=== PATIENT | male | born 1945 | race Caucasian/White ===

== ENCOUNTER 2024-05-21 08:00 | Inpatient (IN) | payer OTHER, SELFPAY ==
[2024-05-21] VITALS (14 sets, daily range): BP systolic 99–152; BP diastolic 60–90; PULSE 44–132; RESP 16–22; TEMP 36.5–37.2; O2SAT 95–99; BMI 21.9
--- NOTE | 2024-05-21 08:34 | PC.NURSE ---
PATIENT BROUGHT IN BY EMS FOR COMPLAINT OF NEAR SYNCOPE. PER PATIENT HE WAS IN BATHROOM AND FELL AFTER FEELING DIZZY. PATIENT DENIES LOC, COMPLAINT OF LOWER BACK PAIN. PATIENT PLACED ON MONITOR, 12 LEAD EKG AT BEDSIDE. CALL LIGHT WITHIN REACH.
--- NOTE | 2024-05-21 09:18 | PD.EDFALL ---
ED Fall Injury RME/HPI General Chief Complaint: Fall Stated Complaint: FALL Time Seen by Provider: 05/21/24 09:18 Arrival date/time: 05/21/24 08:00 RME / HPI RME / HPI Narrative: 78 year old male presents to the ED BIBA from home for evaluation of fall today. States this morning woke up sweaty. Went to use the restroom and while washing his hands suddenly felt dizzy and light headed, causing to fall back and down to the floor. Per granddaughter at bedside, patients other grandchild reported the patient was unresponsive, length unknown, before the patient began to respond. While in the ED patient denies any pain to his head, neck, chest, back, abdomen, hips, or extremities. Denies fevers, chills, cough, shortness of breath, n/v/d, or urinary symptoms. Granddaughter adds patient has had episodes of confusion for 2 days and has an appointment scheduled tomorrow with the [facility]. Also noted on while at the [facility] for routine labs, they were unable to draw because the patient was dehydrated . Related Data Home Medications ?Medication ?Instructions ?Recorded ?Confirmed aspirin 81 mg tablet,delayed 81 mg PO QDAY 05/21/24 05/21/24 release celecoxib 200 mg capsule 200 mg PO QDAY 05/21/24 05/21/24 cetirizine 10 mg tablet 10 mg PO QDAY 05/21/24 05/21/24 finasteride 5 mg tablet 5 mg PO QDAY 05/21/24 05/21/24 lisinopril 40 mg tablet 40 mg PO QDAY 05/21/24 05/21/24 metoprolol succinate 50 mg 50 mg PO QDAY 05/21/24 05/21/24 tablet,extended release 24 hr omeprazole 20 mg capsule,delayed 20 mg PO QDAY 05/21/24 05/21/24 release simvastatin 80 mg tablet 80 mg PO QDAY 05/21/24 05/21/24 Allergies Allergy/AdvReac Type Severity Reaction Status Date / Time No Known Allergies Allergy Verified 05/21/24 08:26 Review of Systems Review of Systems Narrative Review of Systems: GEN: No fever, no chills, no weight loss EYES: No discharge, no visual changes, no pain HEENT: No ear pain, no congestion, no sore throat PULM: No shortness of breath, no cough, no congestion CV: +episode of light headedness with syncopal episode?. No chest pain, no dyspnea on exertion, no palpitations GI: No nausea, no vomiting, no diarrhea, no pain, no constipation : No frequency, no urgency and no dysuria MUSC/SKEL No joint pain, no back pain SKIN: No rash NEURO: No weakness, no headache Past Medical History Past Medical History CARDIAC: Positive Cardiac Disorders, Hypercholesterolemia and Hypertension; Negative Congestive Heart Failure RESPIRATORY: Negative Chronic Obstructive Pulmonary Disease (COPD) GASTROINTESTINAL: Positive Gastroesophageal Reflux Disease GENITOURINARY: Negative Renal Disease ENDOCRINE: Negative Diabetes Mellitus Type 1 or Diabetes Mellitus Type 2 OTHER HISTORY: Negative Autoimmune Disease Family History FAMILY HISTORY: Negative Family Psychiatric Problems, Family Respiratory Disorders, Family Cardiac Disorders, Family Gastrointestinal Problems, Family Genitourinary Problems, Family Endocrine Disorders, Family Reproductive Disorders, Family Musculoskeletal Disorders, Family Cancer, Family Surgery or Family Anesthesia Reaction Social History SMOKING STATUS: Never smoker ED Exam Narrative Physical exam: GENERAL APPEARANCE: Well hydrated, well nourished, in no acute distress. VITALS: All vitals were reviewed and the pulse ox is 96% on room air which is normal according to my interpretation. HEENT: Normocephalic, atramatic, EOMI, EACs are patent. There is no bulge or retraction. Throat without erythema or exudate. Moist oromucosa. No jaundice NECK: Supple, no JVD or bruits. CARDIOVASCULAR: Fast and irregular heart beat, without S3-S4 or murmur. No rubs or gallops. LUNGS/CHEST: Clear to auscultation bilaterally. No rales, rhonchi, or wheezing. Normal inspection. ABDOMEN: Soft, nontender, with normal bowel sounds. No pulsatile masses. No rebound, rigidity, or guarding. No incarcerated hernia. Normal inspection and palpation. EXTREMITIES: Normal inspection and palpation. No edema, clubbing, or cyanosis. Intact CSM SKIN: Warm and dry without rashes. Normal inspection. MUSCULOSKELETAL: Normal inspection. No gross deformity, full ROM all extremities NEURO: Alert and oriented x3. Cranial nerves II through XII grossly intact. There are no other motor or sensory deficits noted. PSYCHIATRIC: Normal mood and affect. No psychosis Course Quality Measures none Orders Category Date Time Status Horticulture Teacher Q4H START 00 Care 12/22/24 09:34 Completed EKG (ED ONLY) *Do not use* NOW Care 05/21/24 09:18 Completed Saline [Insert IV] NOW Care 05/21/24 09:34 Completed Consult to Cardiology Stat Cons 05/21/24 11:[address] head/brain wo con Stat Exams 05/21/24 09:34 Completed EKG (ED Only) Stat Exams 05/21/24 09:17 Ordered CBC Stat Lab 05/21/24 10:10 Completed CMP [Comprehensive Metabolic Panel] Stat Lab 05/21/24 10:10 Completed Drug Screen,Urine Stat Lab 05/21/24 09:36 Ordered Free T4 (Free Thyroxine) Stat Lab 05/21/24 10:10 Completed Magnesium Stat Lab 05/21/24 10:10 Completed Troponin I Stat Lab 05/21/24 10:10 Completed Amiodarone 150 mg Ivpb [Nexterone Ivpb] Med 05/21/24 09:34 Discontinued 150 mg in 100 ml IV 600 mls/hr Amiodarone 360 mg Ivpb [Nexterone Ivpb] Med 05/21/24 15:33 Active 360 mg in 200 ml IV 16.667 mls/hr Amiodarone 360 mg Ivpb [Nexterone Ivpb] Med 05/21/24 09:34 Active 360 mg in 200 ml IV 33.333 mls/hr Vital Signs Vital signs: Vital Signs Temperature 97.7 F 05/21/24 08:02 Pulse Rate 44 L 05/21/24 08:02 Respiratory Rate 16 05/21/24 08:02 Blood Pressure 140/60 H 05/21/24 08:02 Pulse Oximetry (%) 96 05/21/24 08:02 Oxygen Delivery Method Nasal Cannula 05/21/24 08:02 Oxygen Flow Rate 2 05/21/24 08:02 Fall MDM Narrative MDM Narrative:: Petty Cintron am scribing for and in the presence of Dr. Ulloa. Patient presented to the emergency department, accompanied by his granddaughter. Twelve-lead EKG that was done at 8:32 AM and interpreted by me: Atrial fibrillation which I think is new because there is no old EKG to compare with intervention does not have any history of A-fib before. Normal axis. No ST elevation or depression. No PVC. No STEMI. May be an incomplete right bundle branch block CT brain was reviewed and interpreted by me: No bleed. No mass. No shift. No swelling. Normal ventricle. Normal skull. In the emergency department the patient was started on amiodarone according to protocol. And is doing very well. Heart rate is fluctuating between 90 and 110. But the patient did not have any chest pain. WBC count 3.5. Sodium of 131. BUN of 28 creatinine 1.4 may be secondary to dehydration. Magnesium negative. Thyroxine level is negative. Troponin is however elevated at 1.44. 11:25 AM, I spoke to discussed with Dr. Antony, resident of Dr. Tang, hospitalist on-call. She agreed to admit for further evaluation and treatment. Thank you 11:30 AM, I spoke to discussed with Dr. Kwon, medical staff assistant on-call. He agreed to consult Critical care time is approximately 35 minutes excluding any procedure. The high probability of sudden, clinically significant deterioration in the patient?s condition required the highest level of my preparedness to intervene urgently. The services I provided to this patient were to treat and/or prevent clinically significant deterioration. Services included the following: chart data review, reviewing nursing notes and/or old charts, documentation time, leasing sales consultant collaboration regarding findings and treatment options, medication orders and management, direct patient care, vital sign assessments and ordering, interpreting and reviewing diagnostic studies and lab tests. Aggregate critical care time includes only time during which I was engaged in work directly related to the patient?s care, as described above, whether at bedside or elsewhere in the Emergency Department. It did not include time spent performing other reported procedures or the services of residents, students, nurses or physician assistants. Patient data External records reviewed:: EMS form Clinical information provided by:: patient and EMS Social determinants that could affect healthcare access:: none Patient has the following chronic illnesses:: HTN How is presenting disease/condition affected by chronic disease/condition?: uneffected by Evaluation data The following diagnostics were reviewed and interpreted by me:: lab results, radiology exam(s) and EKG tracing(s) Lab and/or radiology exams considered but not ordered:: None Interpretation Summary: Ordering Physician: Antoine Ulloa MD Date of Service: 05/21/24 Procedure(s): CT head/brain wo con Accession Number(s): [id number] cc: Kale Corea MD; Antoine Ulloa MD~ Examination: CT brain head without contrast. 2-D sagittal coronal reconstructions Date and time of exam:May 21, 2024 0951 hrs. Indications: Patient fell today with injury to the head, head pain CTDI: vol (mGy):47.4 DLP: (mGycm):1009 Technique: Multiple CT axial sections of the brain have been obtained, 5 mm slice thickness. Contrast has not been administered. 2-D sagittal, coronal reconstructions have been obtained Low dose protocols were performed. One or more of the following dose reduction techniques were used; automated exposure control, adjustment of the mA and/or KV according to patient size, use of iterative reconstruction technique. Findings: No significant ventricular enlargement. Intra-axial or extra-axial hemorrhage density is not seen. No mass effect or midline shift Basal cisterns are not remarkable. Fourth ventricle is midline. Cranial vault intact. Bilateral acute maxillary sinusitis Impression: Negative for acute hemorrhage, mass effect or midline shift Dictated By: Kale Corea MD Signed By: <Electronically signed by Kale Corea MD in OV> 05/21/24 0959 Medications / Prescriptions Medications or Prescriptions considered but not ordered:: None Medication administrations:: Medication Administration History Amiodarone HCl/Dextrose (Nexterone Ivpb) 360 mg in 200 mls @ 33.333 mls/hr IV .Q6H ONE Stop: 05/21/24 15:33 Last Admin: 05/21/24 10:33 Dose: 33.333 mls/hr Documented By: TESS Amiodarone HCl/Dextrose (Nexterone Ivpb) 360 mg in 200 mls @ 16.667 mls/hr IV .Q12H LAURA Stop: 05/22/24 15:32 Discontinued Medications Amiodarone HCl/Dextrose (Nexterone Ivpb) 150 mg in 100 mls @ 600 mls/hr IV .Q10M ONE Stop: 05/21/24 09:43 Last Infusion: 05/21/24 10:37 Dose: Infused Documented By: Admin: 05/21/24 10:14 Dose: 600 mls/hr Documented By: TESS See above Consultations Consultation(s) initiated? (list below): Yes Consultation #1 (Physician, Specialty, Details): I spoke with resident Dr. Antony working with Dr. Tang. Discussed patients PMHx, HPI, ED course, exam findings, labs, and radiology results. The hospitalist agree to accept the patient for admission. Time: 11:25 Consultation #2 (Physician, Specialty, Details): I spoke with medical staff assistant Dr. Malik Galvez. Discussed patients PMHx, HPI, ED course, exam findings, labs, and radiology results. He agrees to consult. Time: 11:31 Diagnosis Fall Differential Diagnosis: syncope and other (Viral illness, UTI, pneumonia ) Most likely diagnosis given after review of the tests above:: Syncope new onset atrial fibrillation elevated troponin Admission Indicated Admission indicated?: indicated Admission Request Was there a request for admission?: Yes Admission Attestation Admission request attestation: Discussed case with [] from Hospitalist service regarding admission. Discussed patients ED course, exam findings, labs, and radiology results. The Hospitalist [agrees,declines] to accept the patient for admission. Disposition Plan Disposition Plan: Admit Discharge Plan Plan Patient Disposition: Admit Acute Care w/in Hospital Disposition Comment: Stable for admit Prescriptions/Referrals Prescriptions/Med Rec: No Action celecoxib 200 mg Capsule 200 mg PO QDAY cetirizine 10 mg Tablet 10 mg PO QDAY metoprolol succinate 50 mg Tablet Extended Release 24 Hr 50 mg PO QDAY finasteride 5 mg Tablet 5 mg PO QDAY simvastatin 80 mg Tablet 80 mg PO QDAY aspirin [Aspir-81] 81 mg Tablet,Delayed Release (Dr/Ec) 81 mg PO QDAY omeprazole 20 mg Capsule,Delayed Release(Dr/Ec) 20 mg PO QDAY lisinopril 40 mg Tablet 40 mg PO QDAY Referrals: No Primary/Family,Physician [Primary Care Provider] - In 1 week Problem List Clinical Impression: Atrial fibrillation, new onset, Syncope, Elevated troponin Patient/Caregiver Discharge Instructions Print Language: Lithuanian Stand Alone Forms: Becky Award Info., Patient Portal Info Letter
--- NOTE | 2024-05-21 09:34 | XR_ITS ---
Examination: CT brain head without contrast. 2-D sagittal coronal reconstructions Date and time of exam:May 21, 2024 0951 hrs. Indications: Patient fell today with injury to the head, head pain CTDI: vol (mGy):47.4 DLP: (mGycm):1009 Technique: Multiple CT axial sections of the brain have been obtained, 5 mm slice thickness. Contrast has not been administered. 2-D sagittal, coronal reconstructions have been obtained Low dose protocols were performed. One or more of the following dose reduction techniques were used; automated exposure control, adjustment of the mA and/or KV according to patient size, use of iterative reconstruction technique. Findings: No significant ventricular enlargement. Intra-axial or extra-axial hemorrhage density is not seen. No mass effect or midline shift Basal cisterns are not remarkable. Fourth ventricle is midline. Cranial vault intact. Bilateral acute maxillary sinusitis Impression: Negative for acute hemorrhage, mass effect or midline shift
[2024-05-21] MEDS: AMIODARONE 150 MG IVPB 150 MG/100 ML BAG 600 MG IV (10:14)
[2024-05-21] MEDS: AMIODARONE 360 MG IVPB 360 MG/200 ML BAG 33.333 MG IV (10:33)
[2024-05-21 10:46] LABS: Basophils % (Auto) 0 % (0-2.5); Eosinophils % (Auto) 0 % (0-10); Hematocrit 39.9 % (41.0-53.0); Hemoglobin 14.2 g/dL (13.5-16.0); Immature Granulocytes % (Auto) 0 % (0-0); Immature Granulocytes Auto 0.01 Thou/mm3 (0.00-0.00); Lymphocytes # (Auto) 0.5 Thou/mm3 (1.0-4.8); Lymphocytes % (Auto) 15 % (10-50); Mean Corpuscular HGB Conc 35.6 g/dl (31.0-37.0); Mean Corpuscular Hemoglobin 32.6 pg (25.0-35.0); Mean Corpuscular Volume 92 fL (80-100); Monocytes # (Auto) 0.6 Thou/mm3 (0.0-0.8); Monocytes % (Auto) 17 % (0-12); Neutrophils # (Auto) 2.4 Thou/mm3 (1.8-7.7); Neutrophils % (Auto) 68 % (37-80); Nucleated Red Blood Cell % 0 /100 WBC (0); Platelet Count 201 Thou/mm3 (140-440); RDW Standard Deviation 42.5 fL (35.1-43.9); Red Blood Count 4.35 Miln/mm3 (4.50-5.90); White Blood Count 3.5 Thou/mm3 (3.8-10.6)
[2024-05-21 10:50] LABS: Alanine Aminotransferase 27 U/L (10-49); Albumin, Serum 4.4 gm/dL (3.4-4.8); Albumin/Globulin Ratio 1.8 (1.2-2.2); Alkaline Phosphatase 46 U/L (46-116); Anion Gap 11 (7-16); Aspartate Amino Transferase 59 U/L (0-34); BUN/Creatinine Ratio 20 Ratio (12-20); Bilirubin,Total 0.6 mg/dL (0.3-1.2); Blood Urea Nitrogen 28 mg/dL (9-23); Calcium 9.4 mg/dL (8.3-10.6); Calcium (Corrected) 9.4 mg/dL (8.5-10.1); Carbon Dioxide 23.7 mMol/L (20.0-31.0); Chloride 96 mMol/L (98-107); Creatinine (Component) 1.4 mg/dL (0.6-1.3); Estimated Creatinine Clearance 40.3 mL/min (>60); Free T4 (Free Thyroxine) 1.37 ng/dL (0.89-1.76); Globulin 2.5 gm/dL (2.3-3.5); Glucose 123 mg/dL (74-106); Osmolality,Calculated 269 (275-295); Potassium 3.5 mMol/L (3.4-5.1); Sodium 131 mMol/L (136-145); Total Protein 6.9 gm/dL (5.7-8.2); eGFR 52 See Note
[2024-05-21 10:52] LABS: Troponin I 1.441 ng/mL (0.0-0.045)
[2024-05-21] MEDS: ASPIRIN EC 81 MG TABEC PO (11:54)
--- NOTE | 2024-05-21 11:57 | XR_ITS ---
Examination: AP chest single view Technique: AP portable semiupright chest single view Exam date and time: May 21, 2024 1209 hrs. Indications: Chest pain shortness of breath today. Findings: Early CHF Mild enlargement cardiac contour Prominent vascular congestion including central vascular engorgement Early perihilar basilar edema Prominent osteopenia Impression: Early CHF
--- NOTE | 2024-05-21 12:00 | ECHO_ITS ---
Transthoracic Echo Report Ht (in): 67 Wt (lb): 140 Exam Location: Echo Lab Status: Emergency Superintendent Pressure: Caroline Egan Indications: Procedure Performed: BP: 131 / 82 HR: Technical Quality: Technically difficult study MEASUREMENTS (Male / Female) Normal Values 2D ECHO LV Diastolic Diameter PLAX 4.3 cm 4.2 - 5.9 / 3.9 - 5.3 cm LV Systolic Diameter PLAX 3.2 cm IVS Diastolic Thickness 1.0 cm 0.6 - 1.0 / 0.6 - 0.9 cm LVPW Diastolic Thickness 1.2 cm 0.6 - 1.0 / 0.6 - 0.9 cm LV Relative Wall Thickness 0.5 LVOT Diameter 1.7 cm LV Ejection Fraction MOD BP 35.4 % >= 55 % LV Ejection Fraction MOD 4C 30.6 % LV Ejection Fraction 4C AL 30.6 % LV Ejection Fraction MOD 2C 43.6 % LV Ejection Fraction 2C AL 44.1 % LA Volume Index 29.1 cm?/m? 16 - 28 cm?/m? DOPPLER AV Peak Velocity 110.0 cm/s AV Peak Gradient 4.8 mmHg AV Mean Gradient 3.0 mmHg AV Velocity Time Integral 19.7 cm AI Peak Velocity 347.0 cm/s AI Peak Gradient 48.2 mmHg AI Pressure Half Time 396.5 ms LVOT Peak Velocity 79.1 cm/s LVOT Peak Gradient 2.5 mmHg LVOT Velocity Time Integral 12.1 cm AV Area Cont Eq vti 1.4 cm? AV Area Cont Eq pk 1.6 cm? MV Area PHT 5.6 cm? MR Peak Velocity 540.0 cm/s MR Peak Gradient 116.6 mmHg Mitral E Point Velocity 84.4 cm/s Mitral A Point Velocity 46.6 cm/s Mitral E to A Ratio 1.8 LV E' Lateral Velocity 10.0 cm/s Mitral E to LV E' Lateral Ratio 8.4 LV E' Septal Velocity 8.2 cm/s Mitral E to LV E' Septal Ratio 10.3 TR Peak Velocity 323.0 cm/s TR Peak Gradient 41.7 mmHg PV Peak Velocity 103.0 cm/s PV Peak Gradient 4.2 mmHg FINDINGS Left Ventricle Normal left ventricular size. Mild LVH. The ejection fraction is visually estimated at 50 %. Hypokin etic mid- anterolateral wall motion. Right Ventricle The right ventricle is normal in size and systolic function. The estimated right ventricular systoli c pressure, 47 mmHg. RAP 5. Left Atrium The left atrium is normal by two-dimensional, color flow and Doppler imaging with no structural abnormalities, no thrombus formation present. Right Atrium The right atrium is normal by two-dimensional imaging, color flow and Doppler imaging with no struct ural abnormalities, no thrombus formation present. Atrial Septum The interatrial septum appears normal with no evidence of a shunt. Aorta The aorta is normal by two-dimensional, color flow and Doppler interrogation. Mitral Valve The mitral valve is normal by two-dimensional, color flow and Doppler interrogation. There is modera te mitral valve regurgitation, stenosis or prolapse. Aortic Valve Moderate aortic valve regurgitation. Tricuspid Valve The tricuspid valve is normal by two-dimensional, color flow and Doppler interrogation. There is mil d tricuspid valve regurgitation. Pulmonic Valve The pulmonic valve is not well visualized. There is no significant pulmonic valve regurgitation. Vessels The pulmonary artery appears normal. The inferior vena cava pulmonary and hepatic veins appear arian l. Pericardium The pericardium is normal by two-dimensional imaging. There is no significant pericardial effusion. CONCLUSIONS Indication: New Afib RVR Normal LV size. Mild LVH. Estimated EF 50 %. RV is normal in size and systolic function. The estimated right ventricular systolic pressure, 47 mm Hg. RAP 5. Mild aortic regurgitation Mild MR and TR. Jodie Rodriguez (Electronically Signed) Final Date: 23 May 2024 12:57
--- NOTE | 2024-05-21 12:04 | PD.RESHP ---
Documentation for date of: 05/21/24 [facility] History of Present Illness History of present illness: This is a 78-year-old male with PMHx of HTN, HLD, GERD, environmental allergies, presenting to ED allowing a syncopal episode this morning. Per patient, he has been feeling unwell for the last couple days with worsening fatigue, decreased appetite and generalized weakness. He woke up feeling sweaty and increasingly fatigued. He was able to ambulate independently to the bathroom, however felt dizzy and passed out after using the restroom. He remembers the event vaguely, remembers falling, denies head trauma, denies receding symptoms, however he was found passed out on the floor by his grandson. Unclear how long patient was out for. Patient also endorsing persistent dry cough over the last couple weeks. Admits to a 5 lb weight loss over the last 2 weeks, believes related to poor appetite as a result of feeling sick. Denies fevers, chills, headache, visual changes, hearing changes, speech abnormalities, chest pain or pressure, palpitations, shortness of breath, productive cough, GI symptoms including abdominal pain or N/V/D/C, extremity weakness, or urinary symptoms. ED COURSE: Afebrile, BP 140/60, HR 44 then 132, RR 16, satting 96% on 2 L NC WBC 3.5, Hgb 14.2 Odium 131, CR 1.4, BUN 28, GFR 52, GLUCOSE 123, AST 159 Troponin 1.441, EKG A-fib with RVR as well as NSTEMI CT negative for acute pathology Patient started on AMIODARONE drip, HR improved. Hospitalist team was consulted. We will admit patient to telemetry. We started HEPARIN drip ACS protocol. Cardiology consulted. Pending repeat EKG, troponin trend, BNP and echocardiogram. PMHx: HTN, HLD, GERD, environmental allergy PSHx: None MEDS: METOPROLOL, LISINOPRIL, SIMVASTATIN, OMEPRAZOLE, FINASTERIDE, CETIRIZINE, CELECOXIB, ASPIRIN ALLERGIES: No known allergies SH: Distant history of smoking, quit 20 years ago. Denies current alcohol or drug use Exam Vital Signs Temp Pulse Resp BP Pulse Ox O2 Del Method O2 Flow Rate 97.8 F 96 20 101/84 96 Room Air 2 05/21/24 10:15 05/21/24 11:45 05/21/24 11:45 05/21/24 11:45 05/21/24 11:45 05/21/24 11:45 05/21/24 08:02 Narrative Exam GENERAL: Ill-appearing elderly man, slightly cachectic, NAD HEENT: NCAT.?REINIER. Oral mucosa is moist. Patent Nares NECK: Supple, nontender, no thyromegaly, no meningismus, no JVD, no step offs CHEST: Symmetrical, atraumatic, and with equal expansion, Nontender on palpation no deformity and no crepitus. CARDIOVASCULAR: Slightly difficult exam, distant heart sounds, regular irregular rhythm, did not appreciate murmurs, rubs or gallops. LUNGS: CTAB, no w/r/r. Symmetrical chest rise. No intercostal subcostal retraction. ABDOMEN: Soft, flat, nontender. No guarding/rebound tenderness/masses. +BS EXTREMITIES: Nontender.? No edema/cyanosis.?Moves all 4 extremities well, with full ROM and good CSM. SKIN: Warm and dry, no jaundice/rashes. MSK: No lumbar or midline, no CVA, no paraspinal muscle spasm or tenderness. NEURO: LACY x4, CN II-XII grossly intact.?No focal neurologic deficits. PSYCHIATRIC: Normal mood and affect, cooperative, no SI or HI or hallucinations. Results: Labs 05/21/24 10:10 05/21/24 10:10 Labs: Short CBC 05/21/24 Range/Units 10:10 WBC 3.5 L (3.8-10.6) Thou/mm3 Hgb 14.2 (13.5-16.0) g/dL Hct 39.9 L (41.0-53.0) % Plt Count 201 (140-440) Thou/mm3 BMP 05/21/24 10:10 Sodium 131 L Potassium 3.5 Chloride 96 L Carbon Dioxide 23.7 BUN 28 H Creatinine 1.4 H Glucose 123 H Calcium 9.4 Cardiac Enzymes 05/21/24 Range/Units 10:10 Troponin I 1.441 H* (0.0-0.045) ng/mL Liver Function 05/21/24 Range/Units 10:10 Total Bilirubin 0.6 (0.3-1.2) mg/dL AST 59 H (0-34) U/L ALT 27 (10-49) U/L Alkaline Phosphatase 46 (46-116) U/L Albumin 4.4 (3.4-4.8) gm/dL Quality Measures Quality Measures none Advance care planning discussed with:: patient Medications Home Medications and Allergies Home Medications ?Medication ?Instructions ?Recorded ?Confirmed ?Type aspirin 81 mg tablet,delayed 81 mg PO QDAY 05/21/24 05/21/24 History release celecoxib 200 mg capsule 200 mg PO QDAY 05/21/24 05/21/24 History cetirizine 10 mg tablet 10 mg PO QDAY 05/21/24 05/21/24 History finasteride 5 mg tablet 5 mg PO QDAY 05/21/24 05/21/24 History lisinopril 40 mg tablet 40 mg PO QDAY 05/21/24 05/21/24 History metoprolol succinate 50 mg 50 mg PO QDAY 05/21/24 05/21/24 History tablet,extended release 24 hr omeprazole 20 mg capsule,delayed 20 mg PO QDAY 05/21/24 05/21/24 History release simvastatin 80 mg tablet 80 mg PO QDAY 05/21/24 05/21/24 History Allergies Allergy/AdvReac Type Severity Reaction Status Date / Time No Known Allergies Allergy Verified 05/21/24 08:26 Visit Medications Amiodarone HCl/Dextrose (Nexterone Ivpb) 360 mg in 200 mls @ 33.333 mls/hr IV .Q6H ONE Stop: 05/21/24 15:33 Last Admin: 05/21/24 10:33 Dose: 33.333 mls/hr Amiodarone HCl/Dextrose (Nexterone Ivpb) 360 mg in 200 mls @ 16.667 mls/hr IV .Q12H LAURA Stop: 05/22/24 15:32 Discontinued Medications Aspirin (Aspirin Ec 81 Mg Tabec) 81 mg PO X1 ONE Stop: 05/21/24 11:35 Last Admin: 05/21/24 11:54 Dose: 81 mg Amiodarone HCl/Dextrose (Nexterone Ivpb) 150 mg in 100 mls @ 600 mls/hr IV .Q10M ONE Stop: 05/21/24 09:43 Last Infusion: 05/21/24 10:37 Dose: Infused Assessment & Plan Plan In summary: 78-year-old male with PMH of HTN, HLD, GERD and allergy, presenting following a syncopal episode. Admitted for likely new onset A-fib with RVR, as well as NSTEMI as seen on EKG. Continued AMIODARONE drip, started HEPARIN drip, resumed home METOPROLOL, SIMVASTATIN and LISINOPRIL. Repeat EKG pending, echo pending, trending troponins. Pending cardiology recommendations. Appreciate recommendations from cardiology. Acute syncope likely 2/2 Atrial fibrillation, possible new onset (currently rate controlled) NSTEMI on EKG, likely demand ischemia 2/2 A-fib HTN, HLD Presenting with a syncopal episode this morning, 2-week history of increased fatigue and feeling generally unwell. Admission EKG showed A-fib with RVR, previous diagnosis of A-fib. EKG also showed NSTEMI. Denies chest pain, palpitation or shortness of breath. Patient started on medications as below. Cardiology recommendations pending. Currently rate controlled, HR 96, BP 100/84. [id number] 3 point, anticoag's recommended. BRENTON risk score of 4: 20% risk at 14 days of new or recurrent MS HAS-BLED score pending. ? Continue AMIODARONE drip to complete 3/3 bags ? Continue HEPARIN drip ACS protocol ? Continue METOPROLOL 50 mg ? Holding LISINOPRIL 40 mg daily, per cardiology recommendation ? Continue SIMVASTATIN 80 mg daily ? Continue ASPIRIN 81 mg daily ? Pending repeat EKG ? Pending echocardiogram ? Pending TSH, A1c, and lipid panel GERD History of GERD, resumed home meds ? Continue OMEPRAZOLE 20 mg daily Environmental allergy History of environmental allergy, on home CETIRIZINE 10 mg daily. ? Started LORATADINE 10 mg daily Health maintenance Diet: Cardiac GI prophylaxis: OMEPRAZOLE DVT prophylaxis: HEPARIN Antibiotics: Not indicated CODE STATUS: Full code Disposition: Pending cardiology recommendations Patient case was discussed with attending, Dr. Juan Tang MD and senior resident Dr. Antony. Opal Washington DO PGYI Attending Provider Attestation/Addendum I reviewed labs, imaging, EKG, home medications and prior available records. Face to face evaluation was performed by me. I have personally examined the patient and discussed assessment and plan with the IM team. I reviewed the resident note and agree with the plan with exceptions as below. Ground-level fall Syncope, likely cardiogenic Atrial fibrillation with RVR Non-STEMI Hypertension Hyperlipidemia SOFIYA versus CKD His syncope is likely cardiogenic. Can be triggered by A-fib with RVR versus non-STEMI. Started aspirin and atorvastatin Started heparin drip Ordered echocardiogram Consulted cardiology Resume home BP medications Monitor kidney function. Avoid nephrotoxins. Renally dosed medications PT evaluation
[2024-05-21 12:47] LABS: Glucose Estimated Average 105 mg/dL (80-131); Hemoglobin A1C 5.3 % Hgb (4.8-6.0)
[2024-05-21] MEDS: FINASTERIDE 5 MG TABLET PO (13:00)
[2024-05-21] MEDS: PANTOPRAZOLE 20 MG TABLET PO (13:00)
[2024-05-21 14:49] LABS: Troponin I 1.361 ng/mL (0.0-0.045)
--- NOTE | 2024-05-21 16:01 | PD.ADDPROG ---
Addendum Progress Note Addendum Date of report being addended: 05/22/24 Narrative: I reviewed labs, imaging, EKG, home medications and prior available records. Face to face evaluation was performed by me. I have personally examined the patient and discussed assessment and plan with the IM team. I reviewed the resident note and agree with the plan with exceptions as below. Ground-level fall Syncope, likely cardiogenic Atrial fibrillation with RVR Non-STEMI Hypertension Hyperlipidemia SOFIYA versus CKD Hyponatremia His syncope is likely cardiogenic. Can be triggered by A-fib with RVR Started aspirin and atorvastatin Started heparin drip for 48 hours then transition to p.o. Eliquis Ordered echocardiogram Consulted cardiology: His non-STEMI is likely type II in the setting of A-fib with RVR. Troponin peaked. Finish IV amiodarone and transition to p.o. amiodarone plus metoprolol Resume home BP medications Monitor kidney function. Avoid nephrotoxins. Renally dosed medications Ordered BNP that was elevated. Monitor sodium level. No IV hydration. PT evaluation
[2024-05-21] MEDS: AMIODARONE 360 MG IVPB 360 MG/200 ML BAG 16.667 MG IV (16:19)
[2024-05-21 16:53] LABS: Partial Thromboplastin Time 38.5 Seconds (22.0-36.0)
[2024-05-21 17:19] LABS: Amphetamine/Methamp Scrn,U Negative (Negative); Barbiturate Screen,Urine Negative (Negative); Benzodiazepines Screen,Urine Negative (Negative); Benzoylecgonine Screen, Ur Negative (Negative); Fentanyl Screen,Urine Negative (Negative); Opiate Screen,Urine Negative (Negative); THC Screen,Urine Negative (Negative)
[2024-05-21] MEDS: HEPARIN SOD INJ 5000 UNIT/ML VIAL 1900 UNIT IV (17:33)
[2024-05-21] MEDS: Heparin/D5w 25K 250 ML Ivpb 25,000 UNIT/250 ML BAG 7.62 UNIT IV (17:34)
[2024-05-21] MEDS: ATORVASTATIN CALCIUM 20 MG TABLET 80 MG PO (21:54)
[2024-05-21 22:02] LABS: Troponin I 1.322 ng/mL (0.0-0.045)
[2024-05-22] VITALS (19 sets, daily range): BP systolic 90–182; BP diastolic 74–120; PULSE 72–113; RESP 17–96; TEMP 35.9–36.6; O2SAT 92–99; BMI 19.2
--- NOTE | 2024-05-22 00:32 | PC.NURSE ---
CLARIFIED WITH PROVIDER FOR HOLD ON AMIO DRIP, PROVIDER STATED TO KEEP MEDICATION ON HOLD.
--- NOTE | 2024-05-22 00:38 | ESCONSULT_ITS ---
RE: HEDY GOMEZ : 1945 DATE OF CONSULTATION: 05/21/2024 CONSULTING PHYSICIAN: Hospitalist. REASON FOR CONSULTATION: Evaluation of atrial fibrillation and elevated troponin. HISTORY OF PRESENT ILLNESS: The patient is a 78-year-old male , who normally goes to [facility] with history of hypertension, multiple allergies and hypercholesterolemia, doing well until recently. He has been having generalized weakness, fatigue, shortness of breath on exertion, not feeling well for the last few days. The patient felt dizzy and passed out in the restroom. The patient did not have any major trauma or did lose consciousness briefly. He came to the hospital with these symptoms and in the emergency room, he was found to be in atrial fibrillation with rapid rate. He was given amiodarone and infusion, now down to 110 heart rate. Initial troponin was already elevated at 1.44. EKG showed AFib with RVR, nonspecific ST changes. Cardiac enzymes at 1.44 troponin and rest of the labs are unremarkable. At any given time, patient started heparin drip and amiodarone. He does not complain of orthopnea or PND. No shortness of breath. ALLERGIES: NONE. MEDICATIONS: He is on: 1. Metoprolol 50 mg daily. 2. Lisinopril 40 mg daily. 3. Simvastatin 40 mg daily. 4. Omeprazole 20 mg daily. 5. Finasteride 5 mg daily. 6. Allergy medications. PAST MEDICAL HISTORY: Hypertension and hypercholesterolemia. SOCIAL HISTORY: The patient has history of smoking, quit 20 years ago. Does not drink alcohol. PHYSICAL EXAMINATION: GENERAL: Well-nourished, elderly male, alert, awake, in no acute distress, chronically ill, acutely ill . NECK: Suppled. No JVD. Carotid pulses felt with no bruits. CHEST: Clear. LUNGS: Decreased breath sounds. HEART: S1 and S2, irregularly irregular. No gallops. ABDOMEN: Thin and soft. EXTREMITIES: No edema. GENITOURINARY AND RECTAL: Not performed. FASHION STYLIST: Alert and oriented x3. No focal deficit. Electrocardiogram shows atrial fibrillation with rapid ventricular response, nonspecific ST changes. LABORATORY DATA: Showed evidence of hemoglobin normal and white count normal. Chemistry panel showed creatinine 1.4 and BUN 28. Troponin 1.4. Rest of labs are normal. IMPRESSION/ASSESSMENT: 1. Atrial fibrillation with rapid ventricular response, new onset, possibly recent atrial fibrillation, symptomatic only with syncope. 2. Syncopal episode secondary to atrial fibrillation with rapid ventricular response. 3. Elevated troponin levels with no chest pain, [id number] elevation myocardial infarction. 4. Hypertension. RECOMMENDATIONS: Continue medical management. Continue rate control for atrial fibrillation, amiodarone IV bolus followed by drip. Continue oral amiodarone 200 mg twice daily subsequently for rate control. Also, recommend continuing metoprolol 50 mg daily, possibly increase to 100 mg daily as long as the blood pressure is tolerated for better rate control. We will trend the serial enzymes to troponin levels. If there is no significant further increase in troponin levels, I would treat this as a type 2 troponin elevation, not due to myocardial infarction. Of note, the second troponin came down 1.36 and the third 1.32 suggesting that patient had type 2 troponin elevation. I do not think this is acute myocardial infarction, so we will treat as such. Recommend anticoagulation and heparin for now. Later on change it to Eliquis 5 mg twice daily. I would like to thank for referring this patient for cardiovascular evaluation. We will be glad to follow up with the patient with you. echoto LV function and left atrial dimensions and valvular heart disease. DT: 23:28:53 TT: 00:24:00 Ref: [id number] - TID: [id number] MTDD
[2024-05-22 06:15] LABS: Basophils % (Auto) 0 % (0-2.5); Eosinophils % (Auto) 0 % (0-10); Hematocrit 34.3 % (41.0-53.0); Hemoglobin 12.4 g/dL (13.5-16.0); Immature Granulocytes % (Auto) 1 % (0-0); Immature Granulocytes Auto 0.03 Thou/mm3 (0.00-0.00); Lymphocytes # (Auto) 1.1 Thou/mm3 (1.0-4.8); Lymphocytes % (Auto) 17 % (10-50); Mean Corpuscular HGB Conc 36.2 g/dl (31.0-37.0); Mean Corpuscular Hemoglobin 32.5 pg (25.0-35.0); Mean Corpuscular Volume 90 fL (80-100); Monocytes # (Auto) 0.7 Thou/mm3 (0.0-0.8); Monocytes % (Auto) 10 % (0-12); Neutrophils # (Auto) 4.8 Thou/mm3 (1.8-7.7); Neutrophils % (Auto) 72 % (37-80); Nucleated Red Blood Cell % 0 /100 WBC (0); Platelet Count 215 Thou/mm3 (140-440); RDW Standard Deviation 40.3 fL (35.1-43.9); Red Blood Count 3.82 Miln/mm3 (4.50-5.90); White Blood Count 6.6 Thou/mm3 (3.8-10.6)
[2024-05-22 06:34] LABS: Alanine Aminotransferase 25 U/L (10-49); Albumin, Serum 4.1 gm/dL (3.4-4.8); Albumin/Globulin Ratio 1.9 (1.2-2.2); Alkaline Phosphatase 46 U/L (46-116); Anion Gap 9 (7-16); Aspartate Amino Transferase 40 U/L (0-34); BUN/Creatinine Ratio 20 Ratio (12-20); Bilirubin,Total 0.7 mg/dL (0.3-1.2); Blood Urea Nitrogen 24 mg/dL (9-23); Calcium 8.9 mg/dL (8.3-10.6); Calcium (Corrected) 8.9 mg/dL (8.5-10.1); Carbon Dioxide 22.7 mMol/L (20.0-31.0); Cardiac Risk Estimate 6.8 RATIO (4.0-6.7); Chloride 95 mMol/L (98-107); Cholesterol 162 mg/dL (132-200); Creatinine (Component) 1.2 mg/dL (0.6-1.3); Estimated Creatinine Clearance 41.2 mL/min (>60); Globulin 2.2 gm/dL (2.3-3.5); Glucose 117 mg/dL (74-106); HDL Cholesterol 24 mg/dL (40-60); LDL Cholesterol,Calculated 106 mg/dL (0-130); Magnesium 1.8 mg/dL (1.6-2.6); Osmolality,Calculated 260 (275-295); Phosphorous 2.6 mg/dL (2.4-5.1); Potassium 2.9 mMol/L (3.4-5.1); Sodium 127 mMol/L (136-145); Thyroid Stimulating Hormone 2.48 uIU/mL (0.55-4.78); Total Protein 6.3 gm/dL (5.7-8.2); Triglycerides 158 mg/dL (30-150); eGFR > 60 See Note
[2024-05-22 09:19] LABS: Partial Thromboplastin Time 84.5 Seconds (22.0-36.0)
--- NOTE | 2024-05-22 09:31 | PC.NURSE ---
Clarified resuming amiodarone drip with resident Dr Alejandro. Unsure why drip was placed on hold last night. wants final bag resumed at recent rate of 16.667 mls/hr. Notified plum packer
[2024-05-22] MEDS: METOPROLOL SUCCINATE XL 25 MG TABCR 100 MG PO (09:53)
[2024-05-22] MEDS: Lisinopril 20 MG TABLET 40 MG PO (09:53)
[2024-05-22] MEDS: lorataDINE 10 MG TABLET PO (09:54)
[2024-05-22] MEDS: POTASSIUM CHLORIDE 20 mEq TABCR 40 MEQ PO ×2 (09:54→16:56)
[2024-05-22] MEDS: AMIODARONE 360 MG IVPB 360 MG/200 ML BAG 16.667 MG IV (09:54)
[2024-05-22] MEDS: PANTOPRAZOLE 20 MG TABLET PO (09:54)
[2024-05-22] MEDS: Magnesium Sulfate 2 GM Ivpb 2 GM/50 ML BAG IV (09:59)
[2024-05-22 10:01] LABS: B-Type Natriuretic Peptide 349 pg/mL (0-100)
[2024-05-22] MEDS: POTASSIUM CHL 10 mEq IVPB 10 MEQ/100 ML BAG 100 MEQ IV ×2 (10:07→11:20)
--- NOTE | 2024-05-22 10:10 | PC.SS ---
Patient is alert/oriented. He states he resides alone. Patient is independent with ADL's. He was admitted for syncope. Patient verbalized he follows at [facility]. All medications and transportation provided by [facility]. Medications are mailed to him. Patient follows at the [facility]. Patient states he also drives locally. His alt medical decision maker is his son, Tyler. Son lives local. Patient states his d/c plan is to return home. No further d/c needs. alt medical decision maker: SonTyler, #[phone] transportation: family/uber
[2024-05-22] MEDS: MEGESTROL ACET SUSP 400 MG/10 ML UDC PO (12:07)
--- NOTE | 2024-05-22 12:57 | ESPR_ITS ---
<Statement entered by Julio César Peterson DO - 05/22/24 16:44> Senior attestation: Patient was examined and case was reviewed with team including attending physician. Note reviewed, I agree with most of its contents and agree with the patient's care. Echo remains pending, manager psychiatry Dr. Galvez following. Will continue amiodarine drip with goal to transition to PO amiodarone. Increased metoprolol dose today to 100mg daily. Will continue IV heparin drip for 48 hour total, plan to start eliquis tomorrow. Julio César Peterson DO PGY-3 Documentation for date of: 05/22/24 Subjective Subjective Interval history: Patient was seen at bedside this morning. No overnight events. Resumed patient's amiodarone drip, which will be completed by the end of the day. Started patient on amiodarone 200 mg twice daily as of tomorrow. Increase patient's metoprolol XL to 100 mg daily. Repleted patient's magnesium and potassium. Patient's troponin down trended as per cardiology does not think patient is having an acute AR therefore we will continue with heparin drip for a total of 48 hours. If the patient finishes heparin drip will place on Eliquis 5 mg twice daily for anticoagulation. Echo still pending. Exam Vital Signs Temp Pulse Resp BP Pulse Ox O2 Del Method O2 Flow Rate 97.2 F 77 19 126/78 95 Room Air 2 05/22/24 12:00 05/22/24 12:00 05/22/24 12:00 05/22/24 12:05/22/24 12:00 05/22/24 12:00 05/21/24 08:02 Narrative Exam General: A/O x3, no acute distress, well-nourished, well-developed Eyes: PERRL, EOMI. Anicteric, vision grossly intact. Ears: No ear pain, no ear discharge, Hearing grossly intact. Nose: No nasal discharge. Mouth/Throat: Dry mucous membranes, no redness, no lesions. Neck: Neck supple, non-tender, no cervical lymphadenopathy. Lungs: Clear DIAN to auscultation and percussion, No accessory muscle use. Cardio: Normal S1/S2, irregular rhythm, no murmurs, no JVD. Abdomen: Soft, non-tender, no palpable masses, peristalsis present, no guarding or rebound. Extremities: Symmetrical, no significant deformities, no peripheral edema , non-tender, peripheral pulses presents. Skin: No rashes, no lesions, warm to touch. Neuro: No focal neurological deficits. motor and sensory intact Psych: Cooperative, appropriate mood and effect. Objective Labs 05/24/24 04:48 05/24/24 04:48 Labs: Laboratory Results - last 24 hr 05/21/24 05/21/24 05/21/24 13:55 16:13 16:15 WBC RBC Hgb Hct MCV MCH MCHC RDW Std Deviation Plt Count Neut % (Auto) Lymph % (Auto) Leslie % (Auto) Eos % (Auto) Baso % (Auto) Neut # (Auto) Lymph # (Auto) Leslie # (Auto) Eos # (Auto) Baso # (Auto) Immature Gran # (Auto) Absolute Nucleated RBC Immature Gran % Nucleated RBC % APTT 38.5 H Sodium Potassium Chloride Carbon Dioxide Anion Gap BUN Creatinine Estim Creat Clear Calc eGFR BUN/Creatinine Ratio Glucose Calculated Osmolality Calcium Corrected Calcium Phosphorus Magnesium Total Bilirubin AST ALT Alkaline Phosphatase Troponin I 1.361 H* B-Natriuretic Peptide Total Protein Albumin Globulin Albumin/Globulin Ratio Triglycerides Cholesterol LDL Cholesterol, Calc HDL Cholesterol Cholesterol/HDL Ratio TSH Urine Opiates Screen Negative Urine Fentanyl Screen Negative Ur Barbiturates Screen Negative U Amphetamin/Meth Scrn Negative U Benzodiazepines Scrn Negative U Cocaine Metab Screen Negative U Marijuana (THC) Screen Negative 05/21/24 05/22/24 05/22/24 20:31 00:44 05:30 WBC 6.6 D RBC 3.82 L Hgb 12.4 L Hct 34.3 L MCV 90 MCH 32.5 MCHC 36.2 RDW Std Deviation 40.3 Plt Count 215 Neut % (Auto) 72 Lymph % (Auto) 17 Leslie % (Auto) 10 Eos % (Auto) 0 Baso % (Auto) 0 Neut # (Auto) 4.8 Lymph # (Auto) 1.1 Leslie # (Auto) 0.7 Eos # (Auto) 0.0 Baso # (Auto) 0.0 Immature Gran # (Auto) 0.03 H Absolute Nucleated RBC 0.00 Immature Gran % 1 H Nucleated RBC % 0 APTT 64.0 H D Sodium 127 L Potassium 2.9 L D Chloride 95 L Carbon Dioxide 22.7 Anion Gap 9 BUN 24 H Creatinine 1.2 Estim Creat Clear Calc 41.2 L eGFR > 60 BUN/Creatinine Ratio 20 Glucose 117 H Calculated Osmolality 260 L Calcium 8.9 Corrected Calcium 8.9 Phosphorus 2.6 Magnesium 1.8 Total Bilirubin 0.7 AST 40 H ALT 25 Alkaline Phosphatase 46 Troponin I 1.322 H* B-Natriuretic Peptide 349 H Total Protein 6.3 Albumin 4.1 Globulin 2.2 L Albumin/Globulin Ratio 1.9 Triglycerides 158 H Cholesterol 162 LDL Cholesterol, Calc 106 HDL Cholesterol 24 L Cholesterol/HDL Ratio 6.8 H TSH 2.48 Urine Opiates Screen Urine Fentanyl Screen Ur Barbiturates Screen U Amphetamin/Meth Scrn U Benzodiazepines Scrn U Cocaine Metab Screen U Marijuana (THC) Screen 05/22/24 08:23 WBC RBC Hgb Hct MCV MCH MCHC RDW Std Deviation Plt Count Neut % (Auto) Lymph % (Auto) Leslie % (Auto) Eos % (Auto) Baso % (Auto) Neut # (Auto) Lymph # (Auto) Leslie # (Auto) Eos # (Auto) Baso # (Auto) Immature Gran # (Auto) Absolute Nucleated RBC Immature Gran % Nucleated RBC % APTT 84.5 H D Sodium Potassium Chloride Carbon Dioxide Anion Gap BUN Creatinine Estim Creat Clear Calc eGFR BUN/Creatinine Ratio Glucose Calculated Osmolality Calcium Corrected Calcium Phosphorus Magnesium Total Bilirubin AST ALT Alkaline Phosphatase Troponin I B-Natriuretic Peptide Total Protein Albumin Globulin Albumin/Globulin Ratio Triglycerides Cholesterol LDL Cholesterol, Calc HDL Cholesterol Cholesterol/HDL Ratio TSH Urine Opiates Screen Urine Fentanyl Screen Ur Barbiturates Screen U Amphetamin/Meth Scrn U Benzodiazepines Scrn U Cocaine Metab Screen U Marijuana (THC) Screen Quality Measures Quality Measures none Advance care planning discussed with:: patient Assessment & Plan Assessment Current Active Medications: Generic Name Dose Route Start Last Admin Trade Name Freq PRN Reason Stop Dose Admin Acetaminophen 650 mg 05/21/24 11:55 Acetaminophen 325 Mg Tablet PO 06/20/24 11:54 Q6H PRN Fever >100.4 Acetaminophen 650 mg 05/21/24 11:55 Acetaminophen 325 Mg Tablet PO 06/20/24 11:54 Q6H PRN PAIN SCALE 1-3 (mild Hydrocodone Bitart/Acetaminophen 1 tab 05/21/24 11:55 Hydrocodone/Apap 10/325 Tab PO 05/26/24 11:54 Q4HR PRN PAIN SCALE 7-10 (Severe Amiodarone HCl 200 mg 05/23/24 09:00 Amiodarone Hcl 200 Mg Tablet PO 06/22/24 08:59 BID LAURA Atorvastatin Calcium 80 mg 05/21/24 21:00 05/21/24 21:54 Atorvastatin Calcium 20 Mg Tablet PO 06/20/24 20:59 80 mg HS LAURA Administration Heparin Sodium/Dextrose 25,000 unit in 250 mls @ 7.62 mls/hr 05/21/24 16:00 05/22/24 10:17 Heparin In D5w Ivpb IV 05/23/24 16:00 10 units/kg/hr .Q24H LAURA 6.35 mls/hr Titration Protocol 12 UNITS/KG/HR Amiodarone HCl/Dextrose 360 mg in 200 mls @ 16.667 mls/hr 05/22/24 10:00 05/22/24 09:54 Nexterone Ivpb IV 05/22/24 21:59 16.667 mls/hr .Q12H ONE Administration Lisinopril 40 mg 05/22/24 09:00 05/22/24 09:53 Lisinopril 20 Mg Tablet PO 06/21/24 08:59 40 mg QDAY LAURA Administration Loratadine 10 mg 05/22/24 09:00 05/22/24 09:54 Loratadine 10 Mg Tablet PO 06/21/24 08:59 10 mg QDAY LAURA Administration Megestrol Acetate 400 mg 05/22/24 11:40 05/22/24 12:07 Megestrol Acet Susp 400 Mg/10 Ml Udc PO 06/21/24 11:39 400 mg QDAY LAURA Administration Metoprolol Succinate 100 mg 05/22/24 09:00 05/22/24 09:53 Metoprolol Succinate Xl 25 Mg Tabcr PO 06/21/24 08:59 100 mg QDAY LAURA Administration Ondansetron HCl 4 mg 05/21/24 11:55 Ondansetron Inj 2 Mg/Ml Inj 2 Ml IV 06/20/24 11:54 Q6H PRN NAUSEA OR VOMITING Protocol Oxycodone/Acetaminophen 1 tab 05/21/24 11:55 Oxycodone/Apap 5/325 Tablet PO 05/26/24 11:54 Q6H PRN PAIN SCALE 4-6 (Moderate Pantoprazole Sodium 20 mg 05/21/24 12:30 05/22/24 09:54 Pantoprazole 20 Mg Tablet PO 06/20/24 12:29 20 mg QDAY LAURA Administration Sennosides 1 tab 05/21/24 11:55 Senna Tablet PO 06/20/24 11:54 BID PRN CONSTIPATION Protocol Plan 78-year-old male with past medical history of hypertension, hyperlipidemia, GERD, and environmental allergies was admitted to the hospital on 05/21/2024 due to syncope, paroxysmal atrial fibrillation with RVR, and NSTEMI type II. #Syncope #Paroxysmal A-fib with RVR #NSTEMI type II likely demand ischemia ?Patient came in with syncopal episode after transitioning from sitting position to standing position. ?EKG initially showed A-fib with RVR with non specific ST changes ?Troponins peaked at 1.441 down trended ?[id number] 3 point, 3.2& risk of stroke per year ?HAS-BLED score of 3 points, high risk of major bleeding Plan: ? Continue amiodarone drip ? Start patient on amiodarone 200 mg twice daily once Amio drip finishes ? Increase patient's metoprolol XL to 100 mg daily ?Will continue heparin drip for total of 48 hours ? Will transition to Eliquis 5 mg twice daily once heparin drip finishes ?Echo pending ?Orthostatic vitals ? Cardiology consulted, appreciate recommendations #Hypertension ? Patient's blood pressure has been well-controlled during the admission. ? Current blood pressure was 126/78 Plan: ? Will continue lisinopril 40 mg daily along with metoprolol XL 100 mg daily ? Will continue to monitor #Hyperlipidemia ? Labs today showed triglycerides 158, cholesterol 162, LDL 106, HDL 24 Plan: ? Will continue patient on atorvastatin 80 mg at bedtime #GERD ?Patient is on pantoprazole 20 mg daily #Environmental allergies ? Patient on loratadine 10 mg daily Disposition: Patient seen in telemetry, A-fib rate controlled on amiodarone drip and metoprolol XL 100mg Qday, on heparin drip. Diet: Cardiac GI prophylaxis: pantoprazole DVT prophylaxis: Heparin drip Code: Full Case disclosed with Attending Dr. Tang and My senior Dr. Antony PGY2. Hill Pena PGY1 Mr Gan is a 78-year-old male with past medical history of hypertension, hyperlipidemia, GERD, and environmental allergies was admitted to the hospital on 05/21/2024 due to syncope, paroxysmal atrial fibrillation with RVR, and NSTEMI type II. Dr Galvez is consulted. As per reocmmendations, we will continue Amio gtt, will transition to oral medications prior to discharge. Pending further recommendations re: oral AC. Patient is currently on Heparin gtt per ACS protocol, Troponin down trending. Patient remains asymptomatic. Cardiology to decide if patient may need inpatient cardiac cath, will follow up recommendations. Patient examined and case discussed with the team including attending physician. Note reviewed, I agree with the care plan as documented. - Derek Antony MD, PGY 2 Attending Provider Attestation/Addendum I reviewed labs, imaging, EKG, home medications and prior available records. Face to face evaluation was performed by me. I have personally examined the patient and discussed assessment and plan with the IM team. I reviewed the resident note and agree with the plan with exceptions as below. Please see my separate addendum for the same date of service
--- NOTE | 2024-05-22 14:34 | ESPR_ITS ---
<Statement entered by Cristela Galvez MD - 05/24/24 19:11> I personally evaluated the patient and agree with the treatment plan recommended by PGY 2 Dr. Rainey all essential complaints are reviewed patient appears doing better today not having chest pain or shortness of breath. Documentation for date of: 05/22/24 Subjective Subjective Interval history: 78-year-old male , who normally goes to [facility] with history of hypertension, multiple allergies and hypercholesterolemia, doing well until recently. He has been having generalized weakness, fatigue, shortness of breath on exertion, not feeling well for the last few days. The patient felt dizzy and passed out in the restroom. The patient did not have any major trauma or did lose consciousness briefly. He came [facility] with these symptoms and in the emergency room, he was found to be in atrial fibrillation with rapid rate. He was given amiodarone and infusion, now down to 110 heart rate. Initial troponin was already elevated at 1.44. EKG showed AFib with RVR, nonspecific ST changes. Cardiac enzymes at 1.44 troponin and rest of the labs are unremarkable. At any given time, patient started heparin drip and amiodarone. He does not complain of orthopnea or PND. No shortness of breath. Cardiology was consulted for new onset Afib and elevated troponin. 05/22/24: No significant overnight events. Patient shows sinus rhythm in 80's on telemonitor. Troponin downtrended and BP has been stable. Patient's syncope episode most likely due to Afib. Continue Amiodarone 200 mg BID, continue Metoprolol XL 100 mg Qday. Transition to p.o. Eliquis prior to discharge. Follow up with PA java jsf developer after discharge. Exam Vital Signs Temp Pulse Resp BP Pulse Ox O2 Del Method O2 Flow Rate 97.2 F 77 19 126/78 95 Room Air 2 05/22/24 12:05/22/24 12:05/22/24 12:05/22/24 12:05/22/24 12:05/22/24 12:05/21/24 08:02 Narrative Exam Constitutional: well-developed, well-nourished, in no acute distress, lying in bed HEENT: NCAT, EOMI, reactive round pupils b/l, patent nares b/l, moist mucous membranes Lung: CTAB, no wheezing, no rhonchi Heart: Regular S1S2, no murmurs, gallops, or rubs Abdomen: Soft, non-distended, non-tender, bowel sounds present throughout Extremities: No cyanosis, clubbing, or edema, LE pulses present b/l Neurologic: No focal sensory or motor deficits noted, AOx3, appropriate affect Skin: Warm, dry, no lesions or rashes noted Objective Labs 05/22/24 05:30 05/22/24 14:19 Labs: Laboratory Results - last 24 hr 05/21/24 05/21/24 05/21/24 13:55 16:13 16:15 WBC RBC Hgb Hct MCV MCH MCHC RDW Std Deviation Plt Count Neut % (Auto) Lymph % (Auto) Morrison % (Auto) Eos % (Auto) Baso % (Auto) Neut # (Auto) Lymph # (Auto) Morrison # (Auto) Eos # (Auto) Baso # (Auto) Immature Gran # (Auto) Absolute Nucleated RBC Immature Gran % Nucleated RBC % APTT 38.5 H Sodium Potassium Chloride Carbon Dioxide Anion Gap BUN Creatinine Estim Creat Clear Calc eGFR BUN/Creatinine Ratio Glucose Calculated Osmolality Calcium Corrected Calcium Phosphorus Magnesium Total Bilirubin AST ALT Alkaline Phosphatase Troponin I 1.361 H* B-Natriuretic Peptide Total Protein Albumin Globulin Albumin/Globulin Ratio Triglycerides Cholesterol LDL Cholesterol, Calc HDL Cholesterol Cholesterol/HDL Ratio TSH Urine Opiates Screen Negative Urine Fentanyl Screen Negative Ur Barbiturates Screen Negative U Amphetamin/Meth Scrn Negative U Benzodiazepines Scrn Negative U Cocaine Metab Screen Negative U Marijuana (THC) Screen Negative 05/21/24 05/22/24 05/22/24 20:31 00:44 05:30 WBC 6.6 D RBC 3.82 L Hgb 12.4 L Hct 34.3 L MCV 90 MCH 32.5 MCHC 36.2 RDW Std Deviation 40.3 Plt Count 215 Neut % (Auto) 72 Lymph % (Auto) 17 Morrison % (Auto) 10 Eos % (Auto) 0 Baso % (Auto) 0 Neut # (Auto) 4.8 Lymph # (Auto) 1.1 Morrison # (Auto) 0.7 Eos # (Auto) 0.0 Baso # (Auto) 0.0 Immature Gran # (Auto) 0.03 H Absolute Nucleated RBC 0.00 Immature Gran % 1 H Nucleated RBC % 0 APTT 64.0 H D Sodium 127 L Potassium 2.9 L D Chloride 95 L Carbon Dioxide 22.7 Anion Gap 9 BUN 24 H Creatinine 1.2 Estim Creat Clear Calc 41.2 L eGFR > 60 BUN/Creatinine Ratio 20 Glucose 117 H Calculated Osmolality 260 L Calcium 8.9 Corrected Calcium 8.9 Phosphorus 2.6 Magnesium 1.8 Total Bilirubin 0.7 AST 40 H ALT 25 Alkaline Phosphatase 46 Troponin I 1.322 H* B-Natriuretic Peptide 349 H Total Protein 6.3 Albumin 4.1 Globulin 2.2 L Albumin/Globulin Ratio 1.9 Triglycerides 158 H Cholesterol 162 LDL Cholesterol, Calc 106 HDL Cholesterol 24 L Cholesterol/HDL Ratio 6.8 H TSH 2.48 Urine Opiates Screen Urine Fentanyl Screen Ur Barbiturates Screen U Amphetamin/Meth Scrn U Benzodiazepines Scrn U Cocaine Metab Screen U Marijuana (THC) Screen 05/22/24 08:23 WBC RBC Hgb Hct MCV MCH MCHC RDW Std Deviation Plt Count Neut % (Auto) Lymph % (Auto) Morrison % (Auto) Eos % (Auto) Baso % (Auto) Neut # (Auto) Lymph # (Auto) Morrison # (Auto) Eos # (Auto) Baso # (Auto) Immature Gran # (Auto) Absolute Nucleated RBC Immature Gran % Nucleated RBC % APTT 84.5 H D Sodium Potassium Chloride Carbon Dioxide Anion Gap BUN Creatinine Estim Creat Clear Calc eGFR BUN/Creatinine Ratio Glucose Calculated Osmolality Calcium Corrected Calcium Phosphorus Magnesium Total Bilirubin AST ALT Alkaline Phosphatase Troponin I B-Natriuretic Peptide Total Protein Albumin Globulin Albumin/Globulin Ratio Triglycerides Cholesterol LDL Cholesterol, Calc HDL Cholesterol Cholesterol/HDL Ratio TSH Urine Opiates Screen Urine Fentanyl Screen Ur Barbiturates Screen U Amphetamin/Meth Scrn U Benzodiazepines Scrn U Cocaine Metab Screen U Marijuana (THC) Screen Quality Measures Quality Measures none Advance care planning discussed with:: other Assessment & Plan Assessment Current Active Medications: Generic Name Dose Route Start Last Admin Trade Name Freq PRN Reason Stop Dose Admin Acetaminophen 650 mg 05/21/24 11:55 Acetaminophen 325 Mg Tablet PO 06/20/24 11:54 Q6H PRN Fever >100.4 Acetaminophen 650 mg 05/21/24 11:55 Acetaminophen 325 Mg Tablet PO 06/20/24 11:54 Q6H PRN PAIN SCALE 1-3 (mild Hydrocodone Bitart/Acetaminophen 1 tab 05/21/24 11:55 Hydrocodone/Apap 10/325 Tab PO 05/26/24 11:54 Q4HR PRN PAIN SCALE 7-10 (Severe Amiodarone HCl 200 mg 05/23/24 09:00 Amiodarone Hcl 200 Mg Tablet PO 06/22/24 08:59 BID LAURA Atorvastatin Calcium 80 mg 05/21/24 21:00 05/21/24 21:54 Atorvastatin Calcium 20 Mg Tablet PO 06/20/24 20:59 80 mg HS LAURA Administration Heparin Sodium/Dextrose 25,000 unit in 250 mls @ 7.62 mls/hr 05/21/24 16:00 05/22/24 10:17 Heparin In D5w Ivpb IV 05/23/24 16:00 10 units/kg/hr .Q24H LAURA 6.35 mls/hr Titration Protocol 12 UNITS/KG/HR Amiodarone HCl/Dextrose 360 mg in 200 mls @ 16.667 mls/hr 05/22/24 10:00 05/22/24 09:54 Nexterone Ivpb IV 05/22/24 21:59 16.667 mls/hr .Q12H ONE Administration Lisinopril 40 mg 05/22/24 09:00 05/22/24 09:53 Lisinopril 20 Mg Tablet PO 06/21/24 08:59 40 mg QDAY LAURA Administration Loratadine 10 mg 05/22/24 09:00 05/22/24 09:54 Loratadine 10 Mg Tablet PO 06/21/24 08:59 10 mg QDAY LAURA Administration Megestrol Acetate 400 mg 05/22/24 11:40 05/22/24 12:07 Megestrol Acet Susp 400 Mg/10 Ml Udc PO 06/21/24 11:39 400 mg QDAY LAURA Administration Metoprolol Succinate 100 mg 05/22/24 09:00 05/22/24 09:53 Metoprolol Succinate Xl 25 Mg Tabcr PO 06/21/24 08:59 100 mg QDAY LAURA Administration Ondansetron HCl 4 mg 05/21/24 11:55 Ondansetron Inj 2 Mg/Ml Inj 2 Ml IV 06/20/24 11:54 Q6H PRN NAUSEA OR VOMITING Protocol Oxycodone/Acetaminophen 1 tab 05/21/24 11:55 Oxycodone/Apap 5/325 Tablet PO 05/26/24 11:54 Q6H PRN PAIN SCALE 4-6 (Moderate Pantoprazole Sodium 20 mg 05/21/24 12:30 05/22/24 09:54 Pantoprazole 20 Mg Tablet PO 06/20/24 12:29 20 mg QDAY LAURA Administration Sennosides 1 tab 05/21/24 11:55 Senna Tablet PO 06/20/24 11:54 BID PRN CONSTIPATION Protocol Plan 78-year-old male with past medical history for HTN, HLD and GERD admitted for syncope. Patient found to have new onset atrial fibrillation with RVR. #Syncope secondary to #New onset Afib w/ RVR #NSTEMI type II likely demand ischemia On admission, patient with syncopal episode after standing up In ED, EKG indicated A-fib with RVR [id number] 3 point Orthostatic vitals positive with sitting and standing Plan: ? Continue Amiodarone 200 mg p.o. BID ? Continue Metoprolol XL 100 mg Qday ? Transition to Eliquis 5 mg BID post 48 hr heparin ggt ? Echo pending #Hypertension #Hyperlipidemia Plan: - Continue Lisinopril 40 mg Qday - Continue Atorvastatin 80 mg Qday #Troponinemia type II, resolved Initial trop peaked at 1.44 before downtrending EKG negative for ST and T wave abnormalities This patient care was discussed with my attending Dr. Lenny Chaves MD PGY-2 Disclaimer: Minor errors in freelance recruiter may be present since this note was dictated by speech recognition software.
[2024-05-22 14:55] LABS: Sodium 124 mMol/L (136-145)
--- NOTE | 2024-05-22 15:16 | PC.SS ---
Rounding Note: Echo pending. Patient to be transitioned to P.O. meds. Plan to d/c tomorrow.
[2024-05-22] MEDS: Heparin/D5w 25K 250 ML Ivpb 25,000 UNIT/250 ML BAG 6.35 UNIT IV (16:56)
[2024-05-22 17:49] LABS: Partial Thromboplastin Time 59.2 Seconds (22.0-36.0)
--- NOTE | 2024-05-22 19:38 | XR_ITS ---
Examination: AP chest single view Technique: AP portable upright chest single view Exam date and time: May 22, 20241951 hrs. Comparison May 21, 2024 Indications: Rapid response shortness of breath chills today Findings: Interval prominent CHF Superimposed pneumonia right lung Enlarged cardiac contour with vascular congestion and perihilar edema Impression: Interval prominent CHF Superimposed pneumonia right lung
--- NOTE | 2024-05-22 19:38 | EKG_ITS ---
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
--- NOTE | 2024-05-22 19:50 | PC.NURSE ---
Addendum entered by Lata Small RN 05/22/24 23:44: Late note: 2021 Rapid reponse called again for patient. Patient had another episode of hypoxia and skin mottled to upper extremities, chest, and lower extremities with skin cold to touch. Original Note: RR. called for patient; spo2 would not increase despite efforts of changing oxygen probe and applying nasal cannula and oxy mask; Spo2 continues to remain in the 80s, patient has complaints of chills and lung sounds wheezy and coarse.
[2024-05-22] MEDS: ALBUTEROL/IPRATROPIUM (Duoneb) RT SOL 3 ML NEBU INH (19:56)
[2024-05-22 20:08] LABS: Base Excess -3 (-3-3); HCO3 20 mEq/L (20-26); Inspired Oxygen, FIO2 70 %; O2 Saturation 91 % (91-98); PCO2 29 mmHg (32.0-48.0); pH, Arterial 7.44 (7.35-7.45)
[2024-05-22 20:11] LABS: Allen Test Performed/OK; Puncture Site Right Radial
[2024-05-22 20:13] LABS: PO2 59 mmHg (83-108)
[2024-05-22 20:24] LABS: Lactate (Lactic Acid) 3.9 mMol/L (0.4-2.0)
[2024-05-22 20:30] LABS: Basophils % (Auto) 0 % (0-2.5); Eosinophils % (Auto) 0 % (0-10); Hematocrit 39.9 % (41.0-53.0); Hemoglobin 13.9 g/dL (13.5-16.0); Immature Granulocytes % (Auto) 1 % (0-0); Immature Granulocytes Auto 0.07 Thou/mm3 (0.00-0.00); Lymphocytes # (Auto) 1.8 Thou/mm3 (1.0-4.8); Lymphocytes % (Auto) 13 % (10-50); Mean Corpuscular HGB Conc 34.8 g/dl (31.0-37.0); Mean Corpuscular Volume 92 fL (80-100); Monocytes % (Auto) 8 % (0-12); Neutrophils # (Auto) 10.3 Thou/mm3 (1.8-7.7); Neutrophils % (Auto) 78 % (37-80); Nucleated Red Blood Cell % 0 /100 WBC (0); Platelet Count 256 Thou/mm3 (140-440); RDW Standard Deviation 42.4 fL (35.1-43.9); Red Blood Count 4.34 Miln/mm3 (4.50-5.90); White Blood Count 13.2 Thou/mm3 (3.8-10.6)
[2024-05-22] MEDS: FUROSEMIDE INJ 10 MG/ML 4ML VIAL 40 MG IVP (20:31)
[2024-05-22 20:56] LABS: Alanine Aminotransferase 29 U/L (10-49); Albumin, Serum 4.6 gm/dL (3.4-4.8); Albumin/Globulin Ratio 1.6 (1.2-2.2); Alkaline Phosphatase 58 U/L (46-116); Anion Gap 12 (7-16); Aspartate Amino Transferase 59 U/L (0-34); BUN/Creatinine Ratio 14 Ratio (12-20); Bilirubin,Total 0.7 mg/dL (0.3-1.2); Blood Urea Nitrogen 18 mg/dL (9-23); Calcium 9.2 mg/dL (8.3-10.6); Calcium (Corrected) 9.2 mg/dL (8.5-10.1); Carbon Dioxide 19.6 mMol/L (20.0-31.0); Chloride 94 mMol/L (98-107); Creatinine (Component) 1.3 mg/dL (0.6-1.3); Globulin 2.8 gm/dL (2.3-3.5); Glucose 119 mg/dL (74-106); Osmolality,Calculated 256 (275-295); Potassium 4.6 mMol/L (3.4-5.1); Sodium 126 mMol/L (136-145); Total Protein 7.4 gm/dL (5.7-8.2); eGFR 57 See Note
[2024-05-22] MEDS: PIPER/TAZO INJ 3.375 GM in SODIUM CHLORIDE 0.9% (P) 50 ML IV (21:07)
[2024-05-22] MEDS: VANCOMYCIN/WATER 1250 MG IVPB 250 ML 120 MG IV (21:08)
--- NOTE | 2024-05-22 21:34 | PD.RESEVENT ---
Documentation for date of: 05/22/24 Event Note Event Note: Rapid response was called at 19:30PM for acute hypoxia. Patient wasn't able to achieve a good waveform on his O2 saturation on pulse oximeter. Last pulse oximeter showed patient only saturating in the high 70s to 80s. Patient was complaining of chills. On PE, patient appeared to have some mottling in his shoulder blades b/l and noted to have coarse sounds with wheezing worse on L than R. Repeat CXR was ordered, and showed superimposed R PNA at base. Patient's axial temperature was 97.7F, BP 170s/100s, HR 111, and saturating 91% on HFNC. At this time, based on patient's clinical and objective findings, will diurese patient with IV Lasix 40 x 1. D/t patient's chief complaint, we ordered repeat CBC, CMP, Lactic acid, troponin, and EKG. Another rapid response was called at 20:30PM again for acute hypoxia and elevated BP, 180/120. On PE, patient sounded more coarse b/l and mottling throughout his chest and b/l legs. Patient's ABG was taken and showed a critical value of PaO2 of 59. Bedside echo also showed patient's IVC is collapsible. After placing patient on BiPAP, patient's BP started to improve dramatically. BP currently 130s/90s, HR 101, saturating 94% on 15L 50% FiO2. Repeat Lactic acid was 3.9. Sepsis alert was initiated, and BCx ordered as well as bedside MRSA, influenza, and COVID-19 and started patient on IV Vancomycin and Zosyn and PRN Duoneb. Will trend patient's Troponin and Lactic acid Q6HR. Ordered repeat ABG in 1 hour s/p BiPAP placement. Will continue with IV Heparin and IV Amiodarone gtt. Patient states he feels better, and denies any chills at this time. Patient endorses less shortness of breath now. Patient's care and plan discussed with my attending, Dr. Lockwood. Malgorzata Zeng, PGY-2
[2024-05-22] MEDS: DiphenhydrAMINE INJ 50 MG/ML VIAL 25 MG IVP (21:48)
[2024-05-22 22:16] LABS: Base Excess -1 (-3-3); HCO3 22 mEq/L (20-26); O2 Saturation 100 % (91-98); PCO2 28 mmHg (32.0-48.0); PO2 141 mmHg (83-108)
[2024-05-22 22:16] LABS: Influenza A Ag Negative; Influenza B Ag Negative
[2024-05-22 22:26] LABS: Inspired Oxygen, FIO2 50 %
[2024-05-22 22:27] LABS: Allen Test Performed/OK; Puncture Site Right Radial
[2024-05-22 22:41] LABS: Troponin I 0.858 ng/mL (0.0-0.045)
[2024-05-22 23:09] LABS: Collection Type, Urine Catheter
[2024-05-22 23:21] LABS: Bilirubin,Urine Negative (Negative); Blood,Urine Negative (Negative); Clarity,Urine Clear (Clear/Hazy); Color,Urine Colorless (Lt Yel-Yel); Glucose, Urine Negative (Negative); Ketones,Urine Negative (Negative); Leukocyte Esterase,Urine Negative (Negative); Nitrite,Urine Negative (Negative); Protein,Urine Negative (Neg - Trace); RBC,Urine < 1 /hpf (0-3); Specific Gravity,Urine 1.008 (1.001-1.035); Squamous Epithelial Cell,Urine < 1 /hpf (0-5); Urobilinogen,Urine Negative mg/dL (0.0-1.0); WBC,Urine < 1 /hpf (0-5)
[2024-05-22 23:24] LABS: Reflex Lactate? Y
[2024-05-22 23:26] LABS: Respiratory Syncytial Virus Ag Negative (Negative)
[2024-05-23] VITALS (12 sets, daily range): BP systolic 87–137; BP diastolic 60–80; PULSE 67–106; RESP 16–29; TEMP 36.1–36.3; O2SAT 95–100; BMI 18.1
--- NOTE | 2024-05-23 00:02 | PC.RT ---
spoke to dr Zeng at 2305 in regards to pts ABG results, follow up ABG ordered to assess how the pt is trending.
[2024-05-23] MEDS: PIPER/TAZO INJ 3.375 GM in SODIUM CHLORIDE 0.9% (P) 50 ML IV ×4 (01:00→18:18)
[2024-05-23 01:11] LABS: Allen Test Performed/OK; Base Excess 0 (-3-3); HCO3 22 mEq/L (20-26); Inspired Oxygen, FIO2 40 %; O2 Saturation 99 % (91-98); PCO2 27 mmHg (32.0-48.0); PO2 109 mmHg (83-108); Puncture Site Left Radial; pH, Arterial 7.51 (7.35-7.45)
--- NOTE | 2024-05-23 01:21 | PC.RT ---
spoke with dr Zeng in regards to the pts latest ABG. pt will be placed on Hiflow w/ follow up ABG in 2 hours.
[2024-05-23 01:58] LABS: Partial Thromboplastin Time 52.4 Seconds (22.0-36.0)
[2024-05-23 02:30] LABS: Lactate (Lactic Acid) 1.3 mMol/L (0.4-2.0)
[2024-05-23 03:59] LABS: Base Excess 1 (-3-3); HCO3 22 mEq/L (20-26); Inspired Oxygen, FIO2 21 %; O2 Saturation 96 % (91-98); PCO2 27 mmHg (32.0-48.0); PO2 68 mmHg (83-108); pH, Arterial 7.53 (7.35-7.45)
[2024-05-23 04:00] LABS: Allen Test Performed/OK; Puncture Site Right Radial
[2024-05-23 05:20] LABS: Basophils % (Auto) 0 % (0-2.5); Eosinophils % (Auto) 0 % (0-10); Hematocrit 32.9 % (41.0-53.0); Hemoglobin 11.7 g/dL (13.5-16.0); Immature Granulocytes % (Auto) 1 % (0-0); Immature Granulocytes Auto 0.06 Thou/mm3 (0.00-0.00); Lymphocytes % (Auto) 8 % (10-50); Mean Corpuscular HGB Conc 35.6 g/dl (31.0-37.0); Mean Corpuscular Hemoglobin 31.9 pg (25.0-35.0); Mean Corpuscular Volume 90 fL (80-100); Monocytes # (Auto) 0.9 Thou/mm3 (0.0-0.8); Monocytes % (Auto) 7 % (0-12); Neutrophils # (Auto) 10.7 Thou/mm3 (1.8-7.7); Neutrophils % (Auto) 84 % (37-80); Nucleated Red Blood Cell % 0 /100 WBC (0); Platelet Count 212 Thou/mm3 (140-440); RDW Standard Deviation 40.9 fL (35.1-43.9); Red Blood Count 3.67 Miln/mm3 (4.50-5.90); White Blood Count 12.7 Thou/mm3 (3.8-10.6)
[2024-05-23 05:44] LABS: INR 1.1 (0.9-1.3); Partial Thromboplastin Time 71.5 Seconds (22.0-36.0); Prothrombin Time 19.9 Seconds (9.0-12.2)
[2024-05-23 05:47] LABS: Alanine Aminotransferase 24 U/L (10-49); Albumin/Globulin Ratio 1.7 (1.2-2.2); Alkaline Phosphatase 50 U/L (46-116); Anion Gap 9 (7-16); Aspartate Amino Transferase 25 U/L (0-34); BUN/Creatinine Ratio 15 Ratio (12-20); Bilirubin,Total 0.7 mg/dL (0.3-1.2); Blood Urea Nitrogen 21 mg/dL (9-23); Calcium 8.5 mg/dL (8.3-10.6); Calcium (Corrected) 8.5 mg/dL (8.5-10.1); Carbon Dioxide 21.9 mMol/L (20.0-31.0); Chloride 97 mMol/L (98-107); Creatinine (Component) 1.4 mg/dL (0.6-1.3); Estimated Creatinine Clearance 33.3 mL/min (>60); Globulin 2.4 gm/dL (2.3-3.5); Glucose 124 mg/dL (74-106); Osmolality,Calculated 261 (275-295); Phosphorous 2.2 mg/dL (2.4-5.1); Potassium 3.8 mMol/L (3.4-5.1); Sodium 128 mMol/L (136-145); Total Protein 6.4 gm/dL (5.7-8.2); eGFR 52 See Note
[2024-05-23 05:49] LABS: Troponin I 0.606 ng/mL (0.0-0.045)
[2024-05-23 07:36] LABS: Vancomycin,Random 18.7 mcg/mL
--- NOTE | 2024-05-23 09:11 | ESPR_ITS ---
<Statement entered by Julio César Peterson DO - 05/23/24 13:51> Senior attestation: Patient was examined and case was reviewed with team including attending physician. Note reviewed, I agree with most of its contents and agree with the patient's care. Rapid response events overnight for hypoxia, patient was started on IV abx overnight, today reports feeling much better. Will continue IV vancomycin and zosyn today, blood cultures pending. Will start IV lasix diuresis and ordered incentive spirometry, echo has been taken with read pending. Julio César Peterson DO PGY-3 Documentation for date of: 05/23/24 Subjective Subjective Interval history: Patient was seen at bedside this morning. Overnight patient had 2 rapid response called due to hypoxia. During the rapid patient was found to have molting and desaturation to the 70s to 80s therefore patient was placed on high flow nasal cannula. He was given an extra dose of Lasix for extra diuresis. This morning patient was resting comfortably in bed, but was still on high flow nasal cannula. Was saturating well and had total balance of -608 mL in the past 24 hours. Chest x-ray that showed some pneumonia of the right lung, and there is seems to be some congestion as well. EKG shows sinus tachycardia with right bundle branch block. Patient was placed on Vanco and Zosyn due to questionable pneumonia which could be hospital-acquired even though is less likely given short hospital stay. No other complaints at this time. Patient is in sinus rhythm upon monitoring and evaluation advisor reviewed. Will continue Lasix 40 mg IV daily. Exam Vital Signs Temp Pulse Resp BP Pulse Ox O2 Del Method O2 Flow Rate 97.2 F 72 16 118/80 97 Nasal Cannula 15 05/23/24 08:00 05/23/24 08:00 05/23/24 08:00 05/23/24 08:00 05/23/24 08:00 05/23/24 08:00 05/23/24 06:37 FiO2 30 05/23/24 06:37 Narrative Exam General: A/O x3, on high flow nasa cannula Eyes: PERRL, EOMI. Anicteric, vision grossly intact. Ears: No ear pain, no ear discharge, Hearing grossly intact. Nose: No nasal discharge. Mouth/Throat: Dry mucous membranes, no redness, no lesions. Neck: Neck supple, non-tender, no cervical lymphadenopathy. Lungs: Crackles Jeremie lower lobes, No accessory muscle use. Cardio: Normal S1/S2, irregular rhythm, no murmurs, no JVD. Abdomen: Soft, non-tender, no palpable masses, peristalsis present, no guarding or rebound. Extremities: Symmetrical, no significant deformities, no peripheral edema , non-tender, peripheral pulses presents. Skin: No rashes, no lesions, warm to touch. Neuro: No focal neurological deficits. motor and sensory intact Psych: Cooperative, appropriate mood and effect. Objective Labs 05/23/24 04:42 05/23/24 04:42 Labs: Laboratory Results - last 24 hr 05/22/24 05/22/24 05/22/24 00:40 00:44 05:30 WBC RBC Hgb Hct MCV MCH MCHC RDW Std Deviation Plt Count Neut % (Auto) Lymph % (Auto) Heard % (Auto) Eos % (Auto) Baso % (Auto) Neut # (Auto) Lymph # (Auto) Heard # (Auto) Eos # (Auto) Baso # (Auto) Immature Gran # (Auto) Absolute Nucleated RBC Immature Gran % Nucleated RBC % PT INR APTT Puncture Site Cancelled ABG pH Cancelled ABG pCO2 Cancelled ABG pO2 Cancelled ABG HCO3 Cancelled ABG O2 Saturation Cancelled ABG Base Excess Cancelled Oxygen Liter Flow Cancelled FiO2 Cancelled Sodium Potassium Chloride Carbon Dioxide Anion Gap BUN Creatinine Estim Creat Clear Calc eGFR BUN/Creatinine Ratio Glucose Calculated Osmolality Lactic Acid Cancelled Calcium Corrected Calcium Phosphorus Magnesium Total Bilirubin AST ALT Alkaline Phosphatase Troponin I B-Natriuretic Peptide 349 H Total Protein Albumin Globulin Albumin/Globulin Ratio Ur Collection Type Urine Color Urine Clarity Urine pH Ur Specific [place] Urine Protein Urine Glucose (UA) Urine Ketones Urine Blood Urine Nitrite Urine Bilirubin Urine Urobilinogen (Auto) Ur Leukocyte Esterase Urine RBC Urine WBC Ur Squamous Epith Cells Urine Bacteria Random Vancomycin Influenza A (Rapid) Influenza B (Rapid) RSV Rapid 05/22/24 05/22/24 05/22/24 08:23 14:19 16:50 WBC RBC Hgb Hct MCV MCH MCHC RDW Std Deviation Plt Count Neut % (Auto) Lymph % (Auto) Heard % (Auto) Eos % (Auto) Baso % (Auto) Neut # (Auto) Lymph # (Auto) Heard # (Auto) Eos # (Auto) Baso # (Auto) Immature Gran # (Auto) Absolute Nucleated RBC Immature Gran % Nucleated RBC % PT INR APTT 84.5 H D 59.2 H D Puncture Site ABG pH ABG pCO2 ABG pO2 ABG HCO3 ABG O2 Saturation ABG Base Excess Oxygen Liter Flow FiO2 Sodium 124 L Potassium Chloride Carbon Dioxide Anion Gap BUN Creatinine Estim Creat Clear Calc eGFR BUN/Creatinine Ratio Glucose Calculated Osmolality Lactic Acid Calcium Corrected Calcium Phosphorus Magnesium Total Bilirubin AST ALT Alkaline Phosphatase Troponin I B-Natriuretic Peptide Total Protein Albumin Globulin Albumin/Globulin Ratio Ur Collection Type Urine Color Urine Clarity Urine pH Ur Specific [place] Urine Protein Urine Glucose (UA) Urine Ketones Urine Blood Urine Nitrite Urine Bilirubin Urine Urobilinogen (Auto) Ur Leukocyte Esterase Urine RBC Urine WBC Ur Squamous Epith Cells Urine Bacteria Random Vancomycin Influenza A (Rapid) Influenza B (Rapid) RSV Rapid 05/22/24 05/22/24 05/22/24 19:59 20:10 20:50 WBC 13.2 H D RBC 4.34 L Hgb 13.9 Hct 39.9 L MCV 92 MCH 32.0 MCHC 34.8 RDW Std Deviation 42.4 Plt Count 256 D Neut % (Auto) 78 Lymph % (Auto) 13 Heard % (Auto) 8 Eos % (Auto) 0 Baso % (Auto) 0 Neut # (Auto) 10.3 H Lymph # (Auto) 1.8 Heard # (Auto) 1.0 H Eos # (Auto) 0.0 Baso # (Auto) 0.0 Immature Gran # (Auto) 0.07 H Absolute Nucleated RBC 0.00 Immature Gran % 1 H Nucleated RBC % 0 PT INR APTT Puncture Site Right Radial ABG pH 7.44 ABG pCO2 29 L ABG pO2 59 L* ABG HCO3 20 ABG O2 Saturation 91 ABG Base Excess -3 Oxygen Liter Flow FiO2 70 Sodium 126 L Potassium 4.6 D Chloride 94 L Carbon Dioxide 19.6 L Anion Gap 12 BUN 18 Creatinine 1.3 Estim Creat Clear Calc 38.0 L eGFR 57 L BUN/Creatinine Ratio 14 Glucose 119 H Calculated Osmolality 256 L Lactic Acid 3.9 H Calcium 9.2 Corrected Calcium 9.2 Phosphorus Magnesium Total Bilirubin 0.7 AST 59 H ALT 29 Alkaline Phosphatase 58 D Troponin I 0.858 H* D B-Natriuretic Peptide Total Protein 7.4 Albumin 4.6 D Globulin 2.8 Albumin/Globulin Ratio 1.6 Ur Collection Type Urine Color Urine Clarity Urine pH Ur Specific [place] Urine Protein Urine Glucose (UA) Urine Ketones Urine Blood Urine Nitrite Urine Bilirubin Urine Urobilinogen (Auto) Ur Leukocyte Esterase Urine RBC Urine WBC Ur Squamous Epith Cells Urine Bacteria Random Vancomycin Influenza A (Rapid) Negative Influenza B (Rapid) Negative RSV Rapid 05/22/24 05/22/24 05/23/24 22:09 22:54 00:40 WBC RBC Hgb Hct MCV MCH MCHC RDW Std Deviation Plt Count Neut % (Auto) Lymph % (Auto) Heard % (Auto) Eos % (Auto) Baso % (Auto) Neut # (Auto) Lymph # (Auto) Heard # (Auto) Eos # (Auto) Baso # (Auto) Immature Gran # (Auto) Absolute Nucleated RBC Immature Gran % Nucleated RBC % PT INR APTT Puncture Site Right Radial Left Radial ABG pH 7.50 H 7.51 H ABG pCO2 28 L 27 L ABG pO2 141 H D 109 H D ABG HCO3 22 22 ABG O2 Saturation 100 H 99 H ABG Base Excess -1 0 Oxygen Liter Flow FiO2 50 40 Sodium Potassium Chloride Carbon Dioxide Anion Gap BUN Creatinine Estim Creat Clear Calc eGFR BUN/Creatinine Ratio Glucose Calculated Osmolality Lactic Acid Calcium Corrected Calcium Phosphorus Magnesium Total Bilirubin AST ALT Alkaline Phosphatase Troponin I B-Natriuretic Peptide Total Protein Albumin Globulin Albumin/Globulin Ratio Ur Collection Type Catheter Urine Color Colorless A Urine Clarity Clear Urine pH 6.0 Ur Specific [place] 1.008 Urine Protein Negative Urine Glucose (UA) Negative Urine Ketones Negative Urine Blood Negative Urine Nitrite Negative Urine Bilirubin Negative Urine Urobilinogen (Auto) Negative Ur Leukocyte Esterase Negative Urine RBC < 1 Urine WBC < 1 Ur Squamous Epith Cells < 1 Urine Bacteria None Random Vancomycin Influenza A (Rapid) Influenza B (Rapid) RSV Rapid Negative 05/23/24 05/23/24 05/23/24 00:44 03:50 04:42 WBC 12.7 H RBC 3.67 L Hgb 11.7 L D Hct 32.9 L MCV 90 MCH 31.9 MCHC 35.6 RDW Std Deviation 40.9 Plt Count 212 D Neut % (Auto) 84 H Lymph % (Auto) 8 L Heard % (Auto) 7 Eos % (Auto) 0 Baso % (Auto) 0 Neut # (Auto) 10.7 H Lymph # (Auto) 1.0 Heard # (Auto) 0.9 H Eos # (Auto) 0.0 Baso # (Auto) 0.0 Immature Gran # (Auto) 0.06 H Absolute Nucleated RBC 0.00 Immature Gran % 1 H Nucleated RBC % 0 PT 19.9 H INR 1.1 APTT 52.4 H 71.5 H D Puncture Site Right Radial ABG pH 7.53 H ABG pCO2 27 L ABG pO2 68 L D ABG HCO3 22 ABG O2 Saturation 96 ABG Base Excess 1 Oxygen Liter Flow FiO2 21 Sodium 128 L Potassium 3.8 D Chloride 97 L Carbon Dioxide 21.9 Anion Gap 9 BUN 21 Creatinine 1.4 H Estim Creat Clear Calc 33.3 L eGFR 52 L BUN/Creatinine Ratio 15 Glucose 124 H Calculated Osmolality 261 L Lactic Acid 1.3 Calcium 8.5 Corrected Calcium 8.5 Phosphorus 2.2 L Magnesium 2.0 Total Bilirubin 0.7 AST 25 ALT 24 Alkaline Phosphatase 50 Troponin I 0.606 H* D B-Natriuretic Peptide Total Protein 6.4 Albumin 4.0 D Globulin 2.4 Albumin/Globulin Ratio 1.7 Ur Collection Type Urine Color Urine Clarity Urine pH Ur Specific [place] Urine Protein Urine Glucose (UA) Urine Ketones Urine Blood Urine Nitrite Urine Bilirubin Urine Urobilinogen (Auto) Ur Leukocyte Esterase Urine RBC Urine WBC Ur Squamous Epith Cells Urine Bacteria Random Vancomycin 18.7 Influenza A (Rapid) Influenza B (Rapid) RSV Rapid ABG Interpretation ABG results: 05/22/24 05/22/24 05/22/24 00:40 19:59 22:09 ABG pH Cancelled 7.44 7.50 H ABG pCO2 Cancelled 29 L 28 L ABG pO2 Cancelled 59 L* 141 H D ABG HCO3 Cancelled 20 22 ABG O2 Saturation Cancelled 91 100 H ABG Base Excess Cancelled -3 -1 05/23/24 05/23/24 00:40 03:50 ABG pH 7.51 H 7.53 H ABG pCO2 27 L 27 L ABG pO2 109 H D 68 L D ABG HCO3 22 22 ABG O2 Saturation 99 H 96 ABG Base Excess 0 1 Quality Measures Quality Measures none Advance care planning discussed with:: patient Assessment & Plan Assessment Current Active Medications: Generic Name Dose Route Start Last Admin Trade Name Freq PRN Reason Stop Dose Admin Acetaminophen 650 mg 05/21/24 11:55 Acetaminophen 325 Mg Tablet PO 06/20/24 11:54 Q6H PRN Fever >100.4 Acetaminophen 650 mg 05/21/24 11:55 Acetaminophen 325 Mg Tablet PO 06/20/24 11:54 Q6H PRN PAIN SCALE 1-3 (mild Hydrocodone Bitart/Acetaminophen 1 tab 05/21/24 11:55 Hydrocodone/Apap 10/325 Tab PO 05/26/24 11:54 Q4HR PRN PAIN SCALE 7-10 (Severe Albuterol/Ipratropium 3 ml 05/22/24 19:43 05/22/24 19:56 Albuterol/Ipratropium (Duoneb) Rt Suha 3 Ml Nebu INH 06/21/24 22:59 3 ml Q4HRRT PRN Administration SHORTNESS OF BREATH Amiodarone HCl 200 mg 05/22/24 21:00 05/22/24 21:09 Amiodarone Hcl 200 Mg Tablet PO 06/21/24 20:59 Not Given BID LAURA Apixaban 5 mg 05/23/24 09:00 Apixaban 2.5 Mg Tablet PO 06/22/24 08:59 BID LAURA Protocol Atorvastatin Calcium 80 mg 05/21/24 21:00 05/22/24 21:09 Atorvastatin Calcium 20 Mg Tablet PO 06/20/24 20:59 Not Given HS LAURA Piperacillin Sod/Tazobactam 50 mls @ 100 mls/hr 05/22/24 20:30 05/23/24 05:22 Sod 3.375 gm/ Sodium Chloride IV 05/29/24 20:29 100 mls/hr Q6HR LAURA Administration Vancomycin/Sodium Chloride 200 mls @ 120 mls/hr 05/23/24 10:00 Vancomycin/Ns 1 Gm Ivpb IV 05/30/24 09:59 QDAY@1000 LAURA Lisinopril 40 mg 05/22/24 09:00 05/22/24 09:53 Lisinopril 20 Mg Tablet PO 06/21/24 08:59 40 mg QDAY LAURA Administration Loratadine 10 mg 05/22/24 09:00 05/22/24 09:54 Loratadine 10 Mg Tablet PO 06/21/24 08:59 10 mg QDAY LAURA Administration Megestrol Acetate 400 mg 05/22/24 11:40 05/22/24 12:07 Megestrol Acet Susp 400 Mg/10 Ml Udc PO 06/21/24 11:39 400 mg QDAY LAURA Administration Metoprolol Succinate 100 mg 05/22/24 09:00 05/22/24 09:53 Metoprolol Succinate Xl 25 Mg Tabcr PO 06/21/24 08:59 100 mg QDAY LAURA Administration Ondansetron HCl 4 mg 05/21/24 11:55 Ondansetron Inj 2 Mg/Ml Inj 2 Ml IV 06/20/24 11:54 Q6H PRN NAUSEA OR VOMITING Protocol Oxycodone/Acetaminophen 1 tab 05/21/24 11:55 Oxycodone/Apap 5/325 Tablet PO 05/26/24 11:54 Q6H PRN PAIN SCALE 4-6 (Moderate Pantoprazole Sodium 20 mg 05/21/24 12:30 05/22/24 09:54 Pantoprazole 20 Mg Tablet PO 06/20/24 12:29 20 mg QDAY LAURA Administration Pharmacy Consult 1 each 05/22/24 20:30 Vancomycin Pharmacy To Dose 1 Each Each IV 06/21/24 20:29 QDAY LAURA Sennosides 1 tab 05/21/24 11:55 Senna Tablet PO 06/20/24 11:54 BID PRN CONSTIPATION Protocol Plan 78-year-old male with past medical history of hypertension, hyperlipidemia, GERD, and environmental allergies was admitted to the hospital on 05/21/2024 due to syncope, paroxysmal atrial fibrillation with RVR, and NSTEMI type II. #Acute hypoxic respiratory failure likely secondary to #Community-acquired pneumonia versus hospital-acquired pneumonia #Pulmonary edema? ? Patient desaturated to the low 70s and 80s overnight and had to rapid response calls and eventually placed on high flow nasal cannula. ? Chest x-ray on 05/22/2024 showed some superimposed pneumonia of the right lung when compared to the chest x-ray from 05/21/2024. ?DDx community-acquired pneumonia versus hospital-acquired pneumonia less likely given short hospital stay versus pulmonary edema ? Patient's WBCs are downtrending to 12.7 after therapy trended to 13.2 last evening. Plan: ? Will continue Zosyn and vanco [05/23/2024-] ? Will continue Lasix 40 mg IV daily ? Blood cultures pending ? Will follow-up on echo ordered #Syncope #Paroxysmal A-fib with RVR #NSTEMI type II likely demand ischemia ?Patient came in with syncopal episode after transitioning from sitting position to standing position. ?EKG initially showed A-fib with RVR with non specific ST changes ?Troponins peaked at 1.441 down trended ?[id number] 3 point, 3.2& risk of stroke per year ?HAS-BLED score of 3 points, high risk of major bleeding Plan: ? Continue patient on amiodarone 200 mg twice daily once Amio drip finishes ? Continue patient's metoprolol XL to 100 mg daily ? Started Eliquis 5 mg twice daily ?Echo pending ?Orthostatic vitals ? Cardiology consulted, appreciate recommendations #Hypertension ? Patient's blood pressure has been well-controlled during the admission. ? Current blood pressure was 126/78 Plan: ? Will continue lisinopril 40 mg daily along with metoprolol XL 100 mg daily ? Will continue to monitor #Hyperlipidemia ? Labs yesterday showed triglycerides 158, cholesterol 162, LDL 106, HDL 24 Plan: ? Will continue patient on atorvastatin 80 mg at bedtime #GERD ?Patient is on pantoprazole 20 mg daily #Environmental allergies ? Patient on loratadine 10 mg daily Disposition: Patient seen in telemetry, A-fib rate controlled (sinus rhythm today) on amiodarone and metoprolol XL 100mg Qday, on Eliquis. Diet: Cardiac GI prophylaxis: pantoprazole DVT prophylaxis: Eliquis Code: Full Case disclosed with Attending Dr. Mccain and My senior Dr. Peterson PGY3. Hill Pena PGY1 Attending Provider Attestation/Addendum I, Ashli Mccain, DO, attest that I was physically present for the navas portions of the service and evaluated the patient with the resident and I reviewed and discussed the case with the resident and agree with the resident's findings and plans of care as documented above Patient seen and evaluated this AM. He appears to be doing well. No longer requiring supplemental O2. However, patient had a rapid response overnight during which patient was found to be hypoxic, improved on BiPap. Patient is now on room air. He states he does not recall the rapid response, neither does he recall the episode/ fall that led to his admission. Suspect this may be 2/2 hypoxia. Patient has no active complaints at this time. Will continue with broad spectrum antibiotics. HR well controlled at this time. Will have PT work with patient.
[2024-05-23] MEDS: POTASSIUM CHLORIDE 20 mEq TABCR 40 MEQ PO (10:43)
[2024-05-23] MEDS: METOPROLOL SUCCINATE XL 25 MG TABCR 100 MG PO (10:44)
[2024-05-23] MEDS: MEGESTROL ACET SUSP 400 MG/10 ML UDC PO (10:44)
[2024-05-23] MEDS: APIXABAN 2.5 MG TABLET 5 MG PO ×2 (10:44→20:53)
[2024-05-23] MEDS: AMIODARONE HCL 200 MG TABLET PO ×2 (10:44→20:56)
[2024-05-23] MEDS: FUROSEMIDE INJ 10 MG/ML 4ML VIAL 20 MG IVP (10:45)
[2024-05-23] MEDS: PANTOPRAZOLE 20 MG TABLET PO (10:45)
[2024-05-23] MEDS: lorataDINE 10 MG TABLET PO (10:45)
[2024-05-23] MEDS: VANCOMYCIN/NS 1 GM IVPB 200 ML IV (12:25)
--- NOTE | 2024-05-23 14:32 | ESPR_ITS ---
<Statement entered by Cristela Galvez MD - 05/24/24 19:16> I personally evaluated the patient appears be doing well back in normal sinus rhythm not having chest pain shortness with reviewed the note and findings as all essential complaints as documented by Dr. Rainey PGY2 agree with the treatment plan recommendations Documentation for date of: 05/23/24 Subjective Subjective Interval history: 78-year-old male , who normally goes to [facility] with history of hypertension, multiple allergies and hypercholesterolemia, doing well until recently. He has been having generalized weakness, fatigue, shortness of breath on exertion, not feeling well for the last few days. The patient felt dizzy and passed out in the restroom. The patient did not have any major trauma or did lose consciousness briefly. He came [facility] with these symptoms and in the emergency room, he was found to be in atrial fibrillation with rapid rate. He was given amiodarone and infusion, now down to 110 heart rate. Initial troponin was already elevated at 1.44. EKG showed AFib with RVR, nonspecific ST changes. Cardiac enzymes at 1.44 troponin and rest of the labs are unremarkable. At any given time, patient started heparin drip and amiodarone. He does not complain of orthopnea or PND. No shortness of breath. Cardiology was consulted for new onset Afib and elevated troponin. 05/22/24: No significant overnight events. Patient shows sinus rhythm in 80's on telemonitor. Troponin downtrended and BP has been stable. Patient's syncope episode most likely due to Afib. Continue Amiodarone 200 mg BID, continue Metoprolol XL 100 mg Qday. Transition to p.o. Eliquis prior to discharge. Follow up with [facility] after discharge. 05/23/24: Overnight rapid response was initiated x2 times as patient was found to be hypoxic with mottling of body, physical exam showed crackles, patient was also endorsing chills. Blood culture and labs were drawn, patient was administered IV Lasix and was started on Vanc and Zosyn. Chest X-ray showed vascular congestion of lungs. Initially he was placed on HFNC and then weaned off to nasal cannula in morning. Echocardiogram showed: Normal LV size. Mild LVH. Estimated EF 50 %. RV is normal in size and systolic function. The estimated right ventricular systolic pressure, 47 mmHg. RAP 5.Mild aortic regurgitation Mild MR and TR. Continue current regimen with strict ins and outs. Exam Vital Signs Temp Pulse Resp BP Pulse Ox O2 Del Method O2 Flow Rate 97.0 F 68 16 137/79 H 97 Nasal Cannula 4 05/23/24 12:00 05/23/24 12:00 05/23/24 12:00 05/23/24 12:00 05/23/24 12:00 05/23/24 12:00 05/23/24 12:00 FiO2 30 05/23/24 06:37 Narrative Exam Constitutional: well-developed, well-nourished, in no acute distress, lying in bed HEENT: NCAT, EOMI, reactive round pupils b/l, patent nares b/l, moist mucous membranes Lung: Mild crackles of lower lobes b/l, no wheezing, no rhonchi Heart: Regular S1S2, no murmurs, gallops, or rubs Abdomen: Soft, non-distended, non-tender, bowel sounds present throughout Extremities: No cyanosis, clubbing, or edema, LE pulses present b/l Neurologic: No focal sensory or motor deficits noted, AOx3, appropriate affect Skin: Warm, dry, no lesions or rashes noted Objective Labs 05/23/24 04:42 05/23/24 04:42 Labs: Laboratory Results - last 24 hr 05/22/24 05/22/24 05/22/24 00:40 00:44 14:19 WBC RBC Hgb Hct MCV MCH MCHC RDW Std Deviation Plt Count Neut % (Auto) Lymph % (Auto) [place] % (Auto) Eos % (Auto) Baso % (Auto) Neut # (Auto) Lymph # (Auto) [place] # (Auto) Eos # (Auto) Baso # (Auto) Immature Gran # (Auto) Absolute Nucleated RBC Immature Gran % Nucleated RBC % PT INR APTT Puncture Site Cancelled ABG pH Cancelled ABG pCO2 Cancelled ABG pO2 Cancelled ABG HCO3 Cancelled ABG O2 Saturation Cancelled ABG Base Excess Cancelled Oxygen Liter Flow Cancelled FiO2 Cancelled Sodium 124 L Potassium Chloride Carbon Dioxide Anion Gap BUN Creatinine Estim Creat Clear Calc eGFR BUN/Creatinine Ratio Glucose Calculated Osmolality Lactic Acid Cancelled Calcium Corrected Calcium Phosphorus Magnesium Total Bilirubin AST ALT Alkaline Phosphatase Troponin I Total Protein Albumin Globulin Albumin/Globulin Ratio Ur Collection Type Urine Color Urine Clarity Urine pH Ur Specific [place] Urine Protein Urine Glucose (UA) Urine Ketones Urine Blood Urine Nitrite Urine Bilirubin Urine Urobilinogen (Auto) Ur Leukocyte Esterase Urine RBC Urine WBC Ur Squamous Epith Cells Urine Bacteria Random Vancomycin Influenza A (Rapid) Influenza B (Rapid) RSV Rapid 05/22/24 05/22/24 05/22/24 16:50 19:59 20:10 WBC 13.2 H D RBC 4.34 L Hgb 13.9 Hct 39.9 L MCV 92 MCH 32.0 MCHC 34.8 RDW Std Deviation 42.4 Plt Count 256 D Neut % (Auto) 78 Lymph % (Auto) 13 [place] % (Auto) 8 Eos % (Auto) 0 Baso % (Auto) 0 Neut # (Auto) 10.3 H Lymph # (Auto) 1.8 [place] # (Auto) 1.0 H Eos # (Auto) 0.0 Baso # (Auto) 0.0 Immature Gran # (Auto) 0.07 H Absolute Nucleated RBC 0.00 Immature Gran % 1 H Nucleated RBC % 0 PT INR APTT 59.2 H D Puncture Site Right Radial ABG pH 7.44 ABG pCO2 29 L ABG pO2 59 L* ABG HCO3 20 ABG O2 Saturation 91 ABG Base Excess -3 Oxygen Liter Flow FiO2 70 Sodium 126 L Potassium 4.6 D Chloride 94 L Carbon Dioxide 19.6 L Anion Gap 12 BUN 18 Creatinine 1.3 Estim Creat Clear Calc 38.0 L eGFR 57 L BUN/Creatinine Ratio 14 Glucose 119 H Calculated Osmolality 256 L Lactic Acid 3.9 H Calcium 9.2 Corrected Calcium 9.2 Phosphorus Magnesium Total Bilirubin 0.7 AST 59 H ALT 29 Alkaline Phosphatase 58 D Troponin I 0.858 H* D Total Protein 7.4 Albumin 4.6 D Globulin 2.8 Albumin/Globulin Ratio 1.6 Ur Collection Type Urine Color Urine Clarity Urine pH Ur Specific [place] Urine Protein Urine Glucose (UA) Urine Ketones Urine Blood Urine Nitrite Urine Bilirubin Urine Urobilinogen (Auto) Ur Leukocyte Esterase Urine RBC Urine WBC Ur Squamous Epith Cells Urine Bacteria Random Vancomycin Influenza A (Rapid) Influenza B (Rapid) RSV Rapid 05/22/24 05/22/24 05/22/24 20:50 22:09 22:54 WBC RBC Hgb Hct MCV MCH MCHC RDW Std Deviation Plt Count Neut % (Auto) Lymph % (Auto) [place] % (Auto) Eos % (Auto) Baso % (Auto) Neut # (Auto) Lymph # (Auto) [place] # (Auto) Eos # (Auto) Baso # (Auto) Immature Gran # (Auto) Absolute Nucleated RBC Immature Gran % Nucleated RBC % PT INR APTT Puncture Site Right Radial ABG pH 7.50 H ABG pCO2 28 L ABG pO2 141 H D ABG HCO3 22 ABG O2 Saturation 100 H ABG Base Excess -1 Oxygen Liter Flow FiO2 50 Sodium Potassium Chloride Carbon Dioxide Anion Gap BUN Creatinine Estim Creat Clear Calc eGFR BUN/Creatinine Ratio Glucose Calculated Osmolality Lactic Acid Calcium Corrected Calcium Phosphorus Magnesium Total Bilirubin AST ALT Alkaline Phosphatase Troponin I Total Protein Albumin Globulin Albumin/Globulin Ratio Ur Collection Type Catheter Urine Color Colorless A Urine Clarity Clear Urine pH 6.0 Ur Specific [place] 1.008 Urine Protein Negative Urine Glucose (UA) Negative Urine Ketones Negative Urine Blood Negative Urine Nitrite Negative Urine Bilirubin Negative Urine Urobilinogen (Auto) Negative Ur Leukocyte Esterase Negative Urine RBC < 1 Urine WBC < 1 Ur Squamous Epith Cells < 1 Urine Bacteria None Random Vancomycin Influenza A (Rapid) Negative Influenza B (Rapid) Negative RSV Rapid Negative 05/23/24 05/23/24 05/23/24 00:40 00:44 03:50 WBC RBC Hgb Hct MCV MCH MCHC RDW Std Deviation Plt Count Neut % (Auto) Lymph % (Auto) [place] % (Auto) Eos % (Auto) Baso % (Auto) Neut # (Auto) Lymph # (Auto) [place] # (Auto) Eos # (Auto) Baso # (Auto) Immature Gran # (Auto) Absolute Nucleated RBC Immature Gran % Nucleated RBC % PT INR APTT 52.4 H Puncture Site Left Radial Right Radial ABG pH 7.51 H 7.53 H ABG pCO2 27 L 27 L ABG pO2 109 H D 68 L D ABG HCO3 22 22 ABG O2 Saturation 99 H 96 ABG Base Excess 0 1 Oxygen Liter Flow FiO2 40 21 Sodium Potassium Chloride Carbon Dioxide Anion Gap BUN Creatinine Estim Creat Clear Calc eGFR BUN/Creatinine Ratio Glucose Calculated Osmolality Lactic Acid 1.3 Calcium Corrected Calcium Phosphorus Magnesium Total Bilirubin AST ALT Alkaline Phosphatase Troponin I Total Protein Albumin Globulin Albumin/Globulin Ratio Ur Collection Type Urine Color Urine Clarity Urine pH Ur Specific [place] Urine Protein Urine Glucose (UA) Urine Ketones Urine Blood Urine Nitrite Urine Bilirubin Urine Urobilinogen (Auto) Ur Leukocyte Esterase Urine RBC Urine WBC Ur Squamous Epith Cells Urine Bacteria Random Vancomycin Influenza A (Rapid) Influenza B (Rapid) RSV Rapid 05/23/24 04:42 WBC 12.7 H RBC 3.67 L Hgb 11.7 L D Hct 32.9 L MCV 90 MCH 31.9 MCHC 35.6 RDW Std Deviation 40.9 Plt Count 212 D Neut % (Auto) 84 H Lymph % (Auto) 8 L [place] % (Auto) 7 Eos % (Auto) 0 Baso % (Auto) 0 Neut # (Auto) 10.7 H Lymph # (Auto) 1.0 [place] # (Auto) 0.9 H Eos # (Auto) 0.0 Baso # (Auto) 0.0 Immature Gran # (Auto) 0.06 H Absolute Nucleated RBC 0.00 Immature Gran % 1 H Nucleated RBC % 0 PT 19.9 H INR 1.1 APTT 71.5 H D Puncture Site ABG pH ABG pCO2 ABG pO2 ABG HCO3 ABG O2 Saturation ABG Base Excess Oxygen Liter Flow FiO2 Sodium 128 L Potassium 3.8 D Chloride 97 L Carbon Dioxide 21.9 Anion Gap 9 BUN 21 Creatinine 1.4 H Estim Creat Clear Calc 33.3 L eGFR 52 L BUN/Creatinine Ratio 15 Glucose 124 H Calculated Osmolality 261 L Lactic Acid Calcium 8.5 Corrected Calcium 8.5 Phosphorus 2.2 L Magnesium 2.0 Total Bilirubin 0.7 AST 25 ALT 24 Alkaline Phosphatase 50 Troponin I 0.606 H* D Total Protein 6.4 Albumin 4.0 D Globulin 2.4 Albumin/Globulin Ratio 1.7 Ur Collection Type Urine Color Urine Clarity Urine pH Ur Specific [place] Urine Protein Urine Glucose (UA) Urine Ketones Urine Blood Urine Nitrite Urine Bilirubin Urine Urobilinogen (Auto) Ur Leukocyte Esterase Urine RBC Urine WBC Ur Squamous Epith Cells Urine Bacteria Random Vancomycin 18.7 Influenza A (Rapid) Influenza B (Rapid) RSV Rapid ABG Interpretation ABG results: 05/22/24 05/22/24 05/22/24 00:40 19:59 22:09 ABG pH Cancelled 7.44 7.50 H ABG pCO2 Cancelled 29 L 28 L ABG pO2 Cancelled 59 L* 141 H D ABG HCO3 Cancelled 20 22 ABG O2 Saturation Cancelled 91 100 H ABG Base Excess Cancelled -3 -1 05/23/24 05/23/24 00:40 03:50 ABG pH 7.51 H 7.53 H ABG pCO2 27 L 27 L ABG pO2 109 H D 68 L D ABG HCO3 22 22 ABG O2 Saturation 99 H 96 ABG Base Excess 0 1 Quality Measures Quality Measures none Advance care planning discussed with:: other Assessment & Plan Assessment Current Active Medications: Generic Name Dose Route Start Last Admin Trade Name Freq PRN Reason Stop Dose Admin Acetaminophen 650 mg 05/21/24 11:55 Acetaminophen 325 Mg Tablet PO 06/20/24 11:54 Q6H PRN Fever >100.4 Acetaminophen 650 mg 05/21/24 11:55 Acetaminophen 325 Mg Tablet PO 06/20/24 11:54 Q6H PRN PAIN SCALE 1-3 (mild Hydrocodone Bitart/Acetaminophen 1 tab 05/21/24 11:55 Hydrocodone/Apap 10/325 Tab PO 05/26/24 11:54 Q4HR PRN PAIN SCALE 7-10 (Severe Albuterol/Ipratropium 3 ml 05/22/24 19:43 05/22/24 19:56 Albuterol/Ipratropium (Duoneb) Rt Suha 3 Ml Nebu INH 06/21/24 22:59 3 ml Q4HRRT PRN Administration SHORTNESS OF BREATH Amiodarone HCl 200 mg 05/22/24 21:00 05/23/24 10:44 Amiodarone Hcl 200 Mg Tablet PO 06/21/24 20:59 200 mg BID LAURA Administration Apixaban 5 mg 05/23/24 09:00 05/23/24 10:44 Apixaban 2.5 Mg Tablet PO 06/22/24 08:59 5 mg BID LAURA Administration Protocol Atorvastatin Calcium 80 mg 05/21/24 21:00 05/22/24 21:09 Atorvastatin Calcium 20 Mg Tablet PO 06/20/24 20:59 Not Given HS LAURA Furosemide 40 mg 05/24/24 09:00 Furosemide Inj 10 Mg/Ml 4ml Vial IVP 06/23/24 08:59 QDAY LAURA Piperacillin Sod/Tazobactam 50 mls @ 100 mls/hr 05/22/24 20:30 05/23/24 12:25 Sod 3.375 gm/ Sodium Chloride IV 05/29/24 20:29 100 mls/hr Q6HR LAURA Administration Vancomycin/Sodium Chloride 200 mls @ 120 mls/hr 05/23/24 10:00 05/23/24 12:25 Vancomycin/Ns 1 Gm Ivpb IV 05/30/24 09:59 120 mls/hr QDAY@1000 LAURA Administration Loratadine 10 mg 05/22/24 09:00 05/23/24 10:45 Loratadine 10 Mg Tablet PO 06/21/24 08:59 10 mg QDAY LAURA Administration Megestrol Acetate 400 mg 05/22/24 11:40 05/23/24 10:44 Megestrol Acet Susp 400 Mg/10 Ml Udc PO 06/21/24 11:39 400 mg QDAY LAURA Administration Metoprolol Succinate 100 mg 05/22/24 09:00 05/23/24 10:44 Metoprolol Succinate Xl 25 Mg Tabcr PO 06/21/24 08:59 100 mg QDAY LAURA Administration Ondansetron HCl 4 mg 05/21/24 11:55 Ondansetron Inj 2 Mg/Ml Inj 2 Ml IV 06/20/24 11:54 Q6H PRN NAUSEA OR VOMITING Protocol Oxycodone/Acetaminophen 1 tab 05/21/24 11:55 Oxycodone/Apap 5/325 Tablet PO 05/26/24 11:54 Q6H PRN PAIN SCALE 4-6 (Moderate Pantoprazole Sodium 20 mg 05/21/24 12:30 05/23/24 10:45 Pantoprazole 20 Mg Tablet PO 06/20/24 12:29 20 mg QDAY LAURA Administration Pharmacy Consult 1 each 05/22/24 20:30 Vancomycin Pharmacy To Dose 1 Each Each IV 06/21/24 20:29 QDAY LAURA Sennosides 1 tab 05/21/24 11:55 Senna Tablet PO 06/20/24 11:54 BID PRN CONSTIPATION Protocol Plan 78-year-old male with past medical history for HTN, HLD and GERD admitted for syncope. Patient found to have new onset atrial fibrillation with RVR. #Syncope secondary to #New onset Afib w/ RVR #NSTEMI type II likely demand ischemia On admission, patient with syncopal episode after standing up In ED, EKG indicated A-fib with RVR [id number] 3 point Orthostatic vitals positive with sitting and standing Echocardiogram showed: Normal LV size. Mild LVH. Estimated EF 50 %. RV is normal in size and systolic function. The estimated right ventricular systolic pressure, 47 mmHg. RAP 5.Mild aortic regurgitation Mild MR and TR Plan: ? Continue Amiodarone 200 mg p.o. BID ? Continue Metoprolol XL 100 mg Qday ? Continue Eliquis 5 mg BID #Hypertension #Hyperlipidemia Plan: - Continue Lisinopril 40 mg Qday - Continue Atorvastatin 80 mg Qday #Troponinemia type II, resolved Initial trop peaked at 1.44 before downtrending EKG negative for ST and T wave abnormalities This patient care was discussed with my attending Dr. Lenny Chaves MD PGY-2 Disclaimer: Minor errors in luggage maker may be present since this note was dictated by speech recognition software.
--- NOTE | 2024-05-23 16:16 | PC.NURSE ---
BP 85/59, Dr. Alejandro calledDr. at bedside patient more drowsy and slow mentation, BP rechecked 87/63. Neuro check performed patient has equal strength but confused on year. New orders for fluid bolus.
[2024-05-23] MEDS: ASPIRIN EC 81 MG TABEC PO (16:34)
[2024-05-23] MEDS: SODIUM CHLORIDE 0.9% 250 ML 250 ML 999 ML IV (16:34)
--- NOTE | 2024-05-23 17:00 | PC.PT ---
PT eval only. Patient is xI with bed mobility, transfers, and ambulation with a FWW. Patient is good to ambulate to the bathroom and in the [place] with a FWW and staff assistance. RN notified.
[2024-05-23] MEDS: ATORVASTATIN CALCIUM 20 MG TABLET 80 MG PO (20:56)
[2024-05-24] VITALS (10 sets, daily range): BP systolic 104–136; BP diastolic 66–83; PULSE 62–89; RESP 16–98; TEMP 36.2–36.7; O2SAT 96–98; BMI 18.1
[2024-05-24] MEDS: PIPER/TAZO INJ 3.375 GM in SODIUM CHLORIDE 0.9% (P) 50 ML IV ×4 (00:40→18:35)
[2024-05-24 06:15] LABS: Basophils % (Auto) 0 % (0-2.5); Eosinophils % (Auto) 0 % (0-10); Hematocrit 33.3 % (41.0-53.0); Hemoglobin 11.7 g/dL (13.5-16.0); Immature Granulocytes % (Auto) 0 % (0-0); Immature Granulocytes Auto 0.03 Thou/mm3 (0.00-0.00); Lymphocytes # (Auto) 1.2 Thou/mm3 (1.0-4.8); Lymphocytes % (Auto) 16 % (10-50); Mean Corpuscular HGB Conc 35.1 g/dl (31.0-37.0); Mean Corpuscular Hemoglobin 32.1 pg (25.0-35.0); Mean Corpuscular Volume 91 fL (80-100); Monocytes # (Auto) 0.7 Thou/mm3 (0.0-0.8); Monocytes % (Auto) 10 % (0-12); Neutrophils # (Auto) 5.6 Thou/mm3 (1.8-7.7); Neutrophils % (Auto) 73 % (37-80); Nucleated Red Blood Cell % 0 /100 WBC (0); Platelet Count 224 Thou/mm3 (140-440); RDW Standard Deviation 42.7 fL (35.1-43.9); Red Blood Count 3.65 Miln/mm3 (4.50-5.90); White Blood Count 7.6 Thou/mm3 (3.8-10.6)
[2024-05-24 06:42] LABS: Alanine Aminotransferase 17 U/L (10-49); Albumin, Serum 3.6 gm/dL (3.4-4.8); Albumin/Globulin Ratio 1.5 (1.2-2.2); Alkaline Phosphatase 48 U/L (46-116); Anion Gap 11 (7-16); Aspartate Amino Transferase 24 U/L (0-34); BUN/Creatinine Ratio 14 Ratio (12-20); Bilirubin,Total 0.8 mg/dL (0.3-1.2); Blood Urea Nitrogen 21 mg/dL (9-23); Calcium 8.6 mg/dL (8.3-10.6); Calcium (Corrected) 8.9 mg/dL (8.5-10.1); Carbon Dioxide 19.2 mMol/L (20.0-31.0); Chloride 100 mMol/L (98-107); Creatinine (Component) 1.5 mg/dL (0.6-1.3); Estimated Creatinine Clearance 31.2 mL/min (>60); Globulin 2.4 gm/dL (2.3-3.5); Glucose 96 mg/dL (74-106); Osmolality,Calculated 263 (275-295); Phosphorous 2.7 mg/dL (2.4-5.1); Potassium 3.5 mMol/L (3.4-5.1); Sodium 130 mMol/L (136-145); eGFR 48 See Note
[2024-05-24] MEDS: APIXABAN 2.5 MG TABLET 5 MG PO ×2 (08:31→20:38)
[2024-05-24] MEDS: MEGESTROL ACET SUSP 400 MG/10 ML UDC PO (08:31)
[2024-05-24] MEDS: POTASSIUM CHLORIDE 20 mEq TABCR 40 MEQ PO (08:32)
[2024-05-24] MEDS: AMIODARONE HCL 200 MG TABLET PO ×2 (08:32→20:37)
[2024-05-24] MEDS: PANTOPRAZOLE 20 MG TABLET PO (08:32)
[2024-05-24] MEDS: lorataDINE 10 MG TABLET PO (08:37)
[2024-05-24] MEDS: ASPIRIN EC 81 MG TABEC PO (08:37)
--- NOTE | 2024-05-24 09:02 | ESPR_ITS ---
<Statement entered by Julio César Peterson DO - 05/24/24 15:18> Senior attestation: Patient was examined and case was reviewed with team including attending physician. Note reviewed, I agree with most of its contents and agree with the patient's care. Blood cultures negative on 24 hour preliminary reads, will continue with IV zosyn and PO doxycycline today. Physical therapy has evaluated patient, advise home health PT and FWW. Will order voiding trial, possible flores removal depending on trial. Julio César Peterson DO PGY-3 Documentation for date of: 05/24/24 Subjective Subjective Interval history: Patient was seen at bedside this morning. No overnight events. Patient's blood pressure has been on the softer end, but has maintained a MAP above 65. Patient was more engaging today and was anxious to go home. Physical therapy recommended home health for patient to continue physical therapy at home. Patient's blood cultures came back negative in the first 24 hours. Oxygenating well on room air and no other complaints at this time. Patient is developing SOFIYA likely in the setting of antibiotics versus dehydration. Will do voiding trial with anticipation of discharge in the upcoming days. Echo had the following findings: Normal LV size. Mild LVH. Estimated EF 50 %. RV is normal in size and systolic function. The estimated right ventricular systolic pressure, 47 mmHg. RAP 5. Mild aortic regurgitation Mild MR and TR. Exam Vital Signs Temp Pulse Resp BP Pulse Ox O2 Del Method O2 Flow Rate 98.1 F 89 16 112/66 97 Room Air 4 05/24/24 08:00 05/24/24 08:32 05/24/24 08:00 05/24/24 08:32 05/24/24 08:00 05/24/24 08:00 05/23/24 12:00 FiO2 30 05/23/24 06:37 Narrative Exam General: A/O x3, on RA Eyes: PERRL, EOMI. Anicteric, vision grossly intact. Ears: No ear pain, no ear discharge, Hearing grossly intact. Nose: No nasal discharge. Mouth/Throat: Dry mucous membranes, no redness, no lesions. Neck: Neck supple, non-tender, no cervical lymphadenopathy. Lungs: Clear DIAN, No accessory muscle use. Cardio: Normal S1/S2, regular rhythm, no murmurs, no JVD. Abdomen: Soft, non-tender, no palpable masses, peristalsis present, no guarding or rebound. Extremities: Symmetrical, no significant deformities, no peripheral edema , non-tender, peripheral pulses presents. Skin: No rashes, no lesions, warm to touch. Neuro: No focal neurological deficits. motor and sensory intact Psych: Cooperative, appropriate mood and effect. Objective Labs 05/24/24 04:48 05/24/24 04:48 Labs: Laboratory Results - last 24 hr 05/24/24 04:48 WBC 7.6 D RBC 3.65 L Hgb 11.7 L Hct 33.3 L MCV 91 MCH 32.1 MCHC 35.1 RDW Std Deviation 42.7 Plt Count 224 Neut % (Auto) 73 Lymph % (Auto) 16 Rankin % (Auto) 10 Eos % (Auto) 0 Baso % (Auto) 0 Neut # (Auto) 5.6 Lymph # (Auto) 1.2 Rankin # (Auto) 0.7 Eos # (Auto) 0.0 Baso # (Auto) 0.0 Immature Gran # (Auto) 0.03 H Absolute Nucleated RBC 0.00 Immature Gran % 0 Nucleated RBC % 0 Sodium 130 L Potassium 3.5 Chloride 100 Carbon Dioxide 19.2 L Anion Gap 11 BUN 21 Creatinine 1.5 H Estim Creat Clear Calc 31.2 L eGFR 48 L BUN/Creatinine Ratio 14 Glucose 96 Calculated Osmolality 263 L Calcium 8.6 Corrected Calcium 8.9 Phosphorus 2.7 Magnesium 2.0 Total Bilirubin 0.8 AST 24 ALT 17 Alkaline Phosphatase 48 Total Protein 6.0 Albumin 3.6 Globulin 2.4 Albumin/Globulin Ratio 1.5 ABG Interpretation ABG results: 05/22/24 05/22/24 05/22/24 00:40 19:59 22:09 ABG pH Cancelled 7.44 7.50 H ABG pCO2 Cancelled 29 L 28 L ABG pO2 Cancelled 59 L* 141 H D ABG HCO3 Cancelled 20 22 ABG O2 Saturation Cancelled 91 100 H ABG Base Excess Cancelled -3 -1 05/23/24 05/23/24 00:40 03:50 ABG pH 7.51 H 7.53 H ABG pCO2 27 L 27 L ABG pO2 109 H D 68 L D ABG HCO3 22 22 ABG O2 Saturation 99 H 96 ABG Base Excess 0 1 Quality Measures Quality Measures none Advance care planning discussed with:: patient Assessment & Plan Assessment Current Active Medications: Generic Name Dose Route Start Last Admin Trade Name Freq PRN Reason Stop Dose Admin Acetaminophen 650 mg 05/21/24 11:55 Acetaminophen 325 Mg Tablet PO 06/20/24 11:54 Q6H PRN Fever >100.4 Acetaminophen 650 mg 05/21/24 11:55 Acetaminophen 325 Mg Tablet PO 06/20/24 11:54 Q6H PRN PAIN SCALE 1-3 (mild Hydrocodone Bitart/Acetaminophen 1 tab 05/21/24 11:55 Hydrocodone/Apap 10/325 Tab PO 05/26/24 11:54 Q4HR PRN PAIN SCALE 7-10 (Severe Albuterol/Ipratropium 3 ml 05/22/24 19:43 05/22/24 19:56 Albuterol/Ipratropium (Duoneb) Rt Suha 3 Ml Nebu INH 06/21/24 22:59 3 ml Q4HRRT PRN Administration SHORTNESS OF BREATH Amiodarone HCl 200 mg 05/22/24 21:00 05/24/24 08:32 Amiodarone Hcl 200 Mg Tablet PO 06/21/24 20:59 200 mg BID LAURA Administration Apixaban 5 mg 05/23/24 09:00 05/24/24 08:31 Apixaban 2.5 Mg Tablet PO 06/22/24 08:59 5 mg BID LAURA Administration Protocol Aspirin 81 mg 05/23/24 16:30 05/24/24 08:37 Aspirin Ec 81 Mg Tabec PO 06/22/24 16:29 81 mg QDAY LAURA Administration Atorvastatin Calcium 80 mg 05/21/24 21:00 05/23/24 20:56 Atorvastatin Calcium 20 Mg Tablet PO 06/20/24 20:59 80 mg HS LAURA Administration Piperacillin Sod/Tazobactam 50 mls @ 100 mls/hr 05/22/24 20:30 05/24/24 05:45 Sod 3.375 gm/ Sodium Chloride IV 05/29/24 20:29 100 mls/hr Q6HR LAURA Administration Vancomycin/Sodium Chloride 200 mls @ 120 mls/hr 05/23/24 10:00 05/23/24 12:25 Vancomycin/Ns 1 Gm Ivpb IV 05/30/24 09:59 120 mls/hr QDAY@1000 LAURA Administration Loratadine 10 mg 05/22/24 09:00 05/24/24 08:37 Loratadine 10 Mg Tablet PO 06/21/24 08:59 10 mg QDAY LAURA Administration Megestrol Acetate 400 mg 05/22/24 11:40 05/24/24 08:31 Megestrol Acet Susp 400 Mg/10 Ml Udc PO 06/21/24 11:39 400 mg QDAY LAURA Administration Metoprolol Succinate 100 mg 05/22/24 09:00 05/23/24 10:44 Metoprolol Succinate Xl 25 Mg Tabcr PO 06/21/24 08:59 100 mg QDAY LAURA Administration Ondansetron HCl 4 mg 05/21/24 11:55 Ondansetron Inj 2 Mg/Ml Inj 2 Ml IV 06/20/24 11:54 Q6H PRN NAUSEA OR VOMITING Protocol Pantoprazole Sodium 20 mg 05/21/24 12:30 05/24/24 08:32 Pantoprazole 20 Mg Tablet PO 06/20/24 12:29 20 mg QDAY LAURA Administration Pharmacy Consult 1 each 05/22/24 20:30 05/24/24 01:20 Vancomycin Pharmacy To Dose 1 Each Each IV 06/21/24 20:29 Not Given QDAY LAURA Sennosides 1 tab 05/21/24 11:55 Senna Tablet PO 06/20/24 11:54 BID PRN CONSTIPATION Protocol Plan 78-year-old male with past medical history of hypertension, hyperlipidemia, GERD, and environmental allergies was admitted to the hospital on 05/21/2024 due to syncope, paroxysmal atrial fibrillation with RVR, and NSTEMI type II. #Acute hypoxic respiratory failure likely secondary to #Community-acquired pneumonia versus hospital-acquired pneumonia #Pulmonary edema? ? Patient desaturated to the low 70s and 80s overnight and had to rapid response calls and eventually placed on high flow nasal cannula. ? Chest x-ray on 05/22/2024 showed some superimposed pneumonia of the right lung when compared to the chest x-ray from 05/21/2024. ?DDx community-acquired pneumonia versus hospital-acquired pneumonia less likely given short hospital stay versus pulmonary edema ? Patient's WBCs are downtrending to 12.7 after therapy trended to 13.2 last evening. -Echo had the following findings: Normal LV size. Mild LVH. Estimated EF 50 %. RV is normal in size and systolic function. The estimated right ventricular systolic pressure, 47 mmHg. RAP 5. Mild aortic regurgitation Mild MR and TR. ? Blood cultures neg in 24 hrs -Discontinued vanco [05/23/2024-05/24/2024] Plan: ? Will continue Zosyn [05/23/2024-] - Started Doxycycline [05/24/2024-] ? Discontinued Lasix. ? Blood cultures official report pending #Syncope #Paroxysmal A-fib with RVR #NSTEMI type II likely demand ischemia ?Patient came in with syncopal episode after transitioning from sitting position to standing position. ?EKG initially showed A-fib with RVR with non specific ST changes ?Troponins peaked at 1.441 down trended ?[id number] 3 point, 3.2& risk of stroke per year ?HAS-BLED score of 3 points, high risk of major bleeding -Echo had the following findings: Normal LV size. Mild LVH. Estimated EF 50 %. RV is normal in size and systolic function. The estimated right ventricular systolic pressure, 47 mmHg. RAP 5. Mild aortic regurgitation Mild MR and TR. Plan: ? Continue patient on amiodarone 200 mg twice daily once Amio drip finishes ? Continue patient's metoprolol XL to 100 mg daily ? Continue Eliquis 5 mg twice daily ?Orthostatic vitals ? Cardiology consulted, appreciate recommendations #SOFIYA -Cr 1.5 and BUN 21 today -Baseline Cr of 1.2-1.3 -Likely prerenal vs intrinsic given Abx Plan: -Stopped Vanco, lasix, and lisinopril -Avoid nephrotoxic agents -Renally dose medications -Will continue to monitor #Hypertension ? Patient's blood pressure has been well-controlled during the admission. ? Current blood pressure was 116/74 Plan: ? Will continue metoprolol XL 100 mg daily -Discontinued lisinopril 40 mg daily as patient developed and SOFIYA and BP has been soft ? Will continue to monitor #Hyperlipidemia ? Labs 05/22/2024 showed triglycerides 158, cholesterol 162, LDL 106, HDL 24 Plan: ? Will continue patient on atorvastatin 80 mg at bedtime #GERD ?Patient is on pantoprazole 20 mg daily #Environmental allergies ? Patient on loratadine 10 mg daily Disposition: Patient seen in telemetry, A-fib rate controlled (sinus rhythm) on amiodarone and metoprolol XL 100mg Qday, on Eliquis, Blood Cx neg in 24 hrs, continue Abx, voiding trial with anticipation of discharge in the upcoming days. Diet: Cardiac GI prophylaxis: pantoprazole DVT prophylaxis: Eliquis Code: Full Case disclosed with Attending Dr. Mccain and My senior Dr. Peterson PGY3. Hill Pena PGY1 Attending Provider Attestation/Addendum IAshli, DO, attest that I was physically present for the navas portions of the service and evaluated the patient with the resident and I reviewed and discussed the case with the resident and agree with the resident's findings and plans of care as documented above Patient seen and evaluated this AM. Patient states he is feeling well and remains on room air. Heart rate has been well controlled. WBC improved after patient was started on IV abx. Will deescalate antibiotics to doxycycline as MRSA is negative, DC vancomycin. Continue with current management and if patient condition remains stable, anticipate DC within the next 24h. Will bladder train and DC flores catheter.
[2024-05-24] MEDS: DOXYCYCLINE 100 MG TABLET PO ×2 (10:24→20:38)
[2024-05-24] MEDS: METOPROLOL SUCCINATE XL 25 MG TABCR 100 MG PO (12:17)
--- NOTE | 2024-05-24 13:56 | ESPR_ITS ---
Documentation for date of: 05/24/24 Subjective Subjective Interval history: 78-year-old male , who normally goes to [facility] with history of hypertension, multiple allergies and hypercholesterolemia, doing well until recently. He has been having generalized weakness, fatigue, shortness of breath on exertion, not feeling well for the last few days. The patient felt dizzy and passed out in the restroom. The patient did not have any major trauma or did lose consciousness briefly. He came [facility] with these symptoms and in the emergency room, he was found to be in atrial fibrillation with rapid rate. He was given amiodarone and infusion, now down to 110 heart rate. Initial troponin was already elevated at 1.44. EKG showed AFib with RVR, nonspecific ST changes. Cardiac enzymes at 1.44 troponin and rest of the labs are unremarkable. At any given time, patient started heparin drip and amiodarone. He does not complain of orthopnea or PND. No shortness of breath. Cardiology was consulted for new onset Afib and elevated troponin. 05/22/24: No significant overnight events. Patient shows sinus rhythm in 80's on telemonitor. Troponin downtrended and BP has been stable. Patient's syncope episode most likely due to Afib. Continue Amiodarone 200 mg BID, continue Metoprolol XL 100 mg Qday. Transition to p.o. Eliquis prior to discharge. 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 05/23/24: Overnight rapid response was initiated x2 times as patient was found to be hypoxic with mottling of body, physical exam showed crackles, patient was also endorsing chills. Blood culture and labs were drawn, patient was administered IV Lasix and was started on Vanc and Zosyn. Chest X-ray showed vascular congestion of lungs. Initially he was placed on HFNC and then weaned off to nasal cannula in morning. Echocardiogram showed: Normal LV size. Mild LVH. Estimated EF 50 %. RV is normal in size and systolic function. The estimated right ventricular systolic pressure, 47 mmHg. RAP 5.Mild aortic regurgitation Mild MR and TR. Continue current regimen with strict ins and outs. 05/24/24: No significant overnight events, patient has been in sinus rhythm. Labs significant for SOFIYA with creatinine of 1.5 most likely secondary to medication versus dehydration. Patient pending voiding trial, most likely to be discharged within 24 to 48 hours. Continue current regimen. Exam Vital Signs Temp Pulse Resp BP Pulse Ox O2 Del Method O2 Flow Rate 98.0 F 74 19 120/72 97 Room Air 4 05/24/24 12:00 05/24/24 12:17 05/24/24 12:00 05/24/24 12:17 05/24/24 12:00 05/24/24 12:00 05/23/24 12:00 FiO2 30 05/23/24 06:37 Narrative Exam Constitutional: well-developed, well-nourished, in no acute distress, lying in bed HEENT: NCAT, EOMI, reactive round pupils b/l, patent nares b/l, moist mucous membranes Lung: CTAB, no wheezing, no rhonchi Heart: Regular S1S2, no murmurs, gallops, or rubs Abdomen: Soft, non-distended, non-tender, bowel sounds present throughout Extremities: No cyanosis, clubbing, or edema, LE pulses present b/l Neurologic: No focal sensory or motor deficits noted, AOx3, appropriate affect Skin: Warm, dry, no lesions or rashes noted Objective Labs 05/24/24 04:48 05/24/24 04:48 Labs: Laboratory Results - last 24 hr 05/24/24 04:48 WBC 7.6 D RBC 3.65 L Hgb 11.7 L Hct 33.3 L MCV 91 MCH 32.1 MCHC 35.1 RDW Std Deviation 42.7 Plt Count 224 Neut % (Auto) 73 Lymph % (Auto) 16 Bennett % (Auto) 10 Eos % (Auto) 0 Baso % (Auto) 0 Neut # (Auto) 5.6 Lymph # (Auto) 1.2 Bennett # (Auto) 0.7 Eos # (Auto) 0.0 Baso # (Auto) 0.0 Immature Gran # (Auto) 0.03 H Absolute Nucleated RBC 0.00 Immature Gran % 0 Nucleated RBC % 0 Sodium 130 L Potassium 3.5 Chloride 100 Carbon Dioxide 19.2 L Anion Gap 11 BUN 21 Creatinine 1.5 H Estim Creat Clear Calc 31.2 L eGFR 48 L BUN/Creatinine Ratio 14 Glucose 96 Calculated Osmolality 263 L Calcium 8.6 Corrected Calcium 8.9 Phosphorus 2.7 Magnesium 2.0 Total Bilirubin 0.8 AST 24 ALT 17 Alkaline Phosphatase 48 Total Protein 6.0 Albumin 3.6 Globulin 2.4 Albumin/Globulin Ratio 1.5 ABG Interpretation ABG results: 05/22/24 05/22/24 05/22/24 00:40 19:59 22:09 ABG pH Cancelled 7.44 7.50 H ABG pCO2 Cancelled 29 L 28 L ABG pO2 Cancelled 59 L* 141 H D ABG HCO3 Cancelled 20 22 ABG O2 Saturation Cancelled 91 100 H ABG Base Excess Cancelled -3 -1 05/23/24 05/23/24 00:40 03:50 ABG pH 7.51 H 7.53 H ABG pCO2 27 L 27 L ABG pO2 109 H D 68 L D ABG HCO3 22 22 ABG O2 Saturation 99 H 96 ABG Base Excess 0 1 Quality Measures Quality Measures none Advance care planning discussed with:: other Assessment & Plan Assessment Current Active Medications: Generic Name Dose Route Start Last Admin Trade Name Freq PRN Reason Stop Dose Admin Acetaminophen 650 mg 05/21/24 11:55 Acetaminophen 325 Mg Tablet PO 06/20/24 11:54 Q6H PRN Fever >100.4 Acetaminophen 650 mg 05/21/24 11:55 Acetaminophen 325 Mg Tablet PO 06/20/24 11:54 Q6H PRN PAIN SCALE 1-3 (mild Hydrocodone Bitart/Acetaminophen 1 tab 05/21/24 11:55 Hydrocodone/Apap 10/325 Tab PO 05/26/24 11:54 Q4HR PRN PAIN SCALE 7-10 (Severe Albuterol/Ipratropium 3 ml 05/22/24 19:43 05/22/24 19:56 Albuterol/Ipratropium (Duoneb) Rt Suha 3 Ml Nebu INH 06/21/24 22:59 3 ml Q4HRRT PRN Administration SHORTNESS OF BREATH Amiodarone HCl 200 mg 05/22/24 21:00 05/24/24 08:32 Amiodarone Hcl 200 Mg Tablet PO 06/21/24 20:59 200 mg BID LAURA Administration Apixaban 5 mg 05/23/24 09:00 05/24/24 08:31 Apixaban 2.5 Mg Tablet PO 06/22/24 08:59 5 mg BID LAURA Administration Protocol Aspirin 81 mg 05/23/24 16:30 05/24/24 08:37 Aspirin Ec 81 Mg Tabec PO 06/22/24 16:29 81 mg QDAY LAURA Administration Atorvastatin Calcium 80 mg 05/21/24 21:00 05/23/24 20:56 Atorvastatin Calcium 20 Mg Tablet PO 06/20/24 20:59 80 mg HS LAURA Administration Doxycycline Hyclate 100 mg 05/24/24 09:30 05/24/24 10:24 Doxycycline 100 Mg Tablet PO 05/31/24 09:29 100 mg BID LAURA Administration Piperacillin Sod/Tazobactam 50 mls @ 100 mls/hr 05/22/24 20:30 05/24/24 11:45 Sod 3.375 gm/ Sodium Chloride IV 05/29/24 20:29 100 mls/hr Q6HR LAURA Administration Loratadine 10 mg 05/22/24 09:00 05/24/24 08:37 Loratadine 10 Mg Tablet PO 06/21/24 08:59 10 mg QDAY LAURA Administration Megestrol Acetate 400 mg 05/22/24 11:40 05/24/24 08:31 Megestrol Acet Susp 400 Mg/10 Ml Udc PO 06/21/24 11:39 400 mg QDAY LAURA Administration Metoprolol Succinate 100 mg 05/22/24 09:00 05/24/24 12:17 Metoprolol Succinate Xl 25 Mg Tabcr PO 06/21/24 08:59 100 mg QDAY LAURA Administration Ondansetron HCl 4 mg 05/21/24 11:55 Ondansetron Inj 2 Mg/Ml Inj 2 Ml IV 06/20/24 11:54 Q6H PRN NAUSEA OR VOMITING Protocol Pantoprazole Sodium 20 mg 05/21/24 12:30 05/24/24 08:32 Pantoprazole 20 Mg Tablet PO 06/20/24 12:29 20 mg QDAY LAURA Administration Sennosides 1 tab 05/21/24 11:55 Senna Tablet PO 06/20/24 11:54 BID PRN CONSTIPATION Protocol Plan 78-year-old male with past medical history for HTN, HLD and GERD admitted for syncope. Patient found to have new onset atrial fibrillation with RVR. #Syncope secondary to #New onset Afib w/ RVR #NSTEMI type II likely demand ischemia On admission, patient with syncopal episode after standing up In ED, EKG indicated A-fib with RVR [id number] 3 point Orthostatic vitals positive with sitting and standing Echocardiogram showed: Normal LV size. Mild LVH. Estimated EF 50 %. RV is normal in size and systolic function. The estimated right ventricular systolic pressure, 47 mmHg. RAP 5.Mild aortic regurgitation Mild MR and TR Plan: ? Continue Amiodarone 200 mg p.o. BID ? Continue Metoprolol XL 100 mg Qday ? Continue Eliquis 5 mg BID #Hypertension #Hyperlipidemia Plan: - Hold off Lisinopril in setting of SOFIYA - Continue Atorvastatin 80 mg Qday #Troponinemia type II, resolved Initial trop peaked at 1.44 before downtrending EKG negative for ST and T wave abnormalities This patient care was discussed with my attending Dr. Lenny Chaves MD PGY-2 Disclaimer: Minor errors in plaster model and mold maker may be present since this note was dictated by speech recognition software.
--- NOTE | 2024-05-24 15:43 | PC.SS ---
SS [facility] [phone]; spoke with ict sales representative who provided PCP Ashtyn Kaiser SS met with pt at bedside to find out name of PCP; pt goes to [facility] and unsure
[2024-05-24] MEDS: SODIUM CHLORIDE 0.9% 250 ML 250 ML 999 ML IV (15:58)
--- NOTE | 2024-05-24 16:46 | PC.CM ---
Patient has been accepted by [facility]. Pending authorization and start of care date.
[2024-05-24] MEDS: ATORVASTATIN CALCIUM 20 MG TABLET 40 MG PO (20:38)
[2024-05-25] VITALS (11 sets, daily range): BP systolic 90–159; BP diastolic 64–92; PULSE 69–80; RESP 13–98; TEMP 35.9–36.6; O2SAT 95–99; BMI 19.3
[2024-05-25] MEDS: PIPER/TAZO INJ 3.375 GM in SODIUM CHLORIDE 0.9% (P) 50 ML IV ×2 (00:08→05:21)
[2024-05-25 06:38] LABS: Basophils % (Auto) 0 % (0-2.5); Eosinophils # (Auto) 0.1 Thou/mm3 (0.0-0.5); Eosinophils % (Auto) 1 % (0-10); Hematocrit 34.2 % (41.0-53.0); Hemoglobin 12.1 g/dL (13.5-16.0); Immature Granulocytes % (Auto) 1 % (0-0); Immature Granulocytes Auto 0.07 Thou/mm3 (0.00-0.00); Lymphocytes # (Auto) 1.3 Thou/mm3 (1.0-4.8); Lymphocytes % (Auto) 18 % (10-50); Mean Corpuscular HGB Conc 35.4 g/dl (31.0-37.0); Mean Corpuscular Volume 91 fL (80-100); Monocytes # (Auto) 0.8 Thou/mm3 (0.0-0.8); Monocytes % (Auto) 11 % (0-12); Neutrophils # (Auto) 5.1 Thou/mm3 (1.8-7.7); Neutrophils % (Auto) 69 % (37-80); Nucleated Red Blood Cell % 0 /100 WBC (0); Platelet Count 278 Thou/mm3 (140-440); RDW Standard Deviation 41.7 fL (35.1-43.9); Red Blood Count 3.78 Miln/mm3 (4.50-5.90); White Blood Count 7.4 Thou/mm3 (3.8-10.6)
[2024-05-25 06:59] LABS: Alanine Aminotransferase 21 U/L (10-49); Albumin, Serum 3.8 gm/dL (3.4-4.8); Anion Gap 11 (7-16); Aspartate Amino Transferase 28 U/L (0-34); BUN/Creatinine Ratio 12 Ratio (12-20); Bilirubin,Total 0.7 mg/dL (0.3-1.2); Blood Urea Nitrogen 17 mg/dL (9-23); Calcium 8.8 mg/dL (8.3-10.6); Carbon Dioxide 15.6 mMol/L (20.0-31.0); Chloride 104 mMol/L (98-107); Creatinine (Component) 1.4 mg/dL (0.6-1.3); Estimated Creatinine Clearance 35.4 mL/min (>60); Glucose 99 mg/dL (74-106); Magnesium 1.9 mg/dL (1.6-2.6); Osmolality,Calculated 264 (275-295); Phosphorous 1.8 mg/dL (2.4-5.1); Sodium 131 mMol/L (136-145); Total Protein 6.1 gm/dL (5.7-8.2); eGFR 52 See Note
[2024-05-25 07:00] LABS: Albumin/Globulin Ratio 1.7 (1.2-2.2); Alkaline Phosphatase 45 U/L (46-116); Globulin 2.3 gm/dL (2.3-3.5)
[2024-05-25] MEDS: MEGESTROL ACET SUSP 400 MG/10 ML UDC PO (08:08)
[2024-05-25] MEDS: lorataDINE 10 MG TABLET PO (08:09)
[2024-05-25] MEDS: PANTOPRAZOLE 20 MG TABLET PO (08:09)
[2024-05-25] MEDS: ASPIRIN EC 81 MG TABEC PO (08:09)
[2024-05-25] MEDS: DOXYCYCLINE 100 MG TABLET PO ×2 (08:09→21:01)
[2024-05-25] MEDS: METOPROLOL SUCCINATE XL 25 MG TABCR 100 MG PO (08:09)
[2024-05-25] MEDS: APIXABAN 2.5 MG TABLET 5 MG PO ×2 (08:09→21:00)
[2024-05-25] MEDS: NAPH,KPH MBDB 1 PACKET (1.5 GM) PO (08:09)
[2024-05-25] MEDS: AMIODARONE HCL 200 MG TABLET PO ×2 (08:09→21:01)
[2024-05-25] MEDS: SODIUM BICARB INJ 8.4% 1 mEq/ML VIAL 50 ML 50 MEQ IV (08:10)
--- NOTE | 2024-05-25 09:41 | PC.SS ---
Follow up note: Patient has d/c orders for today. He will d/c home with Segun BONILLA. Patient follows at [facility], in which they are aware.
[2024-05-25 10:01] LABS: Vancomycin,Trough 9.5 mcg/mL (5.0-10.0)
[2024-05-25] MEDS: AMOXICILLIN 250 MG CAPSULE PO ×3 (10:30→21:01)
[2024-05-25] MEDS: SODIUM CHLORIDE 0.9% 500 ML 500 ML 999 ML IV (10:30)
[2024-05-25 14:17] LABS: Base Excess, Venous -3 (-3-3); O2 Saturation, Venous 58 % (96-97); PCO2, Venous 37 mmHg (36-56); PO2, Venous 32 mmHg (15-58); pH, Venous 7.38 (7.33-7.66)
--- NOTE | 2024-05-25 15:33 | ESPR_ITS ---
Documentation for date of: 05/25/24 Subjective Subjective Interval history: Patient was seen at bedside this morning. No overnight events. Patient had no complaints today, but his labs show some worsening metabolic acidosis. Patient was given 1 amp of sodium bicarb as well as 500 mL of normal saline given the patient looked dehydrated and his kidney function did not improve significantly. We ordered a repeat BMP which showed improvement in patient's SOFIYA as well as acidosis. VBG was also ordered and did not have any significant findings. Will keep patient tonight to monitor his bicarb and expecting discharge in next few days. Exam Vital Signs Temp Pulse Resp BP Pulse Ox O2 Del Method O2 Flow Rate 97.8 F 76 20 90/64 98 Room Air 4 05/25/24 12:00 05/25/24 12:00 05/25/24 12:00 05/25/24 12:00 05/25/24 12:00 05/25/24 12:00 05/24/24 20:00 FiO2 30 05/24/24 20:00 Narrative Exam General: A/O x3, on RA Eyes: PERRL, EOMI. Anicteric, vision grossly intact. Ears: No ear pain, no ear discharge, Hearing grossly intact. Nose: No nasal discharge. Mouth/Throat: Dry mucous membranes, no redness, no lesions. Neck: Neck supple, non-tender, no cervical lymphadenopathy. Lungs: Clear DIAN, No accessory muscle use. Cardio: Normal S1/S2, regular rhythm, no murmurs, no JVD. Abdomen: Soft, non-tender, no palpable masses, peristalsis present, no guarding or rebound. Extremities: Symmetrical, no significant deformities, no peripheral edema , non-tender, peripheral pulses presents. Skin: No rashes, no lesions, warm to touch. Neuro: No focal neurological deficits. motor and sensory intact Psych: Cooperative, appropriate mood and effect. Objective Labs 05/26/24 04:20 05/26/24 04:20 Labs: Laboratory Results - last 24 hr 05/25/24 05/25/24 05/25/24 04:52 08:49 14:10 WBC 7.4 RBC 3.78 L Hgb 12.1 L Hct 34.2 L MCV 91 MCH 32.0 MCHC 35.4 RDW Std Deviation 41.7 Plt Count 278 D Neut % (Auto) 69 Lymph % (Auto) 18 [place] % (Auto) 11 Eos % (Auto) 1 Baso % (Auto) 0 Neut # (Auto) 5.1 Lymph # (Auto) 1.3 [place] # (Auto) 0.8 Eos # (Auto) 0.1 Baso # (Auto) 0.0 Immature Gran # (Auto) 0.07 H Absolute Nucleated RBC 0.00 Immature Gran % 1 H Nucleated RBC % 0 VBG pH 7.38 VBG pCO2 37 VBG pO2 32 VBG O2 Sat (Marielos) 58 L VBG Base Excess -3 Sodium 131 L Potassium 4.0 D Chloride 104 Carbon Dioxide 15.6 L Anion Gap 11 BUN 17 Creatinine 1.4 H Estim Creat Clear Calc 35.4 L eGFR 52 L BUN/Creatinine Ratio 12 Glucose 99 Calculated Osmolality 264 L Calcium 8.8 Corrected Calcium 9.0 Phosphorus 1.8 L Magnesium 1.9 Total Bilirubin 0.7 AST 28 ALT 21 Alkaline Phosphatase 45 L Total Protein 6.1 Albumin 3.8 Globulin 2.3 Albumin/Globulin Ratio 1.7 Vancomycin Trough 9.5 ABG Interpretation ABG results: 05/22/24 05/22/24 05/22/24 00:40 19:59 22:09 ABG pH Cancelled 7.44 7.50 H ABG pCO2 Cancelled 29 L 28 L ABG pO2 Cancelled 59 L* 141 H D ABG HCO3 Cancelled 20 22 ABG O2 Saturation Cancelled 91 100 H ABG Base Excess Cancelled -3 -1 VBG pH VBG pCO2 VBG pO2 VBG Base Excess 05/23/24 05/23/24 05/25/24 00:40 03:50 14:10 ABG pH 7.51 H 7.53 H ABG pCO2 27 L 27 L ABG pO2 109 H D 68 L D ABG HCO3 22 22 ABG O2 Saturation 99 H 96 ABG Base Excess 0 1 VBG pH 7.38 VBG pCO2 37 VBG pO2 32 VBG Base Excess -3 Quality Measures Quality Measures none Advance care planning discussed with:: patient Assessment & Plan Assessment Current Active Medications: Generic Name Dose Route Start Last Admin Trade Name Freq PRN Reason Stop Dose Admin Acetaminophen 650 mg 05/21/24 11:55 Acetaminophen 325 Mg Tablet PO 06/20/24 11:54 Q6H PRN Fever >100.4 Acetaminophen 650 mg 05/21/24 11:55 Acetaminophen 325 Mg Tablet PO 06/20/24 11:54 Q6H PRN PAIN SCALE 1-3 (mild Hydrocodone Bitart/Acetaminophen 1 tab 05/21/24 11:55 Hydrocodone/Apap 10/325 Tab PO 05/26/24 11:54 Q4HR PRN PAIN SCALE 7-10 (Severe Albuterol/Ipratropium 3 ml 05/22/24 19:43 05/22/24 19:56 Albuterol/Ipratropium (Duoneb) Rt Suha 3 Ml Nebu INH 06/21/24 22:59 3 ml Q4HRRT PRN Administration SHORTNESS OF BREATH Amiodarone HCl 200 mg 05/22/24 21:00 05/25/24 08:09 Amiodarone Hcl 200 Mg Tablet PO 06/21/24 20:59 200 mg BID LAURA Administration Amoxicillin 250 mg 05/25/24 10:00 05/25/24 14:13 Amoxicillin 250 Mg Capsule PO 06/01/24 09:59 250 mg TID LAURA Administration Apixaban 5 mg 05/23/24 09:00 05/25/24 08:09 Apixaban 2.5 Mg Tablet PO 06/22/24 08:59 5 mg BID LAURA Administration Protocol Aspirin 81 mg 05/23/24 16:30 05/25/24 08:09 Aspirin Ec 81 Mg Tabec PO 06/22/24 16:29 81 mg QDAY LAURA Administration Atorvastatin Calcium 40 mg 05/24/24 21:00 05/24/24 20:38 Atorvastatin Calcium 20 Mg Tablet PO 06/23/24 20:59 40 mg HS LAURA Administration Doxycycline Hyclate 100 mg 05/24/24 09:30 05/25/24 08:09 Doxycycline 100 Mg Tablet PO 05/31/24 09:29 100 mg BID LAURA Administration Loratadine 10 mg 05/22/24 09:00 05/25/24 08:09 Loratadine 10 Mg Tablet PO 06/21/24 08:59 10 mg QDAY LAURA Administration Megestrol Acetate 400 mg 05/22/24 11:40 05/25/24 08:08 Megestrol Acet Susp 400 Mg/10 Ml Udc PO 06/21/24 11:39 400 mg QDAY LAURA Administration Metoprolol Succinate 100 mg 05/22/24 09:00 05/25/24 08:09 Metoprolol Succinate Xl 25 Mg Tabcr PO 06/21/24 08:59 100 mg QDAY LAURA Administration Ondansetron HCl 4 mg 05/21/24 11:55 Ondansetron Inj 2 Mg/Ml Inj 2 Ml IV 06/20/24 11:54 Q6H PRN NAUSEA OR VOMITING Protocol Pantoprazole Sodium 20 mg 05/21/24 12:30 05/25/24 08:09 Pantoprazole 20 Mg Tablet PO 06/20/24 12:29 20 mg QDAY LAURA Administration Sennosides 1 tab 05/21/24 11:55 Senna Tablet PO 06/20/24 11:54 BID PRN CONSTIPATION Protocol Plan 78-year-old male with past medical history of hypertension, hyperlipidemia, GERD, and environmental allergies was admitted to the hospital on 05/21/2024 due to syncope, paroxysmal atrial fibrillation with RVR, and NSTEMI type II. #Acute hypoxic respiratory failure likely secondary to #Community-acquired pneumonia versus hospital-acquired pneumonia #Pulmonary edema? ? Patient desaturated to the low 70s and 80s overnight and had to rapid response calls and eventually placed on high flow nasal cannula. ? Chest x-ray on 05/22/2024 showed some superimposed pneumonia of the right lung when compared to the chest x-ray from 05/21/2024. ?DDx community-acquired pneumonia versus hospital-acquired pneumonia less likely given short hospital stay versus pulmonary edema ? Patient's WBCs are downtrending to 12.7 after therapy trended to 13.2 last evening. -Echo had the following findings: Normal LV size. Mild LVH. Estimated EF 50 %. RV is normal in size and systolic function. The estimated right ventricular systolic pressure, 47 mmHg. RAP 5. Mild aortic regurgitation Mild MR and TR. ? Blood cultures neg in 48 hrs -Discontinued vanco [05/23/2024-05/24/2024] ? Discontinue Zosyn [05/23/2024-05/25/2024] Plan: ? Will continue Amoxicillin [05/25/2024-] - Continue Doxycycline [05/24/2024-] #Syncope #Paroxysmal A-fib with RVR #NSTEMI type II likely demand ischemia ?Patient came in with syncopal episode after transitioning from sitting position to standing position. ?EKG initially showed A-fib with RVR with non specific ST changes ?Troponins peaked at 1.441 down trended ?[id number] 3 point, 3.2& risk of stroke per year ?HAS-BLED score of 3 points, high risk of major bleeding -Echo had the following findings: Normal LV size. Mild LVH. Estimated EF 50 %. RV is normal in size and systolic function. The estimated right ventricular systolic pressure, 47 mmHg. RAP 5. Mild aortic regurgitation Mild MR and TR. Plan: ? Continue patient on amiodarone 200 mg twice daily once Amio drip finishes ? Continue patient's metoprolol XL to 100 mg daily ? Continue Eliquis 5 mg twice daily ?Orthostatic vitals ? Cardiology consulted, appreciate recommendations #SOFIYA #NAGMA -Cr 1.3 and BUN 16 today -Baseline Cr of 1.2-1.3 -Bicarb 15.6 and repeat 20.7 -Likely prerenal vs intrinsic given Abx Plan: -Stopped Vanco, lasix, and lisinopril -500 mL IV fluids x1 - Amp sodium bicarb x1 -Avoid nephrotoxic agents -Renally dose medications -Will continue to monitor #Hypertension ? Patient's blood pressure has been well-controlled during the admission. ? Current blood pressure was 116/74 Plan: ? Will continue metoprolol XL 100 mg daily -Discontinued lisinopril 40 mg daily as patient developed and SOFIYA and BP has been soft ? Will continue to monitor #Hyperlipidemia ? Labs 05/22/2024 showed triglycerides 158, cholesterol 162, LDL 106, HDL 24 Plan: ? Will continue patient on atorvastatin 80 mg at bedtime #GERD ?Patient is on pantoprazole 20 mg daily #Environmental allergies ? Patient on loratadine 10 mg daily Disposition: Patient seen in telemetry, A-fib rate controlled (sinus rhythm) on amiodarone and metoprolol XL 100mg Qday, on Eliquis, continue Abx,monitoring bicarb. Diet: Cardiac GI prophylaxis: pantoprazole DVT prophylaxis: Eliquis Code: Full Case disclosed with Attending Dr. Brand and My senior Dr. Antony PGY2. Hill Pena PGY1 Mr Gan is a 78-year-old male with past medical history of hypertension, hyperlipidemia, GERD, and environmental allergies was admitted to the hospital on 05/21/2024 due to syncope, paroxysmal atrial fibrillation with RVR, and NSTEMI type II. Dr Galvez is consulted. As per reocmmendations, we will continue Amio gtt, will transition to oral medications prior to discharge. Pending further recommendations re: oral AC. Patient is currently on Heparin gtt per [facility] protocol, Troponin down trending. Patient remains asymptomatic. Blood cultures negative at 48 hours. WBC improved , will do 1 more day of p.o. Doxycycline and p.o. Amoxicillin. Patient's labs showed acidosis and SOFIYA 1.4 Cr today. Bicarb x1 + 500cc bolus x1 given. Follow up BMP shows resolution of acidosis and SOFIYA resolved. Anticipate DC tomorrow. Patient examined and case discussed with the team including attending physician. Note reviewed, I agree with the care plan as documented. - Derek nAtony MD, PGY 2 Attending Provider Attestation/Addendum I have discussed and was present for the essential components of the history, physical examination, diagnosis, and treatment plan with the resident. I agree with the patient's care as documented by the resident and amended herein by me. Cj Brand DO.: Although this document has been carefully reviewed, there may still be some phonetic and other typographical errors. These errors are purely grammatical due to imperfections in the software program and should not be construed in any way to compromise the substance of the patient's medical care during this visit.
--- NOTE | 2024-05-25 15:38 | PC.SS ---
Rounding Note: Plan is to d/c patient tomorrow, transition to oral medications.
[2024-05-25 16:44] LABS: Anion Gap 8 (7-16); BUN/Creatinine Ratio 12 Ratio (12-20); Blood Urea Nitrogen 16 mg/dL (9-23); Calcium 8.5 mg/dL (8.3-10.6); Carbon Dioxide 20.7 mMol/L (20.0-31.0); Chloride 103 mMol/L (98-107); Creatinine (Component) 1.3 mg/dL (0.6-1.3); Estimated Creatinine Clearance 38.1 mL/min (>60); Glucose 112 mg/dL (74-106); Osmolality,Calculated 266 (275-295); Potassium 3.7 mMol/L (3.4-5.1); Sodium 132 mMol/L (136-145); eGFR 57 See Note
--- NOTE | 2024-05-25 19:01 | ESPR_ITS ---
<Statement entered by Cristela Galvez MD - 05/27/24 10:27> I personally evaluate the patient appears to be doing clinically well back in sinus rhythm maintaining not complain of any chest pain or shortness of breath will continue medical management as rectus recommended by Dr. Rainey PGY2 will continue to monitor the patient better cardiac marshall quite stable. Recommend to follow with [place] [facility] after discharge Documentation for date of: 05/25/24 Subjective Subjective Interval history: 78-year-old male , who [facility] goes to [facility] with history of hypertension, multiple allergies and hypercholesterolemia, doing well until recently. He has been having generalized weakness, fatigue, shortness of breath on exertion, not feeling well for the last few days. The patient felt dizzy and passed out in the restroom. The patient did not have any major trauma or did lose consciousness briefly. He came [facility] with these symptoms and in the emergency room, he was found to be in atrial fibrillation with rapid rate. He was given amiodarone and infusion, now down to 110 heart rate. Initial troponin was already elevated at 1.44. EKG showed AFib with RVR, nonspecific ST changes. Cardiac enzymes at 1.44 troponin and rest of the labs are unremarkable. At any given time, patient started heparin drip and amiodarone. He does not complain of orthopnea or PND. No shortness of breath. Cardiology was consulted for new onset Afib and elevated troponin. 05/22/24: No significant overnight events. Patient shows sinus rhythm in 80's on telemonitor. Troponin downtrended and BP has been stable. Patient's syncope episode most likely due to Afib. Continue Amiodarone 200 mg BID, continue Metoprolol XL 100 mg Qday. Transition to p.o. Eliquis prior to discharge. Follow up with [facility] after discharge. 05/23/24: Overnight rapid response was initiated x2 times as patient was found to be hypoxic with mottling of body, physical exam showed crackles, patient was also endorsing chills. Blood culture and labs were drawn, patient was administered IV Lasix and was started on Vanc and Zosyn. Chest X-ray showed vascular congestion of lungs. Initially he was placed on HFNC and then weaned off to nasal cannula in morning. Echocardiogram showed: Normal LV size. Mild LVH. Estimated EF 50 %. RV is normal in size and systolic function. The estimated right ventricular systolic pressure, 47 mmHg. RAP 5.Mild aortic regurgitation Mild MR and TR. Continue current regimen with strict ins and outs. 05/24/24: No significant overnight events, patient has been in sinus rhythm. Labs significant for SOFIYA with creatinine of 1.5 most likely secondary to medication versus dehydration. Patient pending voiding trial, most likely to be discharged within 24 to 48 hours. Continue current regimen. 05/25/24: No significant overnight events, patient with sinus rhythm. Continue regimen with amiodarone, eliquis and metoprolol. Cardiology team will sign off on this case. Thank you for allowing us to take part in care of this patient. Exam Vital Signs Temp Pulse Resp BP Pulse Ox O2 Del Method O2 Flow Rate 97.3 F 80 13 123/83 99 Room Air 4 05/25/24 16:00 05/25/24 16:00 05/25/24 16:00 05/25/24 16:00 05/25/24 16:00 05/25/24 16:00 05/24/24 20:00 FiO2 30 05/24/24 20:00 Narrative Exam Constitutional: well-developed, well-nourished, in no acute distress, lying in bed HEENT: NCAT, EOMI, reactive round pupils b/l, patent nares b/l, moist mucous membranes Lung: CTAB, no wheezing, no rhonchi Heart: Regular S1S2, no murmurs, gallops, or rubs Abdomen: Soft, non-distended, non-tender, bowel sounds present throughout Extremities: No cyanosis, clubbing, or edema, LE pulses present b/l Neurologic: No focal sensory or motor deficits noted, AOx3, appropriate affect Skin: Warm, dry, no lesions or rashes noted Objective Labs 05/25/24 04:52 05/25/24 15:33 Labs: Laboratory Results - last 24 hr 05/25/24 05/25/24 05/25/24 04:52 08:49 14:10 WBC 7.4 RBC 3.78 L Hgb 12.1 L Hct 34.2 L MCV 91 MCH 32.0 MCHC 35.4 RDW Std Deviation 41.7 Plt Count 278 D Neut % (Auto) 69 Lymph % (Auto) 18 [place] % (Auto) 11 Eos % (Auto) 1 Baso % (Auto) 0 Neut # (Auto) 5.1 Lymph # (Auto) 1.3 [place] # (Auto) 0.8 Eos # (Auto) 0.1 Baso # (Auto) 0.0 Immature Gran # (Auto) 0.07 H Absolute Nucleated RBC 0.00 Immature Gran % 1 H Nucleated RBC % 0 VBG pH 7.38 VBG pCO2 37 VBG pO2 32 VBG O2 Sat (Marielos) 58 L VBG Base Excess -3 Sodium 131 L Potassium 4.0 D Chloride 104 Carbon Dioxide 15.6 L Anion Gap 11 BUN 17 Creatinine 1.4 H Estim Creat Clear Calc 35.4 L eGFR 52 L BUN/Creatinine Ratio 12 Glucose 99 Calculated Osmolality 264 L Calcium 8.8 Corrected Calcium 9.0 Phosphorus 1.8 L Magnesium 1.9 Total Bilirubin 0.7 AST 28 ALT 21 Alkaline Phosphatase 45 L Total Protein 6.1 Albumin 3.8 Globulin 2.3 Albumin/Globulin Ratio 1.7 Vancomycin Trough 9.5 05/25/24 15:33 WBC RBC Hgb Hct MCV MCH MCHC RDW Std Deviation Plt Count Neut % (Auto) Lymph % (Auto) [place] % (Auto) Eos % (Auto) Baso % (Auto) Neut # (Auto) Lymph # (Auto) [place] # (Auto) Eos # (Auto) Baso # (Auto) Immature Gran # (Auto) Absolute Nucleated RBC Immature Gran % Nucleated RBC % VBG pH VBG pCO2 VBG pO2 VBG O2 Sat (Marielos) VBG Base Excess Sodium 132 L Potassium 3.7 Chloride 103 Carbon Dioxide 20.7 Anion Gap 8 BUN 16 Creatinine 1.3 Estim Creat Clear Calc 38.1 L eGFR 57 L BUN/Creatinine Ratio 12 Glucose 112 H Calculated Osmolality 266 L Calcium 8.5 Corrected Calcium Phosphorus Magnesium Total Bilirubin AST ALT Alkaline Phosphatase Total Protein Albumin Globulin Albumin/Globulin Ratio Vancomycin Trough ABG Interpretation ABG results: 05/22/24 05/22/24 05/22/24 00:40 19:59 22:09 ABG pH Cancelled 7.44 7.50 H ABG pCO2 Cancelled 29 L 28 L ABG pO2 Cancelled 59 L* 141 H D ABG HCO3 Cancelled 20 22 ABG O2 Saturation Cancelled 91 100 H ABG Base Excess Cancelled -3 -1 VBG pH VBG pCO2 VBG pO2 VBG Base Excess 05/23/24 05/23/24 05/25/24 00:40 03:50 14:10 ABG pH 7.51 H 7.53 H ABG pCO2 27 L 27 L ABG pO2 109 H D 68 L D ABG HCO3 22 22 ABG O2 Saturation 99 H 96 ABG Base Excess 0 1 VBG pH 7.38 VBG pCO2 37 VBG pO2 32 VBG Base Excess -3 Quality Measures Quality Measures none Advance care planning discussed with:: other Assessment & Plan Assessment Current Active Medications: Generic Name Dose Route Start Last Admin Trade Name Freq PRN Reason Stop Dose Admin Acetaminophen 650 mg 05/21/24 11:55 Acetaminophen 325 Mg Tablet PO 06/20/24 11:54 Q6H PRN Fever >100.4 Acetaminophen 650 mg 05/21/24 11:55 Acetaminophen 325 Mg Tablet PO 06/20/24 11:54 Q6H PRN PAIN SCALE 1-3 (mild Hydrocodone Bitart/Acetaminophen 1 tab 05/21/24 11:55 Hydrocodone/Apap 10/325 Tab PO 05/26/24 11:54 Q4HR PRN PAIN SCALE 7-10 (Severe Albuterol/Ipratropium 3 ml 05/22/24 19:43 05/22/24 19:56 Albuterol/Ipratropium (Duoneb) Rt Suha 3 Ml Nebu INH 06/21/24 22:59 3 ml Q4HRRT PRN Administration SHORTNESS OF BREATH Amiodarone HCl 200 mg 05/22/24 21:00 05/25/24 08:09 Amiodarone Hcl 200 Mg Tablet PO 06/21/24 20:59 200 mg BID LAURA Administration Amoxicillin 250 mg 05/25/24 10:00 05/25/24 14:13 Amoxicillin 250 Mg Capsule PO 06/01/24 09:59 250 mg TID LAURA Administration Apixaban 5 mg 05/23/24 09:00 05/25/24 08:09 Apixaban 2.5 Mg Tablet PO 06/22/24 08:59 5 mg BID LAURA Administration Protocol Aspirin 81 mg 05/23/24 16:30 05/25/24 08:09 Aspirin Ec 81 Mg Tabec PO 06/22/24 16:29 81 mg QDAY LAURA Administration Atorvastatin Calcium 40 mg 05/24/24 21:00 05/24/24 20:38 Atorvastatin Calcium 20 Mg Tablet PO 06/23/24 20:59 40 mg HS LAURA Administration Doxycycline Hyclate 100 mg 05/24/24 09:30 05/25/24 08:09 Doxycycline 100 Mg Tablet PO 05/31/24 09:29 100 mg BID LAURA Administration Loratadine 10 mg 05/22/24 09:00 05/25/24 08:09 Loratadine 10 Mg Tablet PO 06/21/24 08:59 10 mg QDAY LAURA Administration Megestrol Acetate 400 mg 05/22/24 11:40 05/25/24 08:08 Megestrol Acet Susp 400 Mg/10 Ml Udc PO 06/21/24 11:39 400 mg QDAY LAURA Administration Metoprolol Succinate 100 mg 05/22/24 09:00 05/25/24 08:09 Metoprolol Succinate Xl 25 Mg Tabcr PO 06/21/24 08:59 100 mg QDAY LAURA Administration Ondansetron HCl 4 mg 05/21/24 11:55 Ondansetron Inj 2 Mg/Ml Inj 2 Ml IV 06/20/24 11:54 Q6H PRN NAUSEA OR VOMITING Protocol Pantoprazole Sodium 20 mg 05/21/24 12:30 05/25/24 08:09 Pantoprazole 20 Mg Tablet PO 06/20/24 12:29 20 mg QDAY LAURA Administration Sennosides 1 tab 05/21/24 11:55 Senna Tablet PO 06/20/24 11:54 BID PRN CONSTIPATION Protocol Plan 78-year-old male with past medical history for HTN, HLD and GERD admitted for syncope. Patient found to have new onset atrial fibrillation with RVR. Cardiology team will sign off on this case. Thank you for allowing us to take part in care of this patient. #Syncope secondary to #New onset Afib w/ RVR #NSTEMI type II likely demand ischemia On admission, patient with syncopal episode after standing up In ED, EKG indicated A-fib with RVR [id number] 3 point Orthostatic vitals positive with sitting and standing Echocardiogram showed: Normal LV size. Mild LVH. Estimated EF 50 %. RV is normal in size and systolic function. The estimated right ventricular systolic pressure, 47 mmHg. RAP 5.Mild aortic regurgitation Mild MR and TR Plan: ? Continue Amiodarone 200 mg p.o. BID ? Continue Metoprolol XL 100 mg Qday ? Continue Eliquis 5 mg BID #Hypertension #Hyperlipidemia Plan: - Continue Lisinopril 40 mg Qday - Continue Atorvastatin 80 mg Qday #Troponinemia type II, resolved Initial trop peaked at 1.44 before downtrending EKG negative for ST and T wave abnormalities This patient care was discussed with my attending Dr. Lenny Chaves MD PGY-2 Disclaimer: Minor errors in media production manager may be present since this note was dictated by speech recognition software.
[2024-05-25 20:46] LABS: Chloride,Urine Random 51.9 mMol/L (55.0-125.0); Potassium,Urine Random 46 mMol/L (12-62); Sodium,Urine Random 45.8 mMol/L (20.0-110.0)
[2024-05-25] MEDS: ATORVASTATIN CALCIUM 20 MG TABLET 40 MG PO (21:00)
[2024-05-26] VITALS (11 sets, daily range): BP systolic 129–169; BP diastolic 75–95; PULSE 71–85; RESP 13–98; TEMP 36.1–36.6; O2SAT 90–98; BMI 20.2
[2024-05-26] MEDS: AMOXICILLIN 250 MG CAPSULE PO ×2 (05:14→14:42)
[2024-05-26 06:46] LABS: Anion Gap 9 (7-16); BUN/Creatinine Ratio 11 Ratio (12-20); Blood Urea Nitrogen 13 mg/dL (9-23); Carbon Dioxide 20.8 mMol/L (20.0-31.0); Chloride 102 mMol/L (98-107); Creatinine (Component) 1.2 mg/dL (0.6-1.3); Potassium 3.4 mMol/L (3.4-5.1); Sodium 132 mMol/L (136-145)
[2024-05-26 06:47] LABS: Alanine Aminotransferase 23 U/L (10-49); Albumin, Serum 3.9 gm/dL (3.4-4.8); Albumin/Globulin Ratio 1.6 (1.2-2.2); Alkaline Phosphatase 48 U/L (46-116); Aspartate Amino Transferase 28 U/L (0-34); Bilirubin,Total 0.6 mg/dL (0.3-1.2); Calcium 8.6 mg/dL (8.3-10.6); Calcium (Corrected) 8.7 mg/dL (8.5-10.1); Estimated Creatinine Clearance 43.6 mL/min (>60); Globulin 2.4 gm/dL (2.3-3.5); Glucose 88 mg/dL (74-106); Magnesium 1.6 mg/dL (1.6-2.6); Osmolality,Calculated 263 (275-295); Phosphorous 1.5 mg/dL (2.4-5.1); Total Protein 6.3 gm/dL (5.7-8.2); eGFR > 60 See Note
[2024-05-26 07:26] LABS: Basophils % (Auto) 0 % (0-2.5); Eosinophils # (Auto) 0.1 Thou/mm3 (0.0-0.5); Eosinophils % (Auto) 1 % (0-10); Immature Granulocytes % (Auto) 2 % (0-0); Immature Granulocytes Auto 0.11 Thou/mm3 (0.00-0.00); Lymphocytes # (Auto) 1.4 Thou/mm3 (1.0-4.8); Lymphocytes % (Auto) 19 % (10-50); Mean Corpuscular HGB Conc 34.3 g/dl (31.0-37.0); Mean Corpuscular Hemoglobin 31.8 pg (25.0-35.0); Mean Corpuscular Volume 93 fL (80-100); Monocytes # (Auto) 0.8 Thou/mm3 (0.0-0.8); Monocytes % (Auto) 11 % (0-12); Neutrophils % (Auto) 68 % (37-80); Nucleated Red Blood Cell % 0 /100 WBC (0); Platelet Count 384 Thou/mm3 (140-440); Red Blood Count 3.77 Miln/mm3 (4.50-5.90); White Blood Count 7.4 Thou/mm3 (3.8-10.6)
[2024-05-26] MEDS: MEGESTROL ACET SUSP 400 MG/10 ML UDC PO (08:12)
[2024-05-26] MEDS: ASPIRIN EC 81 MG TABEC PO (08:12)
[2024-05-26] MEDS: METOPROLOL SUCCINATE XL 25 MG TABCR 100 MG PO (08:12)
[2024-05-26] MEDS: DOXYCYCLINE 100 MG TABLET PO (08:13)
[2024-05-26] MEDS: lorataDINE 10 MG TABLET PO (08:13)
[2024-05-26] MEDS: APIXABAN 2.5 MG TABLET 5 MG PO (08:13)
[2024-05-26] MEDS: AMIODARONE HCL 200 MG TABLET PO (08:13)
[2024-05-26] MEDS: PANTOPRAZOLE 20 MG TABLET PO (08:13)
[2024-05-26] MEDS: NAPH,KPH MBDB 1 PACKET (1.5 GM) PO (08:14)
[2024-05-26] MEDS: Magnesium Sulfate 4 GM Ivpb 4 GM/50 ML BAG IV (08:14)
[2024-05-26] MEDS: POT PHOS 15 mMol in NS 250 ML 15 MMOL/250 ML BAG 62.5 MMOL IV ×2 (08:14→12:30)
--- NOTE | 2024-05-26 08:34 | PC.CM ---
[facility] accepted patient but they cannot see patient until they get authorization from the [facility].
--- NOTE | 2024-05-26 12:21 | ESDS_ITS ---
Planned Discharge Date 05/26/24 DS: Providers Provider Date of admission: 05/21/24 11:55 Primary care physician: Physician No Primary/Family Admitting Provider: Juan Tang MD Attending Provider on Admission: Juna Tang MD Consults: 05/21/24 11:29 Consult to Cardiology Stat Comment: Syncope, AFIB RVR new Consulting Provider: Cristela Galvez 05/21/24 11:34 Consult to Cardiology Stat Comment: Consulting Provider: Cristela Galvez 05/21/24 23:51 Referral Registered Dietitian Routine Comment: 05/23/24 09:23 Referral Physical Therapy Routine Comment: Physician Instructions: Attending Provider on DC: Sage Brand DO Discharging Provider: Derek Antony MD DS: Diagnosis Problem List Completed Was Problem List Reviewed/Reconciled?: Yes Hospital Course Hospital Course Hospital course: Mr Gan is a 78-year-old male , who normally goes to [facility] with history of hypertension, multiple allergies and hypercho lesterolemia, who was admitted to the hospital on 05/21/2024 for syncope, likely secondary to paroxysmal atrial fibrillation with RVR, and NSTEMI type II. Initial troponin was already elevated at 1.44. EKG showed AFib with RVR, nonspecific ST changes. He was started heparin drip and amiodarone. Cardiology was consulted and patient started on Amio drip. He was started on p.o. Amio 200mg twice a day and Eliquis 5mg twice a day, and metoprolol XL 100mg once a day. Echo showed estimated EF 50 %. Mild aortic regurgitation. Mild MR and TR. Hospital course was complicated by sepsis alert called on 05/22/2024, CXR showed superimposed pneumonia of the right lung when compared to the chest x-ray from 05/21/2024. He was treated with antibiotics. Blood cultures negative in 48 hrs, he is being discharged with 2 more days of Amoxicillin to complete course. Problems on this admission: - Acute hypoxic respiratory failure likely secondary to - Syncope - Community-acquired pneumonia vs. hospital-acquired pneumonia - Pulmonary edema - Paroxysmal A-fib with RVR - NSTEMI type II likely demand ischemia - SOFIYA - NAGMA - Hypertension - Hyperlipidemia - GERD Procedures: None Discharge instructions: - Follow up with PCP within 1 week form discharge - Follow up with Cardiology in 1 week - Continue Amiodarone 200mg twice a day + metoprolol XL 100mg daily - Started on Eliquis 5mg twice a day for A.Fib - Take Amoxicillin 500mg twice a day for 2 more days to complete antibiotic course - Started on Megace liquid for appetite stimulation - Continue other home emdications - Hold Lisinopril until follow up with PCP, BP within normal limits - Return to ED if symptoms worsen We are grateful to be able to participate in Mr Gan's care. We wish him the best. - Derek Antony MD Status at Discharge Cognitive/behavioral status at discharge: Stable and returned to baseline Time Spent with Patient Time attestation: Total time spent providing and/or coordinating discharge services: more than 50% Exam Vital Signs Temp Pulse Resp BP Pulse Ox O2 Del Method O2 Flow Rate 97.8 F 78 18 140/84 H 98 Room Air 4 05/26/24 07:54 05/26/24 09:47 05/26/24 09:47 05/26/24 08:13 05/26/24 09:47 05/26/24 07:54 05/24/24 20:00 FiO2 30 05/24/24 20:00 Narrative Exam Constitutional Alert, oriented x3 and comfortable HEENT Vision grossly intact. Patent nares. Trachea midline. Respiratory Chest normal on inspection and clear to auscultation bilaterally. Cardiovascular S1 and S2 audible, RRR. No murmurs or carotid bruit. No gross JVD. Abdominal Soft and non tender to palpation in all quadrants. BS + Genitourinary No bladder tenderness, no flank pain. Normal to palpation. Musculoskeletal Extremities tone within normal limits. No LE edema. Neurological CN II - XII grossly intact. Extremity motor and sensation grossly intact. Skin Warm, dry and intact. No apparent lesions. Psychiatric Patient has a good affect, is cooperative. Discharge Plan Plan Patient Disposition: Home w/HOME HEALTH Disposition Comment: Stable for admit Patient condition on transfer: Stable Care Plan Goals: - Follow up with PCP within 1 week form discharge - Follow up with Cardiology in 1 week - Continue Amiodarone 200mg twice a day + metoprolol XL 100mg daily - Started on Eliquis 5mg twice a day for A.Fib - Take Amoxicillin 500mg twice a day for 2 more days to complete antibiotic course - Started on Megace liquid for appetite stimulation - Continue other home emdications - Hold Lisinopril until follow up with PCP, BP within normal limits - Return to ED if symptoms worsen Prescriptions/Referrals Prescriptions/Med Rec: New metoprolol succinate 100 mg tablet extended release 24 hr 100 mg PO QDAY 30 Days Qty: 30 0RF atorvastatin 40 mg tablet 40 mg PO QDAY 30 Days Qty: 30 0RF amiodarone 200 mg tablet 200 mg PO BID 30 Days Qty: 60 0RF amoxicillin 500 mg capsule 500 mg PO BID 2 Days Qty: 4 0RF Eliquis 5 mg tablet 5 mg PO BID 30 Days Qty: 60 0RF megestrol 400 mg/10 mL (10 mL) suspension 100 mg PO QDAY 30 Days Qty: 75 0RF Continued cetirizine 10 mg Tablet 10 mg PO QDAY finasteride 5 mg Tablet 5 mg PO QDAY aspirin 81 mg Tablet,Delayed Release (Dr/Ec) 81 mg PO QDAY Changed celecoxib 200 mg Capsule 200 mg PO QDAY PRN (Reason: pain) Qty: 7 0RF omeprazole 20 mg Capsule,Delayed Release(Dr/Ec) 20 mg PO QDAY PRN (Reason: Acid Reflux) Qty: 10 0RF Discontinued metoprolol succinate 50 mg Tablet Extended Release 24 Hr 50 mg PO QDAY simvastatin 80 mg Tablet 80 mg PO QDAY lisinopril 40 mg Tablet 40 mg PO QDAY Referrals: Ashtyn Kaiser NP [Referring Provider] - Patient/Caregiver Discharge Instructions Meds to Beds: Yes Discharge Activity: as per physical therapy and resume usual activities Education Materials: Exercise for a Healthier Heart, Eating Heart-Healthy Foods, Understanding Atrial Fibrillation Print Language: [place] Stand Alone Forms: Becky Award Info., Patient Portal Info Letter Discharge Order Discharge Orders: Discharge (Routine); Ordered 05/26/24 Ordered By: Derek Antony Quality Discharge Quality Measures VTE prophylaxis Attestestation MD Attestation I have discussed and was present for the essential components of the discharge history, physical examination, diagnosis, and discharge treatment plan with the resident. I agree with the patient's discharge care as documented by the resident and amended herein by me. Cj Brand DO. The patient understood all discharge instructions, all questions were answered satisfactorily. The patient was instructed to return to the Emergency Department is symptoms worsened or persisted. Patient was stable, tolerating p.o. intake and afebrile at time of discharge. Metabolic acidosis has corrected, patient stable for discharge on amoxicillin 500 mg twice daily for pneumonia, see resident note above for additional details. Although this document has been carefully reviewed, there may still be some phonetic and other typographical errors. These errors are purely grammatical due to imperfections in the software program and should not be construed in any way to compromise the substance of the patient's medical care during this visit.
--- NOTE | 2024-05-27 17:50 | PC.CM ---
Home Health order and Discharge summary sent to PRIYA BONILLA via xm fax, start of care date 05/29/24.
== END 2024-05-26 15:40 | disposition home health service (06) | DRG 280 ==
LOC: SERX 11:33 → SERHOLD 12:08 → S2NX 22:54
PROVIDERS: Student in an Organized Health Care Education/Training Program; Admitting Provider Student in an Organized Health Care Education/Training Program; Emergency Provider Emergency Medicine; Visit Provider Student in an Organized Health Care Education/Training Program
DX: I48.0 Paroxysmal atrial fibrillation (principal); J18.9 Pneumonia, unspecified organism; I21.A1 Myocardial infarction type 2; J96.01 Acute respiratory failure with hypoxia; N17.9 Acute kidney failure, unspecified; E87.1 Hypo-osmolality and hyponatremia; J81.1 Chronic pulmonary edema; E87.20 Acidosis, unspecified; I10 Essential (primary) hypertension; K21.9 Gastro-esophageal reflux disease without esophagitis; R55 Syncope and collapse; Z87.891 Personal history of nicotine dependence; Z79.82 Long term (current) use of aspirin; E86.0 Dehydration; I45.10 Unspecified right bundle-branch block; E78.00 Pure hypercholesterolemia, unspecified
CPT/HCPCS: 36415; 36600; 70450; 71045; 80048; 80053; 80061; 80202; 80307; 81001; 82436; 82803; 83036; 83605; 83735; 83880; 84100; 84133; 84295; 84300; 84439; 84443; 84484; 85025; 85610; 85730; 87040; 87081; 87086; 87449; 87502; 87634; 93005; 93306; 94640; 94660; 94664; 97162; 99291; A9270; J0283; J1200; J1643; J1644; J1940; J2543; J3370; J3372; J3475; J3480; J7040; J7050; J7999

== ENCOUNTER 2024-10-07 16:57 | Inpatient (IN) | payer OTHER, SELFPAY ==
[2024-10-07] VITALS (11 sets, daily range): BP systolic 117–166; BP diastolic 46–72; PULSE 56–77; RESP 16–19; TEMP 36.3–37; O2SAT 69–100; BMI 20.1
--- NOTE | 2024-10-07 17:09 | EKG_ITS ---
[facility] Test Date: 2024-10-07 Pat Name: HEDY GOMEZ Department: Room: - Gender: Male [employer]: : 1945 Requested By: Dominic Han Order Number: [id number] Reading MD: Dominic Han Measurements Intervals [place] Rate: 57 P: 21 CA: 154 QRS: 54 QRSD: 150 T: 18 QT: 519 QTc: 507 Interpretive Statements SINUS BRADYCARDIA RIGHT BUNDLE BRANCH BLOCK [120+ ms QRS DURATION, UPRIGHT V1, 40+ ms S IN I/aVL/V4/V5/V6] Compared to ECG 05/22/2024 19:51:33 Sinus tachycardia no longer present Left posterior fascicular block no longer present /store/S0/[id number]/ecg/[id number].pdf
--- NOTE | 2024-10-07 18:04 | XR_ITS ---
Examination: CT brain head without contrast. 2-D sagittal coronal reconstructions Date and time of exam:October 07, 2024 1805 hours Comparison May 21, 2024 INDICATIONS: Stroke alert, unable to speak, altered mental status beginning 1600 hours today CTDI: vol (mGy):49.1 DLP: (mGycm):1053 Technique: Multiple CT axial sections of the brain have been obtained, 5 mm slice thickness. Contrast has not been administered. 2-D sagittal, coronal reconstructions have been obtained Low dose protocols were performed. One or more of the following dose reduction techniques were used; automated exposure control, adjustment of the mA and/or KV according to patient size, use of iterative reconstruction technique. Findings: No significant ventricular enlargement. Interval low density in the left cerebellar hemisphere, not seen on the May 21, 2024 exam Intra-axial or extra-axial hemorrhage density is not seen. No mass effect or midline shift Basal cisterns are not remarkable. Fourth ventricle is midline. Cranial vault intact. Impression: Negative for acute hemorrhage, mass effect or midline shift Suspicious for an acute nonhemorrhagic infarct left cerebellar hemisphere, image 32
--- NOTE | 2024-10-07 18:06 | XR_ITS ---
Examination: CTA carotids with intravenous contrast CTA brain, head with intravenous contrast. 2-D sagittal, coronal reconstructions. 3-D reconstructions. Exam date and time: October 07, 2024 1814 hours INDICATIONS: Stroke alert, altered mental status unable to speak beginning 1600 hours today CTDI: vol (mGy) 17.36 DLP: (mGycm) 427 Technique: Multiple CTA axial brain, head carotid images post intravenous contrast injection 100 cc, [id number]. 2-D sagittal, coronal reconstructions. 3-D reconstructions, 3-D post processing including vascular maximum intensity projection images. Low dose protocols were performed. One or more of the following dose reduction techniques were used; automated exposure control, adjustment of the mA and/or KV according to patient size, use of iterative reconstruction technique. Findings: Patient motion degrades scan image quality Heavy calcification left carotid bifurcation origin left internal carotid artery, 80% plus stenosis left carotid bifurcation and origin left internal carotid artery History calcification right carotid bifurcation, 80% plus stenosis right carotid bifurcation origin right internal carotid artery Small bilateral vertebral arteries in the neck without critical stenoses Severe calcification and 90% stenosis intracranial right vertebral artery image 97 Basilar artery does fill 80% stenosis left posterior cerebral artery junction P1 and P2 segments Petrous portions internal carotid arteries do fill Heavy calcification juxtasellar internal carotid arteries 50% stenosis origin M1 segment left middle cerebral artery Suspicious for 50% plus stenosis distal M1 segment left middle cerebral artery Anterior cerebral arteries fill No cerebral large vessel arterial occlusions IMPRESSION: 80% plus stenosis left carotid bifurcation origin left internal carotid artery 80% plus stenosis right carotid bifurcation origin right internal carotid artery Severe calcification 90% stenosis intracranial right vertebral artery 80% stenosis left posterior cerebral artery junction P1 and P2 segments 50% stenosis origin M1 segment left middle cerebral artery Suspicious for 50% stenosis distal M1 segment left middle cerebral artery
--- NOTE | 2024-10-07 18:17 | PD.EDDIZZY ---
ED Dizzyness RME/HPI General Chief Complaint: Altered Mental Status Stated Complaint: DIZZINESS Time Seen by Provider: 10/07/24 18:10 Arrival date/time: 10/07/24 16:57 RME / HPI RME / HPI Narrative: This section includes all my notes and documentations, including HPI, PE, and ED course. Ismael Pack MD HPI: 78 y/o male with Hx of Hypercholesterolemia, Hypertension, and Gastroesophageal Reflux Disease BIBAttila from home presents to ED c/o sudden weakness, lightheadedness, and inability to say what he wanted to say x approximately 2 hours ago. Patient was unable to properly convey his words for about 30 minutes before EMS was called. No other complaints. ROS: All negative except as documented in HPI. Physical Exam: General: Alert and oriented. No acute distress. Eyes: Conjunctivae and lids clear. EOMI. PERRL. ENT: No signs of head trauma. Neck: Supple. No tenderness. Heart: RRR. Lungs: No respiratory distress. Good air movement. No rhonchi, wheezing, rales. Chest: No tenderness. Abdomen: Soft and nontender. Back: No tenderness. Legs: No clubbing, cyanosis, edema. Skin: Warm and dry. Neuro: Alert and oriented X 3. Cranial Nerves II-XII grossly intact. No peripheral motor deficits. Musculoskeletal: All major joints and bones are not tender with no limited ROM. I reviewed EMS notes. I reviewed all diagnostic test results. My interpretation of the EKG is sinus rhythm with no acute ST?T changes. My review of the head CT report is: Negative for acute hemorrhage, mass effect or midline shift. Suspicious for an acute nonhemorrhagic infarct left cerebellar hemisphere, image 32. My review of the head/neck CTA report is NAD. Blood tests unremarkable. At this point, diagnoses include TIA. Treatment here included IV fluid and Zofran and ASA. Patient remained stable. I discussed the case with our telehealth neurologist and our hospitalist. About the presentation and exam and diagnostics and treatments here. And need of further care in the hospital. Will accept the patient. Ismael Pack MD Related Data Home Medications ?Medication ?Instructions ?Recorded ?Confirmed aspirin 81 mg tablet,delayed 81 mg PO QDAY 05/21/24 05/21/24 release cetirizine 10 mg tablet 10 mg PO QDAY 05/21/24 05/21/24 finasteride 5 mg tablet 5 mg PO QDAY 05/21/24 05/21/24 Previous Rx's ?Medication ?Instructions ?Recorded celecoxib 200 mg capsule 200 mg PO QDAY PRN pain #7 caps 05/26/24 omeprazole 20 mg capsule,delayed 20 mg PO QDAY PRN Acid Reflux #10 05/26/24 release caps Allergies Allergy/AdvReac Type Severity Reaction Status Date / Time No Known Allergies Allergy Verified 05/21/24 08:26 Review of Systems Review of Systems Systems Reviewed: All systems reviewed, normal except as documented Past Medical History Past Medical History CARDIAC: Positive Cardiac Disorders, Hypercholesterolemia and Hypertension GASTROINTESTINAL: Positive Gastroesophageal Reflux Disease Surgical History SURGICAL: Positive Coronary Stent ED Exam Narrative Physical exam: Refer to HPI above. Course Quality Measures Suspected type of Stroke: TIA Tenecteplase given: Reason(s) TPA not given: Use of NOAC (eliquis, xarelto, or pradaxa) not given stroke Orders Category Date Time Status Admit to Inpatient Status Routine Admission 10/07/24 19:38 Active Bedside Blood Glucose NOW Care 10/07/24 18:15 Active Bedside COVID-19 Antigen Test NOW Care 10/07/24 18:12 Active Bedside Influenza A&B Antigen Test NOW Care 10/07/24 18:12 Active COVID-19 Screening Questionnaire NOW Care 10/07/24 19:31 Active Industrial Relations Representative NOW Care 10/07/24 18:15 Active Continuous Pulse Oximetry NOW Care 10/07/24 18:15 Completed Decision to Admit X1 Care 10/07/24 19:31 Active EKG (ED ONLY) *Do not use* NOW Care 10/07/24 17:09 Completed Insert IV NOW Care 10/07/24 18:08 Active Insert IV NOW Care 10/07/24 18:15 Completed NIH Stroke Scale now Care 10/07/24 18:15 Active NPO NOW Care 10/07/24 18:15 Active Nurse Swallow Screen x1 Care 10/07/24 18:15 Active Straight [In and Out Catheter] X1 Care 10/07/24 18:12 Active Consult to Neurology / Tele-Neurology Routine Cons 10/07/24 18:[address] angio stroke protocol Stat Exams 10/07/24 18:[address] stroke protocol Stat Exams 10/07/24 18:04 Completed EKG (ED Only) Stat Exams 10/07/24 17:09 Draft Alcohol, Blood Medical Stat Lab 10/07/24 17:30 Completed B-Type Natriuretic Peptide Stat Lab 10/07/24 17:30 Received CBC [CBC] Stat Lab 10/07/24 17:30 Completed Comprehensive Metabolic Panel Stat Lab 10/07/24 17:30 Completed Drug Screen,Urine Stat Lab 10/07/24 18:08 Ordered Magnesium Stat Lab 10/07/24 17:30 Completed PTT [Partial Thromboplastin Time] Stat Lab 10/07/24 17:30 Completed Procalcitonin Stat Lab 10/07/24 17:30 Completed Troponin I Stat Lab 10/07/24 17:30 Completed Urinalysis Stat Lab 10/07/24 18:08 Ordered Urine Culture Stat Lab 10/07/24 18:08 Ordered Aspirin Chew Med 10/07/24 18:54 Discontinued 324 mg PO X1 ONE Labetalol IV [Trandate IV] Med 10/07/24 18:15 Active 10 mg IV Q15M PRN Ondansetron Inj [Zofran Inj] Med 10/07/24 18:15 Active 4 mg IV Q4HR PRN Sodium Chloride 0.9% 1000 ml [Ns] 1,000 ml Med 10/07/24 19:39 Ordered IV 100 mls/hr Sodium Chloride 0.9% 1000 ml [Ns] 1,000 ml Med 10/07/24 18:13 Discontinued IV 999 mls/hr Oxygen Delivery NOW RT 10/07/24 18:15 Active Vital Signs Vital signs: Vital Signs Temperature 97.3 F 10/07/24 17:04 Pulse Rate 56 L 10/07/24 17:04 Respiratory Rate 18 10/07/24 17:04 Blood Pressure 149/59 H 10/07/24 17:04 Pulse Oximetry (%) 100 10/07/24 17:04 Oxygen Delivery Method Nasal Cannula 10/07/24 17:04 Oxygen Flow Rate 2 10/07/24 17:04 Dizziness MDM Narrative MDM Narrative:: Scribe Attestation: IBrigette am scribing for and in the presence of Dr. Pack. Provider Notation: Although this document has been carefully reviewed, there may still be some phonetic and other typographical errors.? These errors are purely grammatical due to imperfections in the software program and should not be construed in any way to? compromise the substance of the patient's medical care during this visit. Patient data External records reviewed:: [facility] previous records (Prior ED records reviewed from 05/21/24. Patient was seen for Atrial fibrillation, new onset.) and EMS form Clinical information provided by:: patient, EMS and family (Daughter) Social determinants that could affect healthcare access:: none Patient has the following chronic illnesses:: Hypercholesterolemia, Hypertension, Gastroesophageal Reflux Disease How is presenting disease/condition affected by chronic disease/condition?: exacerbated by Evaluation data The following diagnostics were reviewed and interpreted by me:: lab results, radiology exam(s) and EKG tracing(s) Lab and/or radiology exams considered but not ordered:: None Interpretation Summary: I reviewed all diagnostic test results. My interpretation of the EKG is sinus rhythm with no acute ST?T changes. My review of the head CT report is: Negative for acute hemorrhage, mass effect or midline shift. Suspicious for an acute nonhemorrhagic infarct left cerebellar hemisphere, image 32. My review of the head/neck CTA report is NAD. Blood tests unremarkable. Medications / Prescriptions Medications or Prescriptions considered but not ordered:: None Medication administrations:: Medication Administration History Sodium Chloride (Ns) 1,000 mls @ 100 mls/hr IV .Q10H LAURA Stop: 11/06/24 19:38 Labetalol HCl (Labetalol Inj 5 Mg/Ml Vial 20 Ml) 10 mg IV Q15M PRN PRN Reason: HYPER Ondansetron HCl (Ondansetron Inj 2 Mg/Ml Inj 2 Ml) 4 mg IV Q4HR PRN PRN Reason: NAUSEA OR VOMITING Stop: 11/06/24 18:14 Discontinued Medications Aspirin (Aspirin 81 Mg Chew) 324 mg PO X1 ONE Stop: 10/07/24 18:55 Last Admin: 10/07/24 19:30 Dose: 324 mg Documented By: RICH Sodium Chloride (Ns) 1,000 mls @ 999 mls/hr IV .Q1H1M ONE Stop: 10/07/24 19:13 Last Admin: 10/07/24 19:30 Dose: 999 mls/hr Documented By: RICH Treatment from me here included IV fluid and Zofran and ASA. Consultations Consultation(s) initiated? (list below): Yes Consultation #1 (Physician, Specialty, Details): I discussed the case with our telehealth neurologist and our hospitalist. About the presentation and exam and diagnostics and treatments here. And need of further care in the hospital. Will accept the patient. Diagnosis Dizziness Differential Diagnosis: adverse reaction to drug, benign paroxysmal positional vertigo, orthostatic hypotension, vertebral basilar insufficiency, cerebrovascular accident, acute vestibular neuronitis and transient cerebral ischemia Most likely diagnosis given after review of the tests above:: TIA Admission Indicated Admission indicated?: indicated Explain why admission is indicated or not indicated:: TIA Admission Request Was there a request for admission?: Yes Admission Attestation Admission request attestation: Discussed case with from Hospitalist service regarding admission. Discussed patients ED course, exam findings, labs, and radiology results. The Hospitalist [agrees] to accept the patient for admission. Disposition Plan Disposition Plan: Admit Discharge Plan Plan Patient Disposition: Admit Acute Care w/in Hospital Prescriptions/Referrals Prescriptions/Med Rec: No Action cetirizine 10 mg Tablet 10 mg PO QDAY finasteride 5 mg Tablet 5 mg PO QDAY aspirin 81 mg Tablet,Delayed Release (Dr/Ec) 81 mg PO QDAY celecoxib 200 mg Capsule 200 mg PO QDAY PRN (Reason: pain) Qty: 7 0RF omeprazole 20 mg Capsule,Delayed Release(Dr/Ec) 20 mg PO QDAY PRN (Reason: Acid Reflux) Qty: 10 0RF Referrals: No Primary/Family,Physician [Primary Care Provider] - In 1 week Problem List Clinical Impression: TIA (transient ischemic attack) Patient/Caregiver Discharge Instructions Print Language: Vietnamese Stand Alone Forms: Becky Award Info., Patient Portal Info Letter
--- NOTE | 2024-10-07 18:32 | PC.RT ---
unable to do abg pt and family talking to for stroke alert at this time
[2024-10-07] MEDS: SODIUM CHLORIDE 0.9% 1000 ML 1,000 ML 100 ML IV (19:00)
[2024-10-07 19:07] LABS: Basophils # (Auto) 0.1 Thou/mm3 (0.0-0.2); Basophils % (Auto) 1 % (0-2.5); Eosinophils % (Auto) 0 % (0-10); Hematocrit 24.6 % (41.0-53.0); Hemoglobin 8.3 g/dL (13.5-16.0); Immature Granulocytes % (Auto) 1 % (0-0); Immature Granulocytes Auto 0.04 Thou/mm3 (0.00-0.00); Lymphocytes # (Auto) 1.3 Thou/mm3 (1.0-4.8); Lymphocytes % (Auto) 17 % (10-50); Mean Corpuscular HGB Conc 33.7 g/dl (31.0-37.0); Mean Corpuscular Hemoglobin 32.2 pg (25.0-35.0); Mean Corpuscular Volume 95 fL (80-100); Monocytes # (Auto) 0.6 Thou/mm3 (0.0-0.8); Monocytes % (Auto) 8 % (0-12); Neutrophils # (Auto) 5.9 Thou/mm3 (1.8-7.7); Neutrophils % (Auto) 74 % (37-80); Nucleated Red Blood Cell % 0 /100 WBC (0); Platelet Count 401 Thou/mm3 (140-440); RDW Standard Deviation 49.5 fL (35.1-43.9); Red Blood Count 2.58 Miln/mm3 (4.50-5.90)
[2024-10-07 19:18] LABS: Partial Thromboplastin Time 29.1 Seconds (22.0-36.0)
--- NOTE | 2024-10-07 19:23 | ESCONSULT_ITS ---
Tele Neuro Consultation Consultation Date 10/07/24 Most Recent Vital Signs Last Vital Signs Temp 98.6 F 10/07/24 18:53 Pulse 61 10/07/24 18:53 Resp 18 10/07/24 18:53 BP 166/54 H 10/07/24 18:53 Pulse Ox 100 10/07/24 18:53 O2 Del Method Room Air 10/07/24 18:53 O2 Flow Rate 2 10/07/24 17:04 Laboratory-Coagulation Panel APTT 29.1 Seconds (22.0-36.0) 10/07/24 17:30 Consultation Narrative [facility] TeleNeurology Consult Services Patient Name:???William Gan Date of :???1945 Date of Service:???10/07/2024 18:02:07 Diagnosis:?R53.1 - Weakness ?R41.82 - Altered mental status, unspecified Impression: ?This is a 78 year old man with history of atrial fibrillation, coronary artery disease, and hypertension here with altered mental status and weakness, stroke alert called for the same. There is an area of hypoattenuation in the left cerebellum concerning for stroke. This is not hyperacute- otherwise- it would not be visible on CT. I do not believe that this is the direct cause of the patient's symptoms. I am more concerned about an underlying toxic metabolic process or infection. Acute ischemic stroke (other than the suspected left cerebellar stroke)- is a theoretical possibility. In terms of management- the patient's hemoglobin has hovered around 12 (as of April) and is currently 8.3. It is unclear whether there is some blood loss somewhere. Our recommendations are outlined below. Recommendations: ? Stroke/Telemetry Floor ? Neuro Checks (Q2) ? Bedside Swallow Eval ? DVT Prophylaxis ? IV Fluids, Normal Saline ? Head of Bed 30 Degrees ? Euglycemia and Avoid Hyperthermia (PRN Acetaminophen) ?B12 folate TSH ammonia UA ?SBP<180 ?Unclear why his hemoglobin is 8.3- may need to hold Eliquis as it is unclear whether he is bleeding from somewhere ?MRI brain when/ if feasible ?Cardiac monitoring ha1c fasting lipid ?Further management pend test results clilnical course Advanced Imaging: CTA Head and Neck Completed. LVO:No Patient is not a candidate for BALJEET Metrics: Last Known Well: 10/07/2024 16:00:00 Dispatch Time: 10/07/2024 18:02:07 Arrival Time: 10/07/2024 16:57:00 Initial Response Time: 10/07/2024 18:04:39Symptoms: AMS. Initial patient interaction: 10/07/2024 18:22:00 NIHSS Assessment Completed: 10/07/2024 18:30:00Patient is not a candidate for Thrombolytic. Thrombolytic Medical Decision: 10/07/2024 18:30:00Patient was not deemed candidate for Thrombolytic because of following reasons: Use of NOAC in last 48 hrs. . Resolved symptoms . CT Head: I personally reviewed all the CT images that were available to me and it showed: low attenuation left cerebellum Primary Provider Notified of Diagnostic Impression and Management Plan on: 10/07 19:18:13 History of Present Illness:Patient is a 78 year old Male. Patient was brought by EMS for symptoms of AMS. This is a 78 year old man with history of atrial fibrillation, coronary artery disease, and hypertension here with altered mental status and weakness. It is 105 degrees outside where he lives currently (per family). He became suddenly weak at about 4 pm. He had trouble walking (more than usual- he uses a walker normally) dizziness and he had trouble speaking. He has since returned to his normal. Past Medical History: ?Hypertension ?Hyperlipidemia ?Atrial Fibrillation ?Coronary Artery Disease Other PMH:? history of atrial fibrillation, coronary artery disease, and hypertension hyperlipidemia Medications: Anticoagulant use:??Yes?Eliquis Antiplatelet use:?Yes?aspirin Reviewed EMR for current medications Allergies:? Reviewed Social History: Current Employee : Able to walk with a walker; requires some help showering Drug Use: No Family History: There is no family history of premature cerebrovascular disease pertinent to this consultation ROS : 14 Points Review of Systems was performed and was negative except mentioned in HPI. Past Surgical History: There Is No Surgical History Contributory To Today?s Visit Examination: BP(166/54),?Pulse(61), 1A: Level of Consciousness - Alert; keenly responsive?+ 0 1B: Ask Month and Age - Could Not Answer Either Question Correctly?+ 2 1C: Blink Eyes & Squeeze Hands - Performs Both Tasks?+ 0 2: Test Horizontal Extraocular Movements - Normal?+ 0 3: Test Visual Parker - No Visual Loss?+ 0 4: Test Facial Palsy (Use Grimace if Obtunded) - Normal symmetry?+ 0 5A: Test Left Arm Motor Drift - No Drift for 10 Seconds?+ 0 5B: Test Right Arm Motor Drift - No Drift for 10 Seconds?+ 0 6A: Test Left Leg Motor Drift - No Drift for 5 Seconds?+ 0 6B: Test Right Leg Motor Drift - No Drift for 5 Seconds?+ 0 7: Test Limb Ataxia (FNF/Heel-Herrera) - No Ataxia?+ 0 8: Test Sensation - Normal; No sensory loss?+ 0 9: Test Language/Aphasia - Normal; No aphasia?+ 0 10: Test Dysarthria - Normal?+ 0 11: Test Extinction/Inattention - No abnormality?+ 0 NIHSS Score:?2 NIHSS Free Text :?unsteady on his feet; did not know month or age- per daughter at bedside- he is at his normal. Pre-Morbid Modified [place] Scale:3 Points = Moderate disability; requiring some help, but able to walk without assistance Spoke with :?Dr Pack This consult was conducted in real time using interactive audio and video technology. Patient was informed of the technology being used for this visit and agreed to proceed. Patient located in hospital and provider located at home/office setting. Patient is being evaluated for possible acute neurologic impairment and high probability of imminent or life-threatening deterioration. I spent total of 44 minutes providing care to this patient, including time for face to face visit via telemedicine, review of medical records, imaging studies and discussion of findings with providers, the patient and/or family. Dr Amy [place] [facility] For Inpatient follow-up with [facility] physician please call [facility] at . As we are not an outpatient service for any post hospital discharge needs please contact the hospital for assistance. If you have any questions for the [facility] physicians or need to reconsult for clinical or diagnostic changes please contact us via [facility] at .
[2024-10-07] MEDS: ASPIRIN 81 MG CHEW 324 MG PO (19:30)
[2024-10-07] MEDS: SODIUM CHLORIDE 0.9% 1000 ML 1,000 ML 999 ML IV (19:30)
[2024-10-07 19:32] LABS: Alanine Aminotransferase 19 U/L (10-49); Albumin, Serum 4.5 gm/dL (3.4-4.8); Alcohol, Blood Medical < 3.0 mg/dL (0-10.0); Alkaline Phosphatase 50 U/L (46-116); Anion Gap 10 (7-16); Aspartate Amino Transferase 17 U/L (0-34); BUN/Creatinine Ratio 17 Ratio (12-20); Bilirubin,Total 0.5 mg/dL (0.3-1.2); Blood Urea Nitrogen 35 mg/dL (9-23); Calcium 9.4 mg/dL (8.3-10.6); Calcium (Corrected) 9.4 mg/dL (8.5-10.1); Carbon Dioxide 19.6 mMol/L (20.0-31.0); Chloride 102 mMol/L (98-107); Creatinine (Component) 2.1 mg/dL (0.6-1.3); Estimated Creatinine Clearance 21.1 mL/min (>60); Globulin 2.3 gm/dL (2.3-3.5); Glucose 116 mg/dL (74-106); Magnesium 1.8 mg/dL (1.6-2.6); Osmolality,Calculated 273 (275-295); Potassium 3.2 mMol/L (3.4-5.1); Procalcitonin 0.13 ng/ml (0.0-0.49); Sodium 132 mMol/L (136-145); Total Protein 6.8 gm/dL (5.7-8.2); Troponin I 0.023 ng/mL (0.0-0.045); eGFR 32 See Note
--- NOTE | 2024-10-07 19:42 | EVENTNT_ITS ---
Documentation for date of: 10/07/24 Event Note Event Note: A 78-year-old male presented to the ER with the chief complaint of transient confusion, weakness, and difficulty speaking. The patient described a sudden onset around 2:30 PM of altered mental status, generalized weakness, and slurred speech after returning home from lunch during a hot day (temperatures over 100?F). He became sweaty, clammy, and felt nauseated but did not vomit. He was observed by his son to be very confused and barely able to move. The episode lasted approximately 30?60 minutes and resolved spontaneously before arrival to the ER. He also c/o dizziness and difficulty walking (more than baseline). Patient denied chest pain, palpitations, visual changes, numbness, or loss of consciousness. He was recently hospitalized and underwent stent placement last week at [facility] in [place], and he is scheduled fo r a triple bypass in the future. Due to the acute onset and severity of symptoms, family called EMS and patient was brought in by ambulance for evaluation. The patient has a history of HTN, HLD, GERD, atrial fibrillation, CAD, and prior AR (April). Surgical history includes upper blepharoplasty and recent stent placement. Current medications include Metoprolol, Eliquis, Atorvastatin, Lisinopril, Amiodarone, Plavix, Aspirin, Omeprazole, Cyanocobalamin, Norvax, Finasteride. Social history includes remote tobacco use (quit >20 years ago) and alcohol use (quit after a heart attack in April). He lives with support from family, including an 18-year-old grandson who stays with him most of the time. Functional status: ambulatory with walker since April, otherwise independent with ADLs. In the ER, vital signs recorded as temp 97.3 F, HR 56 bpm, RR 18, BP 149/59 mmHg. Labs revealed WBC 8.0, Hb 8.3 (was 12.0 on 05/26), Plt 401, Na 132, K 3.2, Cl 102, BUN 35, Cr 2.1 (was 1.2 on 05/26), glucose 116, procalcitonin 0.13. CT head was negative for acute hemorrhage, mass effect, or midline shift, but suspicious for acute nonhemorrhagic infarct in the left cerebellar hemisphere. CTA neck showed >80% stenosis of both carotid bifurcations, 90% stenosis in the intracranial right vertebral artery, 80% stenosis at the left posterior cerebral artery (P1-P2 junction), and 50% stenosis of the distal M1 segment of the left middle cerebral artery. Stroke alert was activated and teleneurology was consulted. Admit for stroke workup and further evaluation. #Metabolic Encephalopathy Assessment: Transient altered mental status with spontaneous resolution; SOFIYA (Cr 2.1 from baseline 1.2), BUN 35, likely pre-renal from dehydration/heat exposure. No hypoxia, hypercapnia, or other clear etiology; symptoms temporally associated with SOFIYA and dehydration. Plan: - Supportive care with IV fluid resuscitation to restore renal perfusion - Neuro checks - Trend renal function and electrolytes #R/O Acute Ischemic Stroke Assessment: Transient confusion, slurred speech, generalized weakness; resolved prior to ED arrival. CT head: suspicious for acute infarct in left cerebellar hemisphere. CTA: multivessel intracranial and extracranial stenosis (>80% carotid bifurcation bilaterally, 90% R vertebral, 80% L HOT BLASTER, 50% distal M1); stroke alert activated. Plan: - MRI brain - Continue antiplatelet therapy - Continue Eliquis - Trend H/H - Neuro checks - Monitor BP per permissive hypertension protocol - Neurology to follow for management #Acute Kidney Injury Assessment: Cr increased to 2.1 from baseline 1.2; BUN 35, likely pre-renal due to dehydration/heat exposure. Plan: - IV fluid resuscitation - Hold nephrotoxic agents - Monitor daily BMP - Renal dosing of medications as needed #Coronary Artery Disease Assessment: Known CAD with recent stent placement (last week), prior AR (Apr), on dual antiplatelet therapy (aspirin + Plavix), upcoming CABG planned. Currently stable, no chest pain or troponin elevation. Plan: - Continue dual antiplatelet therapy - Continue statin therapy, goal LDL <70 mg/dL - Maintain anti-anginal therapy - Monitor hemoglobin due to bleeding risk from dual antiplatelet + Eliquis - Get records from [facility] #Anemia Assessment: Hb 8.3, down from 12.0 (05/26); unclear etiology, recent stent placement (dual antiplatelet + anticoagulated), potential GI losses. Plan: - Check reticulocyte count, iron studies, LDH, haptoglobin - Monitor H/H daily - Get stool guaiac - Transfuse if symptomatic or Hb <7 #Atrial Fibrillation Assessment: Chronic; rate-controlled on metoprolol, anticoagulated with Eliquis. Plan: - Continue metoprolol and amiodarone - Continue anticoagulation with Eliquis - Monitor telemetry
[2024-10-07 19:47] LABS: B-Type Natriuretic Peptide 170 pg/mL (0-100)
--- NOTE | 2024-10-07 20:47 | PD.RESHP ---
Documentation for date of: 10/07/24 [facility] History of Present Illness Chief complaint: weakness History of present illness: William Gan is 78 yr male with PMH of hypertension, hyperlipidemia, paroxysmal A-fib, CAD status post stent placement 1 week ago, BPH was presenting to the ED today due to acute onset weakness and short episode of aphasia. Patient's daughter was also at bedside able to provide some history. Daughter stated that family had gone out to lunch with the patient. When arriving back home, he was experiencing weakness and difficulty getting out of the car. Family was able to assist patient. He was able to walk slowly inside the house with walker. Once inside his house, patient collapsed onto the recliner and started making odd gurgling noises and was not able to speak. Episode resolved after a few minutes. Patient did endorse some dizziness and diaphoresis during this episode. Family was concerned that heat outside was possibly attributing to symptoms as temperature was 105. He follows cardiology Dr. Jama and cardiac surgeon Dr. Yony Haile in [place]. Patient will be undergoing CABG in next few weeks. Patient denies any headache, altered vision, chest pain, shortness of breath, blood in stool, or dysuria, no falls. Lives at home with grandson, able to comepelte ADLs with no issues. In ED, BP 149/59, mild bradycardia 56, respiratory rate 18, 99% O2 on room air. CBC remarkable for anemia hemoglobin 8.3, MCV 95. CMP shows mild hyponatremia sodium 132 (per chart review, appears that patient's baseline sodium ranges 125?130), creatinine 2.1 (baseline around 1.2), glucose 116. EKG showed sinus bradycardia with rate 57, QTc 507. CT head negative for acute hemorrhage. Suspicion of acute nonhemorrhagic infarct of the left cerebellar hemisphere. CTA head/neck showed 80% stenosis of left and right internal carotids, 90% stenosis of right vertebral artery, 80% stenosis left TRANSPLANT NURSE PRACTITIONER, 50% stenosis to M1 segment of left MCA. No LVOs. Teleneuro was consulted--Stated that low suspicion for hyperacute stroke in the left cerebellum. High suspicion of underlying toxic metabolic process or infection. Did not recommend to resume Eliquis due to low hemoglobin. NIHSS score 0, not a candidate for thrombolytic agent. Patient was given high-dose loading aspirin 324 mg and 1 L bolus NS while in the ED. Patient will be admitted for Rule out acute CVA, metabolic encephalopathy, SOFIYA. PMH: as noted above PSH: Noncontributory FamHx: HTN, CAD Social: Lives with grandson in [place]. Quit smoking and drinking in April 2024. Used to smoke 3 packs/day for 30 years. Used to drink 12 pack every 1 to 2 days. Patient retired in April after heart attack. 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 Meds: Aspirin 81 mg, Mya Holloway of 200 mg, finasteride 5 mg, omeprazole 20 mg, amlodipine 5 mg, metoprolol succinate 100 mg daily. Review of Systems Review of Systems Systems Reviewed: All systems reviewed, normal except as documented Exam Vital Signs Temp Pulse Resp BP Pulse Ox O2 Del Method O2 Flow Rate 98.6 F 61 18 166/54 H 100 Room Air 2 10/07/24 18:53 10/07/24 18:53 10/07/24 18:53 10/07/24 18:53 10/07/24 18:53 10/07/24 18:53 10/07/24 17:04 Narrative Exam General: Elderly male. No acute distress, cooperative e HEENT: NCAT, No JVD noted. Mucosa moist. Pupils are equal and reactive to light bilaterally Cardiovascular: Normal S1 and S2. Regular rate and rhythm. Respiratory: Lungs are clear to auscultation bilaterally. No wheezing or crackles heard. Abdomen: Soft, nontender, not distended, normal bowel sounds. Skin: Warm to touch, dry, no rashes noted Musculoskeletal: No gross injuries. Able to move all 4 extremities. Strength 5/5 in UE and LE. No pitting edema Neuro: Alert and oriented x2 (not oriented to time). No focal neuro deficits. No facial asymmetry. Psych: Normal affect and mood Results: Labs 10/08/24 01:10 10/07/24 17:30 Labs: Short CBC 10/07/24 Range/Units 17:30 WBC 8.0 (3.8-10.6) Thou/mm3 Hgb 8.3 L (13.5-16.0) g/dL Hct 24.6 L (41.0-53.0) % Plt Count 401 (140-440) Thou/mm3 BMP 10/07/24 17:30 Sodium 132 L Potassium 3.2 L Chloride 102 Carbon Dioxide 19.6 L BUN 35 H Creatinine 2.1 H Glucose 116 H Calcium 9.4 Cardiac Enzymes 10/07/24 Range/Units 17:30 Troponin I 0.023 (0.0-0.045) ng/mL Liver Function 10/07/24 Range/Units 17:30 Total Bilirubin 0.5 (0.3-1.2) mg/dL AST 17 (0-34) U/L ALT 19 (10-49) U/L Alkaline Phosphatase 50 (46-116) U/L Albumin 4.5 (3.4-4.8) gm/dL Quality Measures Quality Measures stroke Suspected type of Stroke: TIA Tenecteplase given: Reason(s) Tenecteplase not given: Use of NOAC (eliquis, xarelto, or pradaxa) not given Rehab services: PT evaluation ordered VTE Prophylaxis: pharmaceutical Antithrombotic by day 2:: ordered Statin ordered: >75 y/o moderate or high intensity dose Anticoagulation ordered for A-fib or flutter (current or hx): ordered Advance care planning discussed with:: child Medications Home Medications and Allergies Home Medications ?Medication ?Instructions ?Recorded ?Confirmed ?Type aspirin 81 mg tablet,delayed 81 mg PO QDAY 05/21/24 05/21/24 History release cetirizine 10 mg tablet 10 mg PO QDAY 05/21/24 05/21/24 History finasteride 5 mg tablet 5 mg PO QDAY 05/21/24 05/21/24 History Allergies Allergy/AdvReac Type Severity Reaction Status Date / Time No Known Allergies Allergy Verified 05/21/24 08:26 Visit Medications Acetaminophen (Acetaminophen 325 Mg Tablet) 650 mg PO Q6H PRN PRN Reason: Fever >100.3 or pain Stop: 11/06/24 20:27 Apixaban (Apixaban 2.5 Mg Tablet) 2.5 mg PO BID LAURA Stop: 11/06/24 20:59 Aspirin (Aspirin Ec 81 Mg Tabec) 81 mg PO X1 ONE Stop: 10/08/24 09:01 Atorvastatin Calcium (Atorvastatin Calcium 20 Mg Tablet) 40 mg PO HS LAURA Stop: 11/06/24 20:59 Clopidogrel Bisulfate (Clopidogrel Bisulfate 75 Mg Tablet) 75 mg PO DAILY LAURA Stop: 11/06/24 20:44 Sodium Chloride (Ns) 1,000 mls @ 100 mls/hr IV .Q10H LAURA Stop: 11/06/24 19:38 Labetalol HCl (Labetalol Inj 5 Mg/Ml Vial 20 Ml) 10 mg IV Q15M PRN PRN Reason: HYPER Ondansetron HCl (Ondansetron Inj 2 Mg/Ml Inj 2 Ml) 4 mg IV Q4HR PRN PRN Reason: NAUSEA OR VOMITING Stop: 11/06/24 18:14 Ondansetron HCl (Ondansetron Inj 2 Mg/Ml Inj 2 Ml) 4 mg IV Q6H PRN; Protocol PRN Reason: NAUSEA OR VOMITING Stop: 11/06/24 20:27 Sennosides (Senna Tablet) 1 tab PO QDAY PRN; Protocol PRN Reason: constipation Stop: 11/06/24 20:27 Discontinued Medications Aspirin (Aspirin 81 Mg Chew) 324 mg PO X1 ONE Stop: 10/07/24 18:55 Last Admin: 10/07/24 19:30 Dose: 324 mg Sodium Chloride (Ns) 1,000 mls @ 999 mls/hr IV .Q1H1M ONE Stop: 10/07/24 19:13 Last Admin: 10/07/24 19:30 Dose: 999 mls/hr Assessment & Plan Plan William Gan is 78 yr male with PMH of hypertension, hyperlipidemia, paroxysmal A-fib, CAD status post stent placement 1 week ago, BPH was presenting to the ED today due to acute onset weakness, short episode of aphasia, and diaphroesis. Patient will be admitted for Rule out acute CVA, metabolic encephalopathy, SOFIYA. #Acute encephalopathy #r/o acute CVA Ddx: heat exposure, dehydration, acute stroke. Patient just had one stent placed one week ago. He was experiencing diaphoresis and weakness. CT head negative for acute hemorrhage. Suspicion of acute nonhemorrhagic infarct of the left cerebellar hemisphere. CTA head/neck showed 80% stenosis of left and right internal carotids, 90% stenosis of right vertebral artery, 80% stenosis left TRANSPLANT NURSE PRACTITIONER, 50% stenosis to M1 segment of left MCA. No LVOs. Tele neuro consulted, recs below: - Received aspirin loading dose 324 mg - In-house neurology recommendations pending - Neuro Checks (Q2) - Bedside Swallow Eval - DVT Prophylaxis - IV Fluids, Normal Saline - Head of Bed 30 Degrees - Euglycemia and Avoid Hyperthermia (PRN Acetaminophen) - TSH ammonia pending - SBP<180, resume antihypertensives tomorrow morning - MRI brain pending - Echo pending - Cardiac monitoring ha1c, lipid panel pending - Started atorvastatin 40 mg daily - Started Plavix 75 mg daily #SOFIYA May be in setting of prerenal dehydration in combination with postrenal as patient has history of BPH. Creatinine 2.1 (baseline around 1.2), BUN 35. - Maintenance fluids - Avoid nephrotoxic agents - Daily CMP #Normocytic anemia Hemoglobin 8.3 on admission. MCV 95. Follow-up with [facility]. - Occult stool test pending - Iron panel pending - Reticulocyte count pending - Daily CBC #Electrolyte abnormalities #Hyponatremia #Hypokalemia Sodium 132 on admission, potassium 3.2. - Replete as needed - Monitor sodium - Daily CMP #Hx BPH #Hx hypertension #Hx CAD status post stent - Resume home antihypertensives in the morning. Patient takes amlodipine 10 mg, metoprolol succinate 100 mg - Resumed finasteride 5 mg daily - Resumed patient's aspirin, Eliquis #Atrial Fibrillation Rate-controlled on metoprolol, anticoagulated with Eliquis. Plan: - Continue metoprolol and amiodarone - Continue anticoagulation with Eliquis - Monitor telemetry Health maintenance: Dispo: tele, cva workup FEN: NPO until passes bedside swallow screen DVT prophylaxis: Eliquis CODE STATUS: DNR The patient's management plan was discussed with my attending physician Dr. Muñoz. Марина Ray, PGY-1 Attending Provider Attestation/Addendum Pt was evaluated and plan formulated together with the housestaff team. I have reviewed the residents note above and agree with most of its content. Please refer to the residents note for additional details.
[2024-10-07] MEDS: ATORVASTATIN CALCIUM 20 MG TABLET 40 MG PO (21:49)
[2024-10-07] MEDS: APIXABAN 2.5 MG TABLET PO (21:56)
[2024-10-07] MEDS: CLOPIDOGREL BISULFATE 75 MG TABLET PO (21:56)
[2024-10-07 22:06] LABS: Immature Reticulocyte Fraction 17.5 % (2.3-13.4); Reticulocyte % (Auto) 3.8 % (0.5-1.5); Reticulocyte Absolute Auto 79.9 Biln/L (25.0-75.0); Reticulocyte Hgb Content 35.4 pg (28.0-35.0)
[2024-10-07 23:28] LABS: Iron 65 mcg/dL (65-175); Percent Iron Saturation 23 % (20-55); Total Iron Binding Capacity 274 mcg/dL (250-425); Unsaturated Iron Binding 209 (225-295)
[2024-10-07 23:57] LABS: Ammonia < 10 uMol/L (11-32)
[2024-10-08] VITALS (24 sets, daily range): BP systolic 101–186; BP diastolic 46–96; PULSE 58–73; RESP 15–98; TEMP 36.2–36.9; O2SAT 92–100
[2024-10-08 00:04] LABS: LDH (Lactate Dehydrogenase) 163 U/L (120-246)
[2024-10-08 01:35] LABS: Hematocrit 19.2 % (41.0-53.0); Hemoglobin 6.7 g/dL (13.5-16.0)
[2024-10-08 04:23] LABS: Collection Type, Urine Clean Catch
[2024-10-08 04:33] LABS: Bilirubin,Urine Negative (Negative); Blood,Urine Negative (Negative); Clarity,Urine Clear (Clear/Hazy); Color,Urine Lt-Yellow (Lt Yel-Yel); Glucose, Urine Negative (Negative); Ketones,Urine Negative (Negative); Leukocyte Esterase,Urine Negative (Negative); Nitrite,Urine Negative (Negative); Protein,Urine Negative (Neg - Trace); RBC,Urine 1 /hpf (0-3); Specific Gravity,Urine 1.042 (1.001-1.035); Squamous Epithelial Cell,Urine 2 /hpf (0-5); Urobilinogen,Urine Negative mg/dL (0.0-1.0); WBC,Urine 5 /hpf (0-5)
[2024-10-08 04:40] LABS: Amphetamine/Methamp Scrn,U Negative (Negative); Barbiturate Screen,Urine Negative (Negative); Benzodiazepines Screen,Urine Negative (Negative); Benzoylecgonine Screen, Ur Negative (Negative); Fentanyl Screen,Urine Negative (Negative); Opiate Screen,Urine Negative (Negative); THC Screen,Urine Negative (Negative)
[2024-10-08] MEDS: SODIUM CHLORIDE 0.9% 1000 ML 1,000 ML 100 ML IV ×2 (05:14→15:51)
[2024-10-08 05:47] LABS: Basophils # (Auto) 0.1 Thou/mm3 (0.0-0.2); Basophils % (Auto) 1 % (0-2.5); Eosinophils % (Auto) 1 % (0-10); Immature Granulocytes % (Auto) 1 % (0-0); Immature Granulocytes Auto 0.03 Thou/mm3 (0.00-0.00); Lymphocytes # (Auto) 1.1 Thou/mm3 (1.0-4.8); Lymphocytes % (Auto) 19 % (10-50); Mean Corpuscular HGB Conc 34.7 g/dl (31.0-37.0); Mean Corpuscular Hemoglobin 32.9 pg (25.0-35.0); Mean Corpuscular Volume 95 fL (80-100); Monocytes # (Auto) 0.6 Thou/mm3 (0.0-0.8); Monocytes % (Auto) 10 % (0-12); Neutrophils % (Auto) 69 % (37-80); Nucleated Red Blood Cell % 0 /100 WBC (0); Platelet Count 307 Thou/mm3 (140-440); RDW Standard Deviation 49.1 fL (35.1-43.9); White Blood Count 5.8 Thou/mm3 (3.8-10.6)
[2024-10-08 06:07] LABS: Alanine Aminotransferase 14 U/L (10-49); Albumin, Serum 3.5 gm/dL (3.4-4.8); Albumin/Globulin Ratio 1.8 (1.2-2.2); Alkaline Phosphatase 51 U/L (46-116); Anion Gap 9 (7-16); Aspartate Amino Transferase 13 U/L (0-34); BUN/Creatinine Ratio 18 Ratio (12-20); Bilirubin,Total 0.4 mg/dL (0.3-1.2); Blood Urea Nitrogen 31 mg/dL (9-23); Calcium 8.1 mg/dL (8.3-10.6); Calcium (Corrected) 8.5 mg/dL (8.5-10.1); Carbon Dioxide 19.6 mMol/L (20.0-31.0); Chloride 108 mMol/L (98-107); Cholesterol 111 mg/dL (132-200); Creatinine (Component) 1.7 mg/dL (0.6-1.3); Estimated Creatinine Clearance 26.1 mL/min (>60); Glucose 120 mg/dL (74-106); HDL Cholesterol 28 mg/dL (40-60); LDL Cholesterol,Calculated 66 mg/dL (0-130); Magnesium 1.7 mg/dL (1.6-2.6); Osmolality,Calculated 281 (275-295); Phosphorous 3.8 mg/dL (2.4-5.1); Potassium 3.5 mMol/L (3.4-5.1); Sodium 137 mMol/L (136-145); Thyroid Stimulating Hormone 3.93 uIU/mL (0.55-4.78); Total Protein 5.5 gm/dL (5.7-8.2); Triglycerides 83 mg/dL (30-150); eGFR 41 See Note
[2024-10-08 06:17] LABS: Hematocrit 19.9 % (41.0-53.0); Hemoglobin 6.9 g/dL (13.5-16.0)
[2024-10-08 06:28] LABS: Path Review Blood Smear Sent to Pathologist
--- NOTE | 2024-10-08 07:44 | PC.NURSE ---
Pt alert upon assumption of care, GCS 15, denies any pain or discomfort. PT reports he wants to sleep, everyone keeps waking him up, this RN provided warm blanket for pt comfort, updated him of poc, pt in agreement. Call florian in reach, will cont w/poc.
--- NOTE | 2024-10-08 08:32 | PC.NURSE ---
pharmacy to deliver medication
[2024-10-08] MEDS: PANTOPRAZOLE INJ 40 MG VIAL IV (08:52)
[2024-10-08] MEDS: METOPROLOL SUCCINATE XL 25 MG TABCR 50 MG PO (08:55)
[2024-10-08] MEDS: AMIODARONE HCL 200 MG TABLET PO ×2 (08:55→21:13)
[2024-10-08] MEDS: amLODIPine BESYLATE 5 MG TABLET PO (08:56)
--- NOTE | 2024-10-08 09:55 | PC.CC ---
HARIS Rodriguez attempted to complete an initial assessment with the pt; however, he was not feeling well, so this insurance underwriter was unable to complete the initial assessment. SS to complete the initial assessment.
--- NOTE | 2024-10-08 09:56 | PC.NURSE ---
consent for blood transfusion obtained
[2024-10-08] MEDS: ASPIRIN EC 81 MG TABEC PO (10:20)
--- NOTE | 2024-10-08 10:23 | PC.NURSE ---
daughter at bedside request to speak w/sw. SW currently speaking to daughter.
--- NOTE | 2024-10-08 11:19 | PC.CC ---
Addendum entered by Tracey Rodriguez 10/08/24 15:40: [id number] reported that throughout the day, she has noticed that the pt has moments of clarity, but then goes in and out of memory, alertness and orientation. RN reported that the pt has called her numerous times asking for him nurse and every time she has gone in explaining that she is his nurse. Pt will forget who the his nurse is within a few minutes. RN does have concerns for the pt in regards to his memory and awareness of his surroundings and orientation. Addendum entered by Tracey Rodriguez 10/08/24 12:23: Pt is a [facility]: [employer] Senior [employer] [place] and spoke [place] Ada who provided a . [employer] Senior Officer informed [place] that pt will be admitted. Addendum entered by Tracey Rodriguez 10/08/24 11:36: It should be noted that pts daughter Saige requested an Advanced Directive and procedure writer provided her with a copy, as she states pt is mostly not alert/oriented. However, per RN, pt is alert and oriented and is able to tell you where he is at and the year. Saige reports there are family issues that lead her to believe pt is being taken advantaged of at home and does not want the people whom pt resides with to be left with everything, if pt passes away. Saige did not disclose the specifics on the family dynamics, therefore, APS report was not filed. Original Note: Initial: ASW completed an initial assessment with the pts daughter Saige Martell [phone] at bedside ER 10. Upon entry, pt was asleep and was not able to wake up. Saige informed procedure writer that the pt in no alert/oriented to place and time. Saige informed procedure writer that the pt believes it is the year 1964 and does not know where he is at. Saige reports the pt does know who the workforce development vice president is and sometimes goes in and out of awareness, but overall, pt does know time or his whereabouts. Saige reported that the pt uses a walker at home, but is very limited on mobility. Saige reports the pt resides with his grandson Chitoer (age 17) whom he has custody of and states the grandsons grandmother (pts ex-significant other-Amaris Phoenix) resides in the home as well. Saige reports the pt is a and his source of income is from Social security and the [facility]. Saige reports she is the Power of Acoustic Intelligence Specialist of the pts medical decisions and personal properties. Saige stated she will bring the legal documentation and provide a copy to SS. Saige reported she and her brother Tyler Gan [phone] will be the only people allowed to contact the hospital for updates and do not want any other visitors. Saige reports the pt is a code DNR and upon d/c she would make the decision for the pt to go to a SNF. Saige reports that the pt was supposed to have an open heart surgery, is unsure when, but that his the pts specialist is Dr. Jama Forming Process Line Worker. Saige and/or Tyler Gan will f/u with SS on 10/09/24 to provide a copy of the Power of Acoustic Intelligence Specialist. As of now, the pt has listed the son Tyler Gan at person to notify. Needs: pt may need DME upon d/c Next of Kin: Tyler Gan [phone]- [phone] Decision Maker: Tyler Gan son D/c plan: Family states pt will d/c to a SNF and will f/u with SS for the planning. Pt is a [facility]: [employer] Senior Officer contacted the [facility] and spoke with Ada who provided a .
--- NOTE | 2024-10-08 11:54 | PD.RESPRO ---
Documentation for date of: 10/08/24 Subjective Subjective Interval history: No acute overnight events noted. Seen and examined at bedside in ED patient alert and oriented x 3. Did not state he was in any pain and denies shortness of breath, chest discomfort, nausea, vomiting, weakness, paresthesia. Hemoglobin noted to drop from 8.3 to 6.6 and in process of transfusing 2 units PRBC with post transfusion H&H ordered. Patient denied any blood in stool, blood in urine, hematemesis/hemoptysis, abdominal pain, back pain. Creatinine improved from 2.1 to 1.7, K improved from 3.2 to 3.5, lipid panel showed LDL 66/HDL 28/cholesterol 111/TG 83, TSH normal limits. Also spoke to and consulted ends breakage clerk, Dr. Jama, and notified that given bleed Plavix and Eliquis have been held. Pending further recommendations. Exam Vital Signs Temp Pulse Resp BP Pulse Ox O2 Del Method O2 Flow Rate 98 F 63 17 170/59 H 99 Room Air 2 10/08/24 11:21 10/08/24 11:21 10/08/24 11:21 10/08/24 11:21 10/08/24 11:21 10/08/24 10:12 10/07/24 17:04 Narrative Exam General: AOx3, no acute distress, able to speak full sentences HEENT: NC/AT, mucous membranes moist, bilateral sclera anicteric Cardiovascular: regular rate and rhythm, S1/S2 present, no murmurs appreciated Pulmonary: clear to auscultation bilaterally, no rales/rhonchi/wheezes Abdominal: soft, non-tender, non-distended, no rebound/guarding, normal bowel sounds present Musculoskeletal: normal ROM, no peripheral edema Skin: warm and dry, intact, no rashes Neuro: CN II-XII intact, no focal deficits Objective Labs 10/08/24 05:35 10/08/24 05:35 Labs: Laboratory Results - last 24 hr 10/07/24 10/07/24 10/07/24 17:30 21:55 23:26 WBC 8.0 RBC 2.58 L Hgb 8.3 L Hct 24.6 L MCV 95 MCH 32.2 MCHC 33.7 RDW Std Deviation 49.5 H Plt Count 401 Neut % (Auto) 74 Lymph % (Auto) 17 Wells % (Auto) 8 Eos % (Auto) 0 Baso % (Auto) 1 Neut # (Auto) 5.9 Lymph # (Auto) 1.3 Wells # (Auto) 0.6 Eos # (Auto) 0.0 Baso # (Auto) 0.1 Immature Gran # (Auto) 0.04 H Absolute Nucleated RBC 0.00 Immature Gran % 1 H Nucleated RBC % 0 Smear Path Review Retic Count (auto) 3.8 H Absolute Retic 79.9 H Immature Retic Fraction 17.5 H Retic Hgb Content CHr 35.4 H APTT 29.1 Sodium 132 L Potassium 3.2 L Chloride 102 Carbon Dioxide 19.6 L Anion Gap 10 BUN 35 H Creatinine 2.1 H Estim Creat Clear Calc 21.1 L eGFR 32 L BUN/Creatinine Ratio [address] Glu mg/dL Hemoglobin A1c Calculated Osmolality 273 L Calcium 9.4 Corrected Calcium 9.4 Phosphorus Magnesium 1.8 Iron 65 TIBC 274 Iron Saturation 23 Unsat Iron Binding 209 L Total Bilirubin 0.5 AST 17 ALT 19 Alkaline Phosphatase 50 Ammonia < 10 L Lactate Dehydrogenase 163 Troponin I 0.023 B-Natriuretic Peptide 170 H Total Protein 6.8 Albumin 4.5 Globulin 2.3 Albumin/Globulin Ratio 2.0 Triglycerides Cholesterol LDL Cholesterol, Calc HDL Cholesterol Cholesterol/HDL Ratio Procalcitonin 0.13 TSH Ur Collection Type Urine Color Urine Clarity Urine pH Ur Specific [place] Urine Protein Urine Glucose (UA) Urine Ketones Urine Blood Urine Nitrite Urine Bilirubin Urine Urobilinogen (Auto) Ur Leukocyte Esterase Urine RBC Urine WBC Ur Squamous Epith Cells Urine Bacteria Urine Opiates Screen Urine Fentanyl Screen Ur Barbiturates Screen U Amphetamin/Meth Scrn U Benzodiazepines Scrn U Cocaine Metab Screen U Marijuana (THC) Screen Ethyl Alcohol < 3.0 Blood Type Antibody Screen Crossmatch Blood Bank Wristband ID 10/08/24 10/08/24 10/08/24 01:10 04:10 05:35 WBC 5.8 RBC 2.10 L Hgb 6.7 L* 6.9 L* Hct 19.2 L* 19.9 L* MCV 95 MCH 32.9 MCHC 34.7 RDW Std Deviation 49.1 H Plt Count 307 D Neut % (Auto) 69 Lymph % (Auto) 19 Wells % (Auto) 10 Eos % (Auto) 1 Baso % (Auto) 1 Neut # (Auto) 4.0 Lymph # (Auto) 1.1 Wells # (Auto) 0.6 Eos # (Auto) 0.0 Baso # (Auto) 0.1 Immature Gran # (Auto) 0.03 H Absolute Nucleated RBC 0.00 Immature Gran % 1 H Nucleated RBC % 0 Smear Path Review Sent to Pathologist Retic Count (auto) Absolute Retic Immature Retic Fraction Retic Hgb Content CHr APTT Sodium 137 Potassium 3.5 Chloride 108 H Carbon Dioxide 19.6 L Anion Gap 9 BUN 31 H Creatinine 1.7 H Estim Creat Clear Calc 26.1 L eGFR 41 L BUN/Creatinine Ratio 18 [address]ucose [address] Glu mg/dL Cancelled Hemoglobin A1c Cancelled Calculated Osmolality 281 Calcium 8.1 L Corrected Calcium 8.5 Phosphorus 3.8 Magnesium 1.7 Iron TIBC Iron Saturation Unsat Iron Binding Total Bilirubin 0.4 AST 13 ALT 14 Alkaline Phosphatase 51 Ammonia Lactate Dehydrogenase Troponin I B-Natriuretic Peptide Total Protein 5.5 L Albumin 3.5 D Globulin 2.0 L Albumin/Globulin Ratio 1.8 Triglycerides 83 Cholesterol 111 L LDL Cholesterol, Calc 66 HDL Cholesterol 28 L Cholesterol/HDL Ratio 4.0 Procalcitonin TSH 3.93 Ur Collection Type Clean Catch Urine Color Lt-Yellow Urine Clarity Clear Urine pH 6.0 Ur Specific [place] 1.042 H Urine Protein Negative Urine Glucose (UA) Negative Urine Ketones Negative Urine Blood Negative Urine Nitrite Negative Urine Bilirubin Negative Urine Urobilinogen (Auto) Negative Ur Leukocyte Esterase Negative Urine RBC 1 Urine WBC 5 Ur Squamous Epith Cells 2 Urine Bacteria None Urine Opiates Screen Negative Urine Fentanyl Screen Negative Ur Barbiturates Screen Negative U Amphetamin/Meth Scrn Negative U Benzodiazepines Scrn Negative U Cocaine Metab Screen Negative U Marijuana (THC) Screen Negative Ethyl Alcohol Blood Type Antibody Screen Crossmatch Blood Bank Wristband ID 10/08/24 06:47 WBC RBC Hgb Hct MCV MCH MCHC RDW Std Deviation Plt Count Neut % (Auto) Lymph % (Auto) Wells % (Auto) Eos % (Auto) Baso % (Auto) Neut # (Auto) Lymph # (Auto) Wells # (Auto) Eos # (Auto) Baso # (Auto) Immature Gran # (Auto) Absolute Nucleated RBC Immature Gran % Nucleated RBC % Smear Path Review Retic Count (auto) Absolute Retic Immature Retic Fraction Retic Hgb Content CHr APTT Sodium Potassium Chloride Carbon Dioxide Anion Gap BUN Creatinine Estim Creat Clear Calc eGFR BUN/Creatinine Ratio Glucose Estimated Ave Glu mg/dL Hemoglobin A1c Calculated Osmolality Calcium Corrected Calcium Phosphorus Magnesium Iron TIBC Iron Saturation Unsat Iron Binding Total Bilirubin AST ALT Alkaline Phosphatase Ammonia Lactate Dehydrogenase Troponin I B-Natriuretic Peptide Total Protein Albumin Globulin Albumin/Globulin Ratio Triglycerides Cholesterol LDL Cholesterol, Calc HDL Cholesterol Cholesterol/HDL Ratio Procalcitonin TSH Ur Collection Type Urine Color Urine Clarity Urine pH Ur Specific [place] Urine Protein Urine Glucose (UA) Urine Ketones Urine Blood Urine Nitrite Urine Bilirubin Urine Urobilinogen (Auto) Ur Leukocyte Esterase Urine RBC Urine WBC Ur Squamous Epith Cells Urine Bacteria Urine Opiates Screen Urine Fentanyl Screen Ur Barbiturates Screen U Amphetamin/Meth Scrn U Benzodiazepines Scrn U Cocaine Metab Screen U Marijuana (THC) Screen Ethyl Alcohol Blood Type O Positive Antibody Screen NEGATIVE Crossmatch See Detail Blood Bank Wristband ID Yes Quality Measures Quality Measures stroke Suspected type of Stroke: TIA Tenecteplase given: Reason(s) Tenecteplase not given: Use of NOAC (eliquis, xarelto, or pradaxa) not given Rehab services: PT evaluation ordered and Speech Language Pathology eval ordered VTE Prophylaxis: mechanical Antithrombotic by day 2:: contraindicated (describe) Statin ordered: >75 y/o moderate or high intensity dose Anticoagulation ordered for A-fib or flutter (current or hx): contraindicated Advance care planning discussed with:: patient Assessment & Plan Assessment Current Active Medications: Generic Name Dose Route Start Last Admin Trade Name Freq PRN Reason Stop Dose Admin Acetaminophen 650 mg 10/07/24 20:28 Acetaminophen 325 Mg Tablet PO 11/06/24 20:27 Q6H PRN Fever >100.3 or pain Amiodarone HCl 200 mg 10/07/24 21:00 10/08/24 08:55 Amiodarone Hcl 200 Mg Tablet PO 11/06/24 20:59 200 mg BID LAURA Administration Amlodipine Besylate 5 mg 10/08/24 09:00 10/08/24 08:56 Amlodipine Besylate 5 Mg Tablet PO 11/07/24 08:59 5 mg QDAY LAURA Administration Apixaban 2.5 mg 10/07/24 21:00 10/08/24 09:20 Apixaban 2.5 Mg Tablet PO 11/06/24 20:59 Not Given BID LAURA Atorvastatin Calcium 40 mg 10/07/24 21:00 10/07/24 21:49 Atorvastatin Calcium 20 Mg Tablet PO 11/06/24 20:59 40 mg HS LAURA Administration Clopidogrel Bisulfate 75 mg 10/07/24 20:45 10/08/24 09:21 Clopidogrel Bisulfate 75 Mg Tablet PO 11/06/24 20:44 Not Given DAILY LAURA Finasteride 5 mg 10/08/24 09:00 10/08/24 10:20 Finasteride 5 Mg Tablet PO 11/07/24 08:59 Not Given QDAY LAURA Sodium Chloride 1,000 mls @ 100 mls/hr 10/07/24 19:39 10/08/24 05:14 Ns IV 11/06/24 19:38 100 mls/hr .Q10H LAURA Administration Labetalol HCl 10 mg 10/07/24 18:15 Labetalol Inj 5 Mg/Ml Vial 20 Ml IV Q15M PRN HYPER Metoprolol Succinate 50 mg 10/08/24 09:00 10/08/24 08:55 Metoprolol Succinate Xl 25 Mg Tabcr PO 11/07/24 08:59 50 mg QDAY LAURA Administration Ondansetron HCl 4 mg 10/07/24 18:15 Ondansetron Inj 2 Mg/Ml Inj 2 Ml IV 11/06/24 18:14 Q4HR PRN NAUSEA OR VOMITING Ondansetron HCl 4 mg 10/07/24 20:28 Ondansetron Inj 2 Mg/Ml Inj 2 Ml IV 11/06/24 20:27 Q6H PRN NAUSEA OR VOMITING Protocol Pantoprazole Sodium 40 mg 10/08/24 09:00 10/08/24 09:21 Pantoprazole 40 Mg Tablet PO 11/07/24 08:59 Not Given QDAY LAURA Sennosides 1 tab 10/07/24 20:28 Senna Tablet PO 11/06/24 20:27 QDAY PRN constipation Protocol Plan William Gan is a 78-year-old male with a past medical history of hypertension, hyperlipidemia, paroxysmal A-fib, CAD, and BPH who presented with acute onset weakness, short episode of aphasia, and diaphroesis. Admitted for CVA rule out, metabolic encephalopathy, and SOFIYA. #Acute encephalopathy #CVA rule out CT head: negative for acute hemorrhage, suspicion of acute nonhemorrhagic infarct of the left cerebellar hemisphere CTA head/neck: 80% stenosis of left and right ICA, 90% stenosis of right vertebral artery, 80% stenosis left CASCADE OPERATOR, 50% stenosis to M1 segment of left MCA, no LVOs Received aspirin loading dose 324 mg in ED, not candidate for tPA, and teleneuro recommended to hold eliquis given low hemoglobin U-Tox negative, TSH normal, ammonia normal ? In-house neurology consulted, appreciate recommendations ? Passed nurse swallow screen ? Follow-up MRI brain, echo pending ? Pending speech therapy swallow evaluation, physical therapy ? Aspirin and Plavix held ? Atorvastatin 40 mg p.o. at bedtime ? SBP <180, resume antihypertensives tomorrow morning ? Continue maintenance NS at 100 cc/h #Normocytic anemia #? GI bleed Hemoglobin 8.3 on admission, dropped to 6.6 with repeat of 6.9 Reticulocyte elevated at 3.8%, iron panel normal, LDH normal, B12 and folate pending ? GI consulted, appreciate recommendations ? Clear liquid diet until midnight then NPO ? EGD scheduled for tomorrow ? Transfusing 2 units PRBC ? Follow-up posttransfusion H&H ? Occult stool test pending ? Transfuse if hemoglobin less than 7 #History of CAD History of left subclavian stent placed 1 week ago and on aspirin and plavix but have since been held given low hemoglobin. Follows Dr. Jama, who has been consulted, and also pending CABG in following weeks. ? Cardiology consulted, appreciate recommendations ? Aspirin and plavix held #Acute kidney injury, likely prerenal, improving May be in setting of prerenal dehydration in combination with postrenal as patient has history of BPH. Creatinine 2.1 (baseline around 1.2), BUN 35. ? Continue maintenance NS at 100 cc/h ? Avoid nephrotoxic agents, renally dose medications #Atrial Fibrillation Rate-controlled on amiodarone, anticoagulated with Eliquis ? Continue amiodarone 200 mg p.o. BID ? Eliquis held ? Monitor on telemetry #History of BPH ? Finasteride 5 mg p.o. daily #History of hypertension ? Metoprolol succinate 100 mg p.o. daily ? Amlodipine 5 mg p.o. daily #Hyponatremia, resolved #Hypokalemia, resolved Hospital management: Disposition: pending MRI brain, cardiology and GI recs Fluids: NS at 100 cc/h Diet: NPO, pending speech swallow evaluation Lines: PIV DVT prophylaxis: contraindicated given low hemoglobin, SCDs GI prophylaxis: pantoprazole 40 mg p.o. daily CODE STATUS: DNR ----- Plan discussed with attending physician Dr. Sunday Lazaro MD PGY-1 Internal Medicine Attending Provider Attestation/Addendum I have discussed and was present for the essential components of the history, physical examination, diagnosis, and treatment plan with the resident. I agree with the patient's care as documented by the resident and amended herein by me. Cj Brand DO. Although this document has been carefully reviewed, there may still be some phonetic and other typographical errors. These errors are purely grammatical due to imperfections in the software program and should not be construed in any way to compromise the substance of the patient's medical care during this visit.
--- NOTE | 2024-10-08 13:54 | PD.IMCONS ---
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 Gee Haile in [place] in the next 1 to 2 weeks at least. cc:: cc: Tyler Muñoz MD Review of Systems Review of Systems Systems Reviewed: All systems reviewed, normal except as documented Past Medical History Surgical History OTHER SURGICAL HX: Haziness of present illness Meds Home Medications and Allergies Home Medications ?Medication ?Instructions ?Recorded ?Confirmed ?Type aspirin 81 mg tablet,delayed 81 mg PO QDAY 05/21/24 10/08/24 History release cetirizine 10 mg tablet 10 mg PO QDAY 05/21/24 05/21/24 History finasteride 5 mg tablet 5 mg PO QDAY 05/21/24 10/08/24 History amiodarone 200 mg tablet 200 mg PO QDAY 10/08/24 10/08/24 History amlodipine 5 mg tablet 5 mg PO QDAY 10/08/24 10/08/24 History apixaban 5 mg tablet 5 mg PO BID 10/08/24 10/08/24 History atorvastatin 80 mg tablet 80 mg PO QDAY 10/08/24 10/08/24 History clopidogrel 75 mg tablet 75 mg PO DAILY 10/08/24 10/08/24 History metoprolol succinate 100 mg 150 mg PO QDAY 10/08/24 10/08/24 History tablet,extended release 24 hr Allergies Allergy/AdvReac Type Severity Reaction Status Date / Time No Known Allergies Allergy Verified 05/21/24 08:26 Exam Vital Signs Temp Pulse Resp BP Pulse Ox O2 Del Method O2 Flow Rate 98.4 F 63 19 165/61 H 97 Room Air 2 10/08/24 13:24 10/08/24 13:24 10/08/24 13:24 10/08/24 13:24 10/08/24 13:24 10/08/24 12:16 10/07/24 17:04 Constitutional Comments: Chronically ill-appearing Routine Respiratory Exam Comments: Normal to auscultation Routine Abdominal Exam Comments: Soft nontender Results Labs 10/08/24 05:35 10/08/24 05:35 Labs: Short CBC 10/07/24 10/08/24 10/08/24 Range/Units 17:30 01:10 05:35 WBC 8.0 5.8 (3.8-10.6) Thou/mm3 Hgb 8.3 L 6.7 L* 6.9 L* (13.5-16.0) g/dL Hct 24.6 L 19.2 L* 19.9 L* (41.0-53.0) % Plt Count 401 307 D (140-440) Thou/mm3 BMP 10/07/24 10/08/24 17:30 05:35 Sodium 132 L 137 Potassium 3.2 L 3.5 Chloride 102 108 H Carbon Dioxide 19.6 L 19.6 L BUN 35 H 31 H Creatinine 2.1 H 1.7 H Glucose 116 H 120 H Calcium 9.4 8.1 L Cardiac Enzymes 10/07/24 Range/Units 17:30 Troponin I 0.023 (0.0-0.045) ng/mL Liver Function 10/07/24 10/08/24 Range/Units 17:30 05:35 Total Bilirubin 0.5 0.4 (0.3-1.2) mg/dL AST 17 13 (0-34) U/L ALT 19 14 (10-49) U/L Alkaline Phosphatase 50 51 (46-116) U/L Albumin 4.5 3.5 D (3.4-4.8) gm/dL Urine 10/08/24 Range/Units 04:10 Urine Color Lt-Yellow (Lt Yel-Yel) Urine Clarity Clear (Clear/Hazy) Urine pH 6.0 (5.0-7.0) Ur Specific [place] 1.042 H (1.001-1.035) Urine Protein Negative (Neg - Trace) Urine Glucose (UA) Negative (Negative) Assessment and Plan Additional Assessment & Plan Additional Plan: # Acute posthemorrhagic anemia Agree with the blood transfusion clear liquid diet up until 12 midnight Then n.p.o. 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
--- NOTE | 2024-10-08 15:35 | PC.NURSE ---
Pt repeatedly calling this RN in room, asking to get his nurse, this RN told him I am his nurse, 4x now, but pt does not remember each time I go in, and repeats same request to get his cellphone. This RN has told pt multiple times that his daughter has his cellphone. SW updated. Pt alert and oriented to self, time, place, but continues to repeat same request, and not recognize this RN even though, I walk out and 1 minute later go in there as he puts his call light on as I walk out.
--- NOTE | 2024-10-08 16:01 | PC.NURSE ---
Pt tolerated blood transfusion well. No adverse reactions. VSS on tele. Call florian remains in reach, will cont w/poc.
--- NOTE | 2024-10-08 19:19 | PC.NURSE ---
Zigzag Machine Operator assumes care of patient at this time, pt is A/O x 3 at this time with no c/o pain or acute distress. Bed in low position and locked with side rails up x 2. Call lig in reach with daughter at bed side
[2024-10-08 20:12] LABS: Folate 13.86 ng/mL (>5.38); Vitamin B12 439 pg/mL (211-911)
[2024-10-08] MEDS: ATORVASTATIN CALCIUM 20 MG TABLET 40 MG PO (21:13)
--- NOTE | 2024-10-08 23:55 | PD.NEUROCONS ---
History of Present Illness Data of Consult Requesting Physician: Tyler Muñoz MD Primary Care Provider: Physician No Primary/Family Consult Narrative History of present illness: Mr. Gan is 78 yr male with hypertension, hyperlipidemia, paroxysmal A-fib, CAD status post stent placement 1 week ago presents to the ER with acute onset of generalized weakness and transient period of aphasia. Patient's daughter stated that family had gone out to lunch with the patient. When arriving back home, he was experiencing weakness and difficulty getting out of the car. Family was able to assist patient. He was able to walk slowly inside the house with walker. Once inside his house, patient collapsed onto the recliner and started making odd gurgling noises and was not able to speak. Episode resolved after a few minutes. Patient did endorse some dizziness and diaphoresis during this episode. Family was concerned that heat outside was possibly attributing to symptoms as temperature was 105. He is followed by Dr. Jama and cardiac surgeon Dr. Yony Haile in [place]. Patient will be undergoing CABG in next few weeks. Patient denies any headache, vision changes, chest pain shortness of breath or abdominal pain. Workup in the ER: Vital signs: Afebrile, BP 149/59, mild bradycardia 56, respiratory rate 18, 99% O2 on room air. Labs: CBC remarkable for anemia hemoglobin 8.3, MCV 95. CMP shows mild hyponatremia sodium 132 (per chart review, appears that patient's baseline sodium ranges 125?130), creatinine 2.1 (baseline around 1.2), glucose 116. EKG showed sinus bradycardia with rate 57, QTc 507. Imaging: CT head negative for acute hemorrhage. Suspicion of acute nonhemorrhagic infarct of the left cerebellar hemisphere. 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 No LVOs. Teleneuro was consulted--Stated that low suspicion for hyperacute stroke in the left cerebellum. High suspicion of underlying toxic metabolic process or infection. Did not recommend to resume Eliquis due to low hemoglobin. NIHSS score 0, not a candidate for thrombolytic agent. Patient was given high-dose loading aspirin 324 mg and 1 L bolus NS while in the ED. Patient got admitted for Rule out acute CVA, metabolic encephalopathy, SOFIYA. In-house neurology was consulted for further management. Patient did not have any recurrent episodes after admission. He is back to his baseline. No focal neurological deficit noted on exam. cc:: cc: Tyler Muñoz MD Review of Systems Review of Systems Systems Reviewed: All systems reviewed, normal except as documented Past Medical History Surgical History OTHER SURGICAL HX: Haziness of present illness Meds Home Medications and Allergies Home Medications ?Medication ?Instructions ?Recorded ?Confirmed ?Type aspirin 81 mg tablet,delayed 81 mg PO QDAY 05/21/24 10/08/24 History release cetirizine 10 mg tablet 10 mg PO QDAY 05/21/24 05/21/24 History finasteride 5 mg tablet 5 mg PO QDAY 05/21/24 10/08/24 History amiodarone 200 mg tablet 200 mg PO QDAY 10/08/24 10/08/24 History amlodipine 5 mg tablet 5 mg PO QDAY 10/08/24 10/08/24 History apixaban 5 mg tablet 5 mg PO BID 10/08/24 10/08/24 History atorvastatin 80 mg tablet 80 mg PO QDAY 10/08/24 10/08/24 History clopidogrel 75 mg tablet 75 mg PO DAILY 10/08/24 10/08/24 History metoprolol succinate 100 mg 150 mg PO QDAY 10/08/24 10/08/24 History tablet,extended release 24 hr Allergies Allergy/AdvReac Type Severity Reaction Status Date / Time No Known Allergies Allergy Verified 05/21/24 08:26 Exam - Neurology Vital Signs Temp Pulse Resp BP Pulse Ox O2 Del Method O2 Flow Rate 97.1 F 68 21 H 171/74 H 96 Room Air 2 10/08/24 20:00 10/08/24 21:13 10/08/24 20:00 10/08/24 21:13 10/08/24 20:00 10/08/24 20:00 10/07/24 17:04 Narrative Exam GENERAL APPEARANCE: Well hydrated, well-nourished in no acute distress. HEENT: Normocephalic, atraumatic, extraocular movements intact. Pupils: Equal reacting to light and accommodation Significant discoloration in NECK: Supple, no JVD or bruits. CARDIOVASULAR: Heart: S1, S2 heard, regular without S3-S4 or murmur no rubs or gallops. LUNGS/CHEST: Clear to auscultation bilaterally. No rails, rhonchi, or wheezing. Normal inspection. ABDOMEN: Soft, nontender, with normal bowel sounds. No pulsatile masses. No rebound, rigidity, or guarding. Normal inspection and palpation. EXTREMITIES: Normal inspection and palpation. No edema, clubbing or cyanosis. SKIN: significant discoloration noted in Distal upper and lower extremities. MUSCULOSKELETAL: No cervical, thoracic, lumbar or midline bony tenderness. Normal inspection. NEURO: Alert, awake and oriented x3. Cranial nerves: II through XII grossly intact. Speech and language: Normal with no dysarthria or dysphasia. Motor system: Tone and bulk: Normal: Strength: 5 out of 5 in all 4 extremities; No pronator drift noted. Deep tendon reflexes: 2+ bilaterally symmetrical. Plantar reflex: Downgoing bilaterally. Sensory system: Intact to all modalities of sensation bilaterally. Coordination: Intact to jxcnmg-jyan-dbbxi and ghya-uxnr-chud test bilaterally. No ataxia, no dysmetria, or dysdiadochokinesia noted. No intention tremors noted. Gait: Not tested. No signs of meningeal irritation noted. PSYCHIATRIC: Normal mood and affect. Results Labs 10/08/24 05:35 10/08/24 05:35 Labs: Short CBC 10/08/24 10/08/24 Range/Units 01:10 05:35 WBC 5.8 (3.8-10.6) Thou/mm3 Hgb 6.7 L* 6.9 L* (13.5-16.0) g/dL Hct 19.2 L* 19.9 L* (41.0-53.0) % Plt Count 307 D (140-440) Thou/mm3 [facility] 10/08/24 05:35 Sodium 137 Potassium 3.5 Chloride 108 H Carbon Dioxide 19.6 L BUN 31 H Creatinine 1.7 H Glucose 120 H Calcium 8.1 L Liver Function 10/08/24 Range/Units 05:35 Total Bilirubin 0.4 (0.3-1.2) mg/dL AST 13 (0-34) U/L ALT 14 (10-49) U/L Alkaline Phosphatase 51 (46-116) U/L Albumin 3.5 D (3.4-4.8) gm/dL Urine 10/08/24 Range/Units 04:10 Urine Color Lt-Yellow (Lt Yel-Yel) Urine Clarity Clear (Clear/Hazy) Urine pH 6.0 (5.0-7.0) Ur Specific [place] 1.042 H (1.001-1.035) Urine Protein Negative (Neg - Trace) Urine Glucose (UA) Negative (Negative) Assessment & Plan Assessment and plan (1) TIA (transient ischemic attack): Status: Acute Assessment and plan: No focal neurological deficit or recurrent episodes reported after admission As the CT angiogram showed multiple intracranial stenosis, he needs to be on aggressive medical management with the platelet therapy with statin. Continue with aspirin 81 mg, Plavix 75 mg with close monitoring for bleeding and statin Follow-up with MRI brain if possible as he just had stent placed a week (2) Atrial fibrillation, new onset: Status: Acute Assessment and plan: Will hold off on the Eliquis for now until hemoglobin stabilizes Noted GI has been consulted (3) Anemia: Status: Acute Assessment and plan: Going to be getting blood transfusion for the drop in hemoglobin/hematocrit GI consulted, going for endoscopy tomorrow to look for source of bleeding
[2024-10-09] VITALS (24 sets, daily range): BP systolic 123–190; BP diastolic 62–94; PULSE 55–612; RESP 11–88; TEMP 36.3–36.8; O2SAT 96–100; BMI 21.0
[2024-10-09] MEDS: hydrALAZINE INJ 20 MG/ML VIAL 10 MG IV ×2 (00:25→20:08)
[2024-10-09] MEDS: LABETALOL INJ 5 MG/ML VIAL 20 ML 10 MG IV ×2 (00:52→01:15)
--- NOTE | 2024-10-09 01:26 | PC.NURSE ---
Report given to floor nurse SADAF Casas
[2024-10-09] MEDS: SODIUM CHLORIDE 0.9% 1000 ML 1,000 ML 100 ML IV (03:04)
[2024-10-09 06:13] LABS: Basophils # (Auto) 0.1 Thou/mm3 (0.0-0.2); Basophils % (Auto) 1 % (0-2.5); Eosinophils # (Auto) 0.1 Thou/mm3 (0.0-0.5); Eosinophils % (Auto) 1 % (0-10); Hematocrit 31.4 % (41.0-53.0); Hemoglobin 11.1 g/dL (13.5-16.0); Immature Granulocytes % (Auto) 1 % (0-0); Immature Granulocytes Auto 0.08 Thou/mm3 (0.00-0.00); Lymphocytes # (Auto) 1.9 Thou/mm3 (1.0-4.8); Lymphocytes % (Auto) 19 % (10-50); Mean Corpuscular HGB Conc 35.4 g/dl (31.0-37.0); Mean Corpuscular Hemoglobin 31.4 pg (25.0-35.0); Mean Corpuscular Volume 89 fL (80-100); Monocytes % (Auto) 10 % (0-12); Neutrophils # (Auto) 6.9 Thou/mm3 (1.8-7.7); Neutrophils % (Auto) 69 % (37-80); Nucleated Red Blood Cell % 0 /100 WBC (0); Platelet Count 309 Thou/mm3 (140-440); RDW Standard Deviation 51.5 fL (35.1-43.9); Red Blood Count 3.54 Miln/mm3 (4.50-5.90); White Blood Count 10.1 Thou/mm3 (3.8-10.6)
[2024-10-09 06:42] LABS: Alanine Aminotransferase 15 U/L (10-49); Albumin, Serum 3.7 gm/dL (3.4-4.8); Albumin/Globulin Ratio 1.8 (1.2-2.2); Alkaline Phosphatase 47 U/L (46-116); Anion Gap 11 (7-16); Aspartate Amino Transferase 18 U/L (0-34); BUN/Creatinine Ratio 11 Ratio (12-20); Bilirubin,Total 0.9 mg/dL (0.3-1.2); Blood Urea Nitrogen 13 mg/dL (9-23); Calcium 8.1 mg/dL (8.3-10.6); Calcium (Corrected) 8.3 mg/dL (8.5-10.1); Carbon Dioxide 16.4 mMol/L (20.0-31.0); Chloride 111 mMol/L (98-107); Creatinine (Component) 1.2 mg/dL (0.6-1.3); Estimated Creatinine Clearance 40.4 mL/min (>60); Globulin 2.1 gm/dL (2.3-3.5); Glucose 96 mg/dL (74-106); Magnesium 1.6 mg/dL (1.6-2.6); Osmolality,Calculated 275 (275-295); Phosphorous 2.8 mg/dL (2.4-5.1); Potassium 3.5 mMol/L (3.4-5.1); Sodium 138 mMol/L (136-145); Total Protein 5.8 gm/dL (5.7-8.2); eGFR > 60 See Note
--- NOTE | 2024-10-09 08:01 | PD.IMCONS ---
HPI Data of Consult Requesting Physician: Tyler Muñoz MD Primary Care Provider: Physician No Primary/Family Consult Narrative History of present illness: This is 78 yr male with PMH of hypertension, hyperlipidemia, paroxysmal A-fib, CAD ; heart cath 1 week ago ; sever triple vessel disease plannimg gor CABG; s/p L subclavian angioplasty pt seen in the ER with weakbess noted to hve sever anemia Patient was given high-dose loading aspirin 324 mg and 1 L bolus NS while in the ED. Patient will be admitted for Rule out acute CVA, metabolic encephalopathy, SOFIYA. cc:: cc: Tyler Muñoz MD Meds Home Medications and Allergies Home Medications ?Medication ?Instructions ?Recorded ?Confirmed ?Type aspirin 81 mg tablet,delayed 81 mg PO QDAY 05/21/24 10/08/24 History release cetirizine 10 mg tablet 10 mg PO QDAY 05/21/24 05/21/24 History finasteride 5 mg tablet 5 mg PO QDAY 05/21/24 10/08/24 History amiodarone 200 mg tablet 200 mg PO QDAY 10/08/24 10/08/24 History amlodipine 5 mg tablet 5 mg PO QDAY 10/08/24 10/08/24 History apixaban 5 mg tablet 5 mg PO BID 10/08/24 10/08/24 History atorvastatin 80 mg tablet 80 mg PO QDAY 10/08/24 10/08/24 History clopidogrel 75 mg tablet 75 mg PO DAILY 10/08/24 10/08/24 History metoprolol succinate 100 mg 150 mg PO QDAY 10/08/24 10/08/24 History tablet,extended release 24 hr Allergies Allergy/AdvReac Type Severity Reaction Status Date / Time No Known Allergies Allergy Verified 05/21/24 08:26 Exam Vital Signs Temp Pulse Resp BP Pulse Ox O2 Del Method O2 Flow Rate 98.2 F 68 16 177/72 H 98 Nasal Cannula 1 10/09/24 04:00 10/09/24 04:00 10/09/24 05:00 10/09/24 04:00 10/09/24 05:00 10/09/24 04:00 10/09/24 05:00 Routine HEENT Exam Head: Present normocephalic and atraumatic Eye: Present EOMI and PERRL ENT: Present mucous membranes moist Routine Neck Exam Neck: Present supple and trachea midline Routine Respiratory Exam Respiratory: Present chest non-tender, lungs clear, normal breath sounds and no resp distress Routine Cardiovascular Exam Cardiovascular: Present RRR Routine Abdominal Exam Abdominal: Present soft and normoactive bowel sounds Routine Extremities Exam Extremities: Present full ROM Routine Skin Exam Skin: Present intact, dry and warm Routine Neurological Exam Neurological: Present alert, oriented X3 and CN II-XII intact Routine Psychiatric Exam Psychiatric: Present normal affect and normal thought process Results Labs 10/09/24 05:50 10/09/24 05:50 Labs: Short CBC 10/09/24 Range/Units 05:50 WBC 10.1 D (3.8-10.6) Thou/mm3 Hgb 11.1 L D (13.5-16.0) g/dL Hct 31.4 L D (41.0-53.0) % Plt Count 309 (140-440) Thou/mm3 BMP 10/09/24 05:50 Sodium 138 Potassium 3.5 Chloride 111 H Carbon Dioxide 16.4 L BUN 13 Creatinine 1.2 D Glucose 96 Calcium 8.1 L Liver Function 10/09/24 Range/Units 05:50 Total Bilirubin 0.9 D (0.3-1.2) mg/dL AST 18 (0-34) U/L ALT 15 (10-49) U/L Alkaline Phosphatase 47 (46-116) U/L Albumin 3.7 (3.4-4.8) gm/dL Assessment and Plan Assessment and plan (1) Anemia: Status: Acute (2) TIA (transient ischemic attack): Status: Acute (3) Elevated troponin: Status: Acute (4) Syncope: Status: Acute (5) Atrial fibrillation, new onset: Status: Acute (6) CAD (coronary artery disease): Status: Acute Additional Assessment & Plan Additional Plan: agree with treatment for anemia contiue GI w/u pt has sever tripple vessel diseases - awaiting CABG hold joseph
[2024-10-09] MEDS: ASPIRIN EC 81 MG TABEC PO (09:00)
[2024-10-09] MEDS: CLOPIDOGREL BISULFATE 75 MG TABLET PO (09:00)
[2024-10-09] MEDS: METOPROLOL SUCCINATE XL 25 MG TABCR 50 MG PO (09:00)
[2024-10-09] MEDS: FINASTERIDE 5 MG TABLET PO (09:00)
[2024-10-09] MEDS: amLODIPine BESYLATE 5 MG TABLET PO (09:00)
[2024-10-09] MEDS: PANTOPRAZOLE 40 MG TABLET PO (09:01)
[2024-10-09] MEDS: AMIODARONE HCL 200 MG TABLET PO ×2 (09:01→20:03)
--- NOTE | 2024-10-09 10:42 | PC.SS ---
Addendum entered by Jade Lee 10/09/24 15:24: SS follow up note; SS attempted to contact patient's daughter Mel however was unsuccessful, SS contacted patient's son, Tyler to provide SNF choices. Tyler reports he would like patient to discharge to [facility] [[email or web address] Patient is pending PT evaluation, Once available, SS will fax PT notes for [facility] [[email or web address]] to submit for auth. Original Note: SS follow up note; SS contacted patient's son, Tyler Gan [phone]. Patient's son reports himself and his sister, Mel are medical decision makers [phone]. Patient's son would like for patient to discharge to SNF. SS will submit for SNF and contact patient's son to present SNF facilities. SS will stand by for further needs.
[2024-10-09 11:42] LABS: Misc Send Out* See Sep Rpt
--- NOTE | 2024-10-09 13:31 | PD.RESPRO ---
Documentation for date of: 10/09/24 Subjective Subjective Interval history: Patient was seen and examined by the bedside. No acute overnight events. Patient reports feeling weak. He's NPO, pending EGD. Hgb today is 11.1. Mentation fluctuates throughout the day with improvement later in the day. Exam Vital Signs Temp Pulse Resp BP Pulse Ox O2 Del Method O2 Flow Rate 97.9 F 62 18 166/68 H 100 Room Air 1 10/09/24 12:00 10/09/24 12:00 10/09/24 12:00 10/09/24 12:00 10/09/24 12:00 10/09/24 12:00 10/09/24 05:00 Narrative Exam Gen: Chronically ill-appearing elderly male. Sleeping, easily awakened. HEENT: NCAT, PERRLA, EOMI, MMM, anicteric conjunctivae. CVS: normal S1 and S2. RRR. No M/R/G. Resp: CTA B/L. No rhonchi, rales, crackles or wheezing. Abd: soft, non-tender, non-distended. BS+ in all 4 quadrants. MSK: Good ROM in BUE & BLE. No edema or rash. Neuro: CN II-XII grossly intact. Strength 5/5 in BUE & BLE. Alert and oriented x2, reports incorrect year ('ninety something'). Objective Labs 10/13/24 04:15 10/12/24 11:27 Labs: Laboratory Results - last 24 hr 10/07/24 10/08/24 10/09/24 17:30 06:47 05:50 WBC 10.1 D RBC 3.54 L Hgb 11.1 L D Hct 31.4 L D MCV 89 MCH 31.4 MCHC 35.4 RDW Std Deviation 51.5 H Plt Count 309 Neut % (Auto) 69 Lymph % (Auto) 19 [place] % (Auto) 10 Eos % (Auto) 1 Baso % (Auto) 1 Neut # (Auto) 6.9 Lymph # (Auto) 1.9 [place] # (Auto) 1.0 H Eos # (Auto) 0.1 Baso # (Auto) 0.1 Immature Gran # (Auto) 0.08 H Absolute Nucleated RBC 0.00 Immature Gran % 1 H Nucleated RBC % 0 Sodium 138 Potassium 3.5 Chloride 111 H Carbon Dioxide 16.4 L Anion Gap 11 BUN 13 Creatinine 1.2 D Estim Creat Clear Calc 40.4 L eGFR > 60 BUN/Creatinine Ratio 11 L Glucose 96 Calculated Osmolality 275 Calcium 8.1 L Corrected Calcium 8.3 L Phosphorus 2.8 Magnesium 1.6 Total Bilirubin 0.9 D AST 18 ALT 15 Alkaline Phosphatase 47 Total Protein 5.8 Albumin 3.7 Globulin 2.1 L Albumin/Globulin Ratio 1.8 Vitamin B12 439 Folate 13.86 Blood Type O Positive Antibody Screen NEGATIVE Crossmatch See Detail Blood Bank Wristband ID Yes Quality Measures Quality Measures stroke Suspected type of Stroke: TIA Tenecteplase given: Reason(s) Tenecteplase not given: Use of NOAC (eliquis, xarelto, or pradaxa) not given Rehab services: PT evaluation ordered VTE Prophylaxis: mechanical Antithrombotic by day 2:: contraindicated (describe) (suspected GI bleed) Statin ordered: >75 y/o moderate or high intensity dose Anticoagulation ordered for A-fib or flutter (current or hx): contraindicated Advance care planning discussed with:: other Assessment & Plan Assessment Current Active Medications: Generic Name Dose Route Start Last Admin Trade Name Freq PRN Reason Stop Dose Admin Acetaminophen 650 mg 10/07/24 20:28 Acetaminophen 325 Mg Tablet PO 11/06/24 20:27 Q6H PRN Fever >100.3 or pain Amiodarone HCl 200 mg 10/07/24 21:00 10/09/24 09:01 Amiodarone Hcl 200 Mg Tablet PO 11/06/24 20:59 200 mg BID LAURA Administration Amlodipine Besylate 5 mg 10/08/24 09:00 10/09/24 09:00 Amlodipine Besylate 5 Mg Tablet PO 11/07/24 08:59 5 mg QDAY LAURA Administration Apixaban 2.5 mg 10/07/24 21:00 10/08/24 09:20 Apixaban 2.5 Mg Tablet PO 11/06/24 20:59 Not Given BID LAURA Aspirin 81 mg 10/09/24 09:00 10/09/24 09:00 Aspirin Ec 81 Mg Tabec PO 11/08/24 08:59 81 mg QDAY LAURA Administration Atorvastatin Calcium 40 mg 10/07/24 21:00 10/08/24 21:13 Atorvastatin Calcium 20 Mg Tablet PO 11/06/24 20:59 40 mg HS LAURA Administration Clopidogrel Bisulfate 75 mg 10/09/24 09:00 10/09/24 09:00 Clopidogrel Bisulfate 75 Mg Tablet PO 11/08/24 08:59 75 mg QDAY LAURA Administration Finasteride 5 mg 10/08/24 09:00 10/09/24 09:00 Finasteride 5 Mg Tablet PO 11/07/24 08:59 5 mg QDAY LAURA Administration Hydralazine HCl 10 mg 10/08/24 18:43 10/09/24 00:25 Hydralazine Inj 20 Mg/Ml Vial IV 11/07/24 18:40 10 mg Q6H PRN Administration SBP > 180 Sodium Chloride 1,000 mls @ 100 mls/hr 10/07/24 19:39 10/09/24 03:04 Ns IV 11/06/24 19:38 100 mls/hr .Q10H LAURA Administration Metoprolol Succinate 50 mg 10/08/24 09:00 10/09/24 09:00 Metoprolol Succinate Xl 25 Mg Tabcr PO 11/07/24 08:59 50 mg QDAY LAURA Administration Ondansetron HCl 4 mg 10/07/24 20:28 Ondansetron Inj 2 Mg/Ml Inj 2 Ml IV 11/06/24 20:27 Q6H PRN NAUSEA OR VOMITING Protocol Pantoprazole Sodium 40 mg 10/08/24 09:00 10/09/24 09:01 Pantoprazole 40 Mg Tablet PO 11/07/24 08:59 40 mg QDAY LAURA Administration Sennosides 1 tab 10/07/24 20:28 Senna Tablet PO 11/06/24 20:27 QDAY PRN constipation Protocol Plan The patient is a 78-year-old male with a past medical history of hypertension, hyperlipidemia, paroxysmal A-fib, CAD, and BPH who presented with acute onset weakness, short episode of aphasia, and diaphroesis. Admitted for CVA rule out, metabolic encephalopathy, and SOFIYA. 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 Bigger concern is acute encephalopathy due to metabolic reasons/bleeding. Due to extensive stenisis of extra- and intra-cranial arteries, patient requires aggressive risk factor modification and anticoagulation when the bleeding is ruled out/controlled. Plan: ? BRYAN with bubble study pending ? Pending speech therapy swallow evaluation, physical therapy ? Eliquis, Aspirin and Plavix held due to concern for bleeding ? Atorvastatin 40 mg p.o. at bedtime ? Blood pressure control - EEG ordered #Normocytic anemia #? GI bleed #History of CAD #Acute kidney injury, likely prerenal, improving #Atrial Fibrillation #History of BPH #History of hypertension #Hyponatremia, resolved #Hypokalemia, resolved - management per primary team Plan of care discussed with attending Dr. Zeng. Mesha Hale MD, PGY 1. Attending Provider Attestation/Addendum I personally have seen and examined the patient at the bedside and I agreed with the resident's findings, assessment and plan of care. Continue to follow the workup.
--- NOTE | 2024-10-09 13:42 | PD.IMPROG ---
Documentation for date of: 10/09/24 Subjective Subjective Interval history: Patient evaluated Consent obtained for for endoscopy Exam Vital Signs Temp Pulse Resp BP Pulse Ox O2 Del Method O2 Flow Rate 97.9 F 62 18 166/68 H 100 Room Air 1 10/09/24 12:00 10/09/24 12:00 10/09/24 12:00 10/09/24 12:00 10/09/24 12:00 10/09/24 12:00 10/09/24 05:00 Objective Labs 10/10/24 05:37 10/10/24 05:37 Labs: Laboratory Results - last 24 hr 10/07/24 10/08/24 10/09/24 17:30 06:47 05:50 WBC 10.1 D RBC 3.54 L Hgb 11.1 L D Hct 31.4 L D MCV 89 MCH 31.4 MCHC 35.4 RDW Std Deviation 51.5 H Plt Count 309 Neut % (Auto) 69 Lymph % (Auto) 19 [place] % (Auto) 10 Eos % (Auto) 1 Baso % (Auto) 1 Neut # (Auto) 6.9 Lymph # (Auto) 1.9 [place] # (Auto) 1.0 H Eos # (Auto) 0.1 Baso # (Auto) 0.1 Immature Gran # (Auto) 0.08 H Absolute Nucleated RBC 0.00 Immature Gran % 1 H Nucleated RBC % 0 Sodium 138 Potassium 3.5 Chloride 111 H Carbon Dioxide 16.4 L Anion Gap 11 BUN 13 Creatinine 1.2 D Estim Creat Clear Calc 40.4 L eGFR > 60 BUN/Creatinine Ratio 11 L Glucose 96 Calculated Osmolality 275 Calcium 8.1 L Corrected Calcium 8.3 L Phosphorus 2.8 Magnesium 1.6 Total Bilirubin 0.9 D AST 18 ALT 15 Alkaline Phosphatase 47 Total Protein 5.8 Albumin 3.7 Globulin 2.1 L Albumin/Globulin Ratio 1.8 Vitamin B12 439 Folate 13.86 Crossmatch See Detail Impressions Impression: Posthemorrhagic anemia Will proceed with endoscopy after informed consent obtained Assessment & Plan A&P Narrative agree with treatment for anemia contiue GI w/u pt has sever tripple vessel diseases - awaiting CABG hold eliquis Time Spent With Patient Time: Total time spent is greater than 50% in coordination of care (as documented) at patient's floor/unit and/or counseling patient:
--- NOTE | 2024-10-09 16:20 | SUR.PHASEI ---
pt received from OR in recovery bay 1. pt asleep but responds to voice, breathing unlabored on room air. v/s stable. report received from Celine TALAVERA.
--- NOTE | 2024-10-09 16:45 | ESPR_ITS ---
Documentation for date of: 10/09/24 Subjective Subjective Interval history: Patient was seen and examined at bedside this morning. No acute overnight events. Patient today did not have any neurological deficits nor any dysmetria and strength was equal bilaterally. Patient was supposed to have MRI done today, but given his recent history of a stent placed last week which is not coronary start records will be obtained from [facility] to see if MRI could be done at this time. Patient had no other complaints at this time and hemoglobin was stable today. Exam Vital Signs Temp Pulse Resp BP Pulse Ox O2 Del Method O2 Flow Rate 97.4 F 55 L 13 152/64 H 100 Room Air 3 10/09/24 16:35 10/09/24 16:35 10/09/24 16:35 10/09/24 16:35 10/09/24 16:35 10/09/24 12:00 10/09/24 16:05 Narrative Exam General: A/O x3, no acute distress Eyes: PERRL, EOMI. Anicteric, vision grossly intact. Ears: No ear pain, no ear discharge, Hearing grossly intact. Nose: No nasal discharge. Mouth/Throat: Moist mucous membranes, no redness, no lesions. Neck: Neck supple, non-tender, no cervical lymphadenopathy. Lungs: Clear DIAN to auscultation and percussion, No accessory muscle use. Cardio: Normal S1/S2, regular rhythm, no murmurs appreciated. Abdomen: Soft, non-tender, no palpable masses, peristalsis present, no guarding or rebound. Extremities: Symmetrical, no significant deformities, no peripheral edema , non-tender, peripheral pulses presents. Skin: No rashes, no lesions, warm to touch. Neuro: No focal neurological deficits, motor and sensory intact, muscle strength bilaterally upper and lower extremities, no dysmetria or aphasia Objective Labs 10/09/24 05:50 10/09/24 05:50 Labs: Laboratory Results - last 24 hr 10/07/24 10/09/24 17:30 05:50 WBC 10.1 D RBC 3.54 L Hgb 11.1 L D Hct 31.4 L D MCV 89 MCH 31.4 MCHC 35.4 RDW Std Deviation 51.5 H Plt Count 309 Neut % (Auto) 69 Lymph % (Auto) 19 [place] % (Auto) 10 Eos % (Auto) 1 Baso % (Auto) 1 Neut # (Auto) 6.9 Lymph # (Auto) 1.9 [place] # (Auto) 1.0 H Eos # (Auto) 0.1 Baso # (Auto) 0.1 Immature Gran # (Auto) 0.08 H Absolute Nucleated RBC 0.00 Immature Gran % 1 H Nucleated RBC % 0 Sodium 138 Potassium 3.5 Chloride 111 H Carbon Dioxide 16.4 L Anion Gap 11 BUN 13 Creatinine 1.2 D Estim Creat Clear Calc 40.4 L eGFR > 60 BUN/Creatinine Ratio 11 L Glucose 96 Calculated Osmolality 275 Calcium 8.1 L Corrected Calcium 8.3 L Phosphorus 2.8 Magnesium 1.6 Total Bilirubin 0.9 D AST 18 ALT 15 Alkaline Phosphatase 47 Total Protein 5.8 Albumin 3.7 Globulin 2.1 L Albumin/Globulin Ratio 1.8 Vitamin B12 439 Folate 13.86 Quality Measures Quality Measures stroke Suspected type of Stroke: TIA Tenecteplase given: Reason(s) Tenecteplase not given: Use of NOAC (eliquis, xarelto, or pradaxa) not given Rehab services: PT evaluation ordered and Speech Language Pathology eval ordered VTE Prophylaxis: mechanical Antithrombotic by day 2:: not indicated (describe) Statin ordered: >75 y/o moderate or high intensity dose Anticoagulation ordered for A-fib or flutter (current or hx): contraindicated (possible GI bleed) Advance care planning discussed with:: patient Assessment & Plan Assessment Current Active Medications: Generic Name Dose Route Start Last Admin Trade Name Freq PRN Reason Stop Dose Admin Acetaminophen 650 mg 10/07/24 20:28 Acetaminophen 325 Mg Tablet PO 11/06/24 20:27 Q6H PRN Fever >100.3 or pain Amiodarone HCl 200 mg 10/07/24 21:00 10/09/24 09:01 Amiodarone Hcl 200 Mg Tablet PO 11/06/24 20:59 200 mg BID LAURA Administration Amlodipine Besylate 5 mg 10/08/24 09:00 10/09/24 09:00 Amlodipine Besylate 5 Mg Tablet PO 11/07/24 08:59 5 mg QDAY LAURA Administration Apixaban 2.5 mg 10/07/24 21:00 10/08/24 09:20 Apixaban 2.5 Mg Tablet PO 11/06/24 20:59 Not Given BID LAURA Aspirin 81 mg 10/09/24 09:00 10/09/24 09:00 Aspirin Ec 81 Mg Tabec PO 11/08/24 08:59 81 mg QDAY LAURA Administration Atorvastatin Calcium 40 mg 10/07/24 21:00 10/08/24 21:13 Atorvastatin Calcium 20 Mg Tablet PO 11/06/24 20:59 40 mg HS LAURA Administration Clopidogrel Bisulfate 75 mg 10/09/24 09:00 10/09/24 09:00 Clopidogrel Bisulfate 75 Mg Tablet PO 11/08/24 08:59 75 mg QDAY LAURA Administration Diphenhydramine HCl 25 mg 10/09/24 15:57 Diphenhydramine Inj 50 Mg/Ml Vial IV 10/09/24 17:57 [id number] PRN MODERATE SEDATION Fentanyl Citrate 50 mcg 10/09/24 15:57 Fentanyl Cit Inj 50 Mcg/Ml Amp 2ml IV 10/09/24 17:57 Q2M PRN MODERATE SEDATION Finasteride 5 mg 10/08/24 09:00 10/09/24 09:00 Finasteride 5 Mg Tablet PO 11/07/24 08:59 5 mg QDAY LAURA Administration Hydralazine HCl 10 mg 10/08/24 18:43 10/09/24 00:25 Hydralazine Inj 20 Mg/Ml Vial IV 11/07/24 18:40 10 mg Q6H PRN Administration SBP > 180 Sodium Chloride 1,000 mls @ 100 mls/hr 10/07/24 19:39 10/09/24 03:04 Ns IV 11/06/24 19:38 100 mls/hr .Q10H LAURA Administration Metoprolol Succinate 50 mg 10/08/24 09:00 10/09/24 09:00 Metoprolol Succinate Xl 25 Mg Tabcr PO 11/07/24 08:59 50 mg QDAY LAURA Administration Midazolam HCl 2 mg 10/09/24 15:57 Midazolam Inj 1 Mg/Ml Vial 2 Ml IV 10/09/24 17:57 Q2M PRN Moderate Sedation Ondansetron HCl 4 mg 10/07/24 20:28 Ondansetron Inj 2 Mg/Ml Inj 2 Ml IV 11/06/24 20:27 Q6H PRN NAUSEA OR VOMITING Protocol Pantoprazole Sodium 40 mg 10/08/24 09:00 10/09/24 09:01 Pantoprazole 40 Mg Tablet PO 11/07/24 08:59 40 mg QDAY LAURA Administration Sennosides 1 tab 10/07/24 20:28 Senna Tablet PO 11/06/24 20:27 QDAY PRN constipation Protocol Plan 78-year-old male with a past medical history of hypertension, hyperlipidemia, paroxysmal A-fib, CAD, and BPH was admitted to the hospital on 10/07/2024 for possible acute CVA and possible GI blood with acute anemia. #Possible acute CVA #Acute encephalopathy, resolved #Aphasia, resolved CT head: negative for acute hemorrhage, suspicion of acute nonhemorrhagic infarct of the left cerebellar hemisphere CTA head/neck: 80% stenosis of left and right ICA, 90% stenosis of right vertebral artery, 80% stenosis left CUT FILER, 50% stenosis to M1 segment of left MCA, no LVOs Received aspirin loading dose 324 mg in ED, not candidate for tPA, and teleneuro recommended to hold eliquis given low hemoglobin U-Tox negative, TSH normal, ammonia normal ? In-house neurology consulted, appreciate recommendations ? Follow-up MRI brain after we verify stent is MRI compatible from medical records, echo pending ? Referred to speech therapy and physical therapy ? Aspirin and Plavix restarted ? Atorvastatin 40 mg p.o. at bedtime ? Permissive HTN for now #Normocytic anemia #Possible GI bleed Hemoglobin 8.3 on admission, dropped to 6.6 with repeat of 6.9 Reticulocyte elevated at 3.8%, iron panel normal, LDH normal, B12 and folate normal Hgb today 11.1 and no active signs of bleeding ? GI consulted, appreciate recommendations ? EGD only showed erythematous duodenopathy without bleeding and erythematous gastric mucosa - Plan for colonoscopy tomorrow ? Transfused 2 units PRBC yesterday ? Occult stool test pending ? Transfuse if hemoglobin less than 7 #History of CAD History of left subclavian stent placed 1 week ago and on aspirin and plavix but have since been held given low hemoglobin. Follows Dr. Jama, who has been consulted, and also pending CABG in following weeks. ? Cardiology consulted, appreciate recommendations ? Aspirin and plavix continue #Acute kidney injury, likely prerenal, resolved May be in setting of prerenal dehydration in combination with postrenal as patient has history of BPH. Initial Creatinine 2.1 (baseline around 1.2), BUN 35. Today Creatinine 1.2 ? Avoid nephrotoxic agents, renally dose medications #Atrial Fibrillation Rate-controlled on amiodarone, anticoagulated with Eliquis ? Continue amiodarone 200 mg p.o. BID ? Eliquis held ? Monitor on telemetry #History of BPH ? Finasteride 5 mg p.o. daily #History of hypertension ? Metoprolol succinate 100 mg p.o. daily ? Amlodipine 5 mg p.o. daily #Hyponatremia, resolved #Hypokalemia, resolved Disposition: Patient seen in telemetry for possible acute CVA and GI bleed. Diet: clear liquid diet GI prophylaxis: protonix DVT prophylaxis: SCDs Code: DNR Case disclosed with Attending Dr. Sunday Pena PGY1 Attending Provider Attestation/Addendum I have discussed and was present for the essential components of the history, physical examination, diagnosis, and treatment plan with the resident. I agree with the patient's care as documented by the resident and amended herein by me. Cj Brand DO. Although this document has been carefully reviewed, there may still be some phonetic and other typographical errors. These errors are purely grammatical due to imperfections in the software program and should not be construed in any way to compromise the substance of the patient's medical care during this visit.
--- NOTE | 2024-10-09 16:53 | SUR.PHASEI ---
pt asleep but responds to voice, breathing unlabored on room air. v/s stable. report called to Korin TALAVERA. pt will be transferred to room at this time.
[2024-10-09] MEDS: NA SU/NAHCO3/KC/PEG (Golytely) 4,000 ML BTL 4000 ML PO (17:53)
[2024-10-09] MEDS: ATORVASTATIN CALCIUM 20 MG TABLET 40 MG PO (20:03)
--- NOTE | 2024-10-09 20:32 | ECHO_ITS ---
Transthoracic Echo Report Ht (in): 62 Wt (lb): 122 Exam Location: Portable Status: Inpatient Configuration Developer: TARANGO Bang^^^^ Indications: Procedure Performed: BP: / HR: MEASUREMENTS (Male / Female) Normal Values 2D ECHO LV Diastolic Diameter PLAX 4.1 cm 4.2 - 5.9 / 3.9 - 5.3 cm LV Systolic Diameter PLAX 2.8 cm IVS Diastolic Thickness 0.9 cm 0.6 - 1.0 / 0.6 - 0.9 cm LVPW Diastolic Thickness 0.9 cm 0.6 - 1.0 / 0.6 - 0.9 cm LV Relative Wall Thickness 0.4 LVOT Diameter 1.7 cm Aortic Root Diameter 2.8 cm LA Systolic Diameter LX 4.0 cm 3.0 - 4.0 / 2.7 - 3.8 cm LV Ejection Fraction MOD 4C 58.3 % LV Ejection Fraction 4C AL 59.9 % LA Volume Index 66.0 cm?/m? 16 - 28 cm?/m? DOPPLER AV Peak Velocity 135.0 cm/s AV Peak Gradient 7.3 mmHg AV Mean Gradient 5.0 mmHg AV Velocity Time Integral 37.1 cm AI Peak Velocity 321.0 cm/s AI Peak Gradient 41.2 mmHg AI Pressure Half Time 621.0 ms LVOT Peak Velocity 98.3 cm/s LVOT Peak Gradient 3.9 mmHg LVOT Velocity Time Integral 24.5 cm AV Area Cont Eq vti 1.5 cm? AV Area Cont Eq pk 1.7 cm? MV Peak Velocity 90.5 cm/s MV Peak Gradient 3.3 mmHg MV Mean Velocity 58.0 cm/s MV Mean Gradient 1.0 mmHg MV Area PHT 4.1 cm? MR Peak Velocity 380.0 cm/s MR Peak Gradient 57.8 mmHg Mitral E Point Velocity 101.0 cm/s Mitral A Point Velocity 63.2 cm/s Mitral E to A Ratio 1.6 LV E' Lateral Velocity 9.5 cm/s Mitral E to LV E' Lateral Ratio 10.6 LV E' Septal Velocity 6.0 cm/s Mitral E to LV E' Septal Ratio 16.9 TR Peak Velocity 271.7 cm/s TR Peak Gradient 29.5 mmHg FINDINGS Left Ventricle Normal left ventricular size, wall thickness, systolic function with no obvious regional wall motion abnormalities.there is grade II diastolic dysfunction of the left ventricle (pseudonormal filling pattern). The left ventricular ejection fraction is normal, estimated at 55-60%. Right Ventricle The right ventricle is normal in size and systolic function. The estimated right ventricular systolic pressure, 35 mmHg. Left Atrium Moderately increased left atrial volume 66 mL/m?. Right Atrium The right atrial cavity size is mildly increased. Atrial Septum The interatrial septum is normal to color flow Doppler and agitated saline imaging. Aorta The aorta is normal by two-dimensional, color flow and Doppler interrogation. Mitral Valve Mild mitral regurgitation. Mild mitral annular calcification. Aortic Valve Aortic valve sclerosis. Diffuse calcification of the aortic valve. Trace to mild aortic valve regurgitation. Tricuspid Valve There is mild tricuspid valve regurgitation. Pulmonic Valve Trivial pulmonic valve regurgitation. Vessels The pulmonary artery appears normal. The inferior vena cava pulmonary and hepatic veins appear normal. Pericardium The pericardium is normal by two-dimensional imaging. There is no significant pericardial effusion. CONCLUSIONS indication: Stroke w/ Bubble IAS is normal to color flow Doppler and agitated saline imaging. LV appears normal with EF 55-60%. Diastolic Dysfunction II RV appears normal with RVSP 35 mmHg. Mild MR & TR AOV sclerosis Trace AI Moderatley dilated LA Timothy Jama (Electronically Signed) Final Date: 11 Oct 2024 15:47
[2024-10-10] VITALS (10 sets, daily range): BP systolic 135–159; BP diastolic 61–86; PULSE 59–77; RESP 14–98; TEMP 36.4–37.3; O2SAT 97–99; BMI 22.1; BMI 19.0
--- NOTE | 2024-10-10 | XR_ITS ---
Examinations: MRI Brain without intravenous contrast. MRA brain without intravenous contrast. MRA carotids without intravenous contrast 3-D vascular reconstructions Date and time of exam: October 10, 2024 1541 hours INDICATIONS: Acute onset weakness and aphasia today No Technique: Multiple axial and sagittal images of the brain have been obtained MRA brain carotid images without contrast obtained, including 3-D postprocessing, vascular maximum intensity projection images Findings: Sell[place] is not enlarged. The optic chiasm and infundibular stalk are not remarkable. Prepontine and interpeduncular cisterns are not enlarged. No localized enlargement of the medulla or karan. Fourth ventricle and cerebellar tonsils normal in position. Subacute hemorrhage is not seen. Fourth ventricle is midline. Mass in the cerebellopontine angle region is not evident. 7th and 8th nerve complexes exhibits symmetry. Globes are symmetrical with no retro-orbital mass. Increased white matter signal prominent Diffusion-weighted images demonstrate multiple acute embolic foci of restricted diffusion, multiple foci in the cerebellar hemispheres, brainstem pontine level, left vermis, right temporal lobe, bilateral occipital lobes, posterior right parietal lobe, left frontal lobe Mass-effect upon the ventricular system is not identified. MRA carotid images degraded by patient motion. 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
[2024-10-10 06:06] LABS: Basophils # (Auto) 0.1 Thou/mm3 (0.0-0.2); Basophils % (Auto) 2 % (0-2.5); Eosinophils # (Auto) 0.2 Thou/mm3 (0.0-0.5); Eosinophils % (Auto) 3 % (0-10); Hematocrit 28.3 % (41.0-53.0); Immature Granulocytes % (Auto) 0 % (0-0); Immature Granulocytes Auto 0.03 Thou/mm3 (0.00-0.00); Lymphocytes # (Auto) 1.3 Thou/mm3 (1.0-4.8); Lymphocytes % (Auto) 17 % (10-50); Mean Corpuscular HGB Conc 35.3 g/dl (31.0-37.0); Mean Corpuscular Hemoglobin 31.4 pg (25.0-35.0); Mean Corpuscular Volume 89 fL (80-100); Monocytes # (Auto) 0.9 Thou/mm3 (0.0-0.8); Monocytes % (Auto) 12 % (0-12); Neutrophils % (Auto) 66 % (37-80); Nucleated Red Blood Cell % 0 /100 WBC (0); Platelet Count 321 Thou/mm3 (140-440); RDW Standard Deviation 50.7 fL (35.1-43.9); Red Blood Count 3.18 Miln/mm3 (4.50-5.90); White Blood Count 7.5 Thou/mm3 (3.8-10.6)
[2024-10-10 06:32] LABS: Alanine Aminotransferase 15 U/L (10-49); Albumin, Serum 3.4 gm/dL (3.4-4.8); Albumin/Globulin Ratio 1.8 (1.2-2.2); Alkaline Phosphatase 45 U/L (46-116); Anion Gap 11 (7-16); Aspartate Amino Transferase 16 U/L (0-34); BUN/Creatinine Ratio 12 Ratio (12-20); Bilirubin,Total 0.8 mg/dL (0.3-1.2); Blood Urea Nitrogen 14 mg/dL (9-23); Calcium 8.2 mg/dL (8.3-10.6); Calcium (Corrected) 8.7 mg/dL (8.5-10.1); Carbon Dioxide 19.2 mMol/L (20.0-31.0); Chloride 109 mMol/L (98-107); Creatinine (Component) 1.2 mg/dL (0.6-1.3); Estimated Creatinine Clearance 40.4 mL/min (>60); Globulin 1.9 gm/dL (2.3-3.5); Glucose 92 mg/dL (74-106); Magnesium 1.5 mg/dL (1.6-2.6); Osmolality,Calculated 278 (275-295); Phosphorous 3.2 mg/dL (2.4-5.1); Potassium 3.8 mMol/L (3.4-5.1); Sodium 139 mMol/L (136-145); Total Protein 5.3 gm/dL (5.7-8.2); eGFR > 60 See Note
[2024-10-10] MEDS: METOPROLOL SUCCINATE XL 25 MG TABCR 50 MG PO (08:10)
[2024-10-10] MEDS: FINASTERIDE 5 MG TABLET PO (08:10)
[2024-10-10] MEDS: PANTOPRAZOLE 40 MG TABLET PO (08:10)
[2024-10-10] MEDS: AMIODARONE HCL 200 MG TABLET PO ×2 (08:11→20:36)
[2024-10-10] MEDS: amLODIPine BESYLATE 5 MG TABLET PO (08:14)
--- NOTE | 2024-10-10 09:03 | PD.RESPRO ---
Documentation for date of: 10/10/24 Subjective Subjective Interval history: Patient was seen and examined by the bedside. No acute overnight events. Patient mentation slightly improved, but patient is still confused regarding the reason he's in the hospital, reporting that he's here for the triple bypass in the brain . Continues to drink GoLytely for the colonoscopy. Exam Vital Signs Temp Pulse Resp BP Pulse Ox O2 Del Method O2 Flow Rate 99.1 F 66 15 148/61 H 98 Room Air 3 10/10/24 08:00 10/10/24 08:14 10/10/24 08:00 10/10/24 08:14 10/10/24 08:00 10/10/24 08:00 10/09/24 16:05 Narrative Exam Gen: Chronically ill-appearing elderly male. Resting in bed. HEENT: NCAT, PERRLA, EOMI, MMM, anicteric conjunctivae. CVS: normal S1 and S2. RRR. No M/R/G. Resp: CTA B/L. No rhonchi, rales, crackles or wheezing. Abd: soft, non-tender, non-distended. BS+ in all 4 quadrants. MSK: Good ROM in BUE & BLE. No edema or rash. Neuro: CN II-XII grossly intact. Strength 5/5 in BUE & BLE. Alert and oriented x3, but still confused regarding the reason for his admission. Objective Labs 10/13/24 04:15 10/12/24 11:27 Labs: Laboratory Results - last 24 hr 10/10/24 05:37 WBC 7.5 RBC 3.18 L Hgb 10.0 L Hct 28.3 L MCV 89 MCH 31.4 MCHC 35.3 RDW Std Deviation 50.7 H Plt Count 321 Neut % (Auto) 66 Lymph % (Auto) 17 [place] % (Auto) 12 Eos % (Auto) 3 Baso % (Auto) 2 Neut # (Auto) 5.0 Lymph # (Auto) 1.3 [place] # (Auto) 0.9 H Eos # (Auto) 0.2 Baso # (Auto) 0.1 Immature Gran # (Auto) 0.03 H Absolute Nucleated RBC 0.00 Immature Gran % 0 Nucleated RBC % 0 Sodium 139 Potassium 3.8 Chloride 109 H Carbon Dioxide 19.2 L Anion Gap 11 BUN 14 Creatinine 1.2 Estim Creat Clear Calc 40.4 L eGFR > 60 BUN/Creatinine Ratio 12 Glucose 92 Calculated Osmolality 278 Calcium 8.2 L Corrected Calcium 8.7 Phosphorus 3.2 Magnesium 1.5 L Total Bilirubin 0.8 AST 16 ALT 15 Alkaline Phosphatase 45 L Total Protein 5.3 L Albumin 3.4 Globulin 1.9 L Albumin/Globulin Ratio 1.8 Quality Measures Quality Measures stroke Suspected type of Stroke: TIA Tenecteplase given: Reason(s) Tenecteplase not given: Use of NOAC (eliquis, xarelto, or pradaxa) not given Rehab services: PT evaluation ordered VTE Prophylaxis: mechanical Antithrombotic by day 2:: contraindicated (describe) (susp GI bleed) Statin ordered: >75 y/o moderate or high intensity dose Anticoagulation ordered for A-fib or flutter (current or hx): contraindicated Advance care planning discussed with:: other Assessment & Plan Assessment Current Active Medications: Generic Name Dose Route Start Last Admin Trade Name Freq PRN Reason Stop Dose Admin Acetaminophen 650 mg 10/07/24 20:28 Acetaminophen 325 Mg Tablet PO 11/06/24 20:27 Q6H PRN Fever >100.3 or pain Amiodarone HCl 200 mg 10/07/24 21:00 10/10/24 08:11 Amiodarone Hcl 200 Mg Tablet PO 11/06/24 20:59 200 mg BID LAURA Administration Amlodipine Besylate 5 mg 10/08/24 09:00 10/10/24 08:14 Amlodipine Besylate 5 Mg Tablet PO 11/07/24 08:59 5 mg QDAY LAURA Administration Apixaban 2.5 mg 10/07/24 21:00 10/08/24 09:20 Apixaban 2.5 Mg Tablet PO 11/06/24 20:59 Not Given BID LAURA Aspirin 81 mg 10/09/24 09:00 10/09/24 09:00 Aspirin Ec 81 Mg Tabec PO 11/08/24 08:59 81 mg QDAY LAURA Administration Atorvastatin Calcium 40 mg 10/07/24 21:00 10/09/24 20:03 Atorvastatin Calcium 20 Mg Tablet PO 11/06/24 20:59 40 mg HS LAURA Administration Clopidogrel Bisulfate 75 mg 10/09/24 09:00 10/09/24 09:00 Clopidogrel Bisulfate 75 Mg Tablet PO 11/08/24 08:59 75 mg QDAY LAURA Administration Finasteride 5 mg 10/08/24 09:00 10/10/24 08:10 Finasteride 5 Mg Tablet PO 11/07/24 08:59 5 mg QDAY LAURA Administration Hydralazine HCl 10 mg 10/08/24 18:43 10/09/24 20:08 Hydralazine Inj 20 Mg/Ml Vial IV 11/07/24 18:40 10 mg Q6H PRN Administration SBP > 180 Magnesium Sulfate 4 gm in 50 mls @ 12.5 mls/hr 10/10/24 08:25 Magnesium Sulfate Ivpb IV 10/10/24 12:24 X1 ONE Metoprolol Succinate 50 mg 10/08/24 09:00 10/10/24 08:10 Metoprolol Succinate Xl 25 Mg Tabcr PO 11/07/24 08:59 50 mg QDAY LAURA Administration Ondansetron HCl 4 mg 10/07/24 20:28 Ondansetron Inj 2 Mg/Ml Inj 2 Ml IV 11/06/24 20:27 Q6H PRN NAUSEA OR VOMITING Protocol Pantoprazole Sodium 40 mg 10/08/24 09:00 10/10/24 08:10 Pantoprazole 40 Mg Tablet PO 11/07/24 08:59 40 mg QDAY LAURA Administration Sennosides 1 tab 10/07/24 20:28 Senna Tablet PO 11/06/24 20:27 QDAY PRN constipation Protocol Plan The patient is a 78-year-old male with a past medical history of hypertension, hyperlipidemia, paroxysmal A-fib, CAD, and BPH who presented with acute onset weakness, short episode of aphasia, and diaphroesis. Admitted for CVA rule out, metabolic encephalopathy, and SOFIYA. #Acute encephalopathy #CVA rule out #TIA CT head: negative for acute hemorrhage, suspicion of acute nonhemorrhagic infarct of the left cerebellar hemisphere CTA head/neck: 80% stenosis of left and right ICA, 90% stenosis of right vertebral artery, 80% stenosis left [employer], 50% stenosis to M1 segment of left MCA, no LVOs U-Tox negative, TSH normal, ammonia normal Patient was not a candidate for tPA due to use of DOAC. Bigger concern is acute encephalopathy due to metabolic reasons/bleeding. Due to extensive stenosis of extra- and intra-cranial arteries, patient requires aggressive risk factor modification and anticoagulation when the bleeding is ruled out/controlled. Speech therapy saw the patient, assessment negative for dysphagia. Plan: ? BRYAN with bubble study pending ? Pending physical therapy ? Eliquis, Aspirin and Plavix are held due to concern for bleeding ? Atorvastatin 40 mg p.o. at bedtime ? Blood pressure control - EEG ordered, pending read #Normocytic anemia #? GI bleed #History of CAD #Acute kidney injury, likely prerenal, improving #Atrial Fibrillation #History of BPH #History of hypertension #Hyponatremia, resolved #Hypokalemia, resolved - management per primary team Plan of care discussed with attending Dr. Zeng. Mesha Hale MD, PGY 1. Attending Provider Attestation/Addendum Personally have seen and examined the patient at the bedside and agree with resident findings, assessment and plan of care. Follow-up with the results of the workup
[2024-10-10] MEDS: Magnesium Sulfate 4 GM Ivpb 4 GM/50 ML BAG IV (09:07)
--- NOTE | 2024-10-10 10:02 | PC.SS ---
SS follow up note; SS was contacted by Rashmi from [facility] she informed SS that [facility]- integration manager, Neeta was requesting a call back from SS. SS contacted Neeta from the [facility], however did not answer. SS left Voicemail with contact information.
--- NOTE | 2024-10-10 10:37 | PC.SS ---
Addendum entered by Jade Lee 10/10/24 15:14: SS was contacted by Jassi [phone], SS informed her that SS sent Clinicals however patient was pending PT evaluation. Addendum entered by Jade Lee 10/10/24 10:48: SS follow up note; Patient is still pending PT evaluation, SS contacted Yolanda from PT, she informed SS she would be evaluating. patient today. SS will fax PT notes once available to Jassi at [phone] Original Note: SS follow up note; SS was contacted by [facility] therapeutic case manager- Jassi and she informed SS that patient is not able to discharge to to [facility] because Veterans has to be 70% service connected. The closer facility that is contracted 70% is [facility]. SS contacted patient's son, Tyler and he is agreeable to have patient discharge to [facility]. SS contacted Ema from [facility] and she informed SS to resend Clinicals. [facility] case mangJassi mendez informed SS to resend clinicals to her as well. SS will fax over clinicals to [facility] and [facility] through [employer].
--- NOTE | 2024-10-10 10:43 | PC.SS ---
SS follow up note; Patient will discharge to SNF for Physical therapy, Families choice is [facility]. [facility] from [facility] patient will discharge back home with his nephew. Patient's daughter Mel and patient's son Tyler are Medical decision makers for patient. SS will stand by for further needs.
--- NOTE | 2024-10-10 11:18 | PD.RESPRO ---
Documentation for date of: 10/10/24 Subjective Subjective Interval history: No acute overnight events noted. Seen and examined at bedside and patient continuing to prepare for colonoscopy with Ethan. Otherwise he does not have any complaints at this time, including weakness, paresthesias, or any other neurological deficits. 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 Thus, tool filer hand updated and plan for BRYAN on 10/12 for further evaluation. Exam Vital Signs Temp Pulse Resp BP Pulse Ox O2 Del Method O2 Flow Rate 99.1 F 66 15 148/61 H 98 Room Air 3 10/10/24 08:00 10/10/24 08:14 10/10/24 08:00 10/10/24 08:14 10/10/24 08:00 10/10/24 08:00 10/09/24 16:05 Narrative Exam General: alert and oriented to name/birthdate/year/place, no acute distress, able to speak full sentences HEENT: NC/AT, mucous membranes moist, bilateral sclera anicteric Cardiovascular: regular rate and rhythm, S1/S2 present, no murmurs appreciated Pulmonary: clear to auscultation bilaterally, no rales/rhonchi/wheezes Abdominal: soft, non-tender, non-distended, no rebound/guarding, normal bowel sounds present Musculoskeletal: normal ROM, no peripheral edema Skin: warm and dry, intact, no rashes Neuro: CN II-XII intact, no focal deficits Objective Labs 10/10/24 05:37 10/10/24 05:37 Labs: Laboratory Results - last 24 hr 10/10/24 05:37 WBC 7.5 RBC 3.18 L Hgb 10.0 L Hct 28.3 L MCV 89 MCH 31.4 MCHC 35.3 RDW Std Deviation 50.7 H Plt Count 321 Neut % (Auto) 66 Lymph % (Auto) 17 [place] % (Auto) 12 Eos % (Auto) 3 Baso % (Auto) 2 Neut # (Auto) 5.0 Lymph # (Auto) 1.3 [place] # (Auto) 0.9 H Eos # (Auto) 0.2 Baso # (Auto) 0.1 Immature Gran # (Auto) 0.03 H Absolute Nucleated RBC 0.00 Immature Gran % 0 Nucleated RBC % 0 Sodium 139 Potassium 3.8 Chloride 109 H Carbon Dioxide 19.2 L Anion Gap 11 BUN 14 Creatinine 1.2 Estim Creat Clear Calc 40.4 L eGFR > 60 BUN/Creatinine Ratio 12 Glucose 92 Calculated Osmolality 278 Calcium 8.2 L Corrected Calcium 8.7 Phosphorus 3.2 Magnesium 1.5 L Total Bilirubin 0.8 AST 16 ALT 15 Alkaline Phosphatase 45 L Total Protein 5.3 L Albumin 3.4 Globulin 1.9 L Albumin/Globulin Ratio 1.8 Quality Measures Quality Measures stroke Suspected type of Stroke: TIA Tenecteplase given: Reason(s) Tenecteplase not given: Use of NOAC (eliquis, xarelto, or pradaxa) not given Rehab services: PT evaluation ordered VTE Prophylaxis: not ordered (contraindicated in setting of possible GI bleed) Antithrombotic by day 2:: contraindicated (describe) (presents with possible GI bleed) Statin ordered: >75 y/o moderate or high intensity dose Anticoagulation ordered for A-fib or flutter (current or hx): contraindicated (held in setting of possible GI bleed) Advance care planning discussed with:: patient and child Assessment & Plan Assessment Current Active Medications: Generic Name Dose Route Start Last Admin Trade Name Freq PRN Reason Stop Dose Admin Acetaminophen 650 mg 10/07/24 20:28 Acetaminophen 325 Mg Tablet PO 11/06/24 20:27 Q6H PRN Fever >100.3 or pain Amiodarone HCl 200 mg 10/07/24 21:00 10/10/24 08:11 Amiodarone Hcl 200 Mg Tablet PO 11/06/24 20:59 200 mg BID LAURA Administration Amlodipine Besylate 5 mg 10/08/24 09:00 10/10/24 08:14 Amlodipine Besylate 5 Mg Tablet PO 11/07/24 08:59 5 mg QDAY LAURA Administration Apixaban 2.5 mg 10/07/24 21:00 10/08/24 09:20 Apixaban 2.5 Mg Tablet PO 11/06/24 20:59 Not Given BID LAURA Aspirin 81 mg 10/09/24 09:00 10/09/24 09:00 Aspirin Ec 81 Mg Tabec PO 11/08/24 08:59 81 mg QDAY LAURA Administration Atorvastatin Calcium 40 mg 10/07/24 21:00 10/09/24 20:03 Atorvastatin Calcium 20 Mg Tablet PO 11/06/24 20:59 40 mg HS LAURA Administration Clopidogrel Bisulfate 75 mg 10/09/24 09:00 10/09/24 09:00 Clopidogrel Bisulfate 75 Mg Tablet PO 11/08/24 08:59 75 mg QDAY LAURA Administration Finasteride 5 mg 10/08/24 09:00 10/10/24 08:10 Finasteride 5 Mg Tablet PO 11/07/24 08:59 5 mg QDAY LAURA Administration Hydralazine HCl 10 mg 10/08/24 18:43 10/09/24 20:08 Hydralazine Inj 20 Mg/Ml Vial IV 11/07/24 18:40 10 mg Q6H PRN Administration SBP > 180 Magnesium Sulfate 4 gm in 50 mls @ 12.5 mls/hr 10/10/24 08:25 10/10/24 09:07 Magnesium Sulfate Ivpb IV 10/10/24 12:24 12.5 mls/hr X1 ONE Administration Metoprolol Succinate 50 mg 10/08/24 09:00 10/10/24 08:10 Metoprolol Succinate Xl 25 Mg Tabcr PO 11/07/24 08:59 50 mg QDAY LAURA Administration Ondansetron HCl 4 mg 10/07/24 20:28 Ondansetron Inj 2 Mg/Ml Inj 2 Ml IV 11/06/24 20:27 Q6H PRN NAUSEA OR VOMITING Protocol Pantoprazole Sodium 40 mg 10/08/24 09:00 10/10/24 08:10 Pantoprazole 40 Mg Tablet PO 11/07/24 08:59 40 mg QDAY LAURA Administration Sennosides 1 tab 10/07/24 20:28 Senna Tablet PO 11/06/24 20:27 QDAY PRN constipation Protocol Plan William Gan is a 78-year-old male with a past medical history of hypertension, hyperlipidemia, paroxysmal A-fib, CAD, and BPH who was admitted on 10/07/2024 for possible acute CVA and possible GI blood with acute anemia. 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 In-house neurology consulted, appreciate recommendations ? BRYAN planned 10/12 ? Referred to speech therapy and physical therapy ? Aspirin and Plavix ? Atorvastatin 40 mg p.o. at bedtime #Normocytic anemia, stable #Possible GI bleed Hemoglobin 8.3 on admission, dropped to 6.6 and transfused total 2 units pRBC, now stable Reticulocyte elevated at 3.8%, iron panel normal, LDH normal, B12 and folate normal EGD only showed erythematous duodenopathy without bleeding and erythematous gastric mucosa ? GI consulted, appreciate recommendations ? Plan for colonoscopy ? Occult stool test pending ? Transfuse if hemoglobin less than 8 given history of CAD #History of CAD #S/p left subclavian stent #Severe triple vessel disease pending CABG History of left subclavian stent placed 1 week ago and on aspirin and plavix but have since been held given low hemoglobin. Follows Dr. Jama, who has been consulted, and also pending CABG in following weeks. ? Cardiology consulted, appreciate recommendations ? Aspirin and plavix held #Acute kidney injury, likely prerenal, resolved May be in setting of prerenal dehydration in combination with postrenal as patient has history of BPH. Initial Creatinine 2.1 (baseline around 1.2), BUN 35. Today Creatinine 1.2 ? Avoid nephrotoxic agents, renally dose medications #Atrial Fibrillation Rate-controlled on amiodarone, anticoagulated with Eliquis ? Continue amiodarone 200 mg p.o. BID ? Eliquis held ? Monitor on telemetry #History of BPH ? Finasteride 5 mg p.o. daily #History of hypertension ? Metoprolol succinate 100 mg p.o. daily ? Amlodipine 5 mg p.o. daily #Hyponatremia, resolved #Hypokalemia, resolved Hospital management: Disposition: Patient seen in telemetry for possible acute CVA and GI bleed. Diet: clear liquid diet on Golytely GI prophylaxis: protonix DVT prophylaxis: SCDs given possible GI bleed Code: DNR ----- Plan discussed with attending physician Dr. Sunday Lazaro MD PGY-1 Internal Medicine Attending Provider Attestation/Addendum I have discussed and was present for the essential components of the history, physical examination, diagnosis, and treatment plan with the resident. I agree with the patient's care as documented by the resident and amended herein by me. Cj Brand, DO. Patient seen and evaluated this AM. No acute events overnight, vital signs stable, patient afebrile, significant labs include a stable hemoglobin of 10, bicarb uptrending 19.2 today. Patient did have EGD last night which did not demonstrate any significant bleeding hence the patient is being prepped for colonoscopy. Echo and MRI also pending. Will reach out to Dr. Mckinney today for stent compatibility with MRI scanner. Physical therapy also ordered. Will continue to follow-up with results, neurology consulted appreciate recommendations. Although this document has been carefully reviewed, there may still be some phonetic and other typographical errors. These errors are purely grammatical due to imperfections in the software program and should not be construed in any way to compromise the substance of the patient's medical care during this visit.
--- NOTE | 2024-10-10 13:17 | PC.PT ---
PT eval withheld due to patient is currently drinking GoLytely.
--- NOTE | 2024-10-10 14:16 | PC.SS ---
Addendum entered by Jade Lee 10/10/24 16:09: SS follow up note; SS contacted Ema from [facility] and she informed SS that they are able to accept patient. SS will follow up with Ema tomorrow. SS will submit PT note to [place] insurance once available. Original Note: SS contacted Yolanda from PT and she informed SS that patient is getting go lightly and will perform PT eval once patient has Colonoscopy.
--- NOTE | 2024-10-10 16:25 | PC.SS ---
SS follow up note; SS was contacted by munitions handler staff and informed SS that patient's daughter was wanting to speak to SS. SS met with patient's daughter, Mel. Patient was getting a procedure at the time. Mel was requesting to see if two Dr's were able to sign a form specifying that patient is not able to make decisions. Mel reported that she was attempted to get patient to sign a power of erisa attorney, however that at the time patient's nurse informed her that patient is not able to make decisions for himself. SS informed Dr. Brand and he informed SS that they are not able to sign any legal documents and does not feel comfortable signing any forms.
[2024-10-10] MEDS: ATORVASTATIN CALCIUM 20 MG TABLET 40 MG PO (20:36)
--- NOTE | 2024-10-10 21:38 | PD.IMPROG ---
Documentation for date of: 10/10/24 Subjective Subjective Interval history: Patient evaluated GoLytely prep in progress Exam Vital Signs Temp Pulse Resp BP Pulse Ox O2 Del Method O2 Flow Rate 98.7 F 63 17 159/86 H 99 Room Air 3 10/10/24 20:00 10/10/24 20:36 10/10/24 20:00 10/10/24 20:36 10/10/24 20:00 10/10/24 20:00 10/09/24 16:05 Objective Labs 10/10/24 05:37 10/10/24 05:37 Labs: Laboratory Results - last 24 hr 10/10/24 05:37 WBC 7.5 RBC 3.18 L Hgb 10.0 L Hct 28.3 L MCV 89 MCH 31.4 MCHC 35.3 RDW Std Deviation 50.7 H Plt Count 321 Neut % (Auto) 66 Lymph % (Auto) 17 [place] % (Auto) 12 Eos % (Auto) 3 Baso % (Auto) 2 Neut # (Auto) 5.0 Lymph # (Auto) 1.3 [place] # (Auto) 0.9 H Eos # (Auto) 0.2 Baso # (Auto) 0.1 Immature Gran # (Auto) 0.03 H Absolute Nucleated RBC 0.00 Immature Gran % 0 Nucleated RBC % 0 Sodium 139 Potassium 3.8 Chloride 109 H Carbon Dioxide 19.2 L Anion Gap 11 BUN 14 Creatinine 1.2 Estim Creat Clear Calc 40.4 L eGFR > 60 BUN/Creatinine Ratio 12 Glucose 92 Calculated Osmolality 278 Calcium 8.2 L Corrected Calcium 8.7 Phosphorus 3.2 Magnesium 1.5 L Total Bilirubin 0.8 AST 16 ALT 15 Alkaline Phosphatase 45 L Total Protein 5.3 L Albumin 3.4 Globulin 1.9 L Albumin/Globulin Ratio 1.8 Impressions Impression: Posthemorrhagic anemia Continue GoLytely prep till patient is clear Colonoscopy postponed to tomorrow Assessment & Plan A&P Narrative agree with treatment for anemia contiue GI w/u pt has sever tripple vessel diseases - awaiting CABG hold eliquis Time Spent With Patient Time: Total time spent is greater than 50% in coordination of care (as documented) at patient's floor/unit and/or counseling patient:
[2024-10-11] VITALS (21 sets, daily range): BP systolic 132–190; BP diastolic 61–92; PULSE 58–93; RESP 10–21; TEMP 36.3–37.2; O2SAT 93–100; BMI 19.0; BMI 13.0
[2024-10-11 05:55] LABS: Basophils # (Auto) 0.1 Thou/mm3 (0.0-0.2); Basophils % (Auto) 1 % (0-2.5); Eosinophils # (Auto) 0.2 Thou/mm3 (0.0-0.5); Eosinophils % (Auto) 3 % (0-10); Hematocrit 28.5 % (41.0-53.0); Hemoglobin 9.5 g/dL (13.5-16.0); Immature Granulocytes % (Auto) 0 % (0-0); Immature Granulocytes Auto 0.02 Thou/mm3 (0.00-0.00); Lymphocytes # (Auto) 1.2 Thou/mm3 (1.0-4.8); Lymphocytes % (Auto) 18 % (10-50); Mean Corpuscular HGB Conc 33.3 g/dl (31.0-37.0); Mean Corpuscular Hemoglobin 31.3 pg (25.0-35.0); Mean Corpuscular Volume 94 fL (80-100); Monocytes # (Auto) 0.8 Thou/mm3 (0.0-0.8); Monocytes % (Auto) 12 % (0-12); Neutrophils # (Auto) 4.4 Thou/mm3 (1.8-7.7); Neutrophils % (Auto) 66 % (37-80); Nucleated Red Blood Cell % 0 /100 WBC (0); Platelet Count 311 Thou/mm3 (140-440); RDW Standard Deviation 52.1 fL (35.1-43.9); Red Blood Count 3.04 Miln/mm3 (4.50-5.90); White Blood Count 6.7 Thou/mm3 (3.8-10.6)
[2024-10-11 06:32] LABS: Alanine Aminotransferase 20 U/L (10-49); Albumin, Serum 3.3 gm/dL (3.4-4.8); Albumin/Globulin Ratio 1.7 (1.2-2.2); Alkaline Phosphatase 45 U/L (46-116); Anion Gap 11 (7-16); Aspartate Amino Transferase 21 U/L (0-34); BUN/Creatinine Ratio 10 Ratio (12-20); Bilirubin,Total 0.8 mg/dL (0.3-1.2); Blood Urea Nitrogen 13 mg/dL (9-23); Calcium 7.9 mg/dL (8.3-10.6); Calcium (Corrected) 8.5 mg/dL (8.5-10.1); Chloride 107 mMol/L (98-107); Creatinine (Component) 1.3 mg/dL (0.6-1.3); Estimated Creatinine Clearance 37.5 mL/min (>60); Glucose 93 mg/dL (74-106); Magnesium 1.9 mg/dL (1.6-2.6); Osmolality,Calculated 275 (275-295); Phosphorous 2.7 mg/dL (2.4-5.1); Potassium 3.6 mMol/L (3.4-5.1); Sodium 138 mMol/L (136-145); Total Protein 5.3 gm/dL (5.7-8.2); eGFR 57 See Note
--- NOTE | 2024-10-11 09:19 | PC.SS ---
Addendum entered by CARLOS Ceron 10/11/24 14:37: SS update: spoke with patient's son Tyler Gan in regards to selected SNF. Provided him with SNF name and address to complete a tour of facility. Addendum entered by CARLOS Ceron 10/11/24 14:33: Rounding note: pending PT evaluation and colonoscopy including BRYAN. Addendum entered by CARLOS Ceron 10/11/24 11:00: SS update: resident medical provider: Juve Bass met with patient at bed side to asses and determined that patient is coherent to make own decisions. Refer to event note from provider for further details. Original Note: SS follow up note: composition siding worker spoke with patient's daughter, Carrie Martell who was requesting two doctors to sign legal paperwork on behalf of the patient indicating that the patient is not alert/oriented at this time to help get a Power of Packaging Clerk in place to help manage patient's finances outside of the Hospital. Notified the attending provider, Dr. Tang of her request and he informed he did not feel comfortable signing any forms as he is unsure this would be a permanent state that the patient would be in. Patient's daughter, Carrie was updated and became upset with social insurance administrator staff. composition siding worker recommended she could request medical records on behalf of the patient and per management planner Jade was already provided with an Advance Directive. Explained to Saige that at this time hospital staff would not allow patient to sign any legal paperwork as he is not coherent enough. Carrie left upset indicating she was frustrated with the situation. composition siding worker then contacted patient's son Tyler Gan to discuss what occurred and assess for financial abuse. Per Tyler, he is in agreement with his sister Saige helping manage the patient's finances outside of the Hospital, he states they have already agreed that he would be the alternate medical surrogate decision maker for the patient and Carrie would help manage patient's fiances. Per Tyler there is not a legal Power of Packaging Clerk paper work in place, however arrangements the family has established on behalf of the interest of the patient. Tyler was informed of the encounter today with his sister Carrie and was explained what the medical provider and she were informed. Tyler verbalized understanding. composition siding worker spoke with bed side nurse Darya and she confirmed an avasure already in place in patient's room for monitoring. Bed side nurse aware that patient is not able to sign any legal paperwork at this time.
[2024-10-11] MEDS: METOPROLOL SUCCINATE XL 25 MG TABCR 50 MG PO (09:29)
[2024-10-11] MEDS: ASPIRIN EC 81 MG TABEC PO (09:29)
[2024-10-11] MEDS: PANTOPRAZOLE 40 MG TABLET PO (09:29)
[2024-10-11] MEDS: CLOPIDOGREL BISULFATE 75 MG TABLET PO (09:29)
[2024-10-11] MEDS: AMIODARONE HCL 200 MG TABLET PO ×2 (09:29→20:42)
[2024-10-11] MEDS: amLODIPine BESYLATE 5 MG TABLET PO (09:29)
[2024-10-11] MEDS: FINASTERIDE 5 MG TABLET PO (09:30)
--- NOTE | 2024-10-11 09:37 | PC.NURSE ---
Dropped metroprolol tablet of 25 mg, wasted in pyxis and pulled another tablet of 25 mg.
--- NOTE | 2024-10-11 10:08 | ESPR_ITS ---
<Statement entered by Malgorzata Zeng MD - 10/11/24 13:53> I discussed with and supervised the quality intern physician who took care of this patient. I personally saw and examined the patient and discussed the assessment and plan with the entire medicine team, including my attending Dr. Tang, I agree with most of the assessment and plan as documented below Malgorzata Zeng M.D. PGY-2 Documentation for date of: 10/11/24 Subjective Subjective Interval history: No acute overnight events noted. Seen and examined in AM in telemetry and he does not have any complaints at this time. Denies fever, chills, shortness of breath, chest pain, paresthesias, or weakness. Called to bedside by nursing staff to assess capacity, please see event note for details. Pending colonoscopy to evaluate for possible GI bleed as he was not clear yesterday and BRYAN to evaluate for MRI findings of multiple acute embolic infarcts tomorrow. Exam Vital Signs Temp Pulse Resp BP Pulse Ox O2 Del Method O2 Flow Rate 97.4 F 64 14 158/61 H 96 Room Air 3 10/11/24 08:00 10/11/24 09:29 10/11/24 08:00 10/11/24 09:29 10/11/24 08:00 10/11/24 08:00 10/09/24 16:05 Narrative Exam General: alert and oriented to name/birthdate/year/place, no acute distress, able to speak full sentences HEENT: NC/AT, mucous membranes moist, bilateral sclera anicteric Cardiovascular: regular rate and rhythm, S1/S2 present, no murmurs appreciated Pulmonary: clear to auscultation bilaterally, no rales/rhonchi/wheezes Abdominal: soft, non-tender, non-distended, no rebound/guarding, normal bowel sounds present Musculoskeletal: normal ROM, no peripheral edema Skin: warm and dry, intact, no rashes Neuro: CN II-XII intact, no focal deficits Objective Labs 10/11/24 05:27 10/11/24 05:27 Labs: Laboratory Results - last 24 hr 10/11/24 05:27 WBC 6.7 RBC 3.04 L Hgb 9.5 L Hct 28.5 L MCV 94 MCH 31.3 MCHC 33.3 RDW Std Deviation 52.1 H Plt Count 311 Neut % (Auto) 66 Lymph % (Auto) 18 [place] % (Auto) 12 Eos % (Auto) 3 Baso % (Auto) 1 Neut # (Auto) 4.4 Lymph # (Auto) 1.2 [place] # (Auto) 0.8 Eos # (Auto) 0.2 Baso # (Auto) 0.1 Immature Gran # (Auto) 0.02 H Absolute Nucleated RBC 0.00 Immature Gran % 0 Nucleated RBC % 0 Sodium 138 Potassium 3.6 Chloride 107 Carbon Dioxide 20.0 Anion Gap 11 BUN 13 Creatinine 1.3 Estim Creat Clear Calc 37.5 L eGFR 57 L BUN/Creatinine Ratio 10 L Glucose 93 Calculated Osmolality 275 Calcium 7.9 L Corrected Calcium 8.5 Phosphorus 2.7 Magnesium 1.9 Total Bilirubin 0.8 AST 21 ALT 20 Alkaline Phosphatase 45 L Total Protein 5.3 L Albumin 3.3 L Globulin 2.0 L Albumin/Globulin Ratio 1.7 Quality Measures Quality Measures stroke Suspected type of Stroke: TIA Tenecteplase given: Reason(s) Tenecteplase not given: Use of NOAC (eliquis, xarelto, or pradaxa) not given Rehab services: PT evaluation ordered VTE Prophylaxis: pharmaceutical Antithrombotic by day 2:: ordered Statin ordered: >75 y/o moderate or high intensity dose Anticoagulation ordered for A-fib or flutter (current or hx): contraindicated Advance care planning discussed with:: patient and child Assessment & Plan Assessment Current Active Medications: Generic Name Dose Route Start Last Admin Trade Name Freq PRN Reason Stop Dose Admin Acetaminophen 650 mg 10/07/24 20:28 Acetaminophen 325 Mg Tablet PO 11/06/24 20:27 Q6H PRN Fever >100.3 or pain Amiodarone HCl 200 mg 10/07/24 21:00 10/11/24 09:29 Amiodarone Hcl 200 Mg Tablet PO 11/06/24 20:59 200 mg BID LAURA Administration Amlodipine Besylate 5 mg 10/08/24 09:00 10/11/24 09:29 Amlodipine Besylate 5 Mg Tablet PO 11/07/24 08:59 5 mg QDAY LAURA Administration Apixaban 2.5 mg 10/07/24 21:00 10/08/24 09:20 Apixaban 2.5 Mg Tablet PO 11/06/24 20:59 Not Given BID LAURA Aspirin 81 mg 10/09/24 09:00 10/11/24 09:29 Aspirin Ec 81 Mg Tabec PO 11/08/24 08:59 81 mg QDAY LAURA Administration Atorvastatin Calcium 40 mg 10/07/24 21:00 10/10/24 20:36 Atorvastatin Calcium 20 Mg Tablet PO 11/06/24 20:59 40 mg HS LAURA Administration Clopidogrel Bisulfate 75 mg 10/09/24 09:00 10/11/24 09:29 Clopidogrel Bisulfate 75 Mg Tablet PO 11/08/24 08:59 75 mg QDAY LAURA Administration Finasteride 5 mg 10/08/24 09:00 10/11/24 09:30 Finasteride 5 Mg Tablet PO 11/07/24 08:59 5 mg QDAY LAURA Administration Hydralazine HCl 10 mg 10/08/24 18:43 10/09/24 20:08 Hydralazine Inj 20 Mg/Ml Vial IV 11/07/24 18:40 10 mg Q6H PRN Administration SBP > 180 Metoprolol Succinate 50 mg 10/08/24 09:00 10/11/24 09:29 Metoprolol Succinate Xl 25 Mg Tabcr PO 11/07/24 08:59 50 mg QDAY LAURA Administration Ondansetron HCl 4 mg 10/07/24 20:28 Ondansetron Inj 2 Mg/Ml Inj 2 Ml IV 11/06/24 20:27 Q6H PRN NAUSEA OR VOMITING Protocol Pantoprazole Sodium 40 mg 10/08/24 09:00 10/11/24 09:29 Pantoprazole 40 Mg Tablet PO 11/07/24 08:59 40 mg QDAY LAURA Administration Sennosides 1 tab 10/07/24 20:28 Senna Tablet PO 11/06/24 20:27 QDAY PRN constipation Protocol Plan William Gan is a 78-year-old male with a past medical history of hypertension, hyperlipidemia, paroxysmal A-fib, CAD, and BPH who was admitted on 10/07/2024 for possible acute CVA and possible GI blood with acute anemia. 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 In-house neurology consulted, appreciate recommendations ? BRYAN planned 10/13 ? Referred to speech therapy and physical therapy ? Aspirin and Plavix ? Atorvastatin 40 mg p.o. at bedtime #Normocytic anemia, stable #Possible GI bleed Hemoglobin 8.3 on admission, dropped to 6.6 and transfused total 2 units pRBC, now stable Reticulocyte elevated at 3.8%, iron panel normal, LDH normal, B12 and folate normal EGD only showed erythematous duodenopathy without bleeding and erythematous gastric mucosa ? GI consulted, appreciate recommendations ? Plan for colonoscopy ? Occult stool test pending ? Transfuse if hemoglobin less than 8 given history of CAD #History of CAD #S/p left subclavian stent #Severe triple vessel disease pending CABG History of left subclavian stent placed 1 week ago and on aspirin and plavix but have since been held given low hemoglobin. Follows Dr. Jama, who has been consulted, and also pending CABG in following weeks. ? Cardiology consulted, appreciate recommendations ? Aspirin and plavix restarted #Acute kidney injury, likely prerenal, resolved May be in setting of prerenal dehydration in combination with postrenal as patient has history of BPH. Initial Creatinine 2.1 (baseline around 1.2), BUN 35. Today Creatinine 1.2 ? Avoid nephrotoxic agents, renally dose medications #Atrial Fibrillation Rate-controlled on amiodarone, anticoagulated with Eliquis ? Continue amiodarone 200 mg p.o. BID ? Eliquis held ? Monitor on telemetry #History of BPH ? Finasteride 5 mg p.o. daily #History of hypertension ? Metoprolol succinate 100 mg p.o. daily ? Amlodipine 5 mg p.o. daily #Hyponatremia, resolved #Hypokalemia, resolved Hospital management: Disposition: Patient seen in telemetry for possible acute CVA and GI bleed. Diet: clear liquid diet on Golytely GI prophylaxis: protonix DVT prophylaxis: SCDs given possible GI bleed Code: DNR ----- Plan discussed with attending physician Dr. Tang and senior resident physician Dr. Azucena Lazaro MD PGY-1 Internal Medicine Attending Provider Attestation/Addendum I reviewed labs, imaging, EKG, home medications and prior available records. Face to face evaluation was performed by me. I have personally examined the patient and discussed assessment and plan with the IM team. I reviewed the resident note and agree with the plan with exceptions as below. Acute CVA Acute encephalopathy CAD with severe vessel disease Atrial fibrillation with controlled ventricular rhythm Possible GI bleed SOFIYA, resolved Mental status improved. The patient does have capacity to sign documents and obtain consent Pending BRYAN on 10/12 Resumed Eliquis Restarted aspirin and Plavix Plan for colonoscopy
--- NOTE | 2024-10-11 10:32 | PD.RESEVENT ---
Documentation for date of: 10/11/24 Event Note Event Note: Called to bedside by nursing staff to assess patient's capacity to make decisions. Upon evaluation, he is clearly able to state without dysarthria or aphasia his first and last name, his date of , the town of which we are in, and this year. He was also to clearly state to me why he is here in the hospital, what our findings thus far have been, and what plans we have for him moving forward and why. He was also able to clearly tell me his daughter's name and why his capacity is being assessed. Thus, at this time patient does have capacity. ----- Plan discussed with attending physician Dr. Kitty Lazaro MD PGY-1 Internal Medicine
--- NOTE | 2024-10-11 13:52 | PC.PT ---
Patient is safe to ambulate to the bathroom and in the hallway with a FWW and 1 staff assistance for safety. RN made aware.
--- NOTE | 2024-10-11 15:08 | ESPR_ITS ---
Documentation for date of: 10/11/24 Subjective Subjective Interval history: Patient was seen and examined by the bedside. No acute overnight events. Patient reports feeling better, continues to drink GoLytely. Mentation improved compared to yesterday, patient is AOx3, aware of the reason why he is in the hospital and regarding planned colonoscopy. Exam Vital Signs Temp Pulse Resp BP Pulse Ox O2 Del Method O2 Flow Rate 97.4 F 64 14 158/61 H 96 Room Air 3 10/11/24 08:00 10/11/24 09:29 10/11/24 08:00 10/11/24 09:29 10/11/24 08:00 10/11/24 08:00 10/09/24 16:05 Narrative Exam Gen: Chronically ill-appearing elderly male. Resting in bed. HEENT: NCAT, PERRLA, EOMI, MMM, anicteric conjunctivae. CVS: normal S1 and S2. RRR. No M/R/G. Resp: CTA B/L. No rhonchi, rales, crackles or wheezing. Abd: soft, non-tender, non-distended. BS+ in all 4 quadrants. MSK: Good ROM in BUE & BLE. No edema or rash. Neuro: CN II-XII grossly intact. Strength 5/5 in BUE & BLE. Alert and oriented x3. Objective Labs 10/13/24 04:15 10/12/24 11:27 Labs: Laboratory Results - last 24 hr 10/11/24 05:27 WBC 6.7 RBC 3.04 L Hgb 9.5 L Hct 28.5 L MCV 94 MCH 31.3 MCHC 33.3 RDW Std Deviation 52.1 H Plt Count 311 Neut % (Auto) 66 Lymph % (Auto) 18 [place] % (Auto) 12 Eos % (Auto) 3 Baso % (Auto) 1 Neut # (Auto) 4.4 Lymph # (Auto) 1.2 [place] # (Auto) 0.8 Eos # (Auto) 0.2 Baso # (Auto) 0.1 Immature Gran # (Auto) 0.02 H Absolute Nucleated RBC 0.00 Immature Gran % 0 Nucleated RBC % 0 Sodium 138 Potassium 3.6 Chloride 107 Carbon Dioxide 20.0 Anion Gap 11 BUN 13 Creatinine 1.3 Estim Creat Clear Calc 37.5 L eGFR 57 L BUN/Creatinine Ratio 10 L Glucose 93 Calculated Osmolality 275 Calcium 7.9 L Corrected Calcium 8.5 Phosphorus 2.7 Magnesium 1.9 Total Bilirubin 0.8 AST 21 ALT 20 Alkaline Phosphatase 45 L Total Protein 5.3 L Albumin 3.3 L Globulin 2.0 L Albumin/Globulin Ratio 1.7 Quality Measures Quality Measures stroke Suspected type of Stroke: TIA Tenecteplase given: Reason(s) Tenecteplase not given: Use of NOAC (eliquis, xarelto, or pradaxa) not given Rehab services: PT evaluation ordered VTE Prophylaxis: mechanical Antithrombotic by day 2:: ordered Statin ordered: >75 y/o moderate or high intensity dose Anticoagulation ordered for A-fib or flutter (current or hx): not indicated Advance care planning discussed with:: other Assessment & Plan Assessment Current Active Medications: Generic Name Dose Route Start Last Admin Trade Name Freq PRN Reason Stop Dose Admin Acetaminophen 650 mg 10/07/24 20:28 Acetaminophen 325 Mg Tablet PO 11/06/24 20:27 Q6H PRN Fever >100.3 or pain Amiodarone HCl 200 mg 10/07/24 21:00 10/11/24 09:29 Amiodarone Hcl 200 Mg Tablet PO 11/06/24 20:59 200 mg BID LAURA Administration Amlodipine Besylate 5 mg 10/08/24 09:00 10/11/24 09:29 Amlodipine Besylate 5 Mg Tablet PO 11/07/24 08:59 5 mg QDAY LAURA Administration Apixaban 2.5 mg 10/07/24 21:00 10/08/24 09:20 Apixaban 2.5 Mg Tablet PO 11/06/24 20:59 Not Given BID LAURA Aspirin 81 mg 10/09/24 09:00 10/11/24 09:29 Aspirin Ec 81 Mg Tabec PO 11/08/24 08:59 81 mg QDAY LAURA Administration Atorvastatin Calcium 40 mg 10/07/24 21:00 10/10/24 20:36 Atorvastatin Calcium 20 Mg Tablet PO 11/06/24 20:59 40 mg HS LAURA Administration Clopidogrel Bisulfate 75 mg 10/09/24 09:00 10/11/24 09:29 Clopidogrel Bisulfate 75 Mg Tablet PO 11/08/24 08:59 75 mg QDAY LAURA Administration Finasteride 5 mg 10/08/24 09:00 10/11/24 09:30 Finasteride 5 Mg Tablet PO 11/07/24 08:59 5 mg QDAY LAURA Administration Hydralazine HCl 10 mg 10/08/24 18:43 10/09/24 20:08 Hydralazine Inj 20 Mg/Ml Vial IV 11/07/24 18:40 10 mg Q6H PRN Administration SBP > 180 Metoprolol Succinate 50 mg 10/08/24 09:00 10/11/24 09:29 Metoprolol Succinate Xl 25 Mg Tabcr PO 11/07/24 08:59 50 mg QDAY LAURA Administration Ondansetron HCl 4 mg 10/07/24 20:28 Ondansetron Inj 2 Mg/Ml Inj 2 Ml IV 11/06/24 20:27 Q6H PRN NAUSEA OR VOMITING Protocol Pantoprazole Sodium 40 mg 10/08/24 09:00 10/11/24 09:29 Pantoprazole 40 Mg Tablet PO 11/07/24 08:59 40 mg QDAY LAURA Administration Sennosides 1 tab 10/07/24 20:28 Senna Tablet PO 11/06/24 20:27 QDAY PRN constipation Protocol Plan The patient is a 78-year-old male with a past medical history of hypertension, hyperlipidemia, paroxysmal A-fib, CAD, and BPH who presented with acute onset weakness, short episode of aphasia, and diaphroesis. Admitted for CVA rule out, metabolic encephalopathy, and SOFIYA. 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 Bigger concern is acute encephalopathy due to metabolic reasons/bleeding. Due to extensive stenosis of extra- and intra-cranial arteries, patient requires aggressive risk factor modification and anticoagulation when the bleeding is ruled out/controlled. Speech therapy saw the patient, assessment negative for dysphagia. 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 Plan: ? BRYAN with bubble study pending ? Physical therapy recommends SNF placement ? Aspirin 81 mg and Plavix 75 mg qday ? Atorvastatin 40 mg p.o. at bedtime ? Blood pressure control - EEG ordered, pending read #Normocytic anemia #? GI bleed #History of CAD #Acute kidney injury, likely prerenal, improving #Atrial Fibrillation #History of BPH #History of hypertension #Hyponatremia, resolved #Hypokalemia, resolved - management per primary team Plan of care discussed with attending Dr. Zeng. Mesha Hale MD, PGY 1. Attending Provider Attestation/Addendum I have seen and examined the patient at the bedside and I agreed with resident's findings, assessment and plan of care. Continue with the current management. Follow-up with rest of the workup results.
--- NOTE | 2024-10-11 15:54 | PD.IMPROG ---
Documentation for date of: 10/11/24 Subjective Subjective Interval history: pt had TIA with multiple foci of infarction will Plan for BRYAN Exam Vital Signs Temp Pulse Resp BP Pulse Ox O2 Del Method O2 Flow Rate 98.0 F 60 16 153/72 H 97 Room Air 3 10/11/24 12:00 10/11/24 12:00 10/11/24 12:00 10/11/24 12:00 10/11/24 12:00 10/11/24 12:00 10/09/24 16:05 Routine HEENT Exam Head: Present normocephalic and atraumatic Eye: Present EOMI and PERRL ENT: Present mucous membranes moist Routine Neck Exam Neck: Present supple and trachea midline Routine Respiratory Exam Respiratory: Present chest non-tender, lungs clear, normal breath sounds and no resp distress Routine Cardiovascular Exam Cardiovascular: Present RRR Routine Abdominal Exam Abdominal: Present soft and normoactive bowel sounds Routine Extremities Exam Extremities: Present full ROM Routine Skin Exam Skin: Present intact, dry and warm Routine Neurological Exam Neurological: Present alert, oriented X3 and CN II-XII intact Routine Psychiatric Exam Psychiatric: Present normal affect and normal thought process Objective Labs 10/11/24 05:27 10/11/24 05:27 Labs: Laboratory Results - last 24 hr 10/11/24 05:27 WBC 6.7 RBC 3.04 L Hgb 9.5 L Hct 28.5 L MCV 94 MCH 31.3 MCHC 33.3 RDW Std Deviation 52.1 H Plt Count 311 Neut % (Auto) 66 Lymph % (Auto) 18 [place] % (Auto) 12 Eos % (Auto) 3 Baso % (Auto) 1 Neut # (Auto) 4.4 Lymph # (Auto) 1.2 [place] # (Auto) 0.8 Eos # (Auto) 0.2 Baso # (Auto) 0.1 Immature Gran # (Auto) 0.02 H Absolute Nucleated RBC 0.00 Immature Gran % 0 Nucleated RBC % 0 Sodium 138 Potassium 3.6 Chloride 107 Carbon Dioxide 20.0 Anion Gap 11 BUN 13 Creatinine 1.3 Estim Creat Clear Calc 37.5 L eGFR 57 L BUN/Creatinine Ratio 10 L Glucose 93 Calculated Osmolality 275 Calcium 7.9 L Corrected Calcium 8.5 Phosphorus 2.7 Magnesium 1.9 Total Bilirubin 0.8 AST 21 ALT 20 Alkaline Phosphatase 45 L Total Protein 5.3 L Albumin 3.3 L Globulin 2.0 L Albumin/Globulin Ratio 1.7 Assessment & Plan A&P Narrative BRYAN wednesday Time Spent With Patient Time: Total time spent is greater than 50% in coordination of care (as documented) at patient's floor/unit and/or counseling patient:
[2024-10-11] MEDS: LIDOCAINE JELLY 2% (Urojet) 10 ML TUBE TOP (19:30)
--- NOTE | 2024-10-11 19:45 | SUR.PHASEI ---
pt received from OR in recovery bay 5. pt asleep but responds to voice, breathing unlabored on room air. v/s stable. report received from Carmelina TALAVERA.
[2024-10-11] MEDS: hydrALAZINE INJ 20 MG/ML VIAL 10 MG IV (20:09)
--- NOTE | 2024-10-11 20:28 | SUR.PHASEI ---
pt asleep but responds to voice, breathing unlabored on room air. v/s stable. report called to Yessenia TALAVERA. pt will be transferred back to room at this time.
[2024-10-11] MEDS: ATORVASTATIN CALCIUM 20 MG TABLET 40 MG PO (20:41)
--- NOTE | 2024-10-11 20:49 | PC.NURSE ---
Patient back from colonoscopy, patient is alert and in no distress,no repisratory distress respirations unlabored and equal vital signs stable.
--- NOTE | 2024-10-11 21:44 | PC.NURSE ---
I was notified from gamaliel that patient daughter was seen giving documents to patient for him to sign, upon checking on patient, patient was laying down and daughter was facing patient, no documents on sight. patient is alert but confused at this time. daughter was asked to leave per hospital visiting hours.
[2024-10-12] VITALS (11 sets, daily range): BP systolic 120–164; BP diastolic 53–87; PULSE 60–71; RESP 14–18; TEMP 36.6–37.8; O2SAT 95–99; BMI 18.1
[2024-10-12] MEDS: CLOPIDOGREL BISULFATE 75 MG TABLET PO (08:25)
[2024-10-12] MEDS: amLODIPine BESYLATE 5 MG TABLET PO (08:25)
[2024-10-12] MEDS: ASPIRIN EC 81 MG TABEC PO (08:25)
[2024-10-12] MEDS: AMIODARONE HCL 200 MG TABLET PO ×2 (08:27→20:32)
[2024-10-12] MEDS: PANTOPRAZOLE 40 MG TABLET PO (08:27)
[2024-10-12] MEDS: FINASTERIDE 5 MG TABLET PO (08:27)
[2024-10-12] MEDS: METOPROLOL SUCCINATE XL 25 MG TABCR 50 MG PO (08:27)
--- NOTE | 2024-10-12 09:13 | ESPR_ITS ---
Documentation for date of: 10/12/24 Subjective Subjective Interval history: No acute overnight events noted. Seen and examined at bedside and patient does not have any complaints at this time. No paresthesias, focal neurological deficits, aphasia, facial weakness/droop. Explained to patient and daughter findings thus far and plans moving forward as daughter will be flying out of town today. Colonoscopy did not show any obvious signs of bleeding - noted to have hemorrhoids on perianal exam, multiple polyps s/p biopsy, and diverticulosis without signs of bleeding. Patient denies hematuria, blood in stool, hemoptysis/hematemesis. Will reach out to cardiology for further recommendations regarding restarting eliquis for a-fib given possible GIB and plan for BRYAN tomorrow for further evaluation of multi-embolic stroke as seen on MRI. Exam Vital Signs Temp Pulse Resp BP Pulse Ox O2 Del Method O2 Flow Rate 98.3 F 63 15 164/87 H 96 Room Air 3 10/12/24 08:00 10/12/24 08:27 10/12/24 08:00 10/12/24 08:27 10/12/24 08:00 10/12/24 08:00 10/11/24 19:39 Narrative Exam General: alert and oriented to name/birthdate/year/place, no acute distress, able to speak full sentences HEENT: NC/AT, mucous membranes moist, bilateral sclera anicteric Cardiovascular: regular rate and rhythm, S1/S2 present, no murmurs appreciated Pulmonary: clear to auscultation bilaterally, no rales/rhonchi/wheezes Abdominal: soft, non-tender, non-distended, no rebound/guarding, normal bowel sounds present Musculoskeletal: normal ROM, no peripheral edema Skin: warm and dry, intact, no rashes Neuro: CN II-XII intact, no focal deficits Objective Labs 10/13/24 04:15 10/13/24 04:15 Labs: Laboratory Results - last 24 hr 10/08/24 05:35 Misc Test Result See Sep Rpt Quality Measures Quality Measures stroke Suspected type of Stroke: TIA Tenecteplase given: Reason(s) Tenecteplase not given: Use of NOAC (eliquis, xarelto, or pradaxa) not given Rehab services: PT evaluation ordered VTE Prophylaxis: pharmaceutical Antithrombotic by day 2:: ordered Statin ordered: >75 y/o moderate or high intensity dose Anticoagulation ordered for A-fib or flutter (current or hx): ordered Advance care planning discussed with:: patient and child Assessment & Plan Assessment Current Active Medications: Generic Name Dose Route Start Last Admin Trade Name Freq PRN Reason Stop Dose Admin Acetaminophen 650 mg 10/07/24 20:28 Acetaminophen 325 Mg Tablet PO 11/06/24 20:27 Q6H PRN Fever >100.3 or pain Amiodarone HCl 200 mg 10/07/24 21:00 10/12/24 08:27 Amiodarone Hcl 200 Mg Tablet PO 11/06/24 20:59 200 mg BID LAURA Administration Amlodipine Besylate 5 mg 10/08/24 09:00 10/12/24 08:25 Amlodipine Besylate 5 Mg Tablet PO 11/07/24 08:59 5 mg QDAY LAURA Administration Apixaban 2.5 mg 10/07/24 21:00 10/08/24 09:20 Apixaban 2.5 Mg Tablet PO 11/06/24 20:59 Not Given BID LAURA Aspirin 81 mg 10/09/24 09:00 10/12/24 08:25 Aspirin Ec 81 Mg Tabec PO 11/08/24 08:59 81 mg QDAY LAURA Administration Atorvastatin Calcium 40 mg 10/07/24 21:00 10/11/24 20:41 Atorvastatin Calcium 20 Mg Tablet PO 11/06/24 20:59 40 mg HS LAURA Administration Clopidogrel Bisulfate 75 mg 10/09/24 09:00 10/12/24 08:25 Clopidogrel Bisulfate 75 Mg Tablet PO 11/08/24 08:59 75 mg QDAY LAURA Administration Finasteride 5 mg 10/08/24 09:00 10/12/24 08:27 Finasteride 5 Mg Tablet PO 11/07/24 08:59 5 mg QDAY LAURA Administration Hydralazine HCl 10 mg 10/08/24 18:43 10/11/24 20:09 Hydralazine Inj 20 Mg/Ml Vial IV 11/07/24 18:40 10 mg Q6H PRN Administration SBP > 180 Metoprolol Succinate 50 mg 10/08/24 09:00 10/12/24 08:27 Metoprolol Succinate Xl 25 Mg Tabcr PO 11/07/24 08:59 50 mg QDAY LAURA Administration Ondansetron HCl 4 mg 10/07/24 20:28 Ondansetron Inj 2 Mg/Ml Inj 2 Ml IV 11/06/24 20:27 Q6H PRN NAUSEA OR VOMITING Protocol Pantoprazole Sodium 40 mg 10/08/24 09:00 10/12/24 08:27 Pantoprazole 40 Mg Tablet PO 11/07/24 08:59 40 mg QDAY LAURA Administration Sennosides 1 tab 10/07/24 20:28 Senna Tablet PO 11/06/24 20:27 QDAY PRN constipation Protocol Plan William Gan is a 78-year-old male with a past medical history of hypertension, hyperlipidemia, paroxysmal A-fib, CAD, and BPH who was admitted on 10/07/2024 for possible acute CVA and possible GI blood with acute anemia. 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 In-house neurology consulted, appreciate recommendations ? BRYAN planned 10/13, NPO after midnght ? Physical therapy recommending SNF ? Aspirin, plavix, atorvastatin 40 mg ? Follow-up EEG #Normocytic anemia, stable #Possible GI bleed Hemoglobin 8.3 on admission, dropped to 6.6 and transfused total 2 units pRBC, now stable Reticulocyte elevated at 3.8%, iron panel normal, LDH normal, B12 and folate normal EGD only showed erythematous duodenopathy without bleeding and erythematous gastric mucosa Colonoscopy showed hemorrhoids, polyp s/p biopsy, and diverticulosis without signs of bleeding ? GI consulted, appreciate recommendations ? Occult stool test pending ? Transfuse if hemoglobin less than 8 given history of CAD #History of CAD #S/p left subclavian stent #Severe triple vessel disease pending CABG History of left subclavian stent placed 1 week ago and on aspirin and plavix but have since been held given low hemoglobin. Follows Dr. Jama, who has been consulted, and also pending CABG in following weeks. ? Cardiology consulted, appreciate recommendations ? Aspirin and plavix restarted #Acute kidney injury, likely prerenal, resolved May be in setting of prerenal dehydration in combination with postrenal as patient has history of BPH. Initial Creatinine 2.1 (baseline around 1.2), BUN 35. Today Creatinine 1.2 ? Avoid nephrotoxic agents, renally dose medications #Atrial Fibrillation Rate-controlled on amiodarone, anticoagulated with Eliquis ? Continue amiodarone 200 mg p.o. BID ? Eliquis restarted 10/12 ? Monitor on telemetry #History of BPH ? Finasteride 5 mg p.o. daily #History of hypertension ? Metoprolol succinate 100 mg p.o. daily ? Amlodipine 5 mg p.o. daily #Hyponatremia, resolved #Hypokalemia, resolved Hospital management: Disposition: Patient seen in telemetry for acute CVA and possible GI bleed Diet: cardiac GI prophylaxis: protonix DVT prophylaxis: SCDs given possible GI bleed Code: DNR ----- Plan discussed with attending physician Dr. Kitty Lazaro MD PGY-1 Internal Medicine Attending Provider Attestation/Addendum I reviewed labs, imaging, EKG, home medications and prior available records. Face to face evaluation was performed by me. I have personally examined the patient and discussed assessment and plan with the IM team. I reviewed the resident note and agree with the plan with exceptions as below. Acute CVA Acute encephalopathy CAD with severe vessel disease Atrial fibrillation with controlled ventricular rhythm Possible GI bleed SOFIYA, resolved Rapid response was called on the morning of 10/12 for acute encephalopathy which quickly resolved. See event note. Pending BRYAN on 10/13 Discussed resuming Eliquis with cardiology Restarted aspirin and Plavix Status post colonoscopy that showed hemorrhoids and small polyp without bleeding.
--- NOTE | 2024-10-12 10:08 | PC.SS ---
Addendum entered by CARLOS Ceron 10/12/24 16:35: PASRR completed. Addendum entered by CARLOS Ceron 10/12/24 16:23: SS follow up: spoke with Ema at [facility], who informs clinicals were received and will began working on authorization for SNF. Addendum entered by CARLOS Ceron 10/12/24 16:20: SS follow up: PT eval and updated progress notes sent to [facility] via [employer]. Addendum entered by CARLOS Ceron 10/12/24 16:17: Rounding note: BRYAN planned for tomorrow morning. Original Note: SS update: patient had rapid response called for possible stroke. Medical providers present, informed no present stroke. Daughter at bed side.
[2024-10-12 11:35] LABS: Basophils # (Auto) 0.1 Thou/mm3 (0.0-0.2); Basophils % (Auto) 1 % (0-2.5); Eosinophils # (Auto) 0.1 Thou/mm3 (0.0-0.5); Eosinophils % (Auto) 1 % (0-10); Hematocrit 29.7 % (41.0-53.0); Hemoglobin 10.1 g/dL (13.5-16.0); Immature Granulocytes % (Auto) 0 % (0-0); Immature Granulocytes Auto 0.03 Thou/mm3 (0.00-0.00); Lymphocytes % (Auto) 12 % (10-50); Mean Corpuscular Hemoglobin 31.2 pg (25.0-35.0); Mean Corpuscular Volume 92 fL (80-100); Monocytes # (Auto) 0.8 Thou/mm3 (0.0-0.8); Monocytes % (Auto) 10 % (0-12); Neutrophils # (Auto) 6.4 Thou/mm3 (1.8-7.7); Neutrophils % (Auto) 76 % (37-80); Nucleated Red Blood Cell % 0 /100 WBC (0); Platelet Count 308 Thou/mm3 (140-440); RDW Standard Deviation 50.3 fL (35.1-43.9); Red Blood Count 3.24 Miln/mm3 (4.50-5.90); White Blood Count 8.4 Thou/mm3 (3.8-10.6)
[2024-10-12 11:56] LABS: Alanine Aminotransferase 21 U/L (10-49); Albumin, Serum 3.6 gm/dL (3.4-4.8); Albumin/Globulin Ratio 1.9 (1.2-2.2); Alkaline Phosphatase 51 U/L (46-116); Anion Gap 8 (7-16); Aspartate Amino Transferase 20 U/L (0-34); BUN/Creatinine Ratio 13 Ratio (12-20); Bilirubin,Total 0.6 mg/dL (0.3-1.2); Blood Urea Nitrogen 17 mg/dL (9-23); Calcium 8.4 mg/dL (8.3-10.6); Calcium (Corrected) 8.7 mg/dL (8.5-10.1); Carbon Dioxide 20.4 mMol/L (20.0-31.0); Chloride 105 mMol/L (98-107); Creatinine (Component) 1.3 mg/dL (0.6-1.3); Globulin 1.9 gm/dL (2.3-3.5); Glucose 105 mg/dL (74-106); Magnesium 1.7 mg/dL (1.6-2.6); Osmolality,Calculated 267 (275-295); Phosphorous 3.2 mg/dL (2.4-5.1); Potassium 3.7 mMol/L (3.4-5.1); Sodium 133 mMol/L (136-145); Total Protein 5.5 gm/dL (5.7-8.2); eGFR 57 See Note
--- NOTE | 2024-10-12 13:58 | ESPR_ITS ---
Documentation for date of: 10/12/24 Subjective Subjective Interval history: Patient was seen and examined by the bedside. No acute overnight events. Patient is reports feeling okay, underwent colonoscopy yesterday, was found to have internal hemorrhoids, colonic polyps and diverticulosis, negative for bleeding. Mentation is stable compared to yesterday. Patient had a rapid response due to episode of staring into space for approxiamtely 1 minute, on examination was AOx4 and no focal neurological findings. Exam Vital Signs Temp Pulse Resp BP Pulse Ox O2 Del Method O2 Flow Rate 98.3 F 63 15 164/87 H 96 Room Air 3 10/12/24 09:51 10/12/24 09:51 10/12/24 09:51 10/12/24 09:51 10/12/24 09:51 10/12/24 08:00 10/11/24 19:39 Narrative Exam Gen: Chronically ill-appearing elderly male. Resting in bed. HEENT: NCAT, PERRLA, EOMI, MMM, anicteric conjunctivae. CVS: normal S1 and S2. RRR. No M/R/G. Resp: CTA B/L. No rhonchi, rales, crackles or wheezing. Abd: soft, non-tender, non-distended. BS+ in all 4 quadrants. MSK: Good ROM in BUE & BLE. No edema or rash. Neuro: CN II-XII grossly intact. Strength 5/5 in BUE & BLE. Alert and oriented x3. Objective Labs 10/15/24 05:43 10/15/24 05:43 Labs: Laboratory Results - last 24 hr 10/08/24 10/12/24 05:35 11:27 WBC 8.4 RBC 3.24 L Hgb 10.1 L Hct 29.7 L MCV 92 MCH 31.2 MCHC 34.0 RDW Std Deviation 50.3 H Plt Count 308 Neut % (Auto) 76 Lymph % (Auto) 12 [place] % (Auto) 10 Eos % (Auto) 1 Baso % (Auto) 1 Neut # (Auto) 6.4 Lymph # (Auto) 1.0 Drew # (Auto) 0.8 Eos # (Auto) 0.1 Baso # (Auto) 0.1 Immature Gran # (Auto) 0.03 H Absolute Nucleated RBC 0.00 Immature Gran % 0 Nucleated RBC % 0 Sodium 133 L Potassium 3.7 Chloride 105 Carbon Dioxide 20.4 Anion Gap 8 BUN 17 Creatinine 1.3 Estim Creat Clear Calc 36.0 L eGFR 57 L BUN/Creatinine Ratio 13 Glucose 105 Calculated Osmolality 267 L Calcium 8.4 Corrected Calcium 8.7 Phosphorus 3.2 Magnesium 1.7 Total Bilirubin 0.6 AST 20 ALT 21 Alkaline Phosphatase 51 Total Protein 5.5 L Albumin 3.6 Globulin 1.9 L Albumin/Globulin Ratio 1.9 Misc Test Result See Sep Rpt Quality Measures Quality Measures stroke Suspected type of Stroke: TIA Tenecteplase given: Reason(s) Tenecteplase not given: Use of NOAC (eliquis, xarelto, or pradaxa) not given Rehab services: PT evaluation ordered VTE Prophylaxis: mechanical Antithrombotic by day 2:: contraindicated (describe) (GI bleed) Statin ordered: >75 y/o moderate or high intensity dose Anticoagulation ordered for A-fib or flutter (current or hx): not indicated Advance care planning discussed with:: other Assessment & Plan Assessment Current Active Medications: Generic Name Dose Route Start Last Admin Trade Name Freq PRN Reason Stop Dose Admin Acetaminophen 650 mg 10/07/24 20:28 Acetaminophen 325 Mg Tablet PO 11/06/24 20:27 Q6H PRN Fever >100.3 or pain Amiodarone HCl 200 mg 10/07/24 21:00 10/12/24 08:27 Amiodarone Hcl 200 Mg Tablet PO 11/06/24 20:59 200 mg BID LAURA Administration Amlodipine Besylate 5 mg 10/08/24 09:00 10/12/24 08:25 Amlodipine Besylate 5 Mg Tablet PO 11/07/24 08:59 5 mg QDAY LAURA Administration Apixaban 2.5 mg 10/07/24 21:00 10/08/24 09:20 Apixaban 2.5 Mg Tablet PO 11/06/24 20:59 Not Given BID LAURA Aspirin 81 mg 10/09/24 09:00 10/12/24 08:25 Aspirin Ec 81 Mg Tabec PO 11/08/24 08:59 81 mg QDAY LAURA Administration Atorvastatin Calcium 40 mg 10/07/24 21:00 10/11/24 20:41 Atorvastatin Calcium 20 Mg Tablet PO 11/06/24 20:59 40 mg HS LAURA Administration Clopidogrel Bisulfate 75 mg 10/09/24 09:00 10/12/24 08:25 Clopidogrel Bisulfate 75 Mg Tablet PO 11/08/24 08:59 75 mg QDAY LAURA Administration Finasteride 5 mg 10/08/24 09:00 10/12/24 08:27 Finasteride 5 Mg Tablet PO 11/07/24 08:59 5 mg QDAY LAURA Administration Hydralazine HCl 10 mg 10/08/24 18:43 10/11/24 20:09 Hydralazine Inj 20 Mg/Ml Vial IV 11/07/24 18:40 10 mg Q6H PRN Administration SBP > 180 Metoprolol Succinate 50 mg 10/08/24 09:00 10/12/24 08:27 Metoprolol Succinate Xl 25 Mg Tabcr PO 11/07/24 08:59 50 mg QDAY LAURA Administration Ondansetron HCl 4 mg 10/07/24 20:28 Ondansetron Inj 2 Mg/Ml Inj 2 Ml IV 11/06/24 20:27 Q6H PRN NAUSEA OR VOMITING Protocol Pantoprazole Sodium 40 mg 10/08/24 09:00 10/12/24 08:27 Pantoprazole 40 Mg Tablet PO 11/07/24 08:59 40 mg QDAY LAURA Administration Sennosides 1 tab 10/07/24 20:28 Senna Tablet PO 11/06/24 20:27 QDAY PRN constipation Protocol Plan The patient is a 78-year-old male with a past medical history of hypertension, hyperlipidemia, paroxysmal A-fib, CAD, and BPH who presented with acute onset weakness, short episode of aphasia, and diaphroesis. Admitted for CVA rule out, metabolic encephalopathy, and SOFIYA. 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 Bigger concern is acute encephalopathy due to metabolic reasons/bleeding. Due to extensive stenosis of extra- and intra-cranial arteries, patient requires aggressive risk factor modification and anticoagulation when the bleeding is ruled out/controlled. Speech therapy saw the patient, assessment negative for dysphagia. 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 Plan: ? BRYAN with bubble study pending ? Physical therapy recommends SNF placement ? Aspirin 81 mg and Plavix 75 mg qday ? Atorvastatin 40 mg p.o. at bedtime ? Blood pressure control - EEG ordered, pending read #Normocytic anemia #? GI bleed #History of CAD #Acute kidney injury, likely prerenal, improving #Atrial Fibrillation #History of BPH #History of hypertension #Hyponatremia, resolved #Hypokalemia, resolved - management per primary team Plan of care discussed with attending Dr. Zeng. Mesha Hale MD, PGY 1. Attending Provider Attestation/Addendum I personally have seen and examined the patient at the bedside and I agree with resident's findings, assessment and plan of care. Will continue with the current management
--- NOTE | 2024-10-12 14:34 | PD.RESEVENT ---
Documentation for date of: 10/12/24 Event Note Event Note: Rapid response was called at 9:47 AM for acute change in consciousness. Per patient's daughter at bedside, patient stopped speaking and began staring off into space which occurred for about a minute. Dr. Alejandro and I evaluated the patient, and was alert and oriented x 4 to person, place, situation and date. Patient also denies any chest pain, headache, numbness or tingling in his extremities or face. Vital signs are also stable, blood pressure was 140/66, heart rate 65, respiration rate 14, oxygen saturation 99% on room air. At this time patient is stable, and no intervention needed. Patient is awaiting for transechocardiogram tomorrow with Dr. Jama. Patient's plan and care discussed with my attending, Dr. Kitty Zeng MD PGY-2
--- NOTE | 2024-10-12 19:28 | PD.IMPROG ---
Documentation for date of: 10/12/24 Subjective Subjective Interval history: Patient evaluated Colonoscopy showed cecal polyps endoscopically resected Upper endoscopy showed gastritis and esophagitis MRI does show multiple infarcts in both cerebral hemispheres Exam Vital Signs Temp Pulse Resp BP Pulse Ox O2 Del Method O2 Flow Rate 98.0 F 62 17 152/65 H 96 Room Air 3 10/12/24 16:00 10/12/24 16:00 10/12/24 16:00 10/12/24 16:00 10/12/24 16:00 10/12/24 16:00 10/11/24 19:39 Objective Labs 10/12/24 11:27 10/12/24 11:27 Labs: Laboratory Results - last 24 hr 10/08/24 10/12/24 05:35 11:27 WBC 8.4 RBC 3.24 L Hgb 10.1 L Hct 29.7 L MCV 92 MCH 31.2 MCHC 34.0 RDW Std Deviation 50.3 H Plt Count 308 Neut % (Auto) 76 Lymph % (Auto) 12 [place] % (Auto) 10 Eos % (Auto) 1 Baso % (Auto) 1 Neut # (Auto) 6.4 Lymph # (Auto) 1.0 [place] # (Auto) 0.8 Eos # (Auto) 0.1 Baso # (Auto) 0.1 Immature Gran # (Auto) 0.03 H Absolute Nucleated RBC 0.00 Immature Gran % 0 Nucleated RBC % 0 Sodium 133 L Potassium 3.7 Chloride 105 Carbon Dioxide 20.4 Anion Gap 8 BUN 17 Creatinine 1.3 Estim Creat Clear Calc 36.0 L eGFR 57 L BUN/Creatinine Ratio 13 Glucose 105 Calculated Osmolality 267 L Calcium 8.4 Corrected Calcium 8.7 Phosphorus 3.2 Magnesium 1.7 Total Bilirubin 0.6 AST 20 ALT 21 Alkaline Phosphatase 51 Total Protein 5.5 L Albumin 3.6 Globulin 1.9 L Albumin/Globulin Ratio 1.9 Misc Test Result See Sep Rpt Impressions Impression: Cecal polyp Diverticulosis left colon Gastritis Duodenitis Multiple infarcts on a recent MRI MRI of the brain Continue supportive care Assessment & Plan A&P Narrative BRYAN wednesday Time Spent With Patient Time: Total time spent is greater than 50% in coordination of care (as documented) at patient's floor/unit and/or counseling patient:
[2024-10-12] MEDS: ATORVASTATIN CALCIUM 20 MG TABLET 40 MG PO (20:32)
[2024-10-12] MEDS: APIXABAN 2.5 MG TABLET PO (20:32)
[2024-10-13] VITALS (21 sets, daily range): BP systolic 140–188; BP diastolic 54–91; PULSE 60–86; RESP 14–20; TEMP 36.6–37.6; O2SAT 90–100; BMI 18.6
[2024-10-13 06:24] LABS: Basophils # (Auto) 0.1 Thou/mm3 (0.0-0.2); Basophils % (Auto) 1 % (0-2.5); Eosinophils # (Auto) 0.1 Thou/mm3 (0.0-0.5); Eosinophils % (Auto) 1 % (0-10); Hematocrit 30.2 % (41.0-53.0); Hemoglobin 10.2 g/dL (13.5-16.0); Immature Granulocytes % (Auto) 0 % (0-0); Immature Granulocytes Auto 0.03 Thou/mm3 (0.00-0.00); Lymphocytes # (Auto) 1.2 Thou/mm3 (1.0-4.8); Lymphocytes % (Auto) 13 % (10-50); Mean Corpuscular HGB Conc 33.8 g/dl (31.0-37.0); Mean Corpuscular Hemoglobin 31.6 pg (25.0-35.0); Mean Corpuscular Volume 94 fL (80-100); Monocytes # (Auto) 0.9 Thou/mm3 (0.0-0.8); Monocytes % (Auto) 9 % (0-12); Neutrophils % (Auto) 75 % (37-80); Nucleated Red Blood Cell % 0 /100 WBC (0); Platelet Count 208 Thou/mm3 (140-440); RDW Standard Deviation 50.9 fL (35.1-43.9); Red Blood Count 3.23 Miln/mm3 (4.50-5.90); White Blood Count 9.3 Thou/mm3 (3.8-10.6)
[2024-10-13 06:59] LABS: Alanine Aminotransferase 17 U/L (10-49); Albumin, Serum 3.5 gm/dL (3.4-4.8); Albumin/Globulin Ratio 1.8 (1.2-2.2); Alkaline Phosphatase 63 U/L (46-116); Anion Gap 10 (7-16); Aspartate Amino Transferase 22 U/L (0-34); BUN/Creatinine Ratio 13 Ratio (12-20); Bilirubin,Total 0.5 mg/dL (0.3-1.2); Blood Urea Nitrogen 18 mg/dL (9-23); Calcium 8.1 mg/dL (8.3-10.6); Calcium (Corrected) 8.5 mg/dL (8.5-10.1); Carbon Dioxide 18.8 mMol/L (20.0-31.0); Chloride 106 mMol/L (98-107); Creatinine (Component) 1.4 mg/dL (0.6-1.3); Estimated Creatinine Clearance 34.2 mL/min (>60); Glucose 100 mg/dL (74-106); Magnesium 1.7 mg/dL (1.6-2.6); Osmolality,Calculated 272 (275-295); Potassium 4.1 mMol/L (3.4-5.1); Sodium 135 mMol/L (136-145); Total Protein 5.5 gm/dL (5.7-8.2); eGFR 52 See Note
--- NOTE | 2024-10-13 08:55 | PC.SS ---
Update: [facility] authorization pending. Possible d/c today.
--- NOTE | 2024-10-13 10:35 | PD.RESPRO ---
Documentation for date of: 10/13/24 Subjective Subjective Interval history: No acute overnight events noted. Seen and examined at bedside and patient does not have any complaints, no FNDs, paresthesias, slurred speech or facial droop. Pending BRYAN today to further evaluate possible etiology/source of multi-embolic stroke as seen on MRI. Exam Vital Signs Temp Pulse Resp BP Pulse Ox O2 Del Method O2 Flow Rate 99.5 F 62 15 150/72 H 100 Room Air 3 10/13/24 08:00 10/13/24 08:00 10/13/24 08:00 10/13/24 08:00 10/13/24 08:00 10/13/24 08:00 10/11/24 19:39 Narrative Exam General: alert and oriented to name/birthdate/year/place, no acute distress, able to speak full sentences HEENT: NC/AT, mucous membranes moist, bilateral sclera anicteric Cardiovascular: regular rate and rhythm, S1/S2 present, no murmurs appreciated Pulmonary: clear to auscultation bilaterally, no rales/rhonchi/wheezes Abdominal: soft, non-tender, non-distended, no rebound/guarding, normal bowel sounds present Musculoskeletal: normal ROM, no peripheral edema Skin: warm and dry, intact, no rashes Neuro: CN II-XII intact, no focal deficits Objective Labs 10/14/24 06:12 10/14/24 06:12 Labs: Laboratory Results - last 24 hr 10/12/24 10/13/24 11:27 04:15 WBC 8.4 9.3 RBC 3.24 L 3.23 L Hgb 10.1 L 10.2 L Hct 29.7 L 30.2 L MCV 92 94 MCH 31.2 31.6 MCHC 34.0 33.8 RDW Std Deviation 50.3 H 50.9 H Plt Count 308 208 D Neut % (Auto) 76 75 Lymph % (Auto) 12 13 [place] % (Auto) 10 9 Eos % (Auto) 1 1 Baso % (Auto) 1 1 Neut # (Auto) 6.4 7.0 Lymph # (Auto) 1.0 1.2 [place] # (Auto) 0.8 0.9 H Eos # (Auto) 0.1 0.1 Baso # (Auto) 0.1 0.1 Immature Gran # (Auto) 0.03 H 0.03 H Absolute Nucleated RBC 0.00 0.00 Immature Gran % 0 0 Nucleated RBC % 0 0 Sodium 133 L 135 L Potassium 3.7 4.1 Chloride 105 106 Carbon Dioxide 20.4 18.8 L Anion Gap 8 10 BUN 17 18 Creatinine 1.3 1.4 H Estim Creat Clear Calc 36.0 L 34.2 L eGFR 57 L 52 L BUN/Creatinine Ratio 13 13 Glucose 105 100 Calculated Osmolality 267 L 272 L Calcium 8.4 8.1 L Corrected Calcium 8.7 8.5 Phosphorus 3.2 3.0 Magnesium 1.7 1.7 Total Bilirubin 0.6 0.5 AST 20 22 ALT 21 17 Alkaline Phosphatase 51 63 D Total Protein 5.5 L 5.5 L Albumin 3.6 3.5 Globulin 1.9 L 2.0 L Albumin/Globulin Ratio 1.9 1.8 Quality Measures Quality Measures stroke Suspected type of Stroke: TIA Tenecteplase given: Reason(s) Tenecteplase not given: Use of NOAC (eliquis, xarelto, or pradaxa) not given Rehab services: PT evaluation ordered and Speech Language Pathology eval ordered VTE Prophylaxis: pharmaceutical Antithrombotic by day 2:: ordered Statin ordered: >75 y/o moderate or high intensity dose Anticoagulation ordered for A-fib or flutter (current or hx): ordered Advance care planning discussed with:: patient Assessment & Plan Assessment Current Active Medications: Generic Name Dose Route Start Last Admin Trade Name Freq PRN Reason Stop Dose Admin Acetaminophen 650 mg 10/07/24 20:28 Acetaminophen 325 Mg Tablet PO 11/06/24 20:27 Q6H PRN Fever >100.3 or pain Amiodarone HCl 200 mg 10/07/24 21:00 10/13/24 08:42 Amiodarone Hcl 200 Mg Tablet PO 11/06/24 20:59 Not Given BID LAURA Amlodipine Besylate 5 mg 10/08/24 09:00 10/13/24 08:43 Amlodipine Besylate 5 Mg Tablet PO 11/07/24 08:59 Not Given QDAY LAURA Apixaban 2.5 mg 10/07/24 21:00 10/13/24 08:43 Apixaban 2.5 Mg Tablet PO 11/06/24 20:59 Not Given BID LAURA Aspirin 81 mg 10/09/24 09:00 10/13/24 08:43 Aspirin Ec 81 Mg Tabec PO 11/08/24 08:59 Not Given QDAY LAURA Atorvastatin Calcium 40 mg 10/07/24 21:00 10/12/24 20:32 Atorvastatin Calcium 20 Mg Tablet PO 11/06/24 20:59 40 mg HS LAURA Administration Clopidogrel Bisulfate 75 mg 10/09/24 09:00 10/13/24 08:43 Clopidogrel Bisulfate 75 Mg Tablet PO 11/08/24 08:59 Not Given QDAY LAURA Finasteride 5 mg 10/08/24 09:00 10/13/24 08:43 Finasteride 5 Mg Tablet PO 11/07/24 08:59 Not Given QDAY LAURA Hydralazine HCl 10 mg 10/08/24 18:43 10/11/24 20:09 Hydralazine Inj 20 Mg/Ml Vial IV 11/07/24 18:40 10 mg Q6H PRN Administration SBP > 180 Metoprolol Succinate 50 mg 10/08/24 09:00 10/13/24 08:44 Metoprolol Succinate Xl 25 Mg Tabcr PO 11/07/24 08:59 Not Given QDAY LAURA Ondansetron HCl 4 mg 10/07/24 20:28 Ondansetron Inj 2 Mg/Ml Inj 2 Ml IV 11/06/24 20:27 Q6H PRN NAUSEA OR VOMITING Protocol Pantoprazole Sodium 40 mg 10/08/24 09:00 10/13/24 08:44 Pantoprazole 40 Mg Tablet PO 11/07/24 08:59 Not Given QDAY LAURA Sennosides 1 tab 10/07/24 20:28 Senna Tablet PO 11/06/24 20:27 QDAY PRN constipation Protocol Plan William Gan is a 78-year-old male with a past medical history of hypertension, hyperlipidemia, paroxysmal A-fib, CAD, and BPH who was admitted on 10/07/2024 for possible acute CVA and possible GI blood with acute anemia. 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 In-house neurology consulted, appreciate recommendations ? BRYAN planned 10/13, NPO after midnght ? Physical therapy recommending SNF ? Aspirin, plavix, atorvastatin 40 mg ? Follow-up EEG #Normocytic anemia, stable #Possible GI bleed Hemoglobin 8.3 on admission, dropped to 6.6 and transfused total 2 units pRBC, now stable Reticulocyte elevated at 3.8%, iron panel normal, LDH normal, B12 and folate normal EGD only showed erythematous duodenopathy without bleeding and erythematous gastric mucosa Colonoscopy showed hemorrhoids, polyp s/p biopsy, and diverticulosis without signs of bleeding ? GI consulted, appreciate recommendations ? Occult stool test pending ? Transfuse if hemoglobin less than 8 given history of CAD #History of CAD #S/p left subclavian stent #Severe triple vessel disease pending CABG History of left subclavian stent placed 1 week ago and on aspirin and plavix but have since been held given low hemoglobin. Follows Dr. Jama, who has been consulted, and also pending CABG in following weeks. ? Cardiology consulted, appreciate recommendations ? Aspirin and plavix restarted #Acute kidney injury, likely prerenal, resolved May be in setting of prerenal dehydration in combination with postrenal as patient has history of BPH. Initial Creatinine 2.1 (baseline around 1.2), BUN 35. Today Creatinine 1.2 ? Avoid nephrotoxic agents, renally dose medications #Atrial Fibrillation Rate-controlled on amiodarone, anticoagulated with Eliquis ? Continue amiodarone 200 mg p.o. BID ? Eliquis restarted 10/12 ? Monitor on telemetry #History of BPH ? Finasteride 5 mg p.o. daily #History of hypertension ? Metoprolol succinate 100 mg p.o. daily ? Amlodipine 5 mg p.o. daily #Hyponatremia, resolved #Hypokalemia, resolved Hospital management: Disposition: Patient seen in telemetry for acute CVA and possible GI bleed Diet: cardiac GI prophylaxis: protonix DVT prophylaxis: SCDs given possible GI bleed Code: DNR ----- Plan discussed with attending physician Dr. Kitty Lazaro MD PGY-1 Internal Medicine Attending Provider Attestation/Addendum I reviewed labs, imaging, EKG, home medications and prior available records. Face to face evaluation was performed by me. I have personally examined the patient and discussed assessment and plan with the IM team. I reviewed the resident note and agree with the plan with exceptions as below. Acute CVA Acute encephalopathy CAD with severe vessel disease Atrial fibrillation with controlled ventricular rhythm Possible GI bleed SOFIYA, resolved Pending BRYAN on 10/13 Discussed resuming Eliquis with cardiology Restarted aspirin and Plavix Status post colonoscopy that showed hemorrhoids and small polyp without bleeding.
--- NOTE | 2024-10-13 13:00 | ECHO_ITS ---
Transesophageal Echo Report Ht (in): 61 Wt (lb): 110 Exam Location: [facility] Status: Inpatient Allied Health Instructor: EMELINA Cuenca^^^^ Indications: Procedure Performed: BP: / HR: FINDINGS Left Ventricle Normal left ventricular size, wall thickness, systolic function with no obvious regional wall motion abnormalities. Normal left ventricular diastolic filling pattern for age. The ejection fraction is visually estimated at 55-60 %. Right Ventricle The right ventricle is normal in size and systolic function. The estimated right ventricular systolic pressure, __ mmHg. Left Atrium The left atrium is normal by two-dimensional, color flow and Doppler imaging with no structural abnormalities, no thrombus formation present. Right Atrium The right atrium is normal by two-dimensional imaging, color flow and Doppler imaging with no structural abnormalities, no thrombus formation present. Atrial Appendages The left atrial appendage appears normal with no evidence for thrombus. Atrial Septum The interatrial septum is normal to color flow Doppler and agitated saline imaging. Aorta The aorta is normal by two-dimensional, color flow and Doppler interrogation. Mitral Valve Mild mitral regurgitation. Aortic Valve Mild aortic valve regurgitation. Tricuspid Valve There is mild tricuspid valve regurgitation. Pulmonic Valve The pulmonic valve is normal by two-dimensional, color flow and Doppler interrogation. There is no significant pulmonic valve regurgitation. Vessels The pulmonary artery appears normal. The inferior vena cava pulmonary and hepatic veins appear normal. Pericardium The pericardium is normal by two-dimensional imaging. There is no significant pericardial effusion. CONCLUSIONS indication: Stroke IAS is normal to color flow Doppler and agitated saline imaging. BRAN appears normal with no evidence for thrombus. Mild MR, TR & AI Timothy Jama (Electronically Signed) Final Date: 13 Oct 2024 15:21
[2024-10-13] MEDS: MIDAZOLAM INJ 1 MG/ML VIAL 2 ML 3 MG IV (13:27)
[2024-10-13] MEDS: BENZOCAINE 20% (Hurricaine) SPRAY 1 DOSE TOP (13:27)
[2024-10-13] MEDS: fentaNYL CIT INJ 50 mCg/ML AMP 2ML 100 MCG IV (13:27)
--- NOTE | 2024-10-13 13:30 | PC.SS ---
SALES AND MARKETING ADMINISTRATOR conducted phone contact with [facility]. Admissons staff, Ema; not in. Left message for follow up call. Response pending.
--- NOTE | 2024-10-13 13:42 | PD.RESPRO ---
Documentation for date of: 10/13/24 Subjective Subjective Interval history: Patient was seen and examined by the bedside. No acute overnight events. Patient is resting in bed, saturating well on room air. Pending BRYAN today. AOx3, aware of the plan of care. Hgb is stable. Exam Vital Signs Temp Pulse Resp BP Pulse Ox O2 Del Method O2 Flow Rate 98.4 F 70 16 183/83 H 96 Room Air 3 10/13/24 12:00 10/13/24 13:37 10/13/24 13:37 10/13/24 13:37 10/13/24 13:37 10/13/24 13:37 10/11/24 19:39 Narrative Exam Gen: Chronically ill-appearing elderly male. Resting in bed. HEENT: NCAT, PERRLA, EOMI, MMM, anicteric conjunctivae. CVS: normal S1 and S2. RRR. No M/R/G. Resp: CTA B/L. No rhonchi, rales, crackles or wheezing. Abd: soft, non-tender, non-distended. BS+ in all 4 quadrants. MSK: Good ROM in BUE & BLE. No edema or rash. Neuro: CN II-XII grossly intact. Strength 5/5 in BUE & BLE. Alert and oriented x3. Objective Labs 10/15/24 05:43 10/15/24 05:43 Labs: Laboratory Results - last 24 hr 10/13/24 04:15 WBC 9.3 RBC 3.23 L Hgb 10.2 L Hct 30.2 L MCV 94 MCH 31.6 MCHC 33.8 RDW Std Deviation 50.9 H Plt Count 208 D Neut % (Auto) 75 Lymph % (Auto) 13 [place] % (Auto) 9 Eos % (Auto) 1 Baso % (Auto) 1 Neut # (Auto) 7.0 Lymph # (Auto) 1.2 [place] # (Auto) 0.9 H Eos # (Auto) 0.1 Baso # (Auto) 0.1 Immature Gran # (Auto) 0.03 H Absolute Nucleated RBC 0.00 Immature Gran % 0 Nucleated RBC % 0 Sodium 135 L Potassium 4.1 Chloride 106 Carbon Dioxide 18.8 L Anion Gap 10 BUN 18 Creatinine 1.4 H Estim Creat Clear Calc 34.2 L eGFR 52 L BUN/Creatinine Ratio 13 Glucose 100 Calculated Osmolality 272 L Calcium 8.1 L Corrected Calcium 8.5 Phosphorus 3.0 Magnesium 1.7 Total Bilirubin 0.5 AST 22 ALT 17 Alkaline Phosphatase 63 D Total Protein 5.5 L Albumin 3.5 Globulin 2.0 L Albumin/Globulin Ratio 1.8 Quality Measures Quality Measures stroke Suspected type of Stroke: TIA Tenecteplase given: Reason(s) Tenecteplase not given: Use of NOAC (eliquis, xarelto, or pradaxa) not given Rehab services: PT evaluation ordered VTE Prophylaxis: pharmaceutical Antithrombotic by day 2:: contraindicated (describe) (susp GI bleed) Statin ordered: >75 y/o moderate or high intensity dose Anticoagulation ordered for A-fib or flutter (current or hx): not indicated Advance care planning discussed with:: other Assessment & Plan Assessment Current Active Medications: Generic Name Dose Route Start Last Admin Trade Name Freq PRN Reason Stop Dose Admin Acetaminophen 650 mg 10/07/24 20:28 Acetaminophen 325 Mg Tablet PO 11/06/24 20:27 Q6H PRN Fever >100.3 or pain Amiodarone HCl 200 mg 10/07/24 21:00 10/13/24 08:42 Amiodarone Hcl 200 Mg Tablet PO 11/06/24 20:59 Not Given BID LAURA Amlodipine Besylate 5 mg 10/08/24 09:00 10/13/24 08:43 Amlodipine Besylate 5 Mg Tablet PO 11/07/24 08:59 Not Given QDAY LAURA Apixaban 2.5 mg 10/07/24 21:00 10/13/24 08:43 Apixaban 2.5 Mg Tablet PO 11/06/24 20:59 Not Given BID LAURA Aspirin 81 mg 10/09/24 09:00 10/13/24 08:43 Aspirin Ec 81 Mg Tabec PO 11/08/24 08:59 Not Given QDAY LAURA Atorvastatin Calcium 40 mg 10/07/24 21:00 10/12/24 20:32 Atorvastatin Calcium 20 Mg Tablet PO 11/06/24 20:59 40 mg HS LAURA Administration Clopidogrel Bisulfate 75 mg 10/09/24 09:00 10/13/24 08:43 Clopidogrel Bisulfate 75 Mg Tablet PO 11/08/24 08:59 Not Given QDAY LAURA Finasteride 5 mg 10/08/24 09:00 10/13/24 08:43 Finasteride 5 Mg Tablet PO 11/07/24 08:59 Not Given [facility] Hydralazine HCl 10 mg 10/08/24 18:43 10/11/24 20:09 Hydralazine Inj 20 Mg/Ml Vial IV 11/07/24 18:40 10 mg Q6H PRN Administration SBP > 180 Metoprolol Succinate 50 mg 10/08/24 09:00 10/13/24 08:44 Metoprolol Succinate Xl 25 Mg Tabcr PO 11/07/24 08:59 Not Given Q[facility] Ondansetron HCl 4 mg 10/07/24 20:28 Ondansetron Inj 2 Mg/Ml Inj 2 Ml IV 11/06/24 20:27 Q6H PRN NAUSEA OR VOMITING Protocol Pantoprazole Sodium 40 mg 10/08/24 09:00 10/13/24 08:44 Pantoprazole 40 Mg Tablet PO 11/07/24 08:59 Not Given Q[facility] Sennosides 1 tab 10/07/24 20:28 Senna Tablet PO 11/06/24 20:27 QDAY PRN constipation Protocol Plan The patient is a 78-year-old male with a past medical history of hypertension, hyperlipidemia, paroxysmal A-fib, CAD, and BPH who presented with acute onset weakness, short episode of aphasia, and diaphroesis. Admitted for CVA rule out, metabolic encephalopathy, and SOFIYA. 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 Bigger concern is acute encephalopathy due to metabolic reasons/bleeding. Due to extensive stenosis of extra- and intra-cranial arteries, patient requires aggressive risk factor modification and anticoagulation when the bleeding is ruled out/controlled. Speech therapy saw the patient, assessment negative for dysphagia. 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 Plan: ? BRYAN with bubble study negative PFO, intracardiac thrombus. ? Physical therapy recommends SNF placement ? Aspirin 81 mg and Plavix 75 mg qday ? Atorvastatin 40 mg p.o. at bedtime ? Blood pressure control - EEG showed frontal and central spikes, will recommend to repeat EEG outpatient - Follow-up with Dr. Zeng in 2 weeks #Normocytic anemia #? GI bleed #History of CAD #Acute kidney injury, likely prerenal, improving #Atrial Fibrillation #History of BPH #History of hypertension #Hyponatremia, resolved #Hypokalemia, resolved - management per primary team Plan of care discussed with attending Dr. Zeng. Mesha Hale MD, PGY 1. Attending Provider Attestation/Addendum I personally have seen and examined the patient at the bedside and I agree with resident's findings, assessment and plan of care. Will continue with the current management and follow-up with the results of the workup
--- NOTE | 2024-10-13 14:17 | PC.SS ---
Rounding Note: Patient spiked fever, possible d/c tomorrow.
--- NOTE | 2024-10-13 14:33 | PC.SS ---
Rounding Note: Patient pending BRYAN. Possible d/c tomorrow.
--- NOTE | 2024-10-13 16:09 | ESOP_ITS ---
Cardiac Cath Procedure Procedure Narrative Date of the procedure 10/13/2024 Title of the Procedure BRYAN Indication for the Procedure Patent has multiple foci of infarct in the brain ; need to rule out cardiac source of embolism Procedure This was done in the collaborative physician under continue electro cardiographic monitoring and intermittent BP monitorin BRYAN rpoce was gently passed in the mid esophagus', lower esohagus and transgastric levels and multiple view of the cardiac structures were obtained and video was recorded findings Left ventricle is normal size and function EF 55% mild MR Mild AR no thrombus in any of the cardiac chambers ; no thrombus in the left atrial appendages bubble studies does not show any crossing of bubbles no pericarial effuions Conclusion 1. normal LV size and functions 2.Approximate EF 55% 3.Mild MR / Mild AR noted 4. no thrombus in any of the cardiac chambers 5. no evidence of PFO
[2024-10-13] MEDS: hydrALAZINE INJ 20 MG/ML VIAL 10 MG IV (16:42)
--- NOTE | 2024-10-13 18:14 | ESPR_ITS ---
Documentation for date of: 10/13/24 Subjective Subjective Interval history: Patient evaluated Hemoglobin hematocrit 10.2 and 30.2 with a plate count 1 8000 Exam Vital Signs Temp Pulse Resp BP Pulse Ox O2 Del Method O2 Flow Rate 98.6 F 73 17 147/59 H 98 Room Air 3 10/13/24 16:20 10/13/24 16:50 10/13/24 16:20 10/13/24 16:50 10/13/24 16:20 10/13/24 16:20 10/11/24 19:39 Objective Labs 10/13/24 04:15 10/13/24 04:15 Labs: Laboratory Results - last 24 hr 10/13/24 04:15 WBC 9.3 RBC 3.23 L Hgb 10.2 L Hct 30.2 L MCV 94 MCH 31.6 MCHC 33.8 RDW Std Deviation 50.9 H Plt Count 208 D Neut % (Auto) 75 Lymph % (Auto) 13 [place] % (Auto) 9 Eos % (Auto) 1 Baso % (Auto) 1 Neut # (Auto) 7.0 Lymph # (Auto) 1.2 [place] # (Auto) 0.9 H Eos # (Auto) 0.1 Baso # (Auto) 0.1 Immature Gran # (Auto) 0.03 H Absolute Nucleated RBC 0.00 Immature Gran % 0 Nucleated RBC % 0 Sodium 135 L Potassium 4.1 Chloride 106 Carbon Dioxide 18.8 L Anion Gap 10 BUN 18 Creatinine 1.4 H Estim Creat Clear Calc 34.2 L eGFR 52 L BUN/Creatinine Ratio 13 Glucose 100 Calculated Osmolality 272 L Calcium 8.1 L Corrected Calcium 8.5 Phosphorus 3.0 Magnesium 1.7 Total Bilirubin 0.5 AST 22 ALT 17 Alkaline Phosphatase 63 D Total Protein 5.5 L Albumin 3.5 Globulin 2.0 L Albumin/Globulin Ratio 1.8 Impressions Impression: Cecal polyp endoscopically resected biopsies pending Gastritis relatively stable hemoglobin hematocrit Continue current management Assessment & Plan A&P Narrative BRYAN wednesday Time Spent With Patient Time: Total time spent is greater than 50% in coordination of care (as documented) at patient's floor/unit and/or counseling patient:
[2024-10-13] MEDS: ATORVASTATIN CALCIUM 20 MG TABLET 40 MG PO (21:13)
[2024-10-13] MEDS: AMIODARONE HCL 200 MG TABLET PO (21:14)
[2024-10-13] MEDS: APIXABAN 2.5 MG TABLET PO (21:15)
[2024-10-14] VITALS (9 sets, daily range): BP systolic 119–149; BP diastolic 56–68; PULSE 64–75; RESP 16–18; TEMP 36.7–37.4; O2SAT 97–99
[2024-10-14 06:31] LABS: Basophils # (Auto) 0.1 Thou/mm3 (0.0-0.2); Basophils % (Auto) 1 % (0-2.5); Eosinophils # (Auto) 0.1 Thou/mm3 (0.0-0.5); Eosinophils % (Auto) 2 % (0-10); Hematocrit 28.7 % (41.0-53.0); Hemoglobin 10.1 g/dL (13.5-16.0); Immature Granulocytes % (Auto) 0 % (0-0); Immature Granulocytes Auto 0.02 Thou/mm3 (0.00-0.00); Lymphocytes % (Auto) 12 % (10-50); Mean Corpuscular HGB Conc 35.2 g/dl (31.0-37.0); Mean Corpuscular Hemoglobin 31.7 pg (25.0-35.0); Mean Corpuscular Volume 90 fL (80-100); Monocytes # (Auto) 0.7 Thou/mm3 (0.0-0.8); Monocytes % (Auto) 9 % (0-12); Neutrophils # (Auto) 6.2 Thou/mm3 (1.8-7.7); Neutrophils % (Auto) 77 % (37-80); Nucleated Red Blood Cell % 0 /100 WBC (0); Platelet Count 282 Thou/mm3 (140-440); RDW Standard Deviation 48.3 fL (35.1-43.9); Red Blood Count 3.19 Miln/mm3 (4.50-5.90); White Blood Count 8.1 Thou/mm3 (3.8-10.6)
[2024-10-14 07:15] LABS: Alanine Aminotransferase 15 U/L (10-49); Albumin, Serum 3.6 gm/dL (3.4-4.8); Albumin/Globulin Ratio 1.6 (1.2-2.2); Alkaline Phosphatase 64 U/L (46-116); Anion Gap 11 (7-16); Aspartate Amino Transferase 16 U/L (0-34); BUN/Creatinine Ratio 16 Ratio (12-20); Bilirubin,Total 0.5 mg/dL (0.3-1.2); Blood Urea Nitrogen 21 mg/dL (9-23); Calcium 8.3 mg/dL (8.3-10.6); Calcium (Corrected) 8.6 mg/dL (8.5-10.1); Carbon Dioxide 21.1 mMol/L (20.0-31.0); Chloride 105 mMol/L (98-107); Creatinine (Component) 1.3 mg/dL (0.6-1.3); Estimated Creatinine Clearance 16.7 mL/min (>60); Globulin 2.3 gm/dL (2.3-3.5); Glucose 109 mg/dL (74-106); Magnesium 1.6 mg/dL (1.6-2.6); Osmolality,Calculated 277 (275-295); Phosphorous 3.8 mg/dL (2.4-5.1); Potassium 3.6 mMol/L (3.4-5.1); Sodium 137 mMol/L (136-145); Total Protein 5.9 gm/dL (5.7-8.2); eGFR 57 See Note
[2024-10-14] MEDS: ASPIRIN EC 81 MG TABEC PO (09:00)
[2024-10-14] MEDS: FINASTERIDE 5 MG TABLET PO (09:00)
[2024-10-14] MEDS: PANTOPRAZOLE 40 MG TABLET PO (09:00)
[2024-10-14] MEDS: amLODIPine BESYLATE 5 MG TABLET PO (09:01)
[2024-10-14] MEDS: APIXABAN 2.5 MG TABLET PO ×2 (09:01→20:30)
[2024-10-14] MEDS: METOPROLOL SUCCINATE XL 25 MG TABCR 50 MG PO (09:01)
[2024-10-14] MEDS: CLOPIDOGREL BISULFATE 75 MG TABLET PO (09:01)
[2024-10-14] MEDS: AMIODARONE HCL 200 MG TABLET PO ×2 (09:02→20:25)
--- NOTE | 2024-10-14 09:49 | PD.RESDS ---
Planned Discharge Date 10/14/24 DS: Providers Provider Date of admission: 10/07/24 19:38 Primary care physician: Physician No Primary/Family Admitting Provider: Tyler Muñoz MD Attending Provider on Admission: Juan Tang MD Consults: 10/07/24 18:15 Consult to Neurology / Tele-Neurology Routine Comment: Consulting Provider: [facility] 10/07/24 21:45 Consult to Neurology / Tele-Neurology Routine Comment: acute CVA workup Consulting Provider: Stanford Zeng 10/07/24 21:48 Referral Physical Therapy Routine Comment: Physician Instructions: 10/08/24 06:22 Consult to Gastroenterology Routine Comment: Consulting Provider: Landry Goyal 10/08/24 14:38 Consult to Cardiology Routine Comment: Consulting Provider: Nicole Jama Instructions: L subclavian stent 1 week ago, pending CABG in a few weeks on ASA, plavix, and eliquis -> plavix and eliquis held Bleeding with hemoglobin 6.6, transfusing 2 units pRBC 10/08/24 15:37 Referral Speech Therapy Routine Comment: Swallow evaluation, CVA rule out Attending Provider on DC: Juve Lazaro MD Discharging Provider: Juve Lazaro MD Hospital Course Hospital Course Hospital course: Patient evaluated Hemoglobin hematocrit 10.2 and 30.2 with a plate count 1 8000 Time Spent with Patient Time attestation: Total time spent providing and/or coordinating discharge services: Exam Vital Signs Temp Pulse Resp BP Pulse Ox O2 Del Method O2 Flow Rate 98.1 F 75 17 149/60 H 99 Room Air 3 10/14/24 08:00 10/14/24 09:02 10/14/24 08:00 10/14/24 09:02 10/14/24 08:00 10/14/24 08:00 10/11/24 19:39 Discharge Plan Plan Patient Disposition: Xfer Skilled Nsg Fac (SNF) Care Plan Goals: ? Continue taking aspirin and plavix for stroke ? Your eliquis dosage was decreased from 5 mg to 2.5 mg twice daily ? Your metoprolol succinate dosage was decreased from 100 to 50 mg daily ? Continue taking all other home medications as prescribed ? Follow-up with neurologist, Dr. Zeng, outpatient within 2 weeks of discharge and obtain EEG ? Follow-up with PCP within 1-2 weeks of discharge ? If you do not have a PCP, you can follow-up at the [facility] (you can call [phone] to make an appointment) ? If you wish to follow-up with Dr. Lazaro, schedule appointment on Wednesday afternoons ? Return to ED if symptoms worsen or recur Prescriptions/Referrals Prescriptions/Med Rec: New metoprolol succinate 50 mg capsule,sprinkle,ER 24hr 50 mg PO QDAY Qty: 30 0RF Eliquis 2.5 mg tablet 2.5 mg PO BID 30 Days Qty: 60 0RF Continued cetirizine 10 mg Tablet 10 mg PO QDAY finasteride 5 mg Tablet 5 mg PO QDAY aspirin 81 mg Tablet,Delayed Release (Dr/Ec) 81 mg PO QDAY celecoxib 200 mg Capsule 200 mg PO QDAY PRN (Reason: pain) Qty: 7 0RF omeprazole 20 mg Capsule,Delayed Release(Dr/Ec) 20 mg PO QDAY PRN (Reason: Acid Reflux) Qty: 10 0RF clopidogrel 75 mg tablet 75 mg PO DAILY atorvastatin 80 mg tablet 80 mg PO QDAY amlodipine 5 mg tablet 5 mg PO QDAY amiodarone 200 mg tablet 200 mg PO QDAY Held metoprolol succinate 100 mg tablet extended release 24 hr 150 mg PO QDAY Hold Instructions: Resume on 10/28/24. Discontinued apixaban 5 mg tablet 5 mg PO BID Referrals: No Primary/Family,Physician [Primary Care Provider] - Patient/Caregiver Discharge Instructions Print Language: Nepali Stand Alone Forms: Becky Award Info., Patient Portal Info Letter Discharge Order Discharge Orders: Discharge (Routine); Ordered 10/14/24 Ordered By: Juve Lazaro
--- NOTE | 2024-10-14 10:31 | PC.SS ---
Student Loan Counselor (LEOBARDO) Inna contacted [facility]. Per Nursing staff, their admission coordinator, Ema does not work on the weekends and it was not mentioned that patient was expected to arrive this weekend. LEOBARDO informed Dr. Lazaro that no insurance authorization was obtained; therefore, patient cannot discharge.
--- NOTE | 2024-10-14 10:42 | ESPR_ITS ---
Documentation for date of: 10/14/24 Subjective Subjective Interval history: No acute overnight events. Seen and examined at bedside and patient had BRYAN done yesterday without complications and no significant abnormalities found. Patient is stable to be discharged from neurology perspective with follow-up outpatient for repeat EEG. He is stable from medicine perspective for discharge as well, however, still pending authorization to SNF. Exam Vital Signs Temp Pulse Resp BP Pulse Ox O2 Del Method O2 Flow Rate 98.1 F 75 17 149/60 H 99 Room Air 3 10/14/24 08:00 10/14/24 09:02 10/14/24 08:00 10/14/24 09:02 10/14/24 08:00 10/14/24 08:00 10/11/24 19:39 Narrative Exam General: alert and oriented to name/birthdate/year/place, no acute distress, able to speak full sentences HEENT: NC/AT, mucous membranes moist, bilateral sclera anicteric Cardiovascular: regular rate and rhythm, S1/S2 present, no murmurs appreciated Pulmonary: clear to auscultation bilaterally, no rales/rhonchi/wheezes Abdominal: soft, non-tender, non-distended, no rebound/guarding, normal bowel sounds present Musculoskeletal: normal ROM, no peripheral edema Skin: warm and dry, intact, no rashes Neuro: CN II-XII intact, no focal deficits Objective Labs 10/14/24 06:12 10/14/24 06:12 Labs: Laboratory Results - last 24 hr 10/14/24 06:12 WBC 8.1 RBC 3.19 L Hgb 10.1 L Hct 28.7 L MCV 90 MCH 31.7 MCHC 35.2 RDW Std Deviation 48.3 H Plt Count 282 D Neut % (Auto) 77 Lymph % (Auto) 12 [place] % (Auto) 9 Eos % (Auto) 2 Baso % (Auto) 1 Neut # (Auto) 6.2 Lymph # (Auto) 1.0 [place] # (Auto) 0.7 Eos # (Auto) 0.1 Baso # (Auto) 0.1 Immature Gran # (Auto) 0.02 H Absolute Nucleated RBC 0.00 Immature Gran % 0 Nucleated RBC % 0 Sodium 137 Potassium 3.6 D Chloride 105 Carbon Dioxide 21.1 Anion Gap 11 BUN 21 Creatinine 1.3 Estim Creat Clear Calc 16.7 L eGFR 57 L BUN/Creatinine Ratio 16 Glucose 109 H Calculated Osmolality 277 Calcium 8.3 Corrected Calcium 8.6 Phosphorus 3.8 Magnesium 1.6 Total Bilirubin 0.5 AST 16 ALT 15 Alkaline Phosphatase 64 Total Protein 5.9 Albumin 3.6 Globulin 2.3 Albumin/Globulin Ratio 1.6 Quality Measures Quality Measures stroke Suspected type of Stroke: TIA Tenecteplase given: Reason(s) Tenecteplase not given: Use of NOAC (eliquis, xarelto, or pradaxa) not given Rehab services: PT evaluation ordered and Speech Language Pathology eval ordered VTE Prophylaxis: pharmaceutical Antithrombotic by day 2:: ordered Statin ordered: >75 y/o moderate or high intensity dose Anticoagulation ordered for A-fib or flutter (current or hx): ordered Advance care planning discussed with:: patient Assessment & Plan Assessment Current Active Medications: Generic Name Dose Route Start Last Admin Trade Name Freq PRN Reason Stop Dose Admin Acetaminophen 650 mg 10/07/24 20:28 Acetaminophen 325 Mg Tablet PO 11/06/24 20:27 Q6H PRN Fever >100.3 or pain Amiodarone HCl 200 mg 10/07/24 21:00 10/14/24 09:02 Amiodarone Hcl 200 Mg Tablet PO 11/06/24 20:59 200 mg BID LAURA Administration Amlodipine Besylate 5 mg 10/08/24 09:00 10/14/24 09:01 Amlodipine Besylate 5 Mg Tablet PO 11/07/24 08:59 5 mg QDAY LAURA Administration Apixaban 2.5 mg 10/07/24 21:00 10/14/24 09:01 Apixaban 2.5 Mg Tablet PO 11/06/24 20:59 2.5 mg BID LAURA Administration Aspirin 81 mg 10/09/24 09:00 10/14/24 09:00 Aspirin Ec 81 Mg Tabec PO 11/08/24 08:59 81 mg QDAY LAURA Administration Atorvastatin Calcium 40 mg 10/07/24 21:00 10/13/24 21:13 Atorvastatin Calcium 20 Mg Tablet PO 11/06/24 20:59 40 mg HS LAURA Administration Clopidogrel Bisulfate 75 mg 10/09/24 09:00 10/14/24 09:01 Clopidogrel Bisulfate 75 Mg Tablet PO 11/08/24 08:59 75 mg QDAY LAURA Administration Finasteride 5 mg 10/08/24 09:00 10/14/24 09:00 Finasteride 5 Mg Tablet PO 11/07/24 08:59 5 mg QDAY LAURA Administration Hydralazine HCl 10 mg 10/08/24 18:43 10/13/24 16:42 Hydralazine Inj 20 Mg/Ml Vial IV 11/07/24 18:40 10 mg Q6H PRN Administration SBP > 180 Metoprolol Succinate 50 mg 10/08/24 09:00 10/14/24 09:01 Metoprolol Succinate Xl 25 Mg Tabcr PO 11/07/24 08:59 50 mg QDAY LAURA Administration Ondansetron HCl 4 mg 10/07/24 20:28 Ondansetron Inj 2 Mg/Ml Inj 2 Ml IV 11/06/24 20:27 Q6H PRN NAUSEA OR VOMITING Protocol Pantoprazole Sodium 40 mg 10/08/24 09:00 10/14/24 09:00 Pantoprazole 40 Mg Tablet PO 11/07/24 08:59 40 mg QDAY LAURA Administration Sennosides 1 tab 10/07/24 20:28 Senna Tablet PO 11/06/24 20:27 QDAY PRN constipation Protocol Plan William Gan is a 78-year-old male with a past medical history of hypertension, hyperlipidemia, paroxysmal A-fib, CAD, and BPH who was admitted on 10/07/2024 for possible acute CVA and possible GI blood with acute anemia. 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 BRAN appears normal with no evidence for thrombus. Mild MR, TR & AI. ? In-house neurology consulted, appreciate recommendations ? Follow-up with neurology outpatient and obtain repeat EEG ? Physical therapy recommending SNF ? Aspirin, plavix, atorvastatin 40 mg #Normocytic anemia, stable #Possible GI bleed Hemoglobin 8.3 on admission, dropped to 6.6 and transfused total 2 units pRBC, now stable Reticulocyte elevated at 3.8%, iron panel normal, LDH normal, B12 and folate normal EGD only showed erythematous duodenopathy without bleeding and erythematous gastric mucosa Colonoscopy showed hemorrhoids, polyp s/p biopsy, and diverticulosis without signs of bleeding ? GI consulted, appreciate recommendations ? Occult stool test pending ? Transfuse if hemoglobin less than 8 given history of CAD #History of CAD #S/p left subclavian stent #Severe triple vessel disease pending CABG History of left subclavian stent placed 1 week ago and on aspirin and plavix but have since been held given low hemoglobin. Follows Dr. Jama, who has been consulted, and also pending CABG in following weeks. ? Cardiology consulted, appreciate recommendations ? Aspirin, plavix, statin as above #Acute kidney injury, likely prerenal, resolved May be in setting of prerenal dehydration in combination with postrenal as patient has history of BPH. Initial Creatinine 2.1 (baseline around 1.2), BUN 35. Today Creatinine 1.2 ? Avoid nephrotoxic agents, renally dose medications #Atrial Fibrillation Rate-controlled on amiodarone, anticoagulated with Eliquis ? Continue amiodarone 200 mg p.o. BID ? Eliquis restarted 10/12 ? Monitor on telemetry #History of BPH ? Finasteride 5 mg p.o. daily #History of hypertension ? Metoprolol succinate 100 mg p.o. daily ? Amlodipine 5 mg p.o. daily #Hyponatremia, resolved #Hypokalemia, resolved Hospital management: Disposition: pending SNF authorization Diet: cardiac GI prophylaxis: protonix DVT prophylaxis: SCDs given possible GI bleed Code: DNR ----- Plan discussed with attending physician Dr. Kitty Lazaro MD PGY-1 Internal Medicine Attending Provider Attestation/Addendum I reviewed labs, imaging, EKG, home medications and prior available records. Face to face evaluation was performed by me. I have personally examined the patient and discussed assessment and plan with the IM team. I reviewed the resident note and agree with the plan with exceptions as below. Acute CVA Acute encephalopathy CAD with severe vessel disease Atrial fibrillation with controlled ventricular rhythm Possible GI bleed SOFIYA, resolved Status post BRYAN on 10/13 that showed no thrombus Discussed resuming Eliquis with cardiology Restarted aspirin and Plavix Outpatient follow-up with neurology Status post colonoscopy that showed hemorrhoids and small polyp without bleeding. PT recommended SNF. He is pending authorization
--- NOTE | 2024-10-14 19:23 | ESPR_ITS ---
Documentation for date of: 10/14/24 Subjective Subjective Interval history: Hemoglobin hematocrit at 10.1 and 28.7 No signs of any active bleeding Exam Vital Signs Temp Pulse Resp BP Pulse Ox O2 Del Method O2 Flow Rate 99.2 F 64 18 132/66 H 99 Room Air 3 10/14/24 16:00 10/14/24 16:00 10/14/24 16:00 10/14/24 16:00 10/14/24 16:00 10/14/24 16:00 10/11/24 19:39 Objective Labs 10/14/24 06:12 10/14/24 06:12 Labs: Laboratory Results - last 24 hr 10/14/24 06:12 WBC 8.1 RBC 3.19 L Hgb 10.1 L Hct 28.7 L MCV 90 MCH 31.7 MCHC 35.2 RDW Std Deviation 48.3 H Plt Count 282 D Neut % (Auto) 77 Lymph % (Auto) 12 [place] % (Auto) 9 Eos % (Auto) 2 Baso % (Auto) 1 Neut # (Auto) 6.2 Lymph # (Auto) 1.0 [place] # (Auto) 0.7 Eos # (Auto) 0.1 Baso # (Auto) 0.1 Immature Gran # (Auto) 0.02 H Absolute Nucleated RBC 0.00 Immature Gran % 0 Nucleated RBC % 0 Sodium 137 Potassium 3.6 D Chloride 105 Carbon Dioxide 21.1 Anion Gap 11 BUN 21 Creatinine 1.3 Estim Creat Clear Calc 16.7 L eGFR 57 L BUN/Creatinine Ratio 16 Glucose 109 H Calculated Osmolality 277 Calcium 8.3 Corrected Calcium 8.6 Phosphorus 3.8 Magnesium 1.6 Total Bilirubin 0.5 AST 16 ALT 15 Alkaline Phosphatase 64 Total Protein 5.9 Albumin 3.6 Globulin 2.3 Albumin/Globulin Ratio 1.6 Impressions Impression: Cecal polyp gastritis Continue current management Assessment & Plan A&P Narrative BRYAN wednesday Time Spent With Patient Time: Total time spent is greater than 50% in coordination of care (as documented) at patient's floor/unit and/or counseling patient:
[2024-10-14] MEDS: ATORVASTATIN CALCIUM 20 MG TABLET 40 MG PO (20:25)
[2024-10-15] VITALS (9 sets, daily range): BP systolic 133–161; BP diastolic 58–80; PULSE 64–82; RESP 14–20; TEMP 36.5–37.2; O2SAT 96–99
--- NOTE | 2024-10-15 01:20 | ESPR_ITS ---
Documentation for date of: 10/14/24 Subjective Subjective Interval history: Mr. Gan is 78 yr male with hypertension, hyperlipidemia, paroxysmal A-fib, CAD status post stent placement 1 week ago presents to the ER with acute onset of generalized weakness and transient period of aphasia. Patient's daughter stated that family had gone out to lunch with the patient. When arriving back home, he was experiencing weakness and difficulty getting out of the car. Family was able to assist patient. He was able to walk slowly inside the house with walker. Once inside his house, patient collapsed onto the recliner and started making odd gurgling noises and was not able to speak. Episode resolved after a few minutes. Patient did endorse some dizziness and diaphoresis during this episode. Family was concerned that heat outside was possibly attributing to symptoms as temperature was 105. He is followed by Dr. Jama and cardiac surgeon Dr. Yony Haile in [place]. Patient will be undergoing CABG in next few weeks. Patient denies any headache, vision changes, chest pain shortness of breath or abdominal pain. Workup in the ER: Vital signs: Afebrile, BP 149/59, mild bradycardia 56, respiratory rate 18, 99% O2 on room air. Labs: CBC remarkable for anemia hemoglobin 8.3, MCV 95. CMP shows mild hyponatremia sodium 132 (per chart review, appears that patient's baseline sodium ranges 125?130), creatinine 2.1 (baseline around 1.2), glucose 116. EKG showed sinus bradycardia with rate 57, QTc 507. Imaging: CT head negative for acute hemorrhage. Suspicion of acute nonhemorrhagic infarct of the left cerebellar hemisphere. 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 No LVOs. Teleneuro was consulted--Stated that low suspicion for hyperacute stroke in the left cerebellum. High suspicion of underlying toxic metabolic process or infection. Did not recommend to resume Eliquis due to low hemoglobin. NIHSS score 0, not a candidate for thrombolytic agent. Patient was given high-dose loading aspirin 324 mg and 1 L bolus NS while in the ED. Patient got admitted for Rule out acute CVA, metabolic encephalopathy, SOFIYA. In-house neurology was consulted for further management. Patient did not have any recurrent episodes after admission. He is back to his baseline. No focal neurological deficit noted on exam. Exam - Neurology Vital Signs Temp Pulse Resp BP Pulse Ox O2 Del Method O2 Flow Rate 98.9 F 68 20 133/78 H 98 Room Air 3 10/15/24 00:00 10/15/24 00:00 10/15/24 00:00 10/15/24 00:00 10/15/24 00:00 10/15/24 00:00 10/11/24 19:39 Narrative Exam GENERAL APPEARANCE: Well hydrated, well-nourished in no acute distress. HEENT: Normocephalic, atraumatic, extraocular movements intact. Pupils: Equal reacting to light and accommodation Significant discoloration in NECK: Supple, no JVD or bruits. CARDIOVASULAR: Heart: S1, S2 heard, regular without S3-S4 or murmur no rubs or gallops. LUNGS/CHEST: Clear to auscultation bilaterally. No rails, rhonchi, or wheezing. Normal inspection. ABDOMEN: Soft, nontender, with normal bowel sounds. No pulsatile masses. No rebound, rigidity, or guarding. Normal inspection and palpation. EXTREMITIES: Normal inspection and palpation. No edema, clubbing or cyanosis. SKIN: significant discoloration noted in Distal upper and lower extremities. MUSCULOSKELETAL: No cervical, thoracic, lumbar or midline bony tenderness. Normal inspection. NEURO: Alert, awake and oriented x3. Cranial nerves: II through XII grossly intact. Speech and language: Normal with no dysarthria or dysphasia. Motor system: Tone and bulk: Normal: Strength: 5 out of 5 in all 4 extremities; No pronator drift noted. Deep tendon reflexes: 2+ bilaterally symmetrical. Plantar reflex: Downgoing bilaterally. Sensory system: Intact to all modalities of sensation bilaterally. Coordination: Intact to iecymk-vkut-[id number] and thpj-popm-zeoj test bilaterally. No ataxia, no dysmetria, or dysdiadochokinesia noted. No intention tremors noted. Gait: Not tested. No signs of meningeal irritation noted. PSYCHIATRIC: Normal mood and affect. Objective Labs 10/15/24 05:43 10/15/24 05:43 Labs: Laboratory Results - last 24 hr 10/14/24 06:12 WBC 8.1 RBC 3.19 L Hgb 10.1 L Hct 28.7 L MCV 90 MCH 31.7 MCHC 35.2 RDW Std Deviation 48.3 H Plt Count 282 D Neut % (Auto) 77 Lymph % (Auto) 12 [place] % (Auto) 9 Eos % (Auto) 2 Baso % (Auto) 1 Neut # (Auto) 6.2 Lymph # (Auto) 1.0 [place] # (Auto) 0.7 Eos # (Auto) 0.1 Baso # (Auto) 0.1 Immature Gran # (Auto) 0.02 H Absolute Nucleated RBC 0.00 Immature Gran % 0 Nucleated RBC % 0 Sodium 137 Potassium 3.6 D Chloride 105 Carbon Dioxide 21.1 Anion Gap 11 BUN 21 Creatinine 1.3 Estim Creat Clear Calc 16.7 L eGFR 57 L BUN/Creatinine Ratio 16 Glucose 109 H Calculated Osmolality 277 Calcium 8.3 Corrected Calcium 8.6 Phosphorus 3.8 Magnesium 1.6 Total Bilirubin 0.5 AST 16 ALT 15 Alkaline Phosphatase 64 Total Protein 5.9 Albumin 3.6 Globulin 2.3 Albumin/Globulin Ratio 1.6 Assessment & Plan Assessment and plan (1) TIA (transient ischemic attack): Status: Resolved Assessment and plan: No focal neurological deficit or recurrent episodes reported after admission As the CT angiogram showed multiple intracranial stenosis, he needs to be on aggressive medical management with the platelet therapy with statin. Continue with aspirin 81 mg, Plavix 75 mg with close monitoring for bleeding and statin (2) Acute CVA (cerebrovascular accident): Status: Acute Assessment and plan: Based on the MRI brain Continue with aspirin, Plavix with close monitoring for bleeding. (3) Anemia: Status: Acute Assessment and plan: Hemoglobin and hematocrit are stable. Endoscopy showed gastritis (4) Elevated troponin: Status: Acute (5) Syncope: Status: Acute (6) Atrial fibrillation, new onset: Status: Acute Assessment and plan: Will hold off on the Eliquis for now until hemoglobin stabilizes Noted GI has been consulted (7) CAD (coronary artery disease): Status: Acute
[2024-10-15 06:02] LABS: Basophils # (Auto) 0.1 Thou/mm3 (0.0-0.2); Basophils % (Auto) 1 % (0-2.5); Eosinophils # (Auto) 0.2 Thou/mm3 (0.0-0.5); Eosinophils % (Auto) 2 % (0-10); Hematocrit 29.2 % (41.0-53.0); Immature Granulocytes % (Auto) 0 % (0-0); Immature Granulocytes Auto 0.02 Thou/mm3 (0.00-0.00); Lymphocytes # (Auto) 1.4 Thou/mm3 (1.0-4.8); Lymphocytes % (Auto) 15 % (10-50); Mean Corpuscular HGB Conc 34.2 g/dl (31.0-37.0); Mean Corpuscular Hemoglobin 31.9 pg (25.0-35.0); Mean Corpuscular Volume 93 fL (80-100); Monocytes # (Auto) 0.9 Thou/mm3 (0.0-0.8); Monocytes % (Auto) 10 % (0-12); Neutrophils # (Auto) 6.6 Thou/mm3 (1.8-7.7); Neutrophils % (Auto) 72 % (37-80); Nucleated Red Blood Cell % 0 /100 WBC (0); Platelet Count 273 Thou/mm3 (140-440); RDW Standard Deviation 49.6 fL (35.1-43.9); Red Blood Count 3.13 Miln/mm3 (4.50-5.90); White Blood Count 9.2 Thou/mm3 (3.8-10.6)
[2024-10-15 06:19] LABS: Alanine Aminotransferase 19 U/L (10-49); Albumin, Serum 3.8 gm/dL (3.4-4.8); Albumin/Globulin Ratio 1.9 (1.2-2.2); Alkaline Phosphatase 64 U/L (46-116); Anion Gap 9 (7-16); Aspartate Amino Transferase 30 U/L (0-34); BUN/Creatinine Ratio 17 Ratio (12-20); Bilirubin,Total 0.5 mg/dL (0.3-1.2); Blood Urea Nitrogen 20 mg/dL (9-23); Calcium 9.1 mg/dL (8.3-10.6); Calcium (Corrected) 9.3 mg/dL (8.5-10.1); Carbon Dioxide 18.9 mMol/L (20.0-31.0); Chloride 102 mMol/L (98-107); Creatinine (Component) 1.2 mg/dL (0.6-1.3); Estimated Creatinine Clearance 18.1 mL/min (>60); Glucose 98 mg/dL (74-106); Magnesium 1.8 mg/dL (1.6-2.6); Osmolality,Calculated 263 (275-295); Phosphorous 3.5 mg/dL (2.4-5.1); Potassium 4.1 mMol/L (3.4-5.1); Sodium 130 mMol/L (136-145); Total Protein 5.8 gm/dL (5.7-8.2); eGFR > 60 See Note
--- NOTE | 2024-10-15 07:24 | PD.RESPRO ---
Documentation for date of: 10/15/24 Subjective Subjective Interval history: No acute overnight events noted. Seen and examined at bedside and patient does not have any complaints. Denies SOB, CP, fever, chills, N/V, or FND. Pending authorization for SNF. CBC stable/unremarkable, Na 130, HCO3 10, Cr 1.2. Vital signs stable. Exam Vital Signs Temp Pulse Resp BP Pulse Ox O2 Del Method O2 Flow Rate 98.7 F 64 16 158/69 H 96 Room Air 3 10/15/24 04:00 10/15/24 04:00 10/15/24 04:00 10/15/24 04:00 10/15/24 04:00 10/15/24 04:00 10/11/24 19:39 Narrative Exam General: alert and oriented to name/birthdate/year/place, no acute distress, able to speak full sentences HEENT: NC/AT, mucous membranes moist, bilateral sclera anicteric Cardiovascular: regular rate and rhythm, S1/S2 present, no murmurs appreciated Pulmonary: clear to auscultation bilaterally, no rales/rhonchi/wheezes Abdominal: soft, non-tender, non-distended, no rebound/guarding, normal bowel sounds present Musculoskeletal: normal ROM, no peripheral edema Skin: warm and dry, intact, no rashes Neuro: CN II-XII intact, no focal deficits Objective Labs 10/15/24 05:43 10/15/24 05:43 Labs: Laboratory Results - last 24 hr 10/15/24 05:43 WBC 9.2 RBC 3.13 L Hgb 10.0 L Hct 29.2 L MCV 93 MCH 31.9 MCHC 34.2 RDW Std Deviation 49.6 H Plt Count 273 Neut % (Auto) 72 Lymph % (Auto) 15 [place] % (Auto) 10 Eos % (Auto) 2 Baso % (Auto) 1 Neut # (Auto) 6.6 Lymph # (Auto) 1.4 [place] # (Auto) 0.9 H Eos # (Auto) 0.2 Baso # (Auto) 0.1 Immature Gran # (Auto) 0.02 H Absolute Nucleated RBC 0.00 Immature Gran % 0 Nucleated RBC % 0 Sodium 130 L Potassium 4.1 D Chloride 102 Carbon Dioxide 18.9 L Anion Gap 9 BUN 20 Creatinine 1.2 Estim Creat Clear Calc 18.1 L eGFR > 60 BUN/Creatinine Ratio 17 Glucose 98 Calculated Osmolality 263 L Calcium 9.1 Corrected Calcium 9.3 Phosphorus 3.5 Magnesium 1.8 Total Bilirubin 0.5 AST 30 ALT 19 Alkaline Phosphatase 64 Total Protein 5.8 Albumin 3.8 Globulin 2.0 L Albumin/Globulin Ratio 1.9 Quality Measures Quality Measures stroke Suspected type of Stroke: TIA Tenecteplase given: Reason(s) Tenecteplase not given: Use of NOAC (eliquis, xarelto, or pradaxa) not given Rehab services: PT evaluation ordered and Speech Language Pathology eval ordered VTE Prophylaxis: pharmaceutical Antithrombotic by day 2:: ordered Statin ordered: >75 y/o moderate or high intensity dose Anticoagulation ordered for A-fib or flutter (current or hx): ordered Advance care planning discussed with:: patient Assessment & Plan Assessment Current Active Medications: Generic Name Dose Route Start Last Admin Trade Name Freq PRN Reason Stop Dose Admin Acetaminophen 650 mg 10/07/24 20:28 Acetaminophen 325 Mg Tablet PO 11/06/24 20:27 Q6H PRN Fever >100.3 or pain Amiodarone HCl 200 mg 10/07/24 21:00 10/14/24 20:25 Amiodarone Hcl 200 Mg Tablet PO 11/06/24 20:59 200 mg BID LAURA Administration Amlodipine Besylate 5 mg 10/08/24 09:00 10/14/24 09:01 Amlodipine Besylate 5 Mg Tablet PO 11/07/24 08:59 5 mg QDAY LAURA Administration Apixaban 2.5 mg 10/07/24 21:00 10/14/24 20:30 Apixaban 2.5 Mg Tablet PO 11/06/24 20:59 2.5 mg BID LAURA Administration Aspirin 81 mg 10/09/24 09:00 10/14/24 09:00 Aspirin Ec 81 Mg Tabec PO 11/08/24 08:59 81 mg QDAY LAURA Administration Atorvastatin Calcium 40 mg 10/07/24 21:00 10/14/24 20:25 Atorvastatin Calcium 20 Mg Tablet PO 11/06/24 20:59 40 mg HS LUARA Administration Clopidogrel Bisulfate 75 mg 10/09/24 09:00 10/14/24 09:01 Clopidogrel Bisulfate 75 Mg Tablet PO 11/08/24 08:59 75 mg QDAY LAURA Administration Finasteride 5 mg 10/08/24 09:00 10/14/24 09:00 Finasteride 5 Mg Tablet PO 11/07/24 08:59 5 mg QDAY LAURA Administration Hydralazine HCl 10 mg 10/08/24 18:43 10/13/24 16:42 Hydralazine Inj 20 Mg/Ml Vial IV 11/07/24 18:40 10 mg Q6H PRN Administration SBP > 180 Metoprolol Succinate 50 mg 10/08/24 09:00 10/14/24 09:01 Metoprolol Succinate Xl 25 Mg Tabcr PO 11/07/24 08:59 50 mg QDAY LAURA Administration Ondansetron HCl 4 mg 10/07/24 20:28 Ondansetron Inj 2 Mg/Ml Inj 2 Ml IV 11/06/24 20:27 Q6H PRN NAUSEA OR VOMITING Protocol Pantoprazole Sodium 40 mg 10/08/24 09:00 10/14/24 09:00 Pantoprazole 40 Mg Tablet PO 11/07/24 08:59 40 mg QDAY LAURA Administration Sennosides 1 tab 10/07/24 20:28 Senna Tablet PO 11/06/24 20:27 QDAY PRN constipation Protocol Plan William Gan is a 78-year-old male with a past medical history of hypertension, hyperlipidemia, paroxysmal A-fib, CAD, and BPH who was admitted on 10/07/2024 for possible acute CVA and possible GI blood with acute anemia. 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 BRAN appears normal with no evidence for thrombus. Mild MR, TR & AI. ? In-house neurology consulted, appreciate recommendations ? Follow-up with neurology outpatient and obtain repeat EEG ? Physical therapy recommending SNF ? Aspirin, plavix, atorvastatin 40 mg #Normocytic anemia, stable #Possible GI bleed Hemoglobin 8.3 on admission, dropped to 6.6 and transfused total 2 units pRBC, now stable Reticulocyte elevated at 3.8%, iron panel normal, LDH normal, B12 and folate normal EGD only showed erythematous duodenopathy without bleeding and erythematous gastric mucosa Colonoscopy showed hemorrhoids, polyp s/p biopsy, and diverticulosis without signs of bleeding ? GI consulted, appreciate recommendations ? Transfuse if hemoglobin less than 8 given history of CAD #History of CAD #S/p left subclavian stent #Severe triple vessel disease pending CABG History of left subclavian stent placed 1 week ago and on aspirin and plavix but have since been held given low hemoglobin. Follows Dr. Jama, who has been consulted, and also pending CABG in following weeks. ? Cardiology consulted, appreciate recommendations ? Aspirin, plavix, statin as above #Acute kidney injury, likely prerenal, resolved May be in setting of prerenal dehydration in combination with postrenal as patient has history of BPH. Initial Creatinine 2.1 (baseline around 1.2), BUN 35. Today Creatinine 1.2 ? Avoid nephrotoxic agents, renally dose medications #Atrial Fibrillation Rate-controlled on amiodarone, anticoagulated with Eliquis ? Continue amiodarone 200 mg p.o. BID ? Eliquis restarted 10/12 ? Monitor on telemetry #History of BPH ? Finasteride 5 mg p.o. daily #History of hypertension ? Metoprolol succinate 100 mg p.o. daily ? Amlodipine 5 mg p.o. daily #Hyponatremia, resolved #Hypokalemia, resolved Hospital management: Disposition: pending SNF authorization Diet: cardiac GI prophylaxis: protonix DVT prophylaxis: SCDs given possible GI bleed Code: DNR ----- Plan discussed with attending physician Dr. Kitty Lazaro MD PGY-1 Internal Medicine Attending Provider Attestation/Addendum I reviewed labs, imaging, EKG, home medications and prior available records. Face to face evaluation was performed by me. I have personally examined the patient and discussed assessment and plan with the IM team. I reviewed the resident note and agree with the plan with exceptions as below. Acute CVA Acute encephalopathy CAD with severe vessel disease Atrial fibrillation with controlled ventricular rhythm Possible GI bleed SOFIYA, resolved Status post BRYAN on 10/13 that showed no thrombus Discussed resuming Eliquis with cardiology Restarted aspirin and Plavix Outpatient follow-up with neurology Status post colonoscopy that showed hemorrhoids and small polyp without bleeding. PT recommended SNF. He is pending authorization
[2024-10-15] MEDS: amLODIPine BESYLATE 5 MG TABLET PO (07:49)
[2024-10-15] MEDS: FINASTERIDE 5 MG TABLET PO (07:49)
[2024-10-15] MEDS: PANTOPRAZOLE 40 MG TABLET PO (07:50)
[2024-10-15] MEDS: AMIODARONE HCL 200 MG TABLET PO ×2 (07:50→20:30)
[2024-10-15] MEDS: ASPIRIN EC 81 MG TABEC PO (07:50)
[2024-10-15] MEDS: APIXABAN 2.5 MG TABLET PO ×2 (07:50→20:30)
[2024-10-15] MEDS: METOPROLOL SUCCINATE XL 25 MG TABCR 50 MG PO (07:50)
[2024-10-15] MEDS: CLOPIDOGREL BISULFATE 75 MG TABLET PO (07:51)
--- NOTE | 2024-10-15 16:47 | PC.NURSE ---
[facility] 10[facility]15[facility]2024 from [id number].
[2024-10-15] MEDS: ATORVASTATIN CALCIUM 20 MG TABLET 40 MG PO (20:30)
--- NOTE | 2024-10-15 21:27 | ESPR_ITS ---
Documentation for date of: 10/15/24 Subjective Subjective Interval history: Patient evaluated hemoglobin hematocrit 10.0 and 29.2 Exam Vital Signs Temp Pulse Resp BP Pulse Ox O2 Del Method O2 Flow Rate 98.1 F 66 19 159/58 H 99 Room Air 3 10/15/24 20:00 10/15/24 20:30 10/15/24 20:00 10/15/24 20:30 10/15/24 20:00 10/15/24 20:00 10/11/24 19:39 Objective Labs 10/15/24 05:43 10/15/24 05:43 Labs: Laboratory Results - last 24 hr 10/15/24 05:43 WBC 9.2 RBC 3.13 L Hgb 10.0 L Hct 29.2 L MCV 93 MCH 31.9 MCHC 34.2 RDW Std Deviation 49.6 H Plt Count 273 Neut % (Auto) 72 Lymph % (Auto) 15 [place] % (Auto) 10 Eos % (Auto) 2 Baso % (Auto) 1 Neut # (Auto) 6.6 Lymph # (Auto) 1.4 [place] # (Auto) 0.9 H Eos # (Auto) 0.2 Baso # (Auto) 0.1 Immature Gran # (Auto) 0.02 H Absolute Nucleated RBC 0.00 Immature Gran % 0 Nucleated RBC % 0 Sodium 130 L Potassium 4.1 D Chloride 102 Carbon Dioxide 18.9 L Anion Gap 9 BUN 20 Creatinine 1.2 Estim Creat Clear Calc 18.1 L eGFR > 60 BUN/Creatinine Ratio 17 Glucose 98 Calculated Osmolality 263 L Calcium 9.1 Corrected Calcium 9.3 Phosphorus 3.5 Magnesium 1.8 Total Bilirubin 0.5 AST 30 ALT 19 Alkaline Phosphatase 64 Total Protein 5.8 Albumin 3.8 Globulin 2.0 L Albumin/Globulin Ratio 1.9 Impressions Impression: Posthemorrhagic anemia stable Continue current management Cecal polyp gastritis Assessment & Plan A&P Narrative BRYAN wednesday Time Spent With Patient Time: Total time spent is greater than 50% in coordination of care (as documented) at patient's floor/unit and/or counseling patient:
--- NOTE | 2024-10-15 22:26 | VVPN_ITS ---
Telemedicine visit statement This visit was conducted with the use of interactive audio and video telecommunications system that permits real time communication between the patient and the provider. Patient's verbal consent for virtual visit was obtained on 10/15/24 at 2226. Documentation for date of: 10/15/24 Subjective Subjective Interval history: Patient is in [facility]. No new symptoms reported. No complaints overnight Virtual exam Vital Signs Temp Pulse Resp BP Pulse Ox O2 Del Method O2 Flow Rate 98.1 F 66 19 159/58 H 99 Room Air 3 10/15/24 20:00 10/15/24 20:30 10/15/24 20:00 10/15/24 20:30 10/15/24 20:00 10/15/24 20:00 10/11/24 19:39 Objective Labs 10/15/24 05:43 10/15/24 05:43 Labs: Laboratory Results - last 24 hr 10/15/24 05:43 WBC 9.2 RBC 3.13 L Hgb 10.0 L Hct 29.2 L MCV 93 MCH 31.9 MCHC 34.2 RDW Std Deviation 49.6 H Plt Count 273 Neut % (Auto) 72 Lymph % (Auto) 15 [place] % (Auto) 10 Eos % (Auto) 2 Baso % (Auto) 1 Neut # (Auto) 6.6 Lymph # (Auto) 1.4 [place] # (Auto) 0.9 H Eos # (Auto) 0.2 Baso # (Auto) 0.1 Immature Gran # (Auto) 0.02 H Absolute Nucleated RBC 0.00 Immature Gran % 0 Nucleated RBC % 0 Sodium 130 L Potassium 4.1 D Chloride 102 Carbon Dioxide 18.9 L Anion Gap 9 BUN 20 Creatinine 1.2 Estim Creat Clear Calc 18.1 L eGFR > 60 BUN/Creatinine Ratio 17 Glucose 98 Calculated Osmolality 263 L Calcium 9.1 Corrected Calcium 9.3 Phosphorus 3.5 Magnesium 1.8 Total Bilirubin 0.5 AST 30 ALT 19 Alkaline Phosphatase 64 Total Protein 5.8 Albumin 3.8 Globulin 2.0 L Albumin/Globulin Ratio 1.9 Assessment & Plan Assessment patient is a 78-year-old male with a past medical history of hypertension, hyperlipidemia, paroxysmal A-fib, CAD, and BPH who presented with acute onset weakness, short episode of aphasia, and diaphroesis. Admitted for CVA rule out, metabolic encephalopathy, and SOFIYA. 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 Bigger concern is acute encephalopathy due to metabolic reasons/bleeding. Due to extensive stenosis of extra- and intra-cranial arteries, patient requires aggressive risk factor modification and anticoagulation when the bleeding is ruled out/controlled. Speech therapy saw the patient, assessment negative for dysphagia. 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 Plan: ? BRYAN with bubble study negative PFO, intracardiac thrombus. ? Physical therapy recommends SNF placement ? Aspirin 81 mg and Plavix 75 mg qday ? Atorvastatin 40 mg p.o. at bedtime ? Blood pressure control - EEG showed frontal and central spikes, will recommend to repeat EEG outpatient. Patient is stable neurologically and will follow-up as an outpatient and do the repeat EEG at that time. - #Normocytic anemia #? GI bleed #History of CAD #Acute kidney injury, likely prerenal, improving #Atrial Fibrillation #History of BPH #History of hypertension #Hyponatremia, resolved #Hypokalemia, resolved - management per primary team
[2024-10-16] VITALS (9 sets, daily range): BP systolic 127–163; BP diastolic 56–76; PULSE 60–74; RESP 16–21; TEMP 36.5–37.3; O2SAT 97–99; BMI 18.5
[2024-10-16 07:31] LABS: Haptoglobin* 203 mg/dL (43-212)
--- NOTE | 2024-10-16 08:33 | PC.SS ---
Addendum entered by Jade Lee 10/16/24 15:42: SS follow up note; SS contacted [facility] and he informed that patient's home health care case manager Betty was out today, however will be in tomorrow and will contact SS. Addendum entered by Jade Lee 10/16/24 15:05: SS follow up note; SS attempted to contact Betty from [place]. SS left Voicemail with contact number. Addendum entered by Jade Lee 10/16/24 13:39: SS follow up note; SS emailed [facility] requesting a call back as well as authorization status. Addendum entered by Jade Lee 10/16/24 13:31: SS follow up note; SS attempted to contacted Nieves at [phone]. EXT: [phone]. SS left voicemail with call back number. Addendum entered by Jade Lee 10/16/24 09:24: SS follow up note; SS contacted Kylie from the [place], she forward the call to Nieves, he was requesting Clinicals to be emailed to . SS emailed requested clinicals and discharge orders. Nieves informed SS he would review and contact SS. SS will stand by for further needs. Original Note: SS follow up note; SS attempted to contact Betty from [place]. SS left Voicemail with call back number.
--- NOTE | 2024-10-16 09:39 | PD.IMPROG ---
Documentation for date of: 10/16/24 Subjective Subjective Interval history: Patient evaluated Hemoglobin hematocrit 10.0 and 29.2 Exam Vital Signs Temp Pulse Resp BP Pulse Ox O2 Del Method O2 Flow Rate 98.6 F 67 16 156/76 H 98 Room Air 3 10/16/24 08:00 10/16/24 08:00 10/16/24 08:00 10/16/24 08:00 10/16/24 08:00 10/16/24 08:00 10/11/24 19:39 Objective Labs 10/15/24 05:43 10/15/24 05:43 Labs: Laboratory Results - last 24 hr 10/07/24 21:55 Haptoglobin 203 Impressions Impression: Gastritis cecal polyps Plan Continue current management Assessment & Plan A&P Narrative BRYAN wednesday Time Spent With Patient Time: Total time spent is greater than 50% in coordination of care (as documented) at patient's floor/unit and/or counseling patient:
[2024-10-16] MEDS: CLOPIDOGREL BISULFATE 75 MG TABLET PO (10:02)
[2024-10-16] MEDS: AMIODARONE HCL 200 MG TABLET PO ×2 (10:02→21:02)
[2024-10-16] MEDS: ASPIRIN EC 81 MG TABEC PO (10:02)
[2024-10-16] MEDS: FINASTERIDE 5 MG TABLET PO (10:02)
[2024-10-16] MEDS: PANTOPRAZOLE 40 MG TABLET PO (10:03)
[2024-10-16] MEDS: METOPROLOL SUCCINATE XL 25 MG TABCR 50 MG PO (10:03)
[2024-10-16] MEDS: amLODIPine BESYLATE 5 MG TABLET PO (10:03)
[2024-10-16] MEDS: APIXABAN 2.5 MG TABLET PO ×2 (10:03→21:04)
--- NOTE | 2024-10-16 10:56 | ESPR_ITS ---
Documentation for date of: 10/16/24 Subjective Subjective Interval history: Patient was seen and examined at bedside this morning. No acute overnight events. Patient has no new complaints. Still pending insurance authorization for placement. Will do labs every other day. Exam Vital Signs Temp Pulse Resp BP Pulse Ox O2 Del Method O2 Flow Rate 98.6 F 68 16 163/65 H 98 Room Air 3 10/16/24 08:00 10/16/24 10:03 10/16/24 08:00 10/16/24 10:03 10/16/24 08:00 10/16/24 08:00 10/11/24 19:39 Narrative Exam General: A/O x3, no acute distress Eyes: PERRL, EOMI. Anicteric, vision grossly intact. Ears: No ear pain, no ear discharge, Hearing grossly intact. Nose: No nasal discharge. Mouth/Throat: Moist mucous membranes, no redness, no lesions. Neck: Neck supple, non-tender, no cervical lymphadenopathy. Lungs: Clear DIAN to auscultation and percussion, No accessory muscle use. Cardio: Normal S1/S2, regular rhythm, no murmurs appreciated. Abdomen: Soft, non-tender, no palpable masses, peristalsis present, no guarding or rebound. Extremities: Symmetrical, no significant deformities, no peripheral edema , non-tender, peripheral pulses presents. Skin: No rashes, no lesions, warm to touch. Neuro: No focal neurological deficits, motor and sensory intact, muscle strength bilaterally upper and lower extremities, no dysmetria or aphasia Objective Labs 10/15/24 05:43 10/15/24 05:43 Labs: Laboratory Results - last 24 hr 10/07/24 21:55 Haptoglobin 203 Quality Measures Quality Measures stroke Suspected type of Stroke: TIA Tenecteplase given: Reason(s) Tenecteplase not given: Use of NOAC (eliquis, xarelto, or pradaxa) not given Rehab services: PT evaluation ordered and Speech Language Pathology eval ordered VTE Prophylaxis: pharmaceutical Antithrombotic by day 2:: not indicated (describe) Statin ordered: >75 y/o moderate or high intensity dose Anticoagulation ordered for A-fib or flutter (current or hx): ordered Advance care planning discussed with:: patient Assessment & Plan Assessment Current Active Medications: Generic Name Dose Route Start Last Admin Trade Name Freq PRN Reason Stop Dose Admin Acetaminophen 650 mg 10/07/24 20:28 Acetaminophen 325 Mg Tablet PO 11/06/24 20:27 Q6H PRN Fever >100.3 or pain Amiodarone HCl 200 mg 10/07/24 21:00 10/16/24 10:02 Amiodarone Hcl 200 Mg Tablet PO 11/06/24 20:59 200 mg BID LAURA Administration Amlodipine Besylate 5 mg 10/08/24 09:00 10/16/24 10:03 Amlodipine Besylate 5 Mg Tablet PO 11/07/24 08:59 5 mg QDAY LAURA Administration Apixaban 2.5 mg 10/07/24 21:00 10/16/24 10:03 Apixaban 2.5 Mg Tablet PO 11/06/24 20:59 2.5 mg BID LAURA Administration Aspirin 81 mg 10/09/24 09:00 10/16/24 10:02 Aspirin Ec 81 Mg Tabec PO 11/08/24 08:59 81 mg QDAY LAURA Administration Atorvastatin Calcium 40 mg 10/07/24 21:00 10/15/24 20:30 Atorvastatin Calcium 20 Mg Tablet PO 11/06/24 20:59 40 mg HS LAURA Administration Clopidogrel Bisulfate 75 mg 10/09/24 09:00 10/16/24 10:02 Clopidogrel Bisulfate 75 Mg Tablet PO 11/08/24 08:59 75 mg QDAY LAURA Administration Finasteride 5 mg 10/08/24 09:00 10/16/24 10:02 Finasteride 5 Mg Tablet PO 11/07/24 08:59 5 mg QDAY LAURA Administration Hydralazine HCl 10 mg 10/08/24 18:43 10/13/24 16:42 Hydralazine Inj 20 Mg/Ml Vial IV 11/07/24 18:40 10 mg Q6H PRN Administration SBP > 180 Metoprolol Succinate 50 mg 10/08/24 09:00 10/16/24 10:03 Metoprolol Succinate Xl 25 Mg Tabcr PO 11/07/24 08:59 50 mg QDAY LAURA Administration Ondansetron HCl 4 mg 10/07/24 20:28 Ondansetron Inj 2 Mg/Ml Inj 2 Ml IV 11/06/24 20:27 Q6H PRN NAUSEA OR VOMITING Protocol Pantoprazole Sodium 40 mg 10/08/24 09:00 10/16/24 10:03 Pantoprazole 40 Mg Tablet PO 11/07/24 08:59 40 mg QDAY LAURA Administration Sennosides 1 tab 10/07/24 20:28 Senna Tablet PO 11/06/24 20:27 QDAY PRN constipation Protocol Plan 78-year-old male with a past medical history of hypertension, hyperlipidemia, paroxysmal A-fib, CAD, and BPH was admitted to the hospital on 10/07/2024 for possible acute CVA and possible GI blood with acute anemia. 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 BRAN appears normal with no evidence for thrombus. Mild MR, TR & AI. ? In-house neurology consulted, appreciate recommendations ? Follow-up with neurology outpatient and obtain repeat EEG ? Physical therapy recommending SNF ? Aspirin, plavix, atorvastatin 40 mg #Normocytic anemia, stable Hemoglobin 8.3 on admission, dropped to 6.6 and transfused total 2 units pRBC Reticulocyte elevated at 3.8%, iron panel normal, LDH normal, B12 and folate normal EGD only showed erythematous duodenopathy without bleeding and erythematous gastric mucosa Colonoscopy showed hemorrhoids, polyp s/p biopsy, and diverticulosis without signs of bleeding ? GI consulted, appreciate recommendations ? Transfuse if hemoglobin less than 8 given history of CAD #History of CAD #S/p left subclavian stent #Severe triple vessel disease pending CABG History of left subclavian stent placed 1 week ago and on aspirin and plavix but have since been held given low hemoglobin. Follows Dr. Jama, who has been consulted, and also pending CABG in following weeks. ? Cardiology consulted, appreciate recommendations ? Aspirin, plavix, statin as above #Acute kidney injury, likely prerenal, resolved May be in setting of prerenal dehydration in combination with postrenal as patient has history of BPH. Initial Creatinine 2.1 (baseline around 1.2), BUN 35. Today Creatinine 1.2 ? Avoid nephrotoxic agents, renally dose medications #Atrial Fibrillation Rate-controlled on amiodarone, anticoagulated with Eliquis ? Continue amiodarone 200 mg p.o. BID ? Continue Eliquis ? Monitor on telemetry #History of BPH ? Finasteride 5 mg p.o. daily #History of hypertension ? Metoprolol succinate 100 mg p.o. daily ? Amlodipine 5 mg p.o. daily #Hyponatremia, resolved #Hypokalemia, resolved Disposition: Pending insurance auth y. Diet: Cardiac GI prophylaxis: Protonix DVT prophylaxis: Eliquis Code: DNR Case disclosed with Attending Dr. Kitty Pena PGY1 Attending Provider Attestation/Addendum I reviewed labs, imaging, EKG, home medications and prior available records. Face to face evaluation was performed by me. I have personally examined the patient and discussed assessment and plan with the IM team. I reviewed the resident note and agree with the plan with exceptions as below. Acute CVA Acute encephalopathy CAD with severe vessel disease Atrial fibrillation with controlled ventricular rhythm Possible GI bleed SOFIYA, resolved Status post BRYAN on 10/13 that showed no thrombus Discussed resuming Eliquis with cardiology who gave the okay Restarted aspirin and Plavix Outpatient follow-up with neurology Status post colonoscopy that showed hemorrhoids and small polyp without bleeding. PT recommended SNF. He is pending authorization
--- NOTE | 2024-10-16 13:51 | PD.RESPRO ---
Documentation for date of: 10/16/24 Subjective Subjective Interval history: Patient was seen and examined by the bedside. No acute overnight events. Patient is feeling well. Pending DC to SNF. Will follow-up with Dr. Zeng. Exam Vital Signs Temp Pulse Resp BP Pulse Ox O2 Del Method O2 Flow Rate 98.6 F 68 16 163/65 H 98 Room Air 3 10/16/24 08:00 10/16/24 10:03 10/16/24 08:00 10/16/24 10:03 10/16/24 08:00 10/16/24 08:00 10/11/24 19:39 Narrative Exam Gen: Chronically ill-appearing elderly male. Resting in bed. HEENT: NCAT, PERRLA, EOMI, MMM, anicteric conjunctivae. CVS: normal S1 and S2. RRR. No M/R/G. Resp: CTA B/L. No rhonchi, rales, crackles or wheezing. Abd: soft, non-tender, non-distended. BS+ in all 4 quadrants. MSK: Good ROM in BUE & BLE. No edema or rash. Neuro: CN II-XII grossly intact. Strength 5/5 in BUE & BLE. Alert and oriented x3. Objective Labs 10/15/24 05:43 10/15/24 05:43 Labs: Laboratory Results - last 24 hr 10/07/24 21:55 Haptoglobin 203 Quality Measures Quality Measures stroke Suspected type of Stroke: TIA Tenecteplase given: Reason(s) Tenecteplase not given: Use of NOAC (eliquis, xarelto, or pradaxa) not given Rehab services: PT evaluation ordered VTE Prophylaxis: pharmaceutical Antithrombotic by day 2:: ordered and contraindicated (describe) (initially susp GI bleed) Statin ordered: >75 y/o moderate or high intensity dose Anticoagulation ordered for A-fib or flutter (current or hx): not indicated Advance care planning discussed with:: other Assessment & Plan Assessment Current Active Medications: Generic Name Dose Route Start Last Admin Trade Name Freq PRN Reason Stop Dose Admin Acetaminophen 650 mg 10/07/24 20:28 Acetaminophen 325 Mg Tablet PO 11/06/24 20:27 Q6H PRN Fever >100.3 or pain Amiodarone HCl 200 mg 10/07/24 21:00 10/16/24 10:02 Amiodarone Hcl 200 Mg Tablet PO 11/06/24 20:59 200 mg BID LAURA Administration Amlodipine Besylate 5 mg 10/08/24 09:00 10/16/24 10:03 Amlodipine Besylate 5 Mg Tablet PO 11/07/24 08:59 5 mg QDAY LAURA Administration Apixaban 2.5 mg 10/07/24 21:00 10/16/24 10:03 Apixaban 2.5 Mg Tablet PO 11/06/24 20:59 2.5 mg BID LAURA Administration Aspirin 81 mg 10/09/24 09:00 10/16/24 10:02 Aspirin Ec 81 Mg Tabec PO 11/08/24 08:59 81 mg QDAY LAURA Administration Atorvastatin Calcium 40 mg 10/07/24 21:00 10/15/24 20:30 Atorvastatin Calcium 20 Mg Tablet PO 11/06/24 20:59 40 mg HS LAURA Administration Clopidogrel Bisulfate 75 mg 10/09/24 09:00 10/16/24 10:02 Clopidogrel Bisulfate 75 Mg Tablet PO 11/08/24 08:59 75 mg QDAY LAURA Administration Finasteride 5 mg 10/08/24 09:00 10/16/24 10:02 Finasteride 5 Mg Tablet PO 11/07/24 08:59 5 mg QDAY LAURA Administration Hydralazine HCl 10 mg 10/08/24 18:43 10/13/24 16:42 Hydralazine Inj 20 Mg/Ml Vial IV 11/07/24 18:40 10 mg Q6H PRN Administration SBP > 180 Metoprolol Succinate 50 mg 10/08/24 09:00 10/16/24 10:03 Metoprolol Succinate Xl 25 Mg Tabcr PO 11/07/24 08:59 50 mg QDAY LAURA Administration Ondansetron HCl 4 mg 10/07/24 20:28 Ondansetron Inj 2 Mg/Ml Inj 2 Ml IV 11/06/24 20:27 Q6H PRN NAUSEA OR VOMITING Protocol Pantoprazole Sodium 40 mg 10/08/24 09:00 10/16/24 10:03 Pantoprazole 40 Mg Tablet PO 11/07/24 08:59 40 mg QDAY LAURA Administration Sennosides 1 tab 10/07/24 20:28 Senna Tablet PO 06/09/25 20:27 QDAY PRN constipation Protocol Plan The patient is a 78-year-old male with a past medical history of hypertension, hyperlipidemia, paroxysmal A-fib, CAD, and BPH who presented with acute onset weakness, short episode of aphasia, and diaphroesis. Admitted for CVA rule out, metabolic encephalopathy, and SOFIYA. 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 Bigger concern is acute encephalopathy due to metabolic reasons/bleeding. Due to extensive stenosis of extra- and intra-cranial arteries, patient requires aggressive risk factor modification and anticoagulation when the bleeding is ruled out/controlled. Speech therapy saw the patient, assessment negative for dysphagia. 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 Plan: ? BRYAN with bubble study negative PFO, intracardiac thrombus. ? Pending SNF placement ? Aspirin 81 mg and Plavix 75 mg qday ? Atorvastatin 40 mg p.o. at bedtime ? Blood pressure control - EEG showed frontal and central spikes, will recommend to repeat EEG outpatient - Follow-up with Dr. Zeng in 2 weeks #Normocytic anemia #? GI bleed #History of CAD #Acute kidney injury, likely prerenal, improving #Atrial Fibrillation #History of BPH #History of hypertension #Hyponatremia, resolved #Hypokalemia, resolved - management per primary team Plan of care discussed with attending Dr. Zeng. Mesha Hale MD, PGY 1. Attending Provider Attestation/Addendum I personally have seen and examined the patient at the bedside and I agree with resident's findings, assessment and plan of care. Will continue with the current management. Patient is stable for discharge to rehab
[2024-10-16] MEDS: ATORVASTATIN CALCIUM 20 MG TABLET 40 MG PO (21:04)
[2024-10-17] VITALS (7 sets, daily range): BP systolic 134–153; BP diastolic 61–69; PULSE 61–74; RESP 15–20; TEMP 36.2–36.8; O2SAT 94–99; BMI 18.1
[2024-10-17 05:45] LABS: Basophils % (Auto) 1 % (0-2.5); Eosinophils # (Auto) 0.4 Thou/mm3 (0.0-0.5); Eosinophils % (Auto) 5 % (0-10); Hematocrit 26.1 % (41.0-53.0); Immature Granulocytes % (Auto) 0 % (0-0); Immature Granulocytes Auto 0.02 Thou/mm3 (0.00-0.00); Lymphocytes % (Auto) 13 % (10-50); Mean Corpuscular HGB Conc 34.5 g/dl (31.0-37.0); Mean Corpuscular Volume 93 fL (80-100); Monocytes # (Auto) 0.8 Thou/mm3 (0.0-0.8); Monocytes % (Auto) 11 % (0-12); Neutrophils # (Auto) 5.4 Thou/mm3 (1.8-7.7); Neutrophils % (Auto) 71 % (37-80); Nucleated Red Blood Cell % 0 /100 WBC (0); Platelet Count 262 Thou/mm3 (140-440); RDW Standard Deviation 48.7 fL (35.1-43.9); Red Blood Count 2.81 Miln/mm3 (4.50-5.90); White Blood Count 7.6 Thou/mm3 (3.8-10.6)
[2024-10-17 06:19] LABS: Alanine Aminotransferase 14 U/L (10-49); Albumin, Serum 3.6 gm/dL (3.4-4.8); Albumin/Globulin Ratio 1.7 (1.2-2.2); Alkaline Phosphatase 75 U/L (46-116); Anion Gap 8 (7-16); Aspartate Amino Transferase 16 U/L (0-34); BUN/Creatinine Ratio 21 Ratio (12-20); Bilirubin,Total 0.5 mg/dL (0.3-1.2); Blood Urea Nitrogen 30 mg/dL (9-23); Calcium 8.6 mg/dL (8.3-10.6); Calcium (Corrected) 8.9 mg/dL (8.5-10.1); Carbon Dioxide 22.1 mMol/L (20.0-31.0); Chloride 105 mMol/L (98-107); Creatinine (Component) 1.4 mg/dL (0.6-1.3); Globulin 2.1 gm/dL (2.3-3.5); Glucose 103 mg/dL (74-106); Magnesium 1.7 mg/dL (1.6-2.6); Osmolality,Calculated 276 (275-295); Potassium 3.9 mMol/L (3.4-5.1); Sodium 135 mMol/L (136-145); Total Protein 5.7 gm/dL (5.7-8.2); eGFR 52 See Note
--- NOTE | 2024-10-17 08:47 | PC.SS ---
Addendum entered by CARLOS Ceron 10/17/24 13:36: ETA with [facility] 6:45pm. Bed side nurse Lata and Ema at [facility] are aware. Addendum entered by CARLOS Ceron 10/17/24 13:07: Patient is aware of the d/c plan for today. No further questions at this time. Addendum entered by CARLOS Ceron 10/17/24 12:46: Bed side nurse Lata is aware, pending ETA. Addendum entered by CARLOS Ceron 10/17/24 12:38: Pending ETA with [facility]. PAS[facility] sent via e-file exchange to facility. Addendum entered by CARLOS Ceron 10/17/24 12:29: Patient's son, Tyler returned call and confirmed the d/c plan to [facility]. Tyler requesting transportation to be arranged for the patient. Per [facility] SS to arrange transport on behalf of the patient. Addendum entered by CARLOS Ceron 10/17/24 12:27: Received a call from [place] SW: Talisha Gr, informing that authorization for SNF was obtained. Spoke with Ema at [facility] and she confirmed authorization was obtained and emailed to her. Ema is requesting patient to arrive after 1630 today to accommodate his bed/room. Attempted contact with patient's son, Tyler Gan, unavailable and voicemail was provided. Addendum entered by CARLOS Ceron 10/17/24 10:30: Sent updated clinicals and PT notes to [facility] via [employer] platform. Addendum entered by CARLOS Ceron 10/17/24 10:28: Faxed updated clinicals to [place] SW: Talisha Gr at fax: [phone]. Addendum entered by CARLOS Ceron 10/17/24 08:52: SS follow up: attempted contact with [place] worker, Talisha Gr at in regards to status on insurance authorization. She was unavailable and a voicemail was provided with call back number. Original Note: SS follow up: Spoke with Ema from [facility] and she informs authorization remains pending. Per Ema she has already tried reaching out to the [facility] worker this morning and is waiting for a call back from them to get an update.
[2024-10-17] MEDS: ASPIRIN EC 81 MG TABEC PO (09:11)
[2024-10-17] MEDS: FINASTERIDE 5 MG TABLET PO (09:11)
[2024-10-17] MEDS: APIXABAN 2.5 MG TABLET PO (09:12)
[2024-10-17] MEDS: CLOPIDOGREL BISULFATE 75 MG TABLET PO (09:12)
[2024-10-17] MEDS: PANTOPRAZOLE 40 MG TABLET PO (09:12)
[2024-10-17] MEDS: AMIODARONE HCL 200 MG TABLET PO (09:12)
[2024-10-17] MEDS: METOPROLOL SUCCINATE XL 25 MG TABCR 50 MG PO (09:12)
[2024-10-17] MEDS: amLODIPine BESYLATE 5 MG TABLET PO (09:13)
--- NOTE | 2024-10-17 15:19 | PD.RESPRO ---
Documentation for date of: 10/17/24 Subjective Subjective Interval history: Patient was seen and examined by the bedside. No acute overnight events. Patient is feeling well. Pending discharge to SNF. Exam Vital Signs Temp Pulse Resp BP Pulse Ox O2 Del Method O2 Flow Rate 97.1 F 64 18 145/64 H 95 Room Air 3 10/17/24 12:00 10/17/24 12:00 10/17/24 12:00 10/17/24 12:00 10/17/24 12:00 10/17/24 12:00 10/11/24 19:39 Narrative Exam Gen: Chronically ill-appearing elderly male. Resting in bed. HEENT: NCAT, PERRLA, EOMI, MMM, anicteric conjunctivae. CVS: normal S1 and S2. RRR. No M/R/G. Resp: CTA B/L. No rhonchi, rales, crackles or wheezing. Abd: soft, non-tender, non-distended. BS+ in all 4 quadrants. MSK: Good ROM in BUE & BLE. No edema or rash. Neuro: CN II-XII grossly intact. Strength 5/5 in BUE & BLE. Alert and oriented x3. Objective Labs 10/17/24 05:26 10/17/24 05:26 Labs: Laboratory Results - last 24 hr 10/17/24 05:26 WBC 7.6 RBC 2.81 L Hgb 9.0 L Hct 26.1 L MCV 93 MCH 32.0 MCHC 34.5 RDW Std Deviation 48.7 H Plt Count 262 Neut % (Auto) 71 Lymph % (Auto) 13 Hutchinson % (Auto) 11 Eos % (Auto) 5 Baso % (Auto) 1 Neut # (Auto) 5.4 Lymph # (Auto) 1.0 Hutchinson # (Auto) 0.8 Eos # (Auto) 0.4 Baso # (Auto) 0.0 Immature Gran # (Auto) 0.02 H Absolute Nucleated RBC 0.00 Immature Gran % 0 Nucleated RBC % 0 Sodium 135 L Potassium 3.9 Chloride 105 Carbon Dioxide 22.1 Anion Gap 8 BUN 30 H Creatinine 1.4 H Estim Creat Clear Calc 34.0 L eGFR 52 L BUN/Creatinine Ratio 21 H Glucose 103 Calculated Osmolality 276 Calcium 8.6 Corrected Calcium 8.9 Magnesium 1.7 Total Bilirubin 0.5 AST 16 ALT 14 Alkaline Phosphatase 75 Total Protein 5.7 Albumin 3.6 Globulin 2.1 L Albumin/Globulin Ratio 1.7 Quality Measures Quality Measures stroke Suspected type of Stroke: TIA Tenecteplase given: Reason(s) Tenecteplase not given: Use of NOAC (eliquis, xarelto, or pradaxa) not given Rehab services: PT evaluation ordered and Speech Language Pathology eval ordered VTE Prophylaxis: pharmaceutical Antithrombotic by day 2:: contraindicated (describe) (initially susp GI bleed) Statin ordered: >75 y/o moderate or high intensity dose Anticoagulation ordered for A-fib or flutter (current or hx): ordered Advance care planning discussed with:: other Assessment & Plan Assessment Current Active Medications: Generic Name Dose Route Start Last Admin Trade Name Freq PRN Reason Stop Dose Admin Acetaminophen 650 mg 10/07/24 20:28 Acetaminophen 325 Mg Tablet PO 11/06/24 20:27 Q6H PRN Fever >100.3 or pain Amiodarone HCl 200 mg 10/07/24 21:00 10/17/24 09:12 Amiodarone Hcl 200 Mg Tablet PO 11/06/24 20:59 200 mg BID LAURA Administration Amlodipine Besylate 5 mg 10/08/24 09:00 10/17/24 09:13 Amlodipine Besylate 5 Mg Tablet PO 11/07/24 08:59 5 mg QDAY LAURA Administration Apixaban 2.5 mg 10/07/24 21:00 10/17/24 09:12 Apixaban 2.5 Mg Tablet PO 11/06/24 20:59 2.5 mg BID LAURA Administration Aspirin 81 mg 10/09/24 09:00 10/17/24 09:11 Aspirin Ec 81 Mg Tabec PO 11/08/24 08:59 81 mg QDAY LAURA Administration Atorvastatin Calcium 40 mg 10/07/24 21:00 10/16/24 21:04 Atorvastatin Calcium 20 Mg Tablet PO 11/06/24 20:59 40 mg HS LAURA Administration Clopidogrel Bisulfate 75 mg 10/09/24 09:00 10/17/24 09:12 Clopidogrel Bisulfate 75 Mg Tablet PO 11/08/24 08:59 75 mg QDAY LAURA Administration Finasteride 5 mg 10/08/24 09:00 10/17/24 09:11 Finasteride 5 Mg Tablet PO 11/07/24 08:59 5 mg QDAY LAURA Administration Hydralazine HCl 10 mg 10/08/24 18:43 10/13/24 16:42 Hydralazine Inj 20 Mg/Ml Vial IV 11/07/24 18:40 10 mg Q6H PRN Administration SBP > 180 Metoprolol Succinate 50 mg 10/08/24 09:00 10/17/24 09:12 Metoprolol Succinate Xl 25 Mg Tabcr PO 11/07/24 08:59 50 mg QDAY LAURA Administration Ondansetron HCl 4 mg 10/07/24 20:28 Ondansetron Inj 2 Mg/Ml Inj 2 Ml IV 11/06/24 20:27 Q6H PRN NAUSEA OR VOMITING Protocol Pantoprazole Sodium 40 mg 10/08/24 09:00 10/17/24 09:12 Pantoprazole 40 Mg Tablet PO 11/07/24 08:59 40 mg QDAY LAURA Administration Sennosides 1 tab 10/07/24 20:28 Senna Tablet PO 11/06/24 20:27 QDAY PRN constipation Protocol Plan The patient is a 78-year-old male with a past medical history of hypertension, hyperlipidemia, paroxysmal A-fib, CAD, and BPH who presented with acute onset weakness, short episode of aphasia, and diaphroesis. Admitted for CVA rule out, metabolic encephalopathy, and SOFIYA. 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 Bigger concern is acute encephalopathy due to metabolic reasons/bleeding. Due to extensive stenosis of extra- and intra-cranial arteries, patient requires aggressive risk factor modification and anticoagulation when the bleeding is ruled out/controlled. Speech therapy saw the patient, assessment negative for dysphagia. 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 Since the source of the clots could be both embolic and atherothrombotic, patient would require combination of Eliquis and Plavix. Plan: ? BRYAN with bubble study negative PFO, intracardiac thrombus. ? Pending SNF placement ? Continue Eliquis 2.5 mg and Plavix 75 mg qday - Stop aspirin 81 mg qday ? Atorvastatin 40 mg p.o. at bedtime ? Blood pressure control - EEG showed frontal and central spikes, will recommend to repeat EEG outpatient - Follow-up with Dr. Zeng in 2 weeks #Normocytic anemia #? GI bleed #History of CAD #Acute kidney injury, likely prerenal, improving #Atrial Fibrillation #History of BPH #History of hypertension #Hyponatremia, resolved #Hypokalemia, resolved - management per primary team Plan of care discussed with attending Dr. Zeng. Mesha Hale MD, PGY 1. Attending Provider Attestation/Addendum I personally have seen and examined the patient at the bedside and I agree with resident's findings, assessment and plan of care. Will continue with the current management on Eliquis and plavix with close monitoring for bleeding. Patient is stable for discharge to rehab and fu with me in 2 weeks.
--- NOTE | 2024-10-17 16:41 | PC.NURSE ---
Attempted to call [facility] [place] to give report regarding patients discharge to facility. Was on hold for approx 10min. Will reattempt to call before end of shift as patients ETA is 1845.
--- NOTE | 2024-10-17 16:44 | PD.RESDS ---
Planned Discharge Date 10/17/24 DS: Providers Provider Date of admission: 10/07/24 19:38 Primary care physician: Physician No Primary/Family Admitting Provider: Tyler Muñoz MD Attending Provider on Admission: Tyron Garcia MD Consults: 10/07/24 18:15 Consult to Neurology / Tele-Neurology Routine Comment: Consulting Provider: [facility] 10/07/24 21:45 Consult to Neurology / Tele-Neurology Routine Comment: acute CVA workup Consulting Provider: Stanford Zeng 10/07/24 21:48 Referral Physical Therapy Routine Comment: Physician Instructions: 10/08/24 06:22 Consult to Gastroenterology Routine Comment: Consulting Provider: Landry Goyal 10/08/24 14:38 Consult to Cardiology Routine Comment: Consulting Provider: Nicole Jama Instructions: L subclavian stent 1 week ago, pending CABG in a few weeks on ASA, plavix, and eliquis -> plavix and eliquis held Bleeding with hemoglobin 6.6, transfusing 2 units pRBC 10/08/24 15:37 Referral Speech Therapy Routine Comment: Swallow evaluation, CVA rule out Attending Provider on DC: Tyron Garcia MD Discharging Provider: Tyron Garcia MD DS: Diagnosis Problem List Completed Was Problem List Reviewed/Reconciled?: Yes Hospital Course Hospital Course Hospital course: 78-year-old male with a past medical history of hypertension, hyperlipidemia, paroxysmal A-fib, CAD, and BPH was admitted to the hospital on 10/07/2024 for acute CVA and possible GI blood with acute anemia. Throughout the patient's hospital admission he was found to have acute infarcts of bilateral cerebellar hemispheres, karan, left vermis, right temporal lobe, bilateral occipital lobes, posterior right parietal lobe, and left frontal lobe. Patient also had an EGD which only showed some erythematous mucosa in the gastric antrum and duodenum, but no bleed and a colonoscopy done which only showed hemorrhoids and some polyps which were resected for and sent for pathology. Given the patient had multiple infarcts and echo was negative for any PFO BRYAN was done which did not show any thrombus or PFO either. Patient also had an EEG done which only showed frontal and central spikes and neurology recommended to do an outpatient EEG. Patient was seen by neurology inpatient as well as cardiology and GI specialist. Cardiology wanted to continue with Eliquis after there was no signs of bleeding and neurology was okay to discharge patient on Plavix and Eliquis and to hold aspirin. Patient remained stable throughout his hospital stay and his aphasia resolved as well as his encephalopathy. Patient's hospital stay was delayed given that he was pending placement with got delayed given that patient was a better. At the time of discharge patient was stable enough to be discharged. Discharge plan: ? Continue taking plavix for stroke ? Will stop Aspirin for now due to increased risk of bleeding ? Your eliquis dosage was decreased from 5 mg to 2.5 mg twice daily ? Your metoprolol succinate dosage was decreased from 100 to 50 mg daily ? Continue taking all other home medications as prescribed ? Please have your Hgb and Hct periodically check with your PCP ? Follow-up with neurologist, Dr. Zeng, outpatient within 2 weeks of discharge and obtain EEG ? Follow-up with PCP within 1-2 weeks of discharge ? If you do not have a PCP, you can follow-up at the [facility] (you can call [phone] to make an appointment) ? If you wish to follow-up with Dr. Lazaro, schedule appointment on Wednesday afternoons ? Return to ED if symptoms worsen or recur, or any signs of overt bleeding seen Problem list: #Acute CVA #Acute encephalopathy, resolved #Aphasia, resolved #Normocytic anemia, stable #History of CAD #Atrial Fibrillation #S/p left subclavian stent #Severe triple vessel disease pending CABG #Acute kidney injury, likely prerenal, resolved #Hyponatremia, resolved #Hypokalemia, resolved #History of hypertension #History of BPH Case disclosed with Attending Dr. Radha Pena PGY1 Status at Discharge Overall status at discharge: patient is progressing back to baseline Time Spent with Patient Time attestation: Total time spent providing and/or coordinating discharge services:30 min Time spent: Less than 30 minutes Exam Vital Signs Temp Pulse Resp BP Pulse Ox O2 Del Method O2 Flow Rate 97.3 F 61 20 146/65 H 95 Room Air 3 10/17/24 16:00 10/17/24 16:00 10/17/24 16:00 10/17/24 16:00 10/17/24 16:10/17/24 16:00 10/11/24 19:39 Narrative Exam General: A/O x3, no acute distress Eyes: PERRL, EOMI. Anicteric, vision grossly intact. Ears: No ear pain, no ear discharge, Hearing grossly intact. Nose: No nasal discharge. Mouth/Throat: Moist mucous membranes, no redness, no lesions. Neck: Neck supple, non-tender, no cervical lymphadenopathy. Lungs: Clear DIAN to auscultation and percussion, No accessory muscle use. Cardio: Normal S1/S2, regular rhythm, no murmurs appreciated. Abdomen: Soft, non-tender, no palpable masses, peristalsis present, no guarding or rebound. Extremities: Symmetrical, no significant deformities, no peripheral edema , non-tender, peripheral pulses presents. Skin: No rashes, no lesions, warm to touch. Neuro: No focal neurological deficits, motor and sensory intact, muscle strength bilaterally upper and lower extremities, no dysmetria or aphasia Discharge Plan Plan Patient Disposition: er Skilled [facility] [place] [place] [facility] (SNF) Patient condition on transfer: Stable and Benefits outweigh risks Care Plan Goals: ? Continue taking plavix for stroke ? Will stop Aspirin for now due to increased risk of bleeding ? Your eliquis dosage was decreased from 5 mg to 2.5 mg twice daily ? Your metoprolol succinate dosage was decreased from 100 to 50 mg daily ? Continue taking all other home medications as prescribed ? Please have your Hgb and Hct periodically check with your PCP ? Follow-up with neurologist, Dr. Zeng, outpatient within 2 weeks of discharge and obtain EEG ? Follow-up with PCP within 1-2 weeks of discharge ? If you do not have a PCP, you can follow-up at the [facility] (you can call [phone] to make an appointment) ? If you wish to follow-up with Dr. Lazaro, schedule appointment on Wednesday afternoons ? Return to ED if symptoms worsen or recur, or any signs of overt bleeding seen Prescriptions/Referrals Prescriptions/Med Rec: New metoprolol succinate 50 mg capsule,sprinkle,ER 24hr 50 mg PO QDAY Qty: 30 0RF Eliquis 2.5 mg tablet 2.5 mg PO BID 30 Days Qty: 60 0RF Continued finasteride 5 mg Tablet 5 mg PO QDAY celecoxib 200 mg Capsule 200 mg PO QDAY PRN (Reason: pain) Qty: 7 0RF omeprazole 20 mg Capsule,Delayed Release(Dr/Ec) 20 mg PO QDAY PRN (Reason: Acid Reflux) Qty: 10 0RF clopidogrel 75 mg tablet 75 mg PO DAILY atorvastatin 80 mg tablet 80 mg PO QDAY amlodipine 5 mg tablet 5 mg PO QDAY amiodarone 200 mg tablet 200 mg PO QDAY Held metoprolol succinate 100 mg tablet extended release 24 hr 150 mg PO QDAY Hold Instructions: Resume on 10/28/24. Discontinued aspirin 81 mg Tablet,Delayed Release (Dr/Ec) 81 mg PO QDAY apixaban 5 mg tablet 5 mg PO BID Referrals: No Primary/Family,Physician [Primary Care Provider] - Patient/Caregiver Discharge Instructions Meds to Beds: No Discharge Activity: walk with walker only, as per physical therapy and activity as tolerated Education Materials: Discharge Instructions for Stroke, Stroke Self Care After Print Language: Urdu Stand Alone Forms: Becky Award Info., Patient Portal Info Letter Discharge Order Discharge Orders: Discharge (Routine); Ordered 10/17/24 Ordered By: Malgorzata Zeng Quality Discharge Quality Measures VTE prophylaxis Attestestation MD Attestation I attest that I was physically present for the evaluation, physical examination, lab and imaging review of the patient with the residents. I discussed the case with the residents and agree with the findings and plans of care as documented above. Tyron Garcia MD
--- NOTE | 2024-10-17 17:06 | PD.IMPROG ---
Documentation for date of: 10/17/24 Subjective Subjective Interval history: Patient evaluated Hemoglobin hematocrit stable Exam Vital Signs Temp Pulse Resp BP Pulse Ox O2 Del Method O2 Flow Rate 97.3 F 61 20 146/65 H 95 Room Air 3 10/17/24 16:00 10/17/24 16:00 10/17/24 16:00 10/17/24 16:00 10/17/24 16:00 10/17/24 16:00 10/11/24 19:39 Objective Labs 10/17/24 05:26 10/17/24 05:26 Labs: Laboratory Results - last 24 hr 10/17/24 05:26 WBC 7.6 RBC 2.81 L Hgb 9.0 L Hct 26.1 L MCV 93 MCH 32.0 MCHC 34.5 RDW Std Deviation 48.7 H Plt Count 262 Neut % (Auto) 71 Lymph % (Auto) 13 Millard % (Auto) 11 Eos % (Auto) 5 Baso % (Auto) 1 Neut # (Auto) 5.4 Lymph # (Auto) 1.0 Millard # (Auto) 0.8 Eos # (Auto) 0.4 Baso # (Auto) 0.0 Immature Gran # (Auto) 0.02 H Absolute Nucleated RBC 0.00 Immature Gran % 0 Nucleated RBC % 0 Sodium 135 L Potassium 3.9 Chloride 105 Carbon Dioxide 22.1 Anion Gap 8 BUN 30 H Creatinine 1.4 H Estim Creat Clear Calc 34.0 L eGFR 52 L BUN/Creatinine Ratio 21 H Glucose 103 Calculated Osmolality 276 Calcium 8.6 Corrected Calcium 8.9 Magnesium 1.7 Total Bilirubin 0.5 AST 16 ALT 14 Alkaline Phosphatase 75 Total Protein 5.7 Albumin 3.6 Globulin 2.1 L Albumin/Globulin Ratio 1.7 Impressions Impression: Gastritis Cecal polyps Continue current management Assessment & Plan A&P Narrative BRYAN wednesday Time Spent With Patient Time: Total time spent is greater than 50% in coordination of care (as documented) at patient's floor/unit and/or counseling patient:
--- NOTE | 2024-10-17 18:10 | PC.NURSE ---
Report called to [facility]; Report given to ISAAC Proctor and given ETA of 1845.
== END 2024-10-17 18:44 | disposition skilled nursing facility (03) | DRG 64 ==
LOC: SERX 19:32 → SERHOLD 19:48 → S2NX 10-09 01:54 → S3NX 10-15 04:51
PROVIDERS: Internal Medicine; Specialist; Admitting Provider Internal Medicine; Emergency Provider Emergency Medicine; Visit Provider Student in an Organized Health Care Education/Training Program
PROC: (CPT 43239; principal; 2024-10-09 15:00)
PROC: 0DJD8ZZ Inspection of Lower Intestinal Tract, Via Natural or Artificial Opening Endoscopic (ICD-10-PCS; CPT 45378; principal; 2024-10-11 15:00)
DX: I63.9 Cerebral infarction, unspecified (principal); G93.41 Metabolic encephalopathy; K21.01 Gastro-esophageal reflux disease with esophagitis, with bleeding; E87.1 Hypo-osmolality and hyponatremia; N17.9 Acute kidney failure, unspecified; I25.10 Atherosclerotic heart disease of native coronary artery without angina pectoris; I48.0 Paroxysmal atrial fibrillation; E78.00 Pure hypercholesterolemia, unspecified; N40.0 Benign prostatic hyperplasia without lower urinary tract symptoms; I10 Essential (primary) hypertension; I65.01 Occlusion and stenosis of right vertebral artery; E86.0 Dehydration; D50.0 Iron deficiency anemia secondary to blood loss (chronic); D64.9 Anemia, unspecified; E87.6 Hypokalemia; Z66 Do not resuscitate; R79.89 Other specified abnormal findings of blood chemistry; I25.2 Old myocardial infarction; K29.70 Gastritis, unspecified, without bleeding; K29.80 Duodenitis without bleeding; K31.89 Other diseases of stomach and duodenum; K57.30 Diverticulosis of large intestine without perforation or abscess without bleeding; Z95.5 Presence of coronary angioplasty implant and graft; K63.5 Polyp of colon; I65.23 Occlusion and stenosis of bilateral carotid arteries; I69.320 Aphasia following cerebral infarction; K64.8 Other hemorrhoids; I51.3 Intracardiac thrombosis, not elsewhere classified; Z79.01 Long term (current) use of anticoagulants; R29.700 NIHSS score 0; Z79.02 Long term (current) use of antithrombotics/antiplatelets; Z87.891 Personal history of nicotine dependence; Z79.82 Long term (current) use of aspirin; Z79.899 Other long term (current) drug therapy; Z95.1 Presence of aortocoronary bypass graft
CPT/HCPCS: 36415; 36430; 36600; 70450; 70496; 70498; 70544; 80053; 80061; 80307; 80320; 81001; 82140; 82607; 82746; 82803; 83010; 83036; 83540; 83550; 83615; 83735; 83880; 84100; 84145; 84443; 84484; 85014; 85018; 85025; 85046; 85730; 86850; 86900; 86901; 86923; 87086; 87400; 87811; 92523; 92526; 93005; 93225; 93306; 93312; 95816; 96360; 96374; 97162; 99285; A4649; J0360; J1200; J2250; J2470; J3010; J3475; J3490; J7030; P9016; Q9967; A9270; G0480; J1920